=== PATIENT | female | born 1980 | race Caucasian/White ===

== ENCOUNTER 2024-09-19 12:26 | Emergency (ER) | payer SELFPAY ==
[2024-09-19 12:27] VITALS: BP 139/81; PULSE 61; RESP 16; TEMP 36.2; O2SAT 99; BMI 32.8
--- NOTE | 2024-09-19 12:49 | ED.VIS.BACK ---
HPI History of Present Illness Chief Complaint: Back Detail of Chief Complaint: Right flank pain sudden onset an hour ago. Informant: patient Onset/Context/Timing Onset: Today Context: Sudden Onset Timing: Continuous Quality: Sharp Current Severity: Moderate Maximum Severity: Moderate Worsened by: improves with Nothing Associated Symptoms Associated Symptoms: Negative for Numbness, Tingling, Radiation to Right Leg, Radiation to Left Leg, Fever, Abdominal Pain, Dysuria, Unable to Ambulate, Unable to Transfer, Urinary Retention, Urinary Incontinence, Constipation or Fecal Incontinence Narrative Narrative: 44-year-old female history of prior kidney stone prior hysterectomy. Prior cholecystectomy. States about an hour ago she developed right lower flank pain. Denies nausea, vomiting or diarrhea. No dysuria or hematuria. No pain radiating to her leg. No weakness in her lower extremities. No fall or trauma. Prior similar symptoms: Yes Recent Illness/Hospitalization: No PFSH PFSH Home Medications ?Medication ?Instructions ?Recorded ?Last Taken ?Type Control 1 tab DAILY 09/15/16 Unknown History oxycodone-acetaminophen 5 mg-325 1 - 2 tab PO Q4H PRN PRN Pain #12 09/15/16 Unknown Rx mg tablet tabs sulfamethoxazole 800 1 tab PO BID ##6 09/15/16 Unknown Rx mg-trimethoprim 160 mg tablet oxycodone-acetaminophen 5 mg-325 1 tab PO Q4H PRN pain 3 days #14 09/19/24 Unknown Rx mg tablet (Percocet) tabs Allergy/AdvReac Type Severity Reaction Status Date / Time hydromorphone (From Dilaudid) AdvReac VIOLENT Verified 09/19/24 12:29 BEHAVIOR ibuprofen AdvReac BARIATRIC Verified 09/19/24 12:29 SURGERY Social History Smoking Status: Never smoker ROS ROS ED ROS Narrative Right flank pain. No recent illness. Constitutional Constitutional ED: Denies chills or fever(s) Eyes Eyes: Denies blurry vision ENT ENT ED: Denies ear pain Cardiovascular Cardiovascular: Denies chest pain Respiratory/Chest Respiratory/Chest: Denies dyspnea Gastrointestinal Gastrointestinal: Denies abdominal pain, constipation, diarrhea, melena, nausea or vomiting Genitourinary Genitourinary ED: Denies dysuria or hematuria Musculoskeletal Musculoskeletal: Reports back pain; Denies arthralgias Integumentary Denies abscess Neurologic Neurologic: Denies headache(s) Psychiatric Psychiatric: Denies anxiety Endocrine Endocrinology: Denies cold intolerance Hematologic/Lymphatic Hematologic/Lymphatic: Denies easy bleeding Allergic/Immunologic Allergic/Immunologic ED: Denies mouth swelling EXAM Physical Exam Narrative Exam Narrative: Well-appearing middle-aged female. Vital signs stable afebrile. Does not sound toxic. Is complaining of pain. H EENT exam unremarkable. Neck nontender. Lungs clear to auscultation bilaterally. Heart regular rate and rhythm rate about 60 no murmur. Chest wall ribs nontender. Abdomen soft nontender. No peritoneal signs. No reproducible pain. No hernia or mass. No distention. Moving all 4 extremities. 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 Dorsi plantarflexion intact. No cauda equina. Negative straight leg raise. Back nontender. There is no reproducible pain on her back. Her right flank is where she complains of pain but is not reproducible. There is no signs of trauma. Skin unremarkable other multiple tattoos. She is awake and alert. No focal motor deficits. Const Vital Signs: 09/19/24 12:27 Temperature 97.2 F L Temperature Source Temporal Pulse Rate 61 Respiratory Rate 16 Blood Pressure 139/81 H Blood Pressure Mean 100 Pulse Ox 99 Oxygen Delivery Method Room Air Positive well nourished and well developed; Negative for cachectic, contractures or unkempt General Appearance ED: well developed and NAD; Negative for unkempt, cachectic, contractures or pallor Nutritional Appearance: Negative for cachectic HEENT Reports moist mucous membranes Negative for trauma or tenderness Eyes PERRL and EOMs intact bilaterally General Eye ED: Negative for pale conjunctiva or scleral icterus Neck no lymphadenopathy, supple and no JVD General: Negative for tenderness Thyroid: Negative for other Resp normal respiratory effort and clear to auscultation bilaterally Auscultation: Negative for rales, rhonchi, wheezes or diminished lung sounds Cardio regular rate, regular rhythm and S1 normal heart sound Rate: Negative for bradycardia or tachycardic Rhythm: Negative for abnormal rhythm Bruits: Negative for other GI normal to inspection, nondistended, normoactive bowel sounds, soft to palpation, non-tender, non-distended and no masses Inspection: Negative for abdominal distention Palpation: Negative for tender, guarding, pulsatile mass or rebound tenderness present Back/Spine normal to inspection and no thoracic nor lumbar tenderness General Back: Negative for CVA tenderness Cervical Spine: Negative for cervical spine tenderness and Negative for paracervical muscle tenderness Thoracic Spine / Upper Back: Negative for paraspinal muscle tenderness Lumbar Spine / Lower Back: Negative for ROM limited or straight leg raise negative bilaterally Extremity normal to inspection and no clubbing, cyanosis or edema General Extremety ED: Negative for edema or tenderness General Extremity: Negative for edema Neuro oriented x3 and no sensory deficits noted Sensorium / Orientation: alert; Negative for confused, lethargic or stuporous Motor Exam: strength 5/5 throughout Psych mental status grossly normal Appearance: Negative for unkempt Attitude: No agitated and No other Mood & Affect: Negative for depressed, sad or tearful Skin no rashes or lesions noted and no wounds General Skin Exam: Negative for jaundice or pallor Lesions: No lesion noted Rashes: No rashes noted Trauma: Negative for abrasion or puncture Wounds: Negative for wounds noted MDM MDM MDM Narrative Medical decision making narrative: 44-year-old female with right flank pain history of a kidney stone. The pain is not reproducible she has no abdominal pain. She has negative straight leg raise I do not think this is sciatica. It may or may not be a kidney stone. CAT scan labs will be obtained. She will be treated with morphine and Zofran for pain. Repeat exam patient is doing well at 2:30 PM. We discussed her test results. She will be given another dose of morphine and then discharged home. Discharged home with Percocet for pain. Zofran for nausea. She has used Percocet before in the past. She is not supposed to be on anti-inflammatories due to her prior bariatric surgery. History & Record Review Discussion w/independent historian: Patient Additional record(s) reviewed:: Prior inpatient record, Prior outpatient record, Prior ED visit and Prior labs Lab Data Attestation: I reviewed the patient's lab results. Lab results narrative: CBC shows normal white count of 7. H&H 13 and 40. Platelets 276. UA shows 150 occult blood. Negative nitrites. No white or red cells. No bacteria. Potassium 3.4. Gap 5. Normal BUN 10 creatinine 0.6. Glucose 92. Labs: Laboratory Results - last 24 hr 09/19/24 09/19/24 12:55 13:05 WBC 7.7 RBC 4.60 Hgb 13.5 Hct 40.6 MCV 88.3 MCH 29.3 MCHC 33.3 RDW Std Deviation 40.7 RDW Coeff of Sosa 12.6 Plt Count 276 MPV 9.3 Immature Gran % (Auto) 0.400 Neut % (Auto) 63.4 Lymph % (Auto) 27.6 [place]urry % (Auto) 5.7 Eos % (Auto) 2.1 Baso % (Auto) 0.8 Absolute Neuts (auto) 4.9 Absolute Lymphs (auto) 2.12 Nucleated RBC % 0 Sodium 142 Potassium 3.4 L Chloride 111 H Carbon Dioxide 26.0 Anion Gap 5 BUN 10 Creatinine 0.62 Estim Creat Clear Calc 126.54 Est GFR (MDRD) Af Amer 133 Est GFR (MDRD) Non-Af 110 BUN/Creatinine Ratio 16.1 Glucose 92 Calcium 9.0 Urine Color Yellow Urine Clarity Clear Urine pH 7.0 Ur Specific [place] 1.010 Urine Protein Negative Urine Glucose (UA) Normal Urine Ketones Negative Urine Occult Blood 150 H Urine Nitrite Negative Urine Bilirubin Negative Urine Urobilinogen Normal Ur Leukocyte Esterase 100 H Urine RBC 0-5 SEEN Urine WBC 0 SEEN Ur Squamous Epith Cells 0 SEEN Urine Bacteria 0 SEEN Urine Mucus 0 SEEN Radiography Diagnostic Testing: Clinical Impression(s) from Imaging Studies Abdomen/Pelvis CT 09/19/24 13:20 IMPRESSION: Right-sided hydroureteronephrosis secondary to a 4.3 mm calculus within the distal ureter. Colonic diverticulosis. 2.9 x 4.0 cm right ovarian cyst, consider pelvic ultrasound for further characterization. Electronically Signed: Kari Noriega MD at 14:03 EST , Discharge Plan Triage Chief Complaint: Back ED Provider: Ramesh Khan Dx/Rx/DC Orders Clinical Impression: Kidney stone on right side Instructions: ED Kidney Stone with Pain Prescriptions: New oxycodone-acetaminophen [Percocet] 5-325 mg tablet 1 tab PO Q4H PRN (Reason: pain) 3 Days Qty: 14 0RF No Action Control 1 tab DAILY sulfamethoxazole-trimethoprim 1 TABLET tablet 1 tab PO BID Qty: 6 0RF oxycodone-acetaminophen 1 TABLET tablet 1 - 2 tab PO Q4H PRN PRN (Reason: Pain) Qty: 12 0RF Primary Care Provider: Viviane Wasserman NP Referrals: Jatinder Pruitt MD [Med Staff - Active Staff] - 3-5 Days if not improving Viviane Wasserman NP, [facility] [Primary Care Provider] - Activity Restrictions/Additional Instructions: Plenty of fluids and rest. Percocet for pain. Zofran as needed for nausea. Return if intractable pain, fever or intractable vomiting. This stone should pass in the next 24 to 72 hours. If not improving you can follow-up with the urologist. Print Language: Hebrew Disposition Disposition: Home, Self Care
[2024-09-19] MEDS: morphine 8 MG/ML Syringe IV (12:58)
[2024-09-19] MEDS: Ondansetron 4 MG/2 ML Vial IV (12:58)
[2024-09-19 13:01] LABS: Absolute Lymphocyte Count 2.12 X10^3/uL (0.83-4.51); Absolute Neutrophil Count 4.9 X10^3/uL (2.0-7.7); Basophil# 0.06 X10^3/uL; Basophil% 0.8 % (0-1); Eosinophil# 0.16 X10^3/uL; Eosinophils% 2.1 % (0-5); Hematocrit 40.6 % (37-47); Hemoglobin 13.5 g/dL (12.0-15.0); Lymphocyte # 2.12 X10^3/ul (0.83-4.51); Lymphocyte % 27.6 % (19-41); Mean Corp Hgb Conc 33.3 g/dL (32-36); Mean Corpuscular Hgb 29.3 pg (27.0-32.0); Mean Corpuscular Volume 88.3 fL (81-99); Mean Platelet Vol. 9.3 fl (6.2-12.0); Monocyte# 0.44 X10^3/uL; Monocyte% 5.7 % (0-10); NRBC Flagged by Analyzer 0 % (0-5); Neutrophil # 4.87 X10^3/uL (2.7-7.7); Neutrophil % 63.4 % (47-70); Platelet Count 276 K/mm3 (150-450); RBC Distribution Width CV 12.6 % (11.6-14.6); RBC Distribution Width SD 40.7 fl (35.1-43.9); White Blood Count 7.7 K/mm3 (4.4-11.0)
[2024-09-19 13:09] LABS: Bacteria 0 SEEN /hpf (None Seen); Mucous, Urine 0 SEEN /hpf (<or=2+); Squamous Epithelial Cells - UA 0 SEEN /hpf (5-10); White Blood Cells 0 SEEN /hpf (0-5)
[2024-09-19 13:13] LABS: Color, Urine Yellow (Yellow); Glucose, Dipstick Normal (Normal); Ketone-Dipstick Negative (Negative); Leukocyte Esterase-Dipstick 100 /ul (Negative); Nitrite-Dipstick Negative (Negative); Occult Blood-Urine 150 /ul (Negative); Protein-Dipstick Negative (Negative); Urine Bilirubin Dipstick Negative (Negative); Urine Clarity Clear (Clear); Urine Urobilinogen Normal (Normal)
--- NOTE | 2024-09-19 13:20 | CT_ITS ---
INDICATION: Pain EXAMINATION: CT ABDOMEN AND PELVIS WITHOUT CONTRAST - CT Abdomen And Pelvis W/O Contrast Injection TECHNIQUE: Helically acquired images were obtained of the abdomen and pelvis without oral or IV contrast. The protocol utilizes one or more of the following dose reduction techniques: automated exposure control, adjustment of mA and/or kV according to patient size,and/or use of iterative reconstruction technique. IV Contrast dosage and agent: None. Oral contrast: None. RADIATION DOSAGE (If Supplied By Facility): CTDIvol = ( 17.28 ) mGy, DLP = ( 924.06 ) mGycm COMPARISON: No relevant prior comparison study available FINDINGS: LOWER CHEST: Lung bases are clear. No cardiomegaly or pericardial effusion. The lack of intravenous contrast limits evaluation of solid visceral organs. LIVER: Homogeneous. No focal mass. GALLBLADDER AND BILIARY TREE: There is nonvisualization of the gallbladder. . No intra- or extrahepatic biliary ductal dilation. PANCREAS: No focal cystic or solid mass. SPLEEN: Normal size without focal cystic or solid mass. ADRENAL GLANDS: No nodules. KIDNEYS AND URETERS: Normal renal size and position. There is right-sided hydroureteronephrosis secondary to a 4.3 mm calculus within the distal ureter. There is a punctate nonobstructing left renal calculus. PERITONEUM: No ascites or free air. No other fluid collection. BOWEL: There are postsurgical changes of the stomach. No evidence of acute appendicitis. No stomach or bowel distension. There are diverticula arising from the colon. No focal inflammatory change. LYMPH NODES: No enlarged mesenteric or retroperitoneal lymph nodes. VESSELS: Aorta is non-dilated. URINARY BLADDER: Unremarkable. REPRODUCTIVE ORGANS: There is a 2.9 x 4.0 cm round low-attenuation focus within the right adnexa. ABDOMINAL WALL: There are postsurgical changes along the lower anterior abdominal wall. BONES: No lytic or blastic abnormality. CT/Abdomen/Pelvis without Cont IMPRESSION: Right-sided hydroureteronephrosis secondary to a 4.3 mm calculus within the distal ureter. Colonic diverticulosis. 2.9 x 4.0 cm right ovarian cyst, consider pelvic ultrasound for further characterization. Electronically Signed: Kari Noriega MD at 14:03 EST ,
[2024-09-19 13:22] LABS: Red Blood Cells-Urine 0-5 SEEN /hpf (0-5)
[2024-09-19 13:23] LABS: Anion Gap 5 (5-15); BUN 10 mg/dL (7-18); BUN/Creat Ratio 16.1 RATIO (10-20); Chloride 111 mmol/L (98-107); Creatinine, Serum 0.62 mg/dL (0.55-1.02); EST Glomerular Filtration Rate 110 mL/min (>60); Est Glom Filt Rate - Afr Amer 133 mL/min (>60); Estimated Creatinine Clearance 126.54 ml/min; Glucose 92 mg/dL (74-106); Potassium 3.4 mmol/L (3.5-5.1); Sodium Level 142 mmol/L (136-145)
[2024-09-19] MEDS: morphine 8 MG/ML Syringe 6 MG IV (14:41)
[2024-09-19 14:47] VITALS: BP 116/71; PULSE 71; RESP 18; TEMP 36.6; O2SAT 98
== END 2024-09-19 15:02 | disposition home or self-care (01) ==
PROVIDERS: Emergency Provider Emergency Medicine; PCP Nurse Practitioner Primary Care; Visit Provider Emergency Medicine
DX: N13.2 Hydronephrosis with renal and ureteral calculous obstruction (principal)
CPT/HCPCS: 74176; 80048; 81001; 85025; 96374; 96375; 96376; 99282; A4216; J2405

== ENCOUNTER 2025-03-22 23:12 | Emergency (ER) | payer MEDICAID, SELFPAY ==
[2025-03-22 23:13] VITALS: BP 138/88; PULSE 66; RESP 18; TEMP 36.2; O2SAT 98
[2025-03-22 23:32] VITALS: BMI 35.6
--- OUTSIDE RECORDS SUMMARY | 2025-03-23 00:26 | XMS RPT_ITS | CCD ---
Author Organization [facility] Care Team Providers Care Career Development Coordinator/Teacher Name Role Phone SAMRA SINGH, KIANNA Primary Care Physician ( [phone] Unavailable Primary Care Provider Unavailabl e PROVIDER, UNKNOWN Referring Unavailable Kenny Nugent Attending Unavailable Cristina, Kianna Primary Care Unavailable Kenny Nugent Attending Unavailable PROVIDER, UNKNOWN Referring Unavailable Cristina, Kianna Primary Care Unavailable Kenny Nugent Referring Unavailable Kenny Nugent Attending Unavailable PROVIDER, UNKNOWN Referring Unavailable Lisa Villa Attending Unavailable PROVIDER, UNKNOWN Referring Unavailable Cristina, Kianna Primary Care Unavailable Allen Lisa Attending Unavailable PROVIDER, UNKNOWN Referring Unavailable Cristina, Kianna Primary Care Unavailable Allen Lisa Attending Unavailable PROVIDER, UNKNOWN Referring Unavailable Cristina, Kianna Primary Care Unavailable Allen Lisa Attending Unavailable LISA VILLA Attending Unavailable KENNY NUGENT Admitting Unavailable KENNY NUGENT Attending Unavailable BARBIE LEWIS Attending Unavailable CLARK GARVEY Attending Unavailable Unavailable Primary Care Provider Unavailabl COLEMAN Finnegan Attending Unavailable None, Pcp Primary Care Provider Unavailabl e SAMRA SINGH, KIANNA Primary Care Unavailgama SOLIS MD, DR HINDS Attending Unavailabl e None, Pcp Primary Care Provider Unavailabl e Semarjorie, Ana Rosa Primary Care Provider Elma PACHECO, Annika Malloy Unavailable Unavailab [place]al[place], [facility] Primary Care Provider Unav Kenny Brady MD Unavailable Ana Rosa Espitia Primary Care Provider Elma PACHECO, Annika Malloy Unavailable UnavailKenny Bird MD Unavailable KASEY MORALEZ Attending Unavailable KENNY NUGENT Attending Unavailable TALIB ESPITIASIE Primary Care Unavailable KENNY NUGENT Attending Unavailable INC, SUM[facility] Primary Care Unavailable CLARK GARVEY Attending Unavailable RAFFI, KENNY Attending Unavailable SEFFENS, ANA ROSA Primary Care Unavailable RAFFI, KENNY Attending Unavailable RAFFI, KENNY Admitting Unavailable SEFFENS, ANA ROSA Primary Care Unavailable BRIDLE, PARISH Referring Unavailable GELY WHEAT Attending Unavailable SEFFENS, ANA ROSA Primary Care Unavailable NYLAND, BENEDICTO Admitting Unavailable NYLAND, BENEDICTO Attending Unavailable ALLEN, LISA Attending Unavailable INC, SUMMA Primary Care Unavailable BRIDLE, PARISH Attending Unavailable INC, SUMMA Primary Care Unavailable BRIDLE, PARISH Attending Unavailable SEFFENS, ANA ROSA Primary Care Unavailable BRIDLE, PARISH Referring Unavailable BRIDLE, PARISH Attending Unavailable BRIDLE, PARISH Referring Unavailable BRIDLE, PARISH Referring Unavailable SEFFENS, ANA ROSA Primary Care Unavailable SHASHANK JANSEN Referring Unavailable SEFFENS, ANA ROSA Primary Care Unavailable BRIDLE, PARISH Attending Unavailable RAFFI, KENNY Attending Unavailable SEFFENS, ANA ROSA Primary Care Unavailable INC, [facility]MA Primary Care Unavailable RENETTA MILLAN Attending Unavailable ALLEN, LISA Attending Unavailable SEFFENS, ANA ROSA Primary Care Unavailable BRIDLE, PARISH Attending Unavailable RAFFI, KENNY Attending Unavailable RAFFI, KENNY Admitting Unavailable RAFFI, KENNY Admitting Unavailable SEFFENS, ANA ROSA Primary Care Unavailable RAFFI, KENNY Attending Unavailable BARBIE LEWIS Referring Unavailable ALLEN, LISA Attending Unavailable Unavailable Primary Care Provider Unavailabl e None, Pcp Primary Care Provider UnavailKianna Layton Primary Care Provider [phone] Kianna Cristina Unavailable None, Pcp Primary Care Provider Unavailabl e Unavailable Primary Care Provider Unavailabl e MAL JOSHUA Attending Unavailable Ramesh Khan Attending Unavailable Viviane Wasserman Primary Care Unavailable Allergies Allergy Classification Reported Allergen(s) Allergy Type Date of Onset Reaction(s) Facility (20 sources) HYDROmorphone; Translations: [hydromorphone] Drug Allergy 2 Mood Fluctuation, Other [facility] (20 sources) metFORMIN; Translations: [metformin] Drug Allergy 3 [facility] (1 source) HYDROmorphone Drug Allergy 4 [facility] (1 source) Ibuprofen Drug Allergy 4 [facility] Medications Current Medications Medication Drug Class(es) Dates Sig (Normalized) Sig (Original) Alcohol Swabs (2 sources) Start: 05-03-2020 Alcohol Swabs See Instructions, once daily R73.01, # 30 EA, 4 Refill(s), Pharmacy: [facility], Impaired fasting glucose, 169, cm, 05/03/20 7:32:00 EDT, Height, 121.9, kg, 05/03/20 7:32:00 EDT, Dosing Weight Start Date: 05/03/20 Status: Ordered Biotin (3 sources) BIOTIN 10,000 TA BLET Active BIOTIN PO Take b y mouth. 0 Active Blood Glucose Test Machine (2 sources) Start: 03-22-2021 Blood Glucose Test Machine See Instructions, once daily R73.01, # 1 EA, 0 Refill(s), Pharmacy: [facility], Impaired fasting glucose, 169, cm, 03/22/21 16:03:00 EDT, Height, 124.4, kg, 03/22/21 16:03:00 EDT, Dosing Weight Start Date: 03/22/21 Status: Ordered Calcium Carbonate (12 sources) calcium carbonat e (CALCIUM 300 ORAL) Take by mouth. Active calcium carbonat e (Tums) 500 MG chewable tablet Chew 500 mg 3 times daily. 0 Active cephalexin 500 mg oral capsule (1 source) Cephalosporin Antibacterial Start: 12-09-2022 End: 12-14-2022 cephalexin 500 mg oral capsule Dose : 500 mg = 1 cap(s), Oral, q12h, X 5 day(s), # 10 cap(s), 0 Refill(s), 12/14/22 21:32:00 EDT, 113.6 Start Date: 12/09/22 Stop Date: 12/14/22 Status: Ordered empagliflozin 25 mg oral tablet (20 sources) Sodium-Glucose Cotransporter 2 Inhibitor Start: 05-22-2021 End: 03-07-2023 empagliflozin (Jardiance) 25 MG Take 25 mg by mouth. 0 05/30/2021 Active Flonase 50 mcg/inh nasal spray (1 source) Start: 03-22-2021 End: 07-20-2021 take 1 dose nasal route once daily Flonase 50 mcg/inh nasal spray Dose = 2 spray(s), Nostril, each, qDay, # 16 gram(s), 3 Refill(s), Pharmacy: [facility] 169, cm, 03/22/21 16:03:00 EDT, Height, kg, 03/22/21 16:03:00 EDT, Dosing Weight Start Date: 03/22/21 Stop Date: 07/20/21 Status: Ordered fluticasone propionate 0.05 mg/actuat metered dose nasal spray (20 sources) Corticosteroid Start: 08-04-2022 take 2 spray(s) nasal route once daily fluticasone (Flonase) 50 MCG/ACT nasal spray place 2 sprays into each nostril once daily 08/04/2022 Active Start: 08-04-2022 End: 12-02-2022 take 1 dose nasal route once daily Flonase 50 mcg/inh nasal spray Dose = 2 spray(s), Nostril, each, qDay, # 16 gram(s), 3 Refill(s), [facility]acy: [facility] #[id number], 167.6, cm, 08/04/22 13:33:00 EST, Height, kg, 08/04/22 13:33:00 EST, Dosing Weight Start Date: 08/04/22 Stop Date: 12/02/22 Status: Ordered ibuprofen 200 mg oral tablet (2 sources) Nonsteroidal Anti-inflammatory Drug Start: 12-15-2020 ibuprofen 200 mg oral tablet Dose : 400 mg = 2 tab(s), Oral, q6hr, PRN pain or fever, 0 Refill(s) Start Date: 12/15/20 Status: Ordered iron,carb/vit C/vit B12/folic (IRON 100 PLUS ORAL) (1 source) iron,carb/vit C/vit B12/folic (IRON 100 PLUS ORAL) Take by mouth. Active Lactobac no.41/Bifidobact no.7 (PROBIOTIC-10 ORAL) (1 source) Lactobac no.41/Bifidobact no.7 (PROBIOTIC-10 ORAL) Take by mouth. Active meclizine hydrochloride 25 mg oral tablet (20 sources) Antiemetic Start: 03-25-2022 End: 08-04-2023 meclizine (Antivert) 25 MG tablet Take 25 mg by mouth if needed. 03/25/2022 Active Start: 05-21-2020 take 1 tablet by kike th three times daily for dizziness meclizine 25 mg oral tablet See Instructions, take 1 tablet by mouth three times a day if needed for dizziness, # 60 tab(s), 8 Refill(s), Pharmacy: [facility] [address] 169, cm, 05/03/20 7:32:00 EDT, Height, kg, 05/03/20 7:32:00 EDT, Dosing Weight Start Date: 05/21/20 Status: Ordered Medrol Dosepak 4 mg oral tablet (1 source) Start: 07-06-2021 End: 07-12-2021 Medrol Dosepak 4 mg oral tablet 1 packet(s), Oral, qDay, as directed on package labeling, X 6 day(s), # 21 tab(s), 0 Refill(s), 07/12/21 8:02:00 EDT, [facility] [address] 167.6, cm, 07/06/21 7:47:00 EDT, Height, kg, 07/06/21 7:47:00 EDT, Dosing Weight Start Date: 07/06/21 Stop Date: 07/12/21 Status: Ordered omeprazole 20 mg delayed release oral capsule (14 sources) Proton Pump Inhibitor Start: 02-11-2023 take 1 capsule by mouth once daily omeprazole (PriLOSEC) [address] capsule Take 1 capsule (20 mg) by mouth daily. Do not crush or chew. 90 capsule 1 02/11/2023 Active Start: 11-15-2020 omeprazole 20 mg oral delayed release capsule Dose : 20 mg = 1 cap(s), Oral, qDay, # 90 cap(s), 0 Refill(s), Pharmacy: [facility] [address] 167, cm, 11/15/20 14:18:00 EST, Height, kg, 11/15/20 14:18:00 EST, Dosing Weight Start Date: 11/15/20 Status: Ordered Pediatric Multivitamins-Iron (CHILDRENS MULTIVITAMIN/IRON PO) (11 sources) take 1 tablet by mouth at bedtime Pediatric Multivitamins-Iron (CHILDRENS MULTIVITAMIN/IRON PO) Take 1 tablet by mouth before bedtime. 0 Suspended take 1 tablet by mouth at bedtim e Pediatric Multivitamins-Iron (CHILDRENS MULTIVITAMIN/IRON PO) Take 1 tablet by mouth before bedtime. 0 Active sucralfate 100 mg/ml oral suspension (4 sources) Aluminum Complex Start: 03-11-2023 take 10 mL by mouth three times daily, then take 10 mL by mouth three times daily sucralfate (Carafate) 1 GM/10ML suspension Take 10 mL (1 g) by mouth 3 times daily. Take 10 mL by mouth three times daily. Avoid eating/drinking for 1 hour after taking. 900 mL 3 03/11/2023 Active SUMAtriptan 50 mg oral tablet (20 sources) Serotonin-1b and Serotonin-1d Receptor Agonist Start: 01-25-2022 End: 02-27-2023 SUMAtriptan (Imitrex) 50 MG tablet Take 50 mg by mouth if needed. 01/25/2022 Active Start: 04-11-2020 SUMAtriptan 50 mg oral tablet Dose : 50 mg = 1 tab(s), Oral, qDay, PRN as needed for migraine headache, 1 tab onset , may repeat in 2 hrs. MAX 4 tab(s)/24hrs, # 9 tab(s), 4 Refill(s), Pharmacy: [facility], 168.5, cm, 04/11/20 7:34:00 EDT, Height, kg, 04/11/20 7:34:00... Start Date: 04/11/20 Status: Ordered tropicamide 10 mg/ml ophthalmic solution (2 sources) Anticholinergic Start: 11-03-2024 End: 11-03-2024 tropicamide 1 % 1 Drop (MYDRIACYL) Start: 11-03-2024 End: 11-03-2024 1 Drop, BOTH EYES, DIRECT ED, Starting on Skylar 11/03/24 at 1100, Until Skylar 11/03/24 at 2259, Administer for dilation vitamin b12 0.5 mg oral tablet (11 sources) Vitamin B12 take 1 tablet by mouth once daily cyanocobalamin (Vitamin B-12) 500 MCG tablet Take 500 mcg by mouth daily. 0 Active VITAMIN D, CHOLECALCIFEROL, PO (11 sources) VITAMIN D, SELENA CALCIFEROL, PO Take 4,000 Int'l Units by mouth before bedtime. 0 Suspended VITAMIN D, SELENA CALCIFEROL, PO Take 4,000 Int'l Units by mouth before bedtime. 0 Active Completed/Discontinued Medications Medication Drug Class(es) Dates Sig (Normalized) Sig (Original) acetaminophen 500 mg oral tablet (3 sources) Start: 02-26-2023 End: 02-26-2023 acetaminophen (Tylenol) tablet 1,000 mg Start: 02-26-2023 End: 02-26-2023 acetaminophen (Tylenol) tabl et 1,000 mg Start: 08-20-2019 take 2 tablets by mo uth every six hours as needed acetaminophen (TYLENOL) 325 mg tablet Take 2 tablets by mouth every 6 hours as needed for Pain. 30 tablet 08/20/2019 Active Acetaminophen / oxyCODONE (9 sources) Opioid Agonist Start: 02-27-2023 End: 02-27-2023 take 1 tablet by mouth every four hours as needed for pain oxyCODONE-acetaminophen (Percocet) 5-325 MG per tablet 1 tablet Start: 02-26-2023 End: 03-08-2023 take 1 tablet by mouth every six hours as needed for pain oxyCODONE-acetaminophen (Percocet) 5-325 MG tablet Indications: Morbid obesity with BMI of 40.0-44.9, adult (HCC) Take 1 tablet by mouth every 6 hours as needed for severe pain (7-10) for up to 7 days. 28 tablet 0 02/26/2023 03/08/2023 Discontinued albuterol 0.83 mg/ml inhalation solution (4 sources) beta2-Adrenergic Agonist Start: 02-27-2023 End: 02-27-2023 albuterol (2.5 MG/3ML) 0.083% nebulizer solution 2.5 mg Start: 08-20-2019 take 2.5 mg by inhal ation every six hours as needed albuterol (PROVENTIL) 2.5 mg /3 mL (0.083 %) nebulizer solution Use 3 mL via nebulizer every 6 hours as needed for Wheezing/Shortness of Breath. Inhale by nebulizer over 5-15 minutes. 30 Vial 08/20/2019 Active Start: 08-20-2019 take 2 puff(s) by in halation every four hours as needed albuterol HFA (PROAIR HFA) 90 mcg/actuation inhaler Inhale 2 Puffs as instructed every 4 hours as needed. 1 Inhaler 08/20/2019 Active ALPRAZolam 0.25 mg disintegrating oral tablet (2 sources) Benzodiazepine Start: 02-26-2023 End: 02-26-2023 ALPRAZolam (Xanax) disintegrating tablet 0.25 mg azithromycin 250 mg oral tablet (7 sources) Macrolide Antimicrobial Start: 08-04-2022 End: 10-14-2022 azithromycin (Zithromax) 250 MG tablet take 2 tablets by mouth on day 1 then 1 daily until finished 0 08/04/2022 10/14/2022 Discontinued (Med list cleanup) barium sulfate (E-Z-Paque) 96 % suspension 183 mL (2 sources) Start: 10-10-2022 End: 10-10-2022 barium sulfate (E-Z-Paque) 96 % suspension 183 mL benzonatate 100 mg oral capsule (8 sources) Non-narcotic Antitussive Start: 08-06-2022 End: 10-14-2022 take 1 capsule by mouth every eight hours for cough benzonatate (Tessalon) 100 MG capsule take 1 capsule by mouth every 8 hours if needed for cough 0 08/06/2022 10/14/2022 Discontinued (Med list cleanup) Start: 12-30-2019 benzonatate (T ESSALON PERLES) 100 mg capsule Indications: Flu-like symptoms 1-2 capsules up to 3 times per day for cough. 30 capsule 12/30/2019 Active calcium chloride 0.0014 meq/ml / potassium chloride 0.004 meq/ml / sodium chloride 0.103 meq/ml / sodium lactate 0.028 meq/ml injectable solution (2 sources) Start: 02-26-2023 End: 02-26-2023 lactated Ringer's (LR) infusion cefdinir 300 mg oral capsule (8 sources) Cephalosporin Antibacterial Start: 01-25-2022 End: 01-17-2023 take 1 capsule by mouth every twelve hours cefdinir (Omnicef) 300 MG capsule take 1 capsule by mouth every 12 hours for 10 days 0 01/25/2022 10/14/2022 Discontinued (Med list cleanup) Start: 07-06-2021 End: 07-16-2021 cefdinir 300 mg oral capsule Dose : 300 mg = 1 cap(s), Oral, q12h, X 10 day(s), # 20 cap(s), 0 Refill(s), 07/16/21 8:02:00 EDT, Pharmacy: [facility], 167.6, cm, 07/06/21 7:47:00 EDT, Height, 111.4, kg, 07/06/21 7:47:00 EDT, Dosing Weight Start Date: 07/06/21 Stop Date: 07/16/21 Status: Ordered celecoxib 400 mg oral capsule (2 sources) Nonsteroidal Anti-inflammatory Drug Start: 02-26-2023 End: 02-26-2023 celecoxib (CeleBREX) capsule 400 mg Start: 02-26-2023 End: 02-26-2023 celecoxib (CeleBREX) capsule 400 mg cetirizine hydrochloride 10 mg oral tablet (20 sources) Histamine-1 Receptor Antagonist Start: 04-11-2020 End: 02-27-2023 cetirizine (ZyrTEC) tablet 10 mg diatrizoate meglumine-sodium (Gastrografin) 66-10 % solution 60 mL (2 sources) Start: 02-27-2023 End: 02-27-2023 diatrizoate meglumine-sodium (Gastrografin) 66-10 % solution 60 mL diclofenac sodium 0.01 mg/mg topical gel (7 sources) Nonsteroidal Anti-inflammatory Drug Start: 12-09-2021 End: 10-14-2022 Diclofenac Sodium (Voltaren) 1 % gel apply to affected area up to four times a day 0 12/09/2021 10/14/2022 Discontinued (Med list cleanup) 0.4 ml enoxaparin sodium 100 mg/ml prefilled syringe (2 sources) Low Molecular Weight Heparin Start: 02-26-2023 End: 02-27-2023 inject 1 dose by subcutaneous injection twice daily 40 mg, SubCUTAneous, Every 12 hours scheduled (2 times per day), First dose on Skylar 02/26/23 at 2100, Phase II/On Unit 60mg q12h, subcutaneous, if > 400lbs or BMI>50 Indication of Use: Prophylaxis-DVT/P E famotidine 20 mg oral tablet (4 sources) Histamine-2 Receptor Antagonist Start: 02-27-2023 End: 02-27-2023 famotidine (Pepcid) tablet 20 mg Start: 02-26-2023 End: 02-26-2023 famotidine (Pepcid) tablet 2 0 mg Start: 02-26-2023 End: 02-26-2023 famotidine (Pepcid) tablet 2 0 mg fluconazole 150 mg oral tablet (7 sources) Azole Antifungal Start: 01-25-2022 End: 10-14-2022 take 1 tablet by mouth once fluconazole (Diflucan) 150 MG tablet take 1 tablet by mouth A ONE TIME DOSE 0 01/25/2022 10/14/2022 Discontinued (Med list cleanup) gabapentin 100 mg oral capsule (2 sources) Anti-epileptic Agent Start: 02-26-2023 End: 02-26-2023 gabapentin (Neurontin) capsule 100 mg Start: 02-26-2023 End: 02-26-2023 gabapentin (Neurontin) capsu le 100 mg 12 hr guaiFENesin 600 mg extended release oral tablet (7 sources) Start: 08-04-2022 End: 10-14-2022 take 1 tablet by mouth in the morning, then take 1 tablet by mouth every twelve hours in the evening guaiFENesin (Mucinex) 600 MG 12 hr tablet Take 1,200 mg by mouth in the morning and 1,200 mg in the evening. 0 08/04/2022 10/14/2022 Discontinued (Med list cleanup) 0.5 ml heparin sodium, porcine 90320 unt/ml prefilled syringe (2 sources) Unfractionated Heparin, Anti-coagulant Start: 02-26-2023 End: 02-26-2023 heparin injection 5,000 Units Start: 02-26-2023 End: 02-26-2023 heparin injection 5,000 Unit s iopamidol (Isovue-370) 76 % injection 100 mL (1 source) Start: 03-07-2023 End: 03-07-2023 iopamidol (Isovue-370) 76 % injection 100 mL 1 ml ketorolac tromethamine 30 mg/ml cartridge (9 sources) Nonsteroidal Anti-inflammatory Drug, Cyclooxygenase Inhibitor Start: 02-26-2023 End: 02-27-2023 15 mg, IntraVENous, Every 6 hours scheduled (4 times per day), First dose on Skylar 02/26/23 at 1800, For 5 doses Start: 03-26-2022 End: 10-14-2022 take 1 tablet by mouth four times daily ketorolac (Toradol) 10 MG tablet take 1 tablet by mouth four times a day for 5 days if needed for ... (REFER TO PRESCRIPTION NOTES). 0 03/26/2022 10/14/2022 Discontinued (Med list cleanup) 1 ml LORazepam 2 mg/ml injection (2 sources) Benzodiazepine Start: 02-26-2023 End: 02-26-2023 LORazepam (Ativan) injection 0.5 mg methocarbamol 500 mg oral tablet (2 sources) Muscle Relaxant Start: 03-08-2023 End: 04-01-2023 take 1 tablet by mouth three times daily as needed for muscle spasms methocarbamol (Robaxin) 500 MG tablet Take 1 tablet (500 mg) by mouth 3 times daily as needed for muscle spasms (abdominal cramping) for up to 5 days. 15 tablet 0 03/08/2023 04/01/2023 Discontinued (Therapy completed) 1 ml morphine sulfate 4 mg/ml injection (2 sources) Opioid Agonist Start: 02-26-2023 End: 02-26-2023 morphine sulfate (PF) injection 2 mg morphine sulfate (PF) injection 2 mg (2 sources) Start: 02-26-2023 End: 02-27-2023 morphine sulfate (PF) injection 2 mg nabumetone 500 mg oral tablet (7 sources) Nonsteroidal Anti-inflammatory Drug Start: 09-17-2021 End: 10-14-2022 take 1 tablet by mouth at mealtime nabumetone (Relafen) 500 MG tablet Take 500 mg by mouth. Take with food. 0 09/17/2021 10/14/2022 Discontinued (Med list cleanup) ondansetron 4 mg oral tablet (20 sources) Serotonin-3 Receptor Antagonist Start: 02-26-2023 End: 03-09-2023 take 1 tablet by mouth every eight hours as needed for nausea and vomiting ondansetron (Zofran) 4 MG tablet Take 1 tablet (4 mg) by mouth every 8 hours as needed for nausea or vomiting for up to 7 days. 20 tablet 0 02/26/2023 03/09/2023 Discontinued (Stop taking at discharge) Start: 02-26-2023 End: 02-26-2023 ondansetron (Zofran) injecti on 4 mg Start: 03-24-2022 End: 03-08-2023 ondansetron ODT (Zofran-ODT) 4 MG disintegrating tablet dissolve 1 tablet ON TONGUE every 8 hours if needed for nausea and vomiting 0 03/24/2022 03/08/2023 Discontinued (Reorder) Start: 04-11-2020 ondansetron 4 mg oral tablet Dose : 4 mg = 1 tab(s), Oral, q6h, PRN Nausea/Vomiting, # 20 tab(s), 1 Refill(s), Pharmacy: [address], 168.5, cm, 04/11/20 7:34:00 EDT, Height, kg, 04/11/20 7:34:00 EDT, Dosing Weight Start Date: 04/11/20 Status: Ordered ondansetron ODT (Zofran-ODT) disintegrating tablet 4 mg (2 sources) Start: 02-26-2023 End: 02-27-2023 take 1 tablet by mouth every eight hours as needed for nausea and vomiting ondansetron ODT (Zofran-ODT) disintegrating tablet 4 mg pantoprazole 40 mg injection (2 sources) Proton Pump Inhibitor Start: 02-26-2023 End: 02-27-2023 pantoprazole (ProtoNix) injection 40 mg polymyxin b 81125 unt/ml / trimethoprim 1 mg/ml ophthalmic solution (7 sources) Dihydrofolate Reductase Inhibitor Antibacterial, Polymyxin-class Antibacterial Start: 12-07-2021 End: 10-14-2022 take 1 drop(s) into the eye(s) every three hours trimethoprim-polymy sandhya b (Polytrim) ophthalmic solution instill 1 drop into right eye every 3 hours for 7 days 0 12/07/2021 10/14/2022 Discontinued (Med list cleanup) 1000 ml potassium chloride 0.02 meq/ml / sodium chloride 4.5 mg/ml injection (2 sources) Start: 02-26-2023 End: 02-27-2023 sodium chloride 0.45 % with KCl 20 mEq/L infusion 1 ml promethazine hydrochloride 25 mg/ml injection (2 sources) Phenothiazine Start: 02-26-2023 End: 02-26-2023 promethazine (Phenergan) injection 12.5 mg 5 ml sodium chloride 9 mg/ml injection (8 sources) Start: 02-26-2023 End: 02-27-2023 10 mL, IntraVENous, Every 12 hours scheduled (2 times per day), First dose on Skylar 02/26/23 at 2100, Phase II/On Unit Start: 02-26-2023 End: 02-27-2023 5-250 mL/hr, IntraVENous, HI N, if patient receiving piggyback infusions and maintenance fluids are not ordered OR KVO fluids to protect IV site / prevent frequent line interruptions/ long duration, Starting on Skylar 02/26/23 at 1427, Phase II/On Unit For piggyback infusion, administer at same rate as piggyback for a total of 25 mL. Enter 25 mL into dose field and piggyback rate into rate field of order. If piggyback is infusing at a rate less than 100 mL/hr, enter 25 mL into dose field and 100 mL/hr into rate field of order. For KVO fluids, enter rate of 20 mL/hr or less into rate field of order. Start: 02-26-2023 End: 02-27-2023 take 10 mL intravenously once 10 mL, IntraVENous, PRN, line care, Starting on Skylar 02/26/23 at 1427, Phase II/On Unit After every IV line use Start: 02-26-2023 End: 02-26-2023 sodium chloride 0.9 % bolus 500 mL Problems Active Problems Problem Classification Problem Date Documented Date Episodic/Chronic Abdominal pain (20 sources) Epigastric pain; Translations: [Lower abdominal pain] Onset: 2 Episodic Anxiety disorders (4 sources) Anxiety; Translations: [Obsessive-compulsive disorder] 04-11-2020 Chronic Benign neoplasm of uterus (2 sources) Intramural leiomyoma of uterus 11-12-2016 Episodic Blindness and vision defects (1 source) Presbyopia; Translations: [Presbyopia] 11-03-2024 Episodic Conditions associated with dizziness or vertigo (3 sources) Benign paroxysmal positional vertigo; Translations: [Dizziness] 04-11-2020 Episodic Diabetes mellitus with complications (20 sources) Type II diabetes mellitus uncontrolled; Translations: [Type 2 diabetes mellitus] Onset: 2 07-06-2021 Chronic Diabetes mellitus without complication (17 sources) Diabetes mellitus; Translations: [Type 2 diabetes mellitus without complications] Onset: 7 04-29-2021 Chronic Diabetes mellitus without complication (2 sources) Impaired fasting glycemia 05-03-2020 Episodic Diabetes or abnormal glucose tolerance complicating ; childbirth; or the puerperium (2 sources) Gestational diabetes mellitus 11-12-2016 Episodic Esophageal disorders (10 sources) Gastroesophageal reflux disease; Translations: [Gastroesophageal reflux disease without esophagitis] Onset: 3 11-15-2020 Chronic Genitourinary symptoms and ill-defined conditions (2 sources) Dysuria 02-10-2018 Episodic Headache; including migraine (2 sources) Migraine 04-11-2020 Chronic Mood disorders (2 sources) Depressive disorder 11-12-2016 Chronic Other gastrointestinal disorders (7 sources) Intestinal malabsorption; Translations: [Intestinal malabsorption, unspecified] 03-04-2023 Chronic Other gastrointestinal disorders (2 sources) Intestinal malabsorption, unspecified; Translations: [Intestinal malabsorption, unspecified] Onset: 3 Chronic Other nervous system disorders (2 sources) Carpal tunnel syndrome 06-19-2020 Chronic Other nutritional; endocrine; and metabolic disorders (2 sources) Body mass index 30+ - obesity 07-06-2021 Chronic Other nutritional; endocrine; and metabolic disorders (20 sources) Morbid obesity; Translations: [Morbid (severe) obesity due to excess calories] Onset: 2 07-06-2021 Chronic Other nutritional; endocrine; and metabolic disorders (8 sources) Morbid (severe) obesity due to excess calories; Translations: [Morbid (severe) obesity due to excess calories] Onset: 2 Chronic Other nutritional; endocrine; and metabolic disorders (8 sources) Body mass index (BMI) 40.0-44.9, adult; Translations: [Body mass index [BMI] 40.0-44.9, adult] Onset: 2 Chronic Other nutritional; endocrine; and metabolic disorders (20 sources) Body mass index 40+ - severely obese; Translations: [Morbid (severe) obesity due to excess calories] Onset: 3 Chronic Other nutritional; endocrine; and metabolic disorders (2 sources) Obesity; Translations: [Other obesity due to excess calories] 04-01-2023 Chronic Other nutritional; endocrine; and metabolic disorders (2 sources) Other obesity due to excess calories; Translations: [Other obesity due to excess calories] Onset: 3 Chronic Other nutritional; endocrine; and metabolic disorders (2 sources) Body mass index (BMI) 37.0-37.9, adult; Translations: [Body mass index (BMI) 37.0-37.9, adult] Onset: 3 Chronic Other nutritional; endocrine; and metabolic disorders (6 sources) Severe obesity; Translations: [Morbid (severe) obesity due to excess calories] Chronic Other nutritional; endocrine; and metabolic disorders (2 sources) Weight gain 11-15-2020 Episodic Other skin disorders (2 sources) Acanthosis nigricans 04-11-2020 Episodic Other skin disorders (1 source) Folliculitis; Translations: [Other specified follicular disorders] Episodic Other skin disorders (1 source) Other specified follicular disorders; Translations: [Other specified follicular disorders] Onset: 3 Episodic Other upper respiratory disease (2 sources) Allergic rhinitis 04-11-2020 Chronic Other upper respiratory infections (5 sources) Acute sinusitis; Translations: [Upper respiratory infection] 07-06-2021 Episodic Residual codes; unclassified (4 sources) Obstructive sleep apnea (adult) (pediatric); Translations: [Obstructive sleep apnea (adult) (pediatric)] Onset: 2 Chronic Residual codes; unclassified (2 sources) Obstructive sleep apnea syndrome; Translations: [Obstructive sleep apnea (adult) (pediatric)] 10-11-2022 Chronic Residual codes; unclassified (2 sources) Insomnia 05-03-2020 Episodic Residual codes; unclassified (1 source) Influenza-like symptoms 08-04-2022 Episodic Unclassified (2 sources) Neuroma, no ICD-O subtype 02-28-2014 Unclassified (1 source) Low back pain, unspecified; Translations: [Low back pain, unspecified] Onset: 3 Unclassified (2 sources) Weight Management; Translations: [Weight Management] Onset: 2 Urinary tract infections (1 source) Tubulointerstitial nephritis; Translations: [Tubulo-interstitial nephritis, not specified as acute or chronic] Onset: 3 Episodic Viral infection (1 source) Viral disease; Translations: [Other viral agents as the cause of diseases classified elsewhere] Onset: 1 Episodic Viral infection (1 source) Disease caused by 2019-nCoV 03-25-2022 Past or Other Problems Problem Classification Problem Date Documented Da te Episodic/Chronic Abdominal hernia (4 sources) Diaphragmatic hernia; Translations: [Diaphragmatic hernia without obstruction or gangrene] Onset: 02-26-2023 Episodic Administrative/social admission (8 sources) Medicolegal procedure status; Translations: [Encounter for blood-alcohol and blood-drug test] Onset: 10-29-2022 Episodic Coma; stupor; and brain damage (20 sources) Daytime somnolence; Translations: [Somnolence] Onset: 04-16-2022 07-12-2022 Episodic Nausea and vomiting (16 sources) Postoperative nausea and vomiting; Translations: [Nausea with vomiting, unspecified] Onset: 02-19-2023 Episodic Nutritional deficiencies (9 sources) Deficiency of multiple nutrient elements; Translations: [Deficiency of multiple nutrient elements] Onset: 03-04-2023 03-04-2023 Episodic Other gastrointestinal disorders (7 sources) History of bariatric surgical procedure; Translations: [Bariatric surgery status] Onset: 03-07-2023 03-07-2023 Episodic Other gastrointestinal disorders (2 sources) Bariatric surgery status; Translations: [Bariatric surgery status] Onset: 03-07-2023 Episodic Other nutritional; endocrine; and metabolic disorders (2 sources) Weight loss; Translations: [Weight Loss] Onset: 10-10-2022 Episodic Residual codes; unclassified (17 sources) Difficult venous access; Translations: [Other specified health status] Onset: 02-19-2023 Episodic Residual codes; unclassified (16 sources) History of clinical finding in subject; Translations: [Personal history of other specified conditions] Onset: 02-19-2023 Episodic Residual codes; unclassified (2 sources) Other specified health status; Translations: [Other specified health status] Onset: 02-11-2023 Episodic Spondylosis; intervertebral disc disorders; other back problems (20 sources) Backache; Translations: [Dorsalgia, unspecified] Onset: 04-16-2022 07-12-2022 Episodic Unclassified (1 source) Low back pain, unspecified; Translations: [Low back pain, unspecified] Onset: 03-04-2023 Results Test Name Value Interpretation Reference Range Facility Abdomen/Pelvis without Conto n 09-19-2024 Abdomen/Pelvis without Cont [facility] Services [address] [place] [address] Abdomen/Pelvis without Cont MR#: [id number] Acct: [id number] Name: KAELYN MADDOX Rep #: [id number] : 1980 F 44 From: Kari Noriega MD PCP: LORENA Orta Status: [facility] ER Study: Abdomen/Pelvis without Cont Date of Exam: 08/29 12/19 Exam# [id number] Ordering Dr: Ramesh Khan MD [id number] INDICATION: Pain EXAMINATION: CT ABDOMEN AND PELVIS WITHOUT CONTRAST - CT Abdomen And Pelvis W/O Contrast Injection TECHNIQUE: Helically acquired images were obtained of the abdomen and pelvis without oral or IV contrast. The protocol utilizes one or more of the following dose reduction techniques: automated exposure control, adjustment of mA and/or kV according to patient size,and/or use of iterative reconstruction technique. IV Contrast dosage and agent: None. Oral contrast: None. RADIATION DOSAGE (If Supplied By Facility): CTDIvol = ( 17.28 ) mGy, DLP = ( 924.06 ) mGycm COMPARISON: No relevant prior comparison study available FINDINGS: LOWER CHEST: Lung bases are clear. No cardiomegaly or pericardial effusion. The lack of intravenous contrast limits evaluation of solid visceral organs. LIVER: Homogeneous. No focal mass. GALLBLADDER AND BILIARY TREE: There is nonvisualization of the gallbladder. . No intra- or extrahepatic biliary ductal dilation. PANCREAS: No focal cystic or solid mass. SPLEEN: Normal size without focal cystic or solid mass. ADRENAL GLANDS: No nodules. KIDNEYS AND URETERS: Normal renal size and position. There is right-sided hydroureteronephrosis secondary to a 4.3 mm calculus within the distal ureter. There is a punctate nonobstructing left renal calculus. PERITONEUM: No ascites or free air. No other fluid collection. BOWEL: There are postsurgical changes of the stomach. No evidence of acute appendicitis. No stomach or bowel distension. There are diverticula arising from the colon. No focal inflammatory change. LYMPH NODES: No enlarged mesenteric or retroperitoneal lymph nodes. VESSELS: Aorta is non-dilated. URINARY BLADDER: Unremarkable. REPRODUCTIVE ORGANS: There is a 2.9 x 4.0 cm round low-attenuation focus within the right adnexa. ABDOMINAL WALL: There are postsurgical changes along the lower anterior abdominal wall. BONES: No lytic or blastic abnormality. CT/Abdomen/Pelvis without Cont IMPRESSION: Right-sided hydroureteronephrosis secondary to a 4.3 mm calculus within the distal ureter. Colonic diverticulosis. 2.9 x 4.0 cm right ovarian cyst, consider pelvic ultrasound for further characterization. Electronically Signed: Kari Noriega MD at 14:03 EST , CC: LORENA Wasserman; Dr. Ramesh Khan MD Criminal Psychologist: Signed Normal [facility] Basic Metabolic Profile (BMP )on 09-19-2024 BUN/CRE 16.1 RATIO Normal -20 [facility] Comment on above: Performed By: #### L 500.2500, L100.0100 #### [facility] [address] [place], [address] CA,Total 9.0 mg/dL Normal 8.5-10.1 [facility] Comment on above: Performed By: #### L 500.2500, L100.0100 #### [facility] [address] [place], [address] Chloride [Moles/Vol] 111 mmol/L High 98-107 [facility] Comment on above: Performed By: #### L 500.2500, L100.0100 #### [facility] [address] [place], [address] CO2 [Moles/Vol] 26.0 mmol/L Normal 21.0-32.0 [facility] Comment on above: Performed By: #### L 500.2500, L100.0100 #### [facility] [address] [place], [address] Creatinine [Mass/Vol] 0.62 mg/dL Normal 0.55-1.02 [facility] Comment on above: Result Comment: The validity of the calculated GFR GFRAA in patients over 70 years has not been determined. Clinical correlation is essential. Performed By: #### L 500.2500, L100.0100 #### [facility] [address] [place], [address] ECRCL 126.54 ml/min Normal [facility] Comment on above: Performed By: #### L 500.2500, L100.0100 #### [facility] [address] [place], [address] EST GFR - AA 133 mL/min Normal >60 [facility] Comment on above: Result Comment: Afri can Guinean GFR Calc Performed By: #### L 500.2500, L100.0100 #### [facility] [address] [place], [address] GAP 5 Normal 5-15 [facility] Comment on above: Performed By: #### L 500.2500, L100.0100 #### [facility] [address] [place], [address] GFR/1.73 sq M.predicted among non-blacks MDRD (S/P/Bld) [Vol rate/Area] 110 mL/min/{1.73_m2} Normal >60 [facility] Comment on above: Result Comment: Non- GFR Calc Performed By: #### L 500.2500, L100.0100 #### [facility] [address] [place], [address] Glucose [Mass/Vol] 92 mg/dL Normal 74-106 [facility] Comment on above: Performed By: #### L 500.2500, L100.0100 #### [facility] [address] [place], [address] Potassium [Moles/Vol] 3.4 mmol/L Low 3.5-5.1 [facility] Comment on above: Performed By: #### L 500.2500, L100.0100 #### [facility] [address] [place], [address] Sodium [Moles/Vol] 142 mmol/L Normal 136-145 [facility] Comment on above: Performed By: #### L 500.2500, L100.0100 #### [facility] [address] [place], [address] Urea nitrogen [Mass/Vol] 10 mg/dL Normal 7-18 [facility] Comment on above: Performed By: #### L 500.2500, L100.0100 #### [facility] [address] [place], [address] CBC W/Diff, Automatedon 12-2 -2023 Absolute Lymph 2.12 X10 3/uL Normal 0.83-4.51 [facility] Comment on above: Performed By: #### L 500.2500, L100.0100 #### [facility] [address] [place], [address] Absolute Neut 4.9 X10 3/uL Normal 2.0-7.7 [facility] Comment on above: Performed By: #### L 500.2500, L100.0100 #### [facility] [address] [place], [address] Basophils/100 WBC (Bld) 0.8 % Normal 0-1 [facility] Comment on above: Performed By: #### L 500.2500, L100.0100 #### [facility] [address] [place], [address] Eosinophils/100 WBC (Bld) 2.1 % Normal 0-5 [facility] Comment on above: Performed By: #### L 500.2500, L100.0100 #### [facility] [address] [place], [address] Erythrocyte distribution width (RBC) [Ratio] 12.6 % Normal 11.6-14.6 [facility] Comment on above: Performed By: #### L 500.2500, L100.0100 #### [facility] [address] [place], [address] Hematocrit (Bld) [Volume fraction] 40.6 % Normal 37-47 [facility] Comment on above: Performed By: #### L 500.2500, L100.0100 #### [facility] [address] [place], [address] Hemoglobin (Bld) [Mass/Vol] 13.5 g/dL Normal 12.0-15.0 [facility] Comment on above: Performed By: #### L 500.2500, L100.0100 #### [facility] [address] [place], [address] IG% 0.400 Normal 0.0-0.9 [facility] Comment on above: Result Comment: IG% - Immature Granulocytes (promyelocytes, myelocytes and metamyelocytes) > 1% indicates that a LEFT SHIFT is Present. Performed By: #### L 500.2500, L100.0100 #### [facility] [address] [place], [address] Lymphocytes/100 WBC (Bld) 27.6 % Normal 19-41 [facility] Comment on above: Performed By: #### L 500.2500, L100.0100 #### [facility] [address] [place], [address] MCH (RBC) [Entitic mass] 29.3 pg Normal 27.0-32.0 [facility] Comment on above: Performed By: #### L 500.2500, L100.0100 #### [facility] [address] [place], [address] MCHC (RBC) [Mass/Vol] 33.3 g/dL Normal 32-36 [facility] Comment on above: Performed By: #### L 500.2500, L100.0100 #### [facility] [address] [place], [address] MCV (RBC) [Entitic vol] 88.3 fL Normal 81-99 [facility] Comment on above: Performed By: #### L 500.2500, L100.0100 #### [facility] [address] [place], [address] Monocytes/100 WBC (Bld) 5.7 % Normal 0-10 [facility] Comment on above: Performed By: #### L 500.2500, L100.0100 #### [facility] [address] [place], [address] Neutrophils/100 WBC (Bld) 63.4 % Normal 47-70 [facility] Comment on above: Performed By: #### L 500.2500, L100.0100 #### [facility] [address] [place], [address] Nucleated RBC (Bld) [#/Vol] 0 10*3/uL Normal 0-5 [facility] Comment on above: Performed By: #### L 500.2500, L100.0100 #### [facility] [address] [place], [address] Platelet mean volume (Bld) [Entitic vol] 9.3 fL Normal 6.2-12.0 [facility] Comment on above: Performed By: #### L 500.2500, L100.0100 #### [facility] [address] [place], [address] Platelets (Bld) [#/Vol] 276 10*3/uL Normal 150-450 [facility] Comment on above: Performed By: #### L 500.2500, L100.0100 #### [facility] [address] [place], [address] RBC (Bld) [#/Vol] 4.60 10*6/uL Normal 4.2-5.4 [facility] Comment on above: Performed By: #### L 500.2500, L100.0100 #### [facility] [address] [place], [address] RDW SD 40.7 fl Normal 35.1-43.9 [facility] Comment on above: Performed By: #### L 500.2500, L100.0100 #### [facility] [address] [place], [address] WBC (Bld) [#/Vol] 7.7 10*3/uL Normal 4.4-11.0 [facility] Comment on above: Performed By: #### L 500.2500, L100.0100 #### [facility] [address] [place], [address] Emergency Department Summary on 09-19-2024 Emergency Department Summary [facility] Medical Records Department [address] [place] [address] Emergency Department Summary 09/19/24 MR#: [id number] Acct: [id number] Name: KAELYN MADDOX Rep #: [id number] : 1980 44 From: Ramesh Khan MD PCP: Viviane Wasserman NP-C Status:REG ER Location: ED HPI History of Present Illness Chief Complaint: Back Detail of Chief Complaint: Right flank pain sudden onset an hour ago. Informant: patient Onset/Context/Timing Onset: Today Context: Sudden Onset Timing: Continuous Quality: Sharp Current Severity: Moderate Maximum Severity: Moderate Worsened by: improves with Nothing Associated Symptoms Associated Symptoms: Negative for Numbness, Tingling, Radiation to Right Leg, Radiation to Left Leg, Fever, Abdominal Pain, Dysuria, Unable to Ambulate, Unable to Transfer, Urinary Retention, Urinary Incontinence, Constipation or Fecal Incontinence Narrative Narrative: 44-year-old female history of prior kidney stone prior hysterectomy. Prior cholecystectomy. States about an hour ago she developed right lower flank pain. Denies nausea, vomiting or diarrhea. No dysuria or hematuria. No pain radiating to her leg. No weakness in her lower extremities. No fall or trauma. Prior similar symptoms: Yes Recent Illness/Hospitalization: No PFSH PFSH Home Medications ???Medication ???Instructions ???Recorded ???Last Taken ???Type Control 1 tab DAILY 09/15/16 Unknown History oxycodone-acetaminophen 5 mg-325 1 - 2 tab PO Q4H PRN PRN Pain #12 09/15/16 Unknown Rx mg tablet tabs sulfamethoxazole 800 1 tab PO BID ##6 09/15/16 Unknown Rx mg-trimethoprim 160 mg tablet oxycodone-acetaminophen 5 mg-325 1 tab PO Q4H PRN pain 3 days #14 09/19/24 Unknown Rx mg tablet (Percocet) tabs Allergy/AdvReac Type Severity Reaction Status Date / Time hydromorphone (From Dilaudid) AdvReac VIOLENT Verified 09/19/24 12:29 BEHAVIOR ibuprofen AdvReac BARIATRIC Verified 09/19/24 12:29 SURGERY Social History Smoking Status: Never smoker ROS ROS ED ROS Narrative Right flank pain. No recent illness. Constitutional Constitutional ED: Denies chills or fever(s) Eyes Eyes: Denies blurry vision ENT ENT ED: Denies ear pain Cardiovascular Cardiovascular: Denies chest pain Respiratory/Chest Respiratory/Chest: Denies dyspnea Gastrointestinal Gastrointestinal: Denies abdominal pain, constipation, diarrhea, melena, nausea or vomiting Genitourinary Genitourinary ED: Denies dysuria or hematuria Musculoskeletal Musculoskeletal: Reports back pain; Denies arthralgias Integumentary Denies abscess Neurologic Neurologic: Denies headache(s) Psychiatric Psychiatric: Denies anxiety Endocrine Endocrinology: Denies cold intolerance Hematologic/Lymphatic Hematologic/Lymphatic: Denies easy bleeding Allergic/Immunologic Allergic/Immunologic ED: Denies mouth swelling EXAM Physical Exam Narrative Exam Narrative: Well-appearing middle-aged female. Vital signs stable afebrile. Does not sound toxic. Is complaining of pain. H EENT exam unremarkable. Neck nontender. Lungs clear to auscultation bilaterally. Heart regular rate and rhythm rate about 60 no murmur. Chest wall ribs nontender. Abdomen soft nontender. No peritoneal signs. No reproducible pain. No hernia or mass. No distention. Moving all 4 extremities. 5 out of 5 dental amalgam processor strength. Dorsi plantarflexion intact. No cauda equina. Negative straight leg raise. Back nontender. There is no reproducible pain on her back. Her right flank is where she complains of pain but is not reproducible. There is no signs of trauma. Skin unremarkable other multiple tattoos. She is awake and alert. No focal motor deficits. Const Vital Signs: 09/19/24 12:27 Temperature 97.2 F L Temperature Source Temporal Pulse Rate 61 Respiratory Rate 16 Blood Pressure 139/81 H Blood Pressure Mean 100 Pulse Ox 99 Oxygen Delivery Method Room Air Positive well nourished and well developed; Negative for cachectic, contractures or unkempt General Appearance ED: well developed and NAD; Negative for unkempt, cachectic, contractures or pallor Nutritional Appearance: Negative for cachectic HEENT Reports moist mucous membranes Negative for trauma or tenderness Eyes PERRL and EOMs intact bilaterally General Eye ED: Negative for pale conjunctiva or scleral icterus Neck no lymphadenopathy, supple and no JVD General: Negative for tenderness Thyroid: Negative for other Resp normal respiratory effort and clear to auscultation bilaterally Auscultation: Negative for rales, rhonchi, wheezes or diminished lung sounds Cardio regular rate, regular rhythm and S1 normal heart sound Rate: Negative for bradycardia or tachycardic Rhythm (more content not included)... Normal [facility] Urinalysis, Completeon 09-19 RBC 0-5 SEEN Normal 0-5 [facility] Comment on above: Order Comment: CLEAN CATCH Performed By: #### L 400.0001 #### [facility] [address] [place], [address] BACTERIA 0 SEEN Normal None Seen [facility] Comment on above: Order Comment: CLEAN CATCH Performed By: #### L 400.0001 #### [facility] [address] [place], [address] EPI,SQUAMOUS 0 SEEN Normal 5-10 [facility] Comment on above: Order Comment: CLEAN CATCH Performed By: #### L 400.0001 #### [facility] [address] [place], [address] Mucus Ql (Urine sed) 0 SEEN Normal [facility] Comment on above: Order Comment: CLEAN CATCH Performed By: #### L 400.0001 #### [facility] [address] [place], [address] WBC 0 SEEN Normal 0-5 [facility] Comment on above: Order Comment: CLEAN CATCH Performed By: #### L 400.0001 #### [facility] [address] [place], [address] [id number] 07-13-2023 [id number] DOS 02/26/2023 robotic NENO - S, W / HH REPAIR AD. Last OV-04/01/23 with AGD, next 09/15/23 with [employer] Nystatin powder was sent on 07/06/23. Cream pended and to [employer] for review. Normal [facility] Office Visiton 04-01-2023 Follow-up visit [id number] Kaelyn Maddox 1980 F Date Provider Department Center 04/01/2023 KENNY BLOOM BCC SURG None Family History Problem Relation Age of Onset Stroke Maternal Grandfather Hypertension Maternal Grandfather Heart disease Maternal Grandfather Hypertension Mother Diabetes Father Stroke Father Stroke Paternal Grandfather Hypertension Paternal Grandfather Cancer Paternal Grandfather Diabetes Paternal Grandfather Heart disease Paternal Grandfather Hypertension Paternal Grandmother Hypertension Maternal Grandmother Family Status - Relation Status Age at Maternal Grandfather Alive Mother Alive Father Alive Paternal Grandfather Alive Paternal Grandmother Alive Maternal Grandmother Alive Level of Service:81282 HI POSTOP FOLLOW UP VISIT RELATED TO ORIGINAL PX Reason for Visit and Comments: Bariatrics Post Op Follow-up [884] - 1M Normal [facility] Progress Noteon 04-01-2023 Progress Note [facility] 1 MONTH POST-OPERATIVE DIETITIAN VISIT Date: 04/01/23 Current diet reviewed with patient. Soft and maintenance diets discussed and handouts provided. Patient's weight decreased by: 39.4 lbs Patient does not consume 5-6 small meals daily: 4-5 Patient?s portions are adequate for current diet: 1/4-1/2 cup Protein requirements discussed- currently consuming 50-65 grams of protein daily. Current protein sources: almonds, chicken, notes increased intake of fruits and vegetables, and low carb tortillas, eggs, peanut butter, chicken salad, lean ground beef Recommendations: Increase protein in diet and meal frequency Fluid requirements discussed. Current Fluid Intake: 64 fl oz + Patient does drink sugar-free, caffeine-free and carbonation-free fluids only. Patient does wait 30 minutes before and after meals to drink Exercise activities discussed. Patient does currently exercising. She was reminded that regular exercise is critical part of a successful outcome following weight loss surgery. Behavioral/Emotional changes reviewed. Patient does feel comfortable with changes in eating behaviors and associated emotional changes. She was reminded that psychological counseling is available through the [facility]ariat[facility] post-operatively. Recent Nutrient Concerns and Vitamin Supplementation Changes: No new labs to review at this time. Patient does reports compliance with V/M protocol Notes/Comments: Increase protein in diet and meal frequency. Patient to start maintenance diet. Patient instructed to call or Mychart with any questions or concerns Visit completed by: Naima Krause MS, RDN, LD [facility] Progress Note KENNY NUGENT MD , F ACS, FASMBS MINIMALLY INVASIVE & METABOLIC / BARIATRIC SURGERY [facility] MBS - 1 MONTH FOLLOW UP 04/01/2023 PATIENT: Kaelyn Maddox DATE OF : 1980 -------- HISTORY OF PRESENT ILLNESS Chief Complaint: 1 month follow-up status post robotic SINGLE ANASTOMOSIS DUODENO-ILEOSTOMY W/ SLEEVE (SINGLE STAGE) - angélica ABBOTT Kaelyn Maddox is a 42 y.o. female who presents to the bariatric care center today for their 1 month evaluation following bariatric surgery with Dr. Nugent. The total weight lost is 40 pounds for a 29 % EWL. Overall, the patient is satisfied with the weight loss and health benefits related to the bariatric intervention. Dietary compliance concerns: No Exercise and activity concerns: No Compliance and phychologic concerns: No Dysphagia and eating concerns: No Excessive skin concerns: No The patient is feeling well and denies any major complaints or GI symptoms. The dietary regimen and exercise activities are going well. The patient is compliant with protein intake and vitamin/trace element supplementation. 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 Review of Symptoms Constitutional: negative for chills, fevers, night sweats Respiratory: negative for cough, dyspnea on exertion, hemoptysis, and sputum Cardiovascular: negative for chest pain, chest pressure/discomfort, dyspnea, irregular heart beat, palpitations, and syncope Gastrointestinal: negative for abdominal pain, constipation, diarrhea, dysphagia, melena, reflux symptoms, and vomiting Neurological: negative for dizziness, paresthesia, seizures, and weakness PAST HISTORIES Past Medical History: Diagnosis Date Anemia Back pain Circulation problem COVID-19 vaccine series declined Daytime sleepiness Difficulty sleeping Dizziness Fatigue History of UTI Joint pain, hip Joint pain, knee Snoring SOBOE (shortness of breath on exertion) Type 2 diabetes mellitus with ophthalmic complication, without long-term current use of insulin (HCC) Vertigo Past Surgical History: Procedure Laterality Date CARPAL TUNNEL RELEASE Right 2020 SECTION (HISTORICAL) 2000 SECTION (HISTORICAL) 2002 SECTION (HISTORICAL) 1997 CHOLECYSTECTOMY 2004 DILATION AND CURETTAGE OF UTERUS 1997 OTHER SURGICAL HISTORY 2006 Essure control springs around fallopian tubes TONSILLECTOMY (HISTORICAL) 2004 TOTAL ABDOMINAL HYSTERECTOMY 2017 Family History Problem Relation Name Age of Onset Stroke Maternal Grandfather Miriam Hypertension Maternal Grandfather Miriam Heart disease Maternal Grandfather Miriam Hypertension Mother Mom Diabetes Father Jom Stroke Father Jom Stroke Paternal Grandfather Glen Hypertension Paternal Grandfather Glen Cancer Paternal Grandfather Glen Diabetes Paternal Grandfather Glen Heart disease Paternal Grandfather Glen Hypertension Paternal Grandmother Gma Hypertension Maternal Grandmother Gma Allergies Allergen Reactions Hydromorphone Other Mood changes very mean Metformin PHYSICAL EXAM BP 109/80 Pulse 77 Temp 36.3 ?C (97.3 ?F) Resp 16 Ht 5' 5 (1.651 m) Comment: bcc Wt 224 lb 3.2 oz (102 kg) BMI 37.31 kg/m? General: This patient is awake, alert, and oriented, with normal affect and is in no apparent distress. Cardiac: Regular rate and rhythm without evidence of murmur. Respiratory: Clear to auscultation bilaterally with normal effort. Abdomen: Obese, soft, non-tender, non-distended without masses/ No evidence of abdominal hernia / Incisions consistent with previous surgeries. Surgical sites: Clean dry and intact Head and Neck: Obese, normocephalic and atraumatic/soft and supple, no lymphadenopathy or obvious bruits. No thyroidmegaly. Extremities: No cyanosis, clubbing or edema/ No calf tenderness/No restrictions of movement, is ambulatory without assistance. Neurological: Intact x 4 extremities, normal sensation, no focal deficits notes. Skin: Skin cool, warm and dry. No rashes or lesions noted. Rectal: Deferred LABORATORY STUDIES AND IMAGING Laboratory Studies: No results for input(s): NA, K, CL, CO2, BUN, CREATININE, GLUCOSE, CALCIUM in the last 72 hours. No results for input(s): WBC, RBC, HGB, HCT, MCV, MCH, MCHC, RDW, PLT, MPV in the last 72 hours. No results for input(s): ALKPHOS, ALT, AST, PROT, BILITOT, BILIDIR, LIPASE in the last 72 hours. No lab exists for component: LABALBU ASSESSMENT 1 month status post SINGLE ANASTOMOSIS DUODENO-ILEOSTOMY W/ SLEEVE (SINGLE STAGE) - angélica ABBOTT Visit Diagnoses: 1. Intestinal malabsorption, unspecified type 2. Deficiency of multiple nutrient elements 3. Class 2 obesity due to excess calories with body mass (more content not included)... [facility] [id number] 03-12-2023 [id number] Phone call to pt aft er review of picture. While the area is red, it is not infected. The yellow drainage is skin cells desquamating. She has no fever. Was worried if the site needed a stitch. Advised, sutures not needed, and actually would cause a potential infection. Please keep the site clean and dry, avoid an occlusive dressing. Use dial or other antibacterial soap to clean the site daily. In regard to EGD, I am waiting to hear back from ALS. I may not have a date until next week, when DR Nugent returns. This will be an issue, I understand for transportation. Pt states has already told employer that there may be short notice. She has had a bottle of G 2 today. Advised to continue w clear liquids and try full liquids tomorrow. Voiced understanding. [facility] [id number] 03-11-2023 [id number] Late entry Pt noted to have called the office about 12p with concern that she was d/c'd home from [facility] on Thursday. States she was told her esophagus was swollen and it is painful. States it feels like fluids are coming back up and unable to eat pureed foods. States there is pain in her stomach and shoulder but believes it to be gas pain. States the pain when swallowing is significant. [employer] is aware of pt Dat[employer] message and will follow up with pt. Normal [facility] [id number] DOS 02/26/2023 robotic NENO - S, W / HH REPAIR AD. Last OV-03/04/23 with AGD, next 04/01/23 with AGD Pt was seen in ER on 03/07/23 with lower abd pain. UGI on 03/08/23: IMPRESSION: 1. Marked narrowing of the GE junction with delayed emptying of the distal esophagus. 2. Redirection of the Gastrografin bolus within the distal esophagus. 3. Changes consistent with sleeve gastrectomy and single anastomosis duodenal ileal bypass( NENO-S). No signs of extravasation or obstruction. CT completed on 03/07/23 as well: IMPRESSION: 1. Postsurgical change compatible status post recent sleeve gastrectomy, with residual gastric wall thickening and mesenteric fat stranding. No discrete abscess or evidence of mechanical bowel obstruction. 2. Bilateral renal hypodensities possibly representing cyst(s), but nonspecific. Correlation with renal ultrasound may be confirmatory, as clinically indicated. 3. Findings which may represent functional cystic change in the right ovary. Follow-up pelvic ultrasound in 6-10 weeks advised to document resolution. Will route to [employer] for review and direction. Normal [facility] Progress Noteon 03-11-2023 Progress Note Holding off on this EGD until further notice from [place] [facility] Progress Note ENDOSCOPY ORDERS To be scheduled with: Dr. Nugent Patient is: Post-op CPT code: EGD with dilation- CPT 57446 Diagnosis: Dysphagia- R13.1 Can we try to work in next week please- or if a cancellation occurs. I will talk to DR Nugent when he returns. If pre-op, Diet & Exercise Requirements are, and started/scheduled on : Home O2: No Known Difficult Intubation: No Normal [facility] 36on 03-09-2023 36 Thanks. Normal [facility] 36 Patient currently admitted. UGI showed narrowing at GE junction Normal [facility] Progress Noteon 03-09-2023 Progress Note [facility] Patient Name: Kaelyn Maddox Date: 03/09/2023 MIS-General Surgery/Bariatric Progress Note Subjective: Stayed ON due to mild hypotension with dizziness yesterday. Improved with fluid bolus and now denies dizziness. Reports liquids are going down okay without vomiting but does have some discomfort with swallowing of anything thicker. L abdominal pain stable. Having Bms with Miralax. Scheduled Meds:acetaminophen, 1,000 mg, IntraVENous, 4 times per day bisacodyl, 10 mg, Rectal, Daily enoxaparin, 40 mg, SubCUTAneous, BID ketorolac, 30 mg, IntraVENous, 4 times per day pantoprazole, 40 mg, IntraVENous, Daily polyethylene glycol (PEG) 3350, 17 g, Oral, Daily scopolamine, 1 patch, TransDERmal, q72h sodium chloride 0.9%, 10 mL, IntraVENous, 2 times per day Continuous Infusions:sodium chloride 0.45 % with KCl 20 mEq, 100 mL/hr, Last Rate: 100 mL/hr (03/09/23 0012) PRN Meds:PRN medications: methocarbamol, morphine sulfate OR morphine sulfate, ondansetron ODT OR ondansetron, sodium chloride, sodium chloride 0.9% Allergies Allergen Reactions Hydromorphone Other Mood changes very mean Metformin Objective: Patient Vitals for the past 24 hrs: BP Temp Temp src Pulse Resp SpO2 03/09/23 0521 97/61 36.4 ?C (97.5 ?F) Temporal 76 18 91 % 03/09/23 0119 88/54 37.1 ?C (98.7 ?F) Temporal 74 18 93 % 03/08/23 1948 95/52 37.1 ?C (98.8 ?F) Temporal 58 16 95 % 03/08/23 1818 94/57 36.6 ?C (97.8 ?F) Temporal 61 14 96 % 03/08/23 1800 97/50 36.6 ?C (97.8 ?F) Temporal 67 16 97 % 03/08/23 1700 93/52 -- -- 72 -- -- 03/08/23 1445 87/53 -- -- 59 14 -- 03/08/23 1441 (!) 92/49 36.8 ?C (98.2 ?F) Temporal 51 14 95 % 03/08/23 1211 86/51 -- -- 73 -- -- 03/08/23 1202 82/50 36.2 ?C (97.1 ?F) Temporal 63 14 96 % Average, Min, and Max for last 24 hours Vitals: TEMPERATURE: Temp Av.7 ?C (98 ?F) Min: 36.2 ?C (97.1 ?F) Max: 37.1 ?C (98.8 ?F) RESPIRATIONS RANGE: Resp Av.5 Min: 14 Max: 18 PULSE RANGE: Pulse Av.4 Min: 51 Max: 76 BLOOD PRESSURE RANGE: Systolic (24hrs), Av , Min:82 , Max:97 ; Diastolic (24hrs), Av, Min:49, Max:61 PULSE OXIMETRY RANGE: SpO2 Av.7 % Min: 91 % Max: 97 % I/O last 3 completed shifts: In: 1965 (18.4 mL/kg) [I.V.:465 (4.4 mL/kg); IV Piggyback:1500] Out: - (0 mL/kg) Weight: 106.6 kg CBC: Recent Labs 03/07/23 1831 03/08/23 0639 03/09/23 0418 WBC 16.5* 14.1* 11.6* HGB 15.2 12.4 11.2* HCT 43.5 36.9 33.3* PLT 384 312 270 BMP: Recent Labs 03/07/23 1831 03/08/23 0639 03/09/23 0418 NA 140 139 136 K 3.9 3.8 4.3 CL 107 109* 108* CO2 21* 22 26 BUN 10 6* 8 CREATININE 0.52 0.40* 0.59 GLUCOSE 132* 115* 79 Abdomen: Soft, nondistended, mildly tender to palpation in L lateral abdomen without rebound or guarding. Incisions c/d/I - healing well. Assessment/Plan: 42 y.o. female presents with N/V and abdominal pain s/p NENO-S on 02/26. Elevated WBC count - downtrending. Post-surgical changes on CT A/P. UGI 03/08 - narrowing at GEJ, similar to immediate post-op UGI. FLD as tolerated IVF PRN Pain and nausea control Miralax OOBAT Ppx: SCDs, Lovenox Discharge home with close follow-up in clinic. [facility] Progress Noteon 03-08-2023 Progress Note Paged around 12pm fo r asymptomatic hypotension with SBP in 80s. 1L LR bolus was given but BP marginally improved to low 90s. Pt was seen and examined and had no complaints besides mild abdominal pain similar to earlier in the day. 1L additional bolus was ordered and BP similar in the 90s, not tachycardic. Did endorse some dizziness and lightheadedness with ambulation at that time but resolved later in the evening. Pt endorsing anxiety about discharge today and does not want to leave tonight. BP 95/52 Pulse 58 Temp 37.1 ?C (98.8 ?F) (Temporal) Resp 16 Ht 1.651 m (5' 5) Wt 107 kg (235 lb) BMI 39.11 kg/m? -Will continue to monitor BP -Continue IVF -Plan for discharge early tomorrow morning Discussed with Dr. Ange Manning MD General Surgery, PGY-1 Pager 1982 03/08/2023 8:58 PM [facility] Progress Note BP Is now 93/52, HR is 72. Pt states she is feeling somewhat better. Full liquid diet encouraged to see how well she tolerates dinner. Normal [facility] Progress Note Pts BP low 87/53, an d now symptomatic. Dr. Manning updated. New order for another 1L bolus of LR. Will continue to monitor. Normal [facility] Progress Note Pts BP is 86/51, map of 63. Pt is asymptomatic. Dr. Manning updated, new orders received. [facility] 36on 03-07-2023 36 S: Patient called [facility] clinical access [facility] with complaint of post operative constipation B: NENO procedure 02.26.2023 A: Name of Caller: Kaelyn Gonzalez Call Back Number: [phone] What Procedure/Surgery did you have done?:NENO Who was your surgeon?:Dr. Nugent What date was your surgery?:02.26.2023 What is the reason for your call today (symptom): Constipation and upper abdominal pain . She is taking minimal narcotics. Abdomen is soft non-tender and non-distended. She denies a fever, nausea and vomiting . She states she is no longer passing gas and does not hear bowel sounds. She What provider is being paged?:Dr. Teresa Cassidy Time page was sent: 7:12 AM Page Content: Stephania PROCTOR 78 Call Back Number [phone] Reason for page (symptom) Upper abdominal pain and constipation decreased bowel sounds . Name of Surgeon Dr. Nugent Type of Surgery NENO Date of Surgery 02/26/2023 R: Dr. Cassidy educational coordinator paged and info provided. Patient instructed to call back with worsening symptoms, concerns or questions. Spoke with Dr. Cassidy who advised Miralax as directed on the bottle. She is to increase her fluids, she can drink fruit juices that are low in sugar content. Kaelyn notified of treatment plan and verbalized an understanding of plan of care . She will call back if no improvement or worsening symptoms. Reason for Disposition [1] Caller has URGENT question AND [2] triager unable to answer question Protocols used: Post-Op Symptoms and [id number] [facility] CT ABDOMEN PELVIS W CONTRAST on 03-07-2023 CT ABDOMEN PELVIS W CONTRAST Patient Name: KAELYN MADDOX : 1980 Exam Date/Time: 03/07/2023 19:25 Procedure: CT ABDOMEN PELVIS W CONTRAST Ordering Provider: JANSEN MICHAEL Reason For Exam: Bowel obstruction suspected CT ABDOMEN AND PELVIS WITH CONTRAST CLINICAL INDICATION: Bowel obstruction suspected TECHNIQUE: CT scan of the abdomen and pelvis, with IV contrast. Multiplanar reformations. Dose reduction was employed with automated exposure control. COMPARISON: None. FINDINGS: Abdomen: Visualized lung bases grossly unremarkable. Gallbladder surgically absent. Postsurgical change of recent sleeve gastrectomy. Mild gastric wall thickening and adjacent mesenteric fat stranding may represent postsurgical change/residual. Mild soft tissue density and probable edema in the overlying left upper quadrant abdominal wall subcutaneous tissues. Liver without significant abnormality. Spleen without significant abnormality. Pancreas without significant abnormality. Small and rounded hypodensities in bilateral kidneys, largest measuring 1.5 cm zone the right, suggesting cysts. Remainder of kidneys grossly unremarkable. Adrenal glands without significant abnormality. Pelvis: Bowel grossly unremarkable. Appendix within normal limits. No significant, free peritoneal fluid or discrete abscess. Abdominal aorta is nonaneurysmal. Uterus surgically absent. Cystic focus in right ovary measures approximately 3.5 cm. Axial skeleton grossly intact. IMPRESSION: 1. Postsurgical change compatible status post recent sleeve gastrectomy, with residual gastric wall thickening and mesenteric fat stranding. No discrete abscess or evidence of mechanical bowel obstruction. 2. Bilateral renal hypodensities possibly representing cyst(s), but nonspecific. Correlation with renal ultrasound may be confirmatory, as clinically indicated. 3. Findings which may represent functional cystic change in the right ovary. Follow-up pelvic ultrasound in 6-10 weeks advised to document resolution. Report Dictated on Electronically Signed By: Jefferson Hinkle Electronically Signed Date/Time: 03/07/2023 7:44 PM EDT [facility] ED Nursing Noteon 06-10-2023 ED Nursing Note [facility] here to transport patient to [facility]. Elba Chowdhury RN 03/07/232153 [facility] ED Nursing Note IV MORPHINE GIVEN IV PUSH NOT VIA IV PUMP. Elba Chowdhury RN 03/07/232149 [facility] ED Nursing Note Report given to Jesus laura at [facility] ED. [facility] is picking up patient at 9:30PM. Elba Chowdhury RN 03/07/232044 [facility] ED Nursing Note Dr Raffi angel Adriane Sandra 03/07/232023 [facility] ED Nursing Note Patient complains of left sided abdominal pain, diarrhea, nausea and vomiting. Symptoms started yesterday. She called Dr Nugent's office and they told her to take miralax for the constipation and to stop her pain meds. She had diarrhea before she came here. She states she still has 2 juan luis at her incision site. Her bariatric surgery was February [address] Nugent. [facility] ED Nursing Note Bed: 39 Expected date: Expected time: Means of arrival: Comments: catrachito Cross RN 03/07/232231 [facility] ED Provider Noteon 3 ED Provider Note Emergency Department Encounter [facility] EMERGENCY DEPT Patient was transferred from [place] emergency department, for gastric bypass surgery evaluation. On presentation patient is tender palpation in left upper quadrant, incisional sites are clean/dry/intact, no guarding or rigidity on exam. Vital signs are within normal limits, hemodynamically stable, afebrile. Patient appears uncomfortable, however is nontoxic-appearing. Work-up was reviewed, leukocytosis of 16.5, suspect component of hemoconcentration/stress demargination secondary to patient's pain. Urinalysis is demonstrating leukocyte Estrace, large amount of ketones, no bacteria. No evidence of kidney dysfunction. Lipase within normal limits. CT abdomen/pelvis with contrast is demonstrating postsurgical changes compatible with post recent sleeve gastrectomy, with residual gastric wall thickening and mesenteric fat stranding, no discrete abscess or evidence of mechanical bowel obstruction. Discussed with Dr. Alcala, who will be admitting for further management. (Comment: Please note this report has been produced using speech recognition software and may contain errors related to that system including errors in grammar, punctuation, and spelling, as well as words and phrases that may be inappropriate. If there are any questions or concerns please feel free to contact the dictating provider for clarification.) Simona Sesay DO [employer] Simona Sesay DO 03/08/23 0107 [facility] ED Provider Note EMERGENCY DEPARTMENT ENCOUNTER Pt Name: Kaelyn Maddox Birthdate 1980 Date of evaluation: 03/07/2023 ED Provider: Shashank Jansen MD CHIEF COMPLAINT Chief Complaint Patient presents with Abdominal Pain Post op bariatric surgery 02/27/23 HISTORY OF PRESENT ILLNESS (Location/Symptom, Timing/Onset, Context/Setting, Quality, Duration, Modifying Factors, Severity) Note limiting factors. I wore appropriate PPE for the entirety of this encounter. HPI Kaelyn Maddox is a 42 y.o. female who presents to the emergency department with chief complaint of abdominal pain nausea vomiting. Patient had sleeve gastrectomy with Dr. Nugent on 02/26/2023 uncomplicated and was doing well up until yesterday when she developed nausea and constipation. She did have a bowel movement this morning but it was very painful. She is having severe epigastric and periumbilical pain. Denies any chest pain shortness of breath fevers chills. She states she feels weak as she has been eating drinking well. Denies any abnormal urination or vaginal bleeding. Prior cholecystectomy and hysterectomy. Denies history of bowel obstruction. Nursing Notes were reviewed. Limitations to history: None Outside historians: None REVIEW OF SYSTEMS Review of Systems Constitutional: Positive for fatigue. Negative for chills and fever. HENT: Negative for ear pain and sore throat. Eyes: Negative for pain and visual disturbance. Respiratory: Negative for cough and shortness of breath. Cardiovascular: Negative for chest pain and palpitations. Gastrointestinal: Positive for abdominal pain, constipation and nausea. Negative for vomiting. Genitourinary: Negative for dysuria and hematuria. Musculoskeletal: Negative for arthralgias and back pain. Skin: Negative for color change and rash. Neurological: Negative for seizures and syncope. All other systems reviewed and are negative. Pertinent positives and negatives as per HPI. PAST MEDICAL HISTORY Past Medical History: Diagnosis Date Anemia Back pain Circulation problem COVID-19 vaccine series declined Daytime sleepiness Difficulty sleeping Dizziness Fatigue History of UTI Joint pain, hip Joint pain, knee Snoring SOBOE (shortness of breath on exertion) Type 2 diabetes mellitus with ophthalmic complication, without long-term current use of insulin (HCC) Vertigo SURGICAL HISTORY Past Surgical History: Procedure Laterality Date CARPAL TUNNEL RELEASE Right 2020 SECTION (HISTORICAL) 2000 SECTION (HISTORICAL) 2002 SECTION (HISTORICAL) 1997 CHOLECYSTECTOMY 2005 DILATION AND CURETTAGE OF UTERUS 1998 OTHER SURGICAL HISTORY 2006 Essure control springs around fallopian tubes TONSILLECTOMY (HISTORICAL) 2004 TOTAL ABDOMINAL HYSTERECTOMY 2017 CURRENT MEDICATIONS Current Discharge Medication List CONTINUE these medications which have NOT CHANGED Details calcium carbonate (Tums) 500 MG chewable tablet Chew 500 mg 3 times daily. cetirizine (ZyrTEC) 10 MG tablet Take 10 mg by mouth. cyanocobalamin (Vitamin B-12) 500 MCG tablet Take 500 mcg by mouth daily. fluticasone (Flonase) 50 MCG/ACT nasal spray place 2 sprays into each nostril once daily Lancets (OneTouch Delica Plus [id number]) [facility] use 1 LANCET to TEST BLOOD SUGAR once daily meclizine (Antivert) 25 MG tablet Take 25 mg by mouth if needed. omeprazole (PriLOSEC) [address] capsule Take 1 capsule (20 mg) by mouth daily. Do not crush or chew. Qty: 90 capsule, Refills: 1 ondansetron ODT (Zofran-ODT) 4 MG disintegrating tablet dissolve 1 tablet ON TONGUE every 8 hours if needed for nausea and vomiting OneTouch Verio test strip TEST BLOOD SUGAR once daily Pediatric Multivitamins-Iron (CHILDRENS MULTIVITAMIN/IRON PO) Take 1 tablet by mouth before bedtime. SUMAtriptan (Imitrex) 50 MG tablet Take 50 mg by mouth if needed. VITAMIN D, CHOLECALCIFEROL, PO Take 4,000 Int'l Units by mouth before bedtime. ALLERGIES Hydromorphone and Metformin FAMILY HISTORY Family History Problem Relation Name Age of Onset Stroke Maternal Grandfather Miriam Hypertension Maternal Grandfather Miriam Heart disease Maternal Grandfather Miriam Hypertension Mother Mom Diabetes Father Jom Stroke Father Jom Stroke Paternal Grandfather Glen Hypertension Paternal Grandfather Glen Cancer Paternal Grandfather Glen Diabetes Paternal Grandfather Glen Heart disease Paternal Grandfather Glen Hypertension Paternal Grandmother Gma Hypertension Maternal Grandmother Gma SOCIAL HISTORY Social History Socioeconomic History Marital status: Tobacco Use Smoking status: Never Smokeless tobacco: Never Vaping Use Vaping Use: Never used Substance and Sexual Activity Alcohol use: Not Currently Drug use: Never Sexual activity: Yes Partners: Male control/protection: None SCREENINGS PHYSICAL EXAM ED Triage Vitals [03/07/23 1 (more content not included)... Normal [facility] Office Visiton 03-04-2023 Follow-up visit [id number] Kaelyn Maddox 1980 F Date Provider Department Center 03/04/2023 [id number] NUGENT BCC SURG None Family History Problem Relation Age of Onset Stroke Maternal Grandfather Hypertension Maternal Grandfather Heart disease Maternal Grandfather Hypertension Mother Diabetes Father Stroke Father Stroke Paternal Grandfather Hypertension Paternal Grandfather Cancer Paternal Grandfather Diabetes Paternal Grandfather Heart disease Paternal Grandfather Hypertension Paternal Grandmother Hypertension Maternal Grandmother Family Status - Relation Status Age at Maternal Grandfather Alive Mother Alive Father Alive Paternal Grandfather Alive Paternal Grandmother Alive Maternal Grandmother Alive Level of Service:97241 HI POSTOP FOLLOW UP VISIT RELATED TO ORIGINAL PX Reason for Visit and Comments: Bariatrics Post Op Follow-up [884] - 1W [facility] Progress Noteon 03-04-2023 Progress Note KENNY NUGENT MD , F [facility], [facility] MINIMALLY INVASIVE & METABOLIC / BARIATRIC SURGERY [facility] MBS - 1 WEEK FOLLOW UP 03/04/2023 PATIENT: Kaelyn Maddox DATE OF : 1980 -------- HISTORY OF PRESENT ILLNESS Chief Complaint: 1 week follow-up status post robotic SINGLE ANASTOMOSIS DUODENO-ILEOSTOMY W/ SLEEVE (SINGLE STAGE) - angélica ABBOTT Kaelyn Maddox is a 42 y.o. female who presents to the bariatric care center today for their 1 week evaluation following bariatric surgery with Dr. Nugent. The total weight lost is 24 pounds for a 17 % EWL. Overall, the patient is experiencing a good recovery and return to normal activity. The patient is ambulating regularly and has been instructed to gradually increase physical activity. The patient is not reporting any nausea, emesis or dysphagia with diet. The patient is starting PPI therapy. The patient is feeling well and denies any other major complaints or GI symptoms. The dietary regimen and exercise activities are going well. The patient is compliant with protein intake and vitamin/trace element supplementation. Dysphagia and eating concerns: No Dietary compliance concerns: No Exercise and activity concerns: No Compliance and phychologic concerns: No Oral thrush concerns: No Incisional problems or concerns: No VTE prophylaxis compliance concerns: No Labs were ordered for 1 month visit Review of Symptoms Constitutional: negative for chills, fevers, night sweats Respiratory: negative for cough, dyspnea on exertion, hemoptysis, and sputum Cardiovascular: negative for chest pain, chest pressure/discomfort, dyspnea, irregular heart beat, palpitations, and syncope Gastrointestinal: negative for abdominal pain, constipation, diarrhea, dysphagia, melena, reflux symptoms, and vomiting Neurological: negative for dizziness, paresthesia, seizures, and weakness PAST HISTORIES Past Medical History: Diagnosis Date Anemia Back pain Circulation problem COVID-19 vaccine series declined Daytime sleepiness Difficulty sleeping Dizziness Fatigue History of UTI Joint pain, hip Joint pain, knee Snoring SOBOE (shortness of breath on exertion) Type 2 diabetes mellitus with ophthalmic complication, without long-term current use of insulin (HCC) Vertigo Past Surgical History: Procedure Laterality Date CARPAL TUNNEL RELEASE Right 2020 SECTION (HISTORICAL) 2000 SECTION (HISTORICAL) 2002 SECTION (HISTORICAL) 1997 CHOLECYSTECTOMY 2005 DILATION AND CURETTAGE OF UTERUS 1998 OTHER SURGICAL HISTORY 2006 Essure control springs around fallopian tubes TONSILLECTOMY (HISTORICAL) 2005 TOTAL ABDOMINAL HYSTERECTOMY 2017 Family History Problem Relation Name Age of Onset Stroke Maternal Grandfather Miriam Hypertension Maternal Grandfather Miriam Heart disease Maternal Grandfather Miriam Hypertension Mother Mom Diabetes Father Jom Stroke Father Jom Stroke Paternal Grandfather Glen Hypertension Paternal Grandfather Glen Cancer Paternal Grandfather Glen Diabetes Paternal Grandfather Glen Heart disease Paternal Grandfather Glen Hypertension Paternal Grandmother Gma Hypertension Maternal Grandmother Gma Allergies Allergen Reactions Hydromorphone Other Mood changes very mean Metformin PHYSICAL EXAM BP 109/72 Pulse 96 Temp 36.2 ?C (97.2 ?F) Resp 16 Ht 5' 5 (1.651 m) Comment: bcc Wt 239 lb 9.6 oz (109 kg) SpO2 97% BMI 39.87 kg/m? General: This patient is awake, alert, and oriented, with normal affect and is in no apparent distress. Cardiac: Regular rate and rhythm without evidence of murmur. Respiratory: Clear to auscultation bilaterally with normal effort. Abdomen: Obese, soft, non-tender, non-distended without masses/ No evidence of abdominal hernia / Incisions consistent with previous surgeries. Head and Neck: Obese, normocephalic and atraumatic/soft and supple, no lymphadenopathy or obvious bruits. No thyroidmegaly. Extremities: No cyanosis, clubbing or edema/ No calf tenderness/No restrictions of movement, is ambulatory without assistance. Neurological: Intact x 4 extremities, normal sensation, no focal deficits notes. Skin: Skin cool, warm and dry. No rashes or lesions noted. Rectal: Deferred Surgical sites: are:clean, dry, intact, and nontender Drainage from surgical site: none Patient does not have a superficial incisional SSI PATHOLOGY RESULTS: . STOMACH, PARTIAL GASTRECTOMY: - MINIMAL CHRONIC INACTIVE GASTRITIS Comment: There is no evidence of intestinal metaplasia, dysplasia, or malignancy. The H&E stain shows no evidence of Helicobacter pylori. A. LIVER, WEDGE BIOPSY: - MILD STEATOSIS (GRADE 1) Comment: Sections demonstrate an intact liver architecture with mild macrovesicular steatosis occupying approximately 20% (more content not included)... Normal [facility] Progress Note [facility] POST WEIGHT LOSS SURGERY FOLLOW UP - 1 WEEK Rooming Note Patient: Kaelyn Maddox Service Date: 03/04/2023 Patient is 1 week s/p LAP NENO-S Pre-Surgical Weight Loss Initial Height: 5' 5 (165.1 cm) Initial Weight: 253 lb 6.4 oz (115 kg) Initial BMI: 42.16 Golf Body Weight: 125 lb (56.7 kg) Surgery Date: 02/26/23 Pre-Surgical Height: 5' 5 (165.1 cm) Pre-Surgical Weight: 263 lb 9.6 oz (120 kg) Pre Surgery BMI: 43.86 Weight to Lose: 138 lb Post-Surgical Weight Loss Date: 03/04/23 Height: 5' 5 (165.1 cm) Weight: 239 lb 9.6 oz (109 kg) BMI: 39.87 Weight Change: -24 lbs Total Weight Change: -24 lbs % EBWL: 17% Comments: 1W Pain: Patient rates pain on scale 0-10 as: 2 Patient has the following questions: will sutures come out, vitamins to start taking, Patient is diabetic If patient IS Diabetic: Patient has spoken with the physician who prescribes their diabetic medications Patient has not resumed their diabetic medications as directed by their physician Patient advised as follows by physician prescribing diabetic medications: hold Exercise Compliance: Compliance with recommended current exercise plan of walking/frequent ambulation: yes Falls Risk Assessment Patient does not take medications which affect BP or mental status Patient does not have newly prescribed or changed dosage of medications within past 30 days which affect BP or mental status Patient has not fallen in the past 2 months Patient does not demonstrate unsteady gait Patient uses the following ambulatory assistive devices: none Patient states the presence of the following traits which increases risk of fall: none Patient is low risk for falls. If high or moderate risk, patient instructed not to ambulate independently in the Center, and cord for call light placed within reach of patient. Post-op Weight Metrics: %EBWL: % EBWL: 17% Weight Change Since Last Visit: Weight Change: -24 lbs Weight Change from Highest Pre-op Weight: Total Weight Change: -24 lbs Completed by: Annika Silva [facility] Progress Note [facility] BARIATR[facility]ANDOR 1 WEEK VISIT POST-OPERATIVE DIETITIAN Date: 03/04/23 Pt is here for 1 week office visit. Pt is currently on a full liquid diet. Pt will advance to a pureed diet today and follow the diet for 10 days. Then, the pt will advance to a soft diet for 2 weeks. Both of these diets have been reviewed with the pt today. Protein requirements discussed. Patient to consume 65-75 grams daily. Fluid requirements discussed. Patient to consume 64 oz+ daily. Patient is aware that she must consume fluids 30 mintues before and after meals. Exercise activities discussed with the patient. She doeshave a plan for exercise when cleared. Patient advised that regular exercise is vital to a successful outcome following weight loss surgery. Behavioral/Emotional changes reviewed Patient does feel comfortable with changes in eating behaviors and associated emotional changes. She was reminded that psychological counseling is available through the Bariatric Care Center post-operatively. The importance of vitamin supplementation has been discussed with patient. She will start the following vitamin supplements today: -Multivitamin with minerals and iron -Calcium -Vitamin B12 -Vitamin D3 -Other: Recent Nutrient Concerns and Vitamin Supplementation Changes: Starts today Notes/Comments: Pt is doing great overall! Pt to call as needed with any issues or concerns that arise. Visit completed by: Adriane Hearn RD [facility] 36on 03-03-2023 36 The patient is doing well postop. She is no longer needing pain medication. She is unsure of her fluid intake as she is not tracking, advised patient to ensure she is tracking and getting 64 oz daily. Patient verbalized understanding. .Tolerating full liquid meals. She is afebrile and has no concerns about incision concerns though states one under her bra is red. Advised patient to have this looked at during her follow up visit, patient verbalized understanding. The patient is walking and using her incentive spirometer. She is urinating frequently and is having loose bowel movements. Reviewed follow up appointment information and when to contact [facility] with the patient who verbalized understanding. No other questions or concerns at this time. Normal [facility] Basic metabolic 1998 panelon 02-27-2023 Anion gap [Moles/Vol] 5 mmol/L 3 - 13 mmol/L [facility] Calcium [Mass/Vol] 8.2 mg/dL Low 8.4 - 10. 4 mg/dL [facility] Chloride [Moles/Vol] 108 mmol/L High 98 - 10 7 mmol/L [facility] CO2 [Moles/Vol] 23 mmol/L 22 - 30 mmol/L [facility] Creatinine [Mass/Vol] 0.55 mg/dL 0.52 - 1.04 mg/dL [facility] GFR/1.73 sq M.predicted MDRD (S/P/Bld) [Vol rate/Area] - PINF [facility] Comment on above: Calculation based on the Chronic Kidney Disease Epidemiology Collaboration (CKD-EPI) equation refit without adjustment for race Glucose [Mass/Vol] 109 mg/dL High 70 - 100 mg/dL [facility] Interpretation and review of laboratory results Abnormal [facility] Potassium [Moles/Vol] 4.4 mmol/L 3.5 - 5.1 mmol/L [facility] Sodium [Moles/Vol] 136 mmol/L 135 - 145 mmol/L [facility] Urea nitrogen [Mass/Vol] 12 mg/dL 7 - 17 mg/dL [facility] CBC panel Auto (Bld)Ordered By: Jacque Hannah on 02-27-2023 Erythrocyte distribution width (RBC) [Ratio] 13.1 % 11.5 - 14.5 % [facility] Hematocrit (Bld) [Volume fraction] 36.1 % 35.0 - 47.0 % [facility] Hemoglobin (Bld) [Mass/Vol] 12.0 g/dL 11.7 - 16.0 g/dL [facility] Interpretation and review of laboratory results Abnormal [facility] MCH (RBC) [Entitic mass] 29.0 pg 26.0 - 34.0 pg [facility] MCHC (RBC) [Mass/Vol] 33.3 % 32.0 - 36.0 % [facility] MCV (RBC) [Entitic vol] 86.9 fL 80.0 - 98.0 fL [facility] Platelet mean volume (Bld) [Entitic vol] 7.5 fL 7.4 - 12.4 fL [facility] Platelets (Bld) [#/Vol] 281 10*3/uL 140 - 440 10*3/uL [facility] RBC (Bld) [#/Vol] 4.16 10*6/uL 3.8 - 5.20 10*6/uL [facility] WBC (Bld) [#/Vol] 15.5 10*3/uL High 3.6 - 10.7 10*3/uL [facility] No Panel InformationOrdered By: David Wang on 02-27-2023 Case Report Surgical Pathology Case: [id number] Authorizing Provider: Kenny Nugent MD Collected: 02/26/2023 0908 Ordering Location: [facility] MA[facility] OR Received: 02/26/2023 1436 Pathologist: David Wang MD Specimens: A) - Stomach, STOMACH B) - Liver, LIVER BIOSY [facility] Work Phone: Clinical Information h0nirJUzXYAylPQkIGS wNlxh xvWyHJGycKKaI2KrczsuCHcz EX8vAH7uzYxxjILfrHReOMFo MjIze8rik285vSGcm6fuSUVP NCubSPVMBHd1xGryO91te2D3 BqouO47szUShQGT2CMXgYQEu nPWwFUTuRAI7OHUqqZIoX7kq IGGjRJ1pqtckXFrbBCutFNOo dJI3QIAgnHBbY8CvEQVzFDkd AGSsdby5YzXiKt5jyPDqcTtd MFxwYXJkXHBsYWluXGZzMjAg KR6dHkziBRmnATMjnaXxHI5p YVGpoBbiYOPqAFEuBGY2X9In cyBjYWxvcmllcyAoSENDKSwg VBU5PtZbSYVtxbSYhUIajAFb Q32kiOypQBskvu8dLBY4tZSn x5J7BT3en6ZehPW8zL0eCG6h TRzenilkJA0bAGHLTWFhAASe ICAgICAgICAgICAgICAgICAg ICAgICAgICAgICAgICAgICAg ICAgICAgICAgXHBhcn0= [facility] Work Phone: Disclaimer i9gshJLbOULnzSSjVcCk MDAw JSTmb0tjHTTgxFHkEzIzOrFb LdVxKwwuiPWuVDFlImVrk9kt x571mXSrn4epNLZySaO1kLEj IYFweUphbre7oLjpVmTmGVNi v0mzyxYfMwSwDAMyDUMzIEYz lJnavju6qX28GRGgwD8phLDe NQnackFnZuI3HFfaYKZgWdN3 KFXzmXIyPPEkY9skQNIaZRXh M2UkDY9wXIPcHmb7EXVyKLL0 FEXrBUGzC9BfVG9cTXKwkIJq EOj7h9mheIwtYUZbVRK7q8sv QQexxpXbKJ3hto1noEc6d1qq gwIfLTRdOHElpQICGUWhD0Jw lLsbKw6pgJg3cFndVbkpUTA2 Khq6BW2vwa40adb5hHicBCUx srkoEqZ0QAdvYBKcmlekKAa0 JUklEZVnrUF1BMRskQCsY9Fh PUVuKV9wyjn1JFY9SMyqGDZc ChI8PNPltPJcBDGpsJcdVOgx u649JDG3RhBwDG5cI5Pvr6K6 gU4inXGzGMJzaSLvWuQwZZJo df5ziWNkSDgmz7SxPNG5caG7 nJOiwYWoUBApXQ83Wyeuo2Nw TxqmIRG0ARRnfbRbb8Bqn3gv VfGqlxCqL9laQ9MaNAKmEERw MPJeFeZgyzGkj0Orv9JrkCJw nNr1g3mcTLXoXOCqhQhrr1kj OAN0MCMxC9X2oOZbz8yoLJex DOYfoLX0syZ8TKWurHUeV0Ta vU3iMIDqZU3leij2o4nzWJP9 CRdrASKaRuF8lqB5KBJqfJTd JNCuiQztGRmqx338PUF0IbLj YYSfh3SkK7QsiDwtT75dpLpm C56fQAJcmFwqcT1gbKlxwR6m ZjBcZnMyNFxxbFxwbGFpblxm ZInkjrW8UTfuiauvAZEiOWug Z0wcHnQrHIDmoBmtFRvsd8Oa MPAuPWEfLlboqmP7HMUlKJRu bnRlcnByZXRhdGlvbiBvZiB0 oTvmWVTej2PzwZ3ymRAaARDz dNovVEUeYTFjEyXwrC59wh1k oHU0i8SwTT2sj4NhwQYkcaYq iMMxyBOgFTV2RAubts6iODur p4ItiJVdkPGfyDI9USKyl7So ByPvmxMleXFshfFtWO3bTMJz vMRflcLhASY2UABjOCTIQfVi RKNyj6AkOX3kFSKwjYbaIMGx dQ7jy3ZxTAZyq80eHYMiDZND REEgaGFzIGRldGVybWluZWQg sNohhWTyiQXkECBiNUYiKZ1s FQJpmuLpsAGxf5LmoULcmlCt r7ZpgcBeKGTlLZU3EkMEwYAl MIK3WRB4ciWhawWaqWIcFUYq u4XwM7gsbphqEJjwlCHtbZ8h YFYdBW9eCSAuc6OjCGUxe9Pc IoCtarAuBXMtOGEdMXOxvC93 HUM2nRblwKdgghKkYU9dJIMr mnIkMAKoWLMxfH8eQWburcIl BWLqosZ4e3A9WNxaAWYpkpJw NzpwDYJ6zsBwXDTza9UnPQgv J1cvM75uvKqrbVz4bXH3QQP8 cT4pZMEdZAKuYTQzZZNQiFiw iBDioIOYPMCpljR8e4S2LMfr cRFefqVoXI03FVLuZJ0mnYCx eYWsp1HaZGh1KT1xXWUbIEic XGYxXGZzMjJcbGFuZzEwMzNc aGljaFxmMVxkYmNoXGYxXGxv X9abGzMgFtEnJovrGDO2 [facility] [employer] Work Phone: Gross Description d9vpoRGnBHYfeAXkQCVw Nlxh fbFfFIBifDRnN6FeomioOUhs VH8qQF8shGqxlYEbxDVzZKOf VsXlp6jka321aPKyf9yeKCWD VPwvHOAWEOt2fPogB73mg7K1 OpxyA16hrYElFBZ0UMEvRTZz lXZrUJCuVCX0RLRsaWVlW0fa BYBxXM9zjguzQJuyGRysEDJg nHH1BUBjwOMxK9QkTKXxRTbv MCPgfju6IuNvBf1nyKBwsGqr MFxwYXJkXHBsYWluXGZzMjAg PQ7rmHHiFGFsE1TptqFaYRdk CAKhxn0vqItaXIpwLbJgZALp SsE9d69hJ5baMCnrUKQza4Pt bBBhbPPbKkCopI6yQSLeKQZi ALJnfFCwd2IgEIYbTtNjRIZ2 VEYiGcTqG49nTXQYfRQmPZXz EABza8BgBSE8bhApO6JirPYy rVvafx51LQ6wIWMEsvWfur2z m6j5VAmwGW21jKCgNAUlZZJf OUElv40dPxVZgFRdzJ1bIBDz UMRkzKEowT6xvuRhMPNjVGyk VFYxfkaioYRqWU07G19uHGG5 fFUsTA0fqd5maHXzzHedeSVn s6mulvIcwqGvse1uD7Buv7Cf eSBpZGVudGlmaWFibGUgbGVz rJ6zxeQbdzGeHTWgHJJgsNKi y1CpaX9fRTDjmXMkd3RvpJP0 zYInGRHfF6Eot71pcVQbb2Qr rPh0eATlHQokYKJnsxJuRLIu d4AyrRLtnb9ldNNvDOUuazKQ Cqm7SSHyKmBmXIo1VKPqpL1f Qp9qyTNnqL2fqMSzJFzmWCIp lAz0LBFkUsxatCE2FvKloqUe IYIeODyvHB39LM5iKOTjNE45 NV6opPfff5UvZNOrBCOppUAd t3RdARYtQN51GTufBX85IOtn YK9rCUOwWmTxGBahZMQwGRSg jZAlAJoyYCP2Tu6dnGOjQBUz cyByZWNlaXZlZCBpbiBvbmUg X4Hjy5S4tVMeVNTlxu8= [facility] [employer] Work Phone: Pathology report final diagnosis Narrative o9felUZtDAMfrQEzIFCgKmme bjIsBHMskWOnT0XgupjnJWph OU7iPB6dtGtvwEBdaECjCSZd ShPni0ccv529nJUuq9gcUUVG EAadHXLQSDu8jXsnG94yy4S5 MpjtI72exWWfISJ5MOWwEXKy hQPfLYMpIRI5HKJsiRZtC0us KQFqQW0isfvxTHjuIHtjESOo oLZ4VAUaqPArU9LsTMVsELpf JUCatay6OhWcAz6zqONwgMdt MFxwYXJkXHBsYWluXGZzMjBc uNEtZJSwQDDXPX7UEYFBGUJT IZALPLDNKVtIU3YZLDPVH54C TbdsXXZcFWUNJP7MRQFYXCIL Xb0FGQSqAM9XM9MFItZiY1HU VFJJVElTXHBhclxwYXJcdWwg S55onGLftHc7pKBbAyUwQYqh ppNdtNIbpg7yCOQmOKNnK4Ij c3InxX90YFD6yK3yrFPlCJAt lRzva2kbTOVkxUCssBNphLVi XV1lXC7bwUkkryPfN8jeFCPZ uIAwKNLPGEY0CQxuFIAtf1re CU4mEFD9sUNuwsQpTD0zGYob qHama2ZiE7UpgcFjcAvxvlfq XHBhclxwYXJkXHBhciBBLiAg OZkTGHEaGKpMCXaYEJYPA4TQ GRqhJOFmbnQuRG5GZPXzF2PL GRRLH2mFXGpAWpGYFUWzJMIi hVQwKNTsomx8uYOGl55rYA72 PDDsMGV3SPLoQ0Eeq32kXFKu oD0gc4QnYYNzGNDnIHxpxTMz aOAtsUQiglAnuwNedFYuH0Y9 tcDaj8d4tKDenRlgLY8dH2Jh jvPfvWR8zDVvFSB3VVR2f2Gi ndLjF5A7dBbafygpTZQqav38 jZ6vlNLtaKMhQTHff3ZpvGxy PRkpudHzUUZpjQMnYQ0jCKox lrNduOOqml1pQTUjFLUuX9Jn m8OoXoGhqX9ysbcfLzWwCRff uvFvJZOae72nOZetBgCbWARd WYU0nCPohBeiCD3lIH3daIjp sdokcgWphZCcwH6uOsLUeBRq hL7brCLqOMYsVSM1lzOxu318 DMcnEKJgoAKci4VjUPtwc9Mf sWT4kBEjsfQ1xNOfp8C2BBZy eLAsiCmovNEgP6AzxCBpmbJz FB1fWIXvgunjuX7umYn1xuA4 FM4zVBBhRTDjRPggz6XyoT2p YKwlax1zGYYeXEZ9losdqX4c HHhuUQLpPF4eJ9N4zWUiUQUb ciBpbmNyZWFzZWQgaXJvbiBz cS2rKJioNHOdFDAgvASjl9Rt xdhcccItxIFviSd4XBe9Erba YXJccGFyZFxwYXJ9 [facility] [employer] Work Phone: [facility] Phone: Nursing Noteon 02-27-2023 Nursing Note Went over discharge instructions, med rec, and prescriptions with pt. Pt verbalized understanding. 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 Tolerating liquids per protocol: yes Nausea/Vomiting: no If yes, actions taken: Dysphagia: no Vital signs stable. Adequate urine output: Yes Surgical incisions well approximated, dry and without redness. juan luis LLQ incision with packing in place: No If Yes: N/A Bowel movement: No If yes- description: Patient on room air: Yes Patient ambulating: yes Pain adequately controlled: Yes If no, actions taken: Current treatment: percocet Anticipate discharge: today Fatuma Delacruz RN Normal [facility] Progress Note BARIATRIC PATHOLOGY TRANSCRIPTIONIST DISCHARGE NOTE Verbal and written discharge instructions (including office/after hours contact numbers) reviewed with patient and spouse. Reviewed diet, activity, home meds, incision care and signs and symptoms of DVT/PE and leak. Patient and family taught regarding home Lovenox administration: not applicable. Patient understands verbal and written information given, all questions answered. Patient is and lives with spouse. Has supportive family who will assist with dc needs at home. Patient independent with ADL?s prior to admission. Patient verbalizes understanding of information provided. Normal [facility] Progress Note [facility] - [facility] Bariatric [facility] Patient Name: Kaelyn Maddox Date: 02/27/23 MIS-General Surgery/Bariatric Progress Note Subjective: The patient is doing well, postoperative day #1 from robotic NENO-S, and liver biopsy. NAEON. Patient endorses nausea but denies vomiting. Pain well controlled. Patient is ambulating and urinating without difficulties. Scheduled Meds:albuterol, 2.5 mg, Nebulization, TID enoxaparin, 40 mg, SubCUTAneous, 2 times per day ketorolac, 15 mg, IntraVENous, 4 times per day pantoprazole, 40 mg, IntraVENous, Nightly sodium chloride 0.9%, 10 mL, IntraVENous, 2 times per day Continuous Infusions:sodium chloride 0.45 % with KCl 20 mEq, 100 mL/hr, Last Rate: 100 mL/hr (02/27/23 0003) PRN Meds:PRN medications: morphine sulfate OR morphine sulfate, ondansetron ODT OR ondansetron, sodium chloride, sodium chloride 0.9% Allergies Allergen Reactions Hydromorphone Other Mood changes very mean Metformin Objective: Patient Vitals for the past 24 hrs: BP Temp Temp src Pulse Resp SpO2 02/27/23 0456 115/68 (!) 35.7 ?C (96.2 ?F) Temporal 79 16 95 % 02/27/23 0009 120/69 36.5 ?C (97.7 ?F) Temporal 65 16 92 % 02/26/23 1942 117/75 36.3 ?C (97.3 ?F) Temporal 96 16 92 % 02/26/23 1629 (!) 140/87 36.3 ?C (97.4 ?F) Temporal 94 16 95 % 02/26/23 1347 138/85 36.5 ?C (97.7 ?F) Temporal 89 16 94 % 02/26/23 1315 125/85 -- -- 93 25 96 % 02/26/23 1300 123/89 -- -- 94 (!) 30 94 % 02/26/23 1245 122/85 -- -- 90 (!) 27 93 % 02/26/23 1230 121/84 -- -- 91 25 93 % 02/26/23 1215 121/78 -- -- 91 (!) 31 95 % 02/26/23 1200 115/78 -- -- 92 (!) 28 98 % 02/26/23 1145 -- -- -- 93 23 97 % 02/26/23 1140 108/66 36.1 ?C (97 ?F) Temporal 92 21 97 % Average, Min, and Max for last 24 hours Vitals: TEMPERATURE: Temp Av.2 ?C (97.2 ?F) Min: 35.7 ?C (96.2 ?F) Max: 36.5 ?C (97.7 ?F) RESPIRATIONS RANGE: Resp Av.3 Min: 16 Max: 31 PULSE RANGE: Pulse Av.2 Min: 65 Max: 96 BLOOD PRESSURE RANGE: Systolic (24hrs), Av , Min:108 , Max:140 ; Diastolic (24hrs), Av, Min:66, Max:89 PULSE OXIMETRY RANGE: SpO2 Av.7 % Min: 92 % Max: 98 % I/O last 3 completed shifts: In: 2200 (18.9 mL/kg) [I.V.:2200 (18.9 mL/kg)] Out: 20 (0.2 mL/kg) [Blood:20] Weight: 116.1 kg CBC: Recent Labs 02/26/23 1142 02/27/23 0451 WBC -- 15.5* HGB 13.0 12.0 HCT 40.1 36.1 PLT -- 281 BMP: Recent Labs 02/26/23 1142 02/27/23 0451 NA 136 136 K 4.3 4.4 CL 105 108* CO2 BUN 12 12 CREATININE 0.55 0.55 GLUCOSE 200* 109* Abdomen: The abdomen was soft and appropriately tender postoperative. Nondistended. Incisions c/d/I. Assessment/Plan: Postoperative day #1,robotic NENO-S and liver biopsy GI/DVT prophylaxis, continue SQ Lovenox UGI this AM Increase activity Trial gastric bypass clear liquid diet if no signs of extravasation or leak on UGI Pulmonary toilet Initiate home medications, and oral pain control medications Will plan for discharge home this afternoon if patient is progressing well WDW Dr. Raffi Cordova MD General Surgery PGY-2 Pager # [phone] Normal [employer] [facility] Progress Note Negative [facility] Progress [facility] Bariatric Case Manag er Note POD#1- AM S/P NENO-S UGI Done Extravasation: no Delayed gastric emptying: No Begin Bariatric Clear Liquid diet: Yes Diet protocol of one ounce every 30 minutes reviewed with patient Vital signs stable. Adequate urine output: Yes Abdomen soft, non-distended Bowel sounds: hypoactive Surgical incisions well approximated. No redness or drainage juan luis LLQ incision with packing in place: No Instructed patient on ambulating in halls at least three times a day and hourly use of incentive spirometer. Patient aware to ask for assistance as needed. Call light in reach. SCDs to bilateral lower extremities while in bed. Pain control: Oral pain medication initiated: percocet Home medications reviewed. Will monitor patients tolerance to liquids and oral pain medication. Interventions: No If yes: Normal [employer] [facility] XR Abdomen and RF Gastrointe stinal tract upper W contrast Hanane 02-27-2023 Postsurgical NENO-S gastric bypass changes as described. Apparent mild narrowing of the gastric fundus. No evidence of contrast extravasation or obstruction. Report Dictated on Electronically Signed By: Andriy Carlisle Electronically Signed Date/Time: 02/27/2023 11:38 AM [facility] [employer] Patient Name: KAELYN GUEVARA : 1980 Exam Date/Time: 02/27/2023 07:41 Procedure: FL UPPER GI WITH KUB Ordering Provider: NUGENT ADRIAN Reason For Exam: s/p NENO-S GASTROGRAFIN UGI SERIES: History: Post op day one single anastomosis duodenal-ileal bypass with sleeve gastrectomy. (NENO-S), evaluate for leak. Comparison: 10/10/2022 Technique: Gastrografin was administered orally in the upright position. Fluoroscopy dose: Ka,r= 188.7 mGy FINDINGS: FINDINGS: The exam was performed using Gastrografin which was administered orally to the patient in the upright position. The esophagus shows no obstruction or contrast extravasation. The patient is reportedly status post NENO-S sleeve gastrectomy and duodeno- ileal anastomosis with longitudinal resection of the stomach leaving a tubular gastric conduit. The tubular gastric fundus appears relatively narrowed. There is contrast emptying from the gastric conduit into the small bowels/efferent limb without obstruction or extravasation. A small amount of contrast is also seen in the afferent limb. There is small amount of abdominal free air under the diaphragm presumably postsurgical. There are small linear basilar lung atelectasis. [facility] Andriy Carlisle MD - 02/27/2023 Patient Name: KAELYN MADDOX : 1980 Exam Date/Time: 02/27/2023 07:41 Procedure: FL UPPER GI WITH KUB Ordering Provider: NUGENT ADRIAN Reason For Exam: s/p NENO-S GASTROGRAFIN UGI SERIES: History: Post op day one single anastomosis duodenal-ileal bypass with sleeve gastrectomy. (NENO-S), evaluate for leak. Comparison: 10/10/2022 Technique: Gastrografin was administered orally in the upright position. Fluoroscopy dose: Ka,r= 188.7 mGy FINDINGS: FINDINGS: The exam was performed using Gastrografin which was administered orally to the patient in the upright position. The esophagus shows no obstruction or contrast extravasation. The patient is reportedly status post NENO-S sleeve gastrectomy and duodeno- ileal anastomosis with longitudinal resection of the stomach leaving a tubular gastric conduit. The tubular gastric fundus appears relatively narrowed. There is contrast emptying from the gastric conduit into the small bowels/efferent limb without obstruction or extravasation. A small amount of contrast is also seen in the afferent limb. There is small amount of abdominal free air under the diaphragm presumably postsurgical. There are small linear basilar lung atelectasis. IMPRESSION: Postsurgical NENO-S gastric bypass changes as described. Apparent mild narrowing of the gastric fundus. No evidence of contrast extravasation or obstruction. Report Dictated on Electronically Signed By: Andriy Carlisle Electronically Signed Date/Time: 02/27/2023 11:38 AM EDT [facility] Radiology Study observation (narrative) [facility] XR Abdomen and RF Gastrointe stinal tract upper W contrast POOrdered By: Andriy Carlisle on 02-27-2023 [facility] [employer] Work Phone: Basic metabolic 1998 panelon 02-26-2023 Anion gap [Moles/Vol] 8 mmol/L 3 - 13 mmol/L [facility] Calcium [Mass/Vol] 8.5 mg/dL 8.4 - 10. 4 mg/dL [facility] Chloride [Moles/Vol] 105 mmol/L 98 - 10 7 mmol/L [facility] CO2 [Moles/Vol] 23 mmol/L 22 - 30 mmol/L [facility] Creatinine [Mass/Vol] 0.55 mg/dL 0.52 - 1.04 mg/dL [facility] GFR/1.73 sq M.predicted MDRD (S/P/Bld) [Vol rate/Area] - PINF [facility] Comment on above: Calculation based on the Chronic Kidney Disease Epidemiology Collaboration (CKD-EPI) equation refit without adjustment for race Glucose [Mass/Vol] 200 mg/dL High 70 - 100 mg/dL [facility] Interpretation and review of laboratory results Abnormal [facility] Potassium [Moles/Vol] 4.3 mmol/L 3.5 - 5.1 mmol/L [facility] Sodium [Moles/Vol] 136 mmol/L 135 - 145 mmol/L [facility] Urea nitrogen [Mass/Vol] 12 mg/dL 7 - 17 mg/dL [facility] Hemoglobin (Bld) [Mass/Vol]o n 02-26-2023 Hematocrit (Bld) [Volume fraction] 40.1 % 35.0 - 47.0 % [facility] Interpretation and review of laboratory results Normal [facility] Laboratory - Chemistry and C hemistry - challengeon 02-26-2023 Glucose [Mass/Vol] 179 mg/dL High 70 - 100 mg/dL [facility] Glucose [Mass/Vol] 116 mg/dL High 70 - 100 mg/dL [facility] Laboratory - Hematology and Cell countson 02-26-2023 Hemoglobin (Bld) [Mass/Vol] 13.0 g/dL 11.7 - 16.0 g/dL [facility] No Panel Informationon 02-26 Interpretation and review of laboratory results Abnormal [facility] Performed by: [facility], [address] [place] [id number] CLIA ID: [id number] [facility] Interpretation and review of laboratory results Abnormal [facility] Performed by: [facility], [address] [place] [id number] CLIA ID: [id number] [facility] Op Noteon 02-26-2023 Op Note Date: 02/26/2023 Locat ion: [facility] OR Name: Kaelyn Maddox, : 1980, Diagnosis Pre-op Diagnosis * Morbid (severe) obesity due to excess calories (HCC) [E66.01] * Diaphragmatic hernia without obstruction or gangrene [K44.9] Post-op Diagnosis * Morbid (severe) obesity due to excess calories (HCC) [E66.01] * Diaphragmatic hernia without obstruction or gangrene [K44.9] Procedures ROBOTIC ASSISTED SINGLE ANASTOMOSIS DUODENAL ILEAL BYPASS WITH SLEEVE GASTRECTOMY WITH LIVER WEDGE BIOPSY, EGD 77168 - HI UNLISTED PROCEDURE STOMACH ROBOTIC (XI) ASSISTED GASTRIC RESTRICTIVE PROCEDURE WITH PARTIAL GASTRECTOMY PYLORUS PRESERVING DUODENOILEOSTOMY AND ILEOILEOSTOMY 53882 - HI GASTRIC RSTCV W/PRTL GASTRECTOMY 50-100 CM UNLISTED LAPAROSCOPIC PROCEDURE LIVER 20148 - HI UNLISTED LAPAROSCOPIC PROCEDURE LIVER HI LAPS RPR PARAESPHGL HRNA INCL FUNDPLSTY W/O MESH [37438] Robotic Single anastomosis duodenal ileal bypass with sleeve gastrectomy (NENO-S) Robotic liver wedge biopsy Esophagogastroduodenosco py Surgeons * Kenny Nugent - Primary Salesperson [employer]obiles: Tamika (PGY-4) Procedure Summary Anesthesia: General ASA: III Estimated Blood Loss: 20 mL Drains: * None in log * Specimens ID Source Type Tests Collected By Collected At Frozen? Priority Lab ID 1 Stomach Tissue TISSUE EXAM Kenny Nugent MD 02/26/23 09 Routine Description: STOMACH 2 Liver Tissue TISSUE EXAM Kenny Nugent MD 02/26/23 0948 Routine Description: LIVER BIOSY Staff: Sales Consultant: Lindsay Pineda, RN Scrub Person: Erick Garsia Findings: See operative report Complications: None; patient tolerated the procedure well. Specimens Collected: Order Name Source Comment Collection Info Order Time HCG QUALITATIVE URINE Urine, Clean Catch 02/26/2023 5:49 AM POTASSIUM WITH MG REFLEX For patients on dialysis to draw potassium day of surgery 02/26/2023 5:49 AM PROTHROMBIN TIME If patient on coumadin within 4 days prior. 02/26/2023 5:49 AM TISSUE EXAM Stomach Pre-op diagnosis: Morbid (severe) obesity due to excess calories (HCC) [E66.01] Collected By: Kenny Nugent MD 02/26/2023 9:08 AM Wound Class: Class II: Clean-Contaminated Blood Products: None Prophylactic Antibiotics: Procedure appropriate prophylactic antibiotic(s) given within 1 hour of surgical incision (two hours if receiving Vancomycin or flouroquinolone) Normal [facility] Op Note KENNY NUGENT MD , [facility], [facility] MINIMALLY INVASIVE & METABOLIC / BARIATRIC SURGERY [facility] OPERATIVE REPORT 02/26/2023 PATIENT: Kaelyn Maddox DATE OF : 1980 -------- PROCEDURE: 1. ROBOTIC SINGLE ANASTOMOSIS DUODENO-ILEOSTOMY ([address] [address]) (22) 2. ROBOTIC SLEEVE GASTRECTOMY (57279) (59) 3. ROBOTIC LIVER WEDGE BIOPSY (98841) (59) 4. UPPER GASTRO-INTESTINAL ENDOSCOPY (90035) SURGEON: Kenny Nugent MD TECHNICAL COORDINATOR: Deion Lundberg MD PRE-OPERATIVE DIAGNOSES: BMI 42 Kg / m2 Type 2 diabetes mellitus Hepatic steatosis. Morbid Obesity POST-OPERATIVE DIAGNOSES: Same ANESTHESIA: General endotracheal Transversus Abdominis plane block FLUIDS: Crystalloid ESTIMATED BLOOD LOSS: Minimal URINE OUTPUT: Not recorded PREOPERATIVE MEDICATIONS: Cefazolin 3 gm IV; Heparin 5000 units SQ INDICATIONS FOR PROCEDURE: The patient is a 42 y.o. female with morbid obesity and a BMI of Body mass index is 42.6 kg/m?.. She has completed medical risk stratification and is scheduled for Robotic-assisted Single-Anastomosis Duodeno-Ileostomy (NENO) during Sleeve Gastrectomy (S). CONSENT: The patient was seen and evaluated in the office setting where the details of the procedure were explained and all questions were answered to the patient's satisfaction. An informed consent discussion was held between Dr. Nugent and the patient. Viable alternatives to the proposed procedure, including but not limited to, medical observation under the care of a physician, exercise programs and other weight reductive operative procedures were discussed. Risks to the proposed procedure, including but not limited to hemorrhage requiring transfusion, infection, nerve injury, conversion to open, anastomotic disruption, anastomotic stricture, pneumonia, pulmonary embolus, airway complications, and were explained to the patient. The procedure specific termite renewal inspector potential complications including increased flatulence and bowel movements as well and nutritional deficiencies and the need to comply with dietary supplements were thoroughly discussed. The patient understands the aboverisks and alternatives and has electively chosen Robotic Single-Anastomosis Duodeno-Ileostomy during Sleeve Gastrectomy and wishes to proceed with surgical intervention. TECHNIQUE: The patient was transported to the operating room and identified by name and number. An operating room team time out was performed confirming the identity of the patient and the planned procedure. The patient was placed on the operating room table in the supine position. General endotracheal anesthesia was administered and a transverse abdominis plane block was performed by members of the anesthesia team. An arabella-gastric tube was placed to decompress the stomach. Following placement of sequential compression devices, the patient waspositioned in the modified lithotomy position and extremities were carefully padded and protected. The abdomen was prepped and draped in standard surgical fashion. The abdominal cavity was accessed in the left upper quadrant at Miller's point using a 5-mm optical trocar. Pneumoperitoneum was established and a brief exploration of the abdominal cavity was performed. Three other robotic trocars were placed under direct visualization. These were placed in a horizontal pattern near the level of the umbilicus. An car rental sales assistant port was placed in the left upper quadrand and a 5-mm trocar was placed in the right upper quadrant for a liver retractor. We proceeded with careful removal of the arabella-gastric tube after decompression of the stomach was confirmed. A small peritoneal opening was created near the angle of His using hook electrocautery.We proceeded with evaluation of the greater curvature of the stomach and the lesser sac was carefully incised by dividing the short gastric vessels using the the vessel sealer. The short gastric vessels and attachments to the greater curvature were carefully taken down in the same fashion all the way to the angle of his superior and inferiorly along the greater curvature of the stomach to approximately 3-4 cm from the pylorus. The posterior attachments the stomach were carefully divided using sharp scissors. At this time we proceeded with our first staple line, using a thick tissue load. This was carried out towards the incisura, ensuring that ample caliber of the sleeve is preserved in order to avoid a stricture. Following this a 50 Kittitian bougie was carefully advanced by the anesthesia personnel and carefully guided into the antrum. This was used to loosely calibrate the size of the residual sleeve is Endo GERARD staplers were fired towards the proximal aspect of the stomach. The last staple load was carefully flared out laterally to avoid stapling over the distal esophagus. O (more content not included)... Normal [facility] PREPROCINSon 02-19-2023 PREPROCINS Medication List Accurate as of February 19, 2023 8:48 AM. Always use your most recent med list. cetirizine 10 MG tablet Commonly known as: ZyrTEC Medication Adjustments for Surgery: Take morning of surgery empagliflozin 25 MG Commonly known as: Jardiance Medication Adjustments for Surgery: Stop 2 days before surgery fluticasone 50 MCG/ACT nasal spray Commonly known as: Flonase Medication Adjustments for Surgery: Take night before surgery meclizine 25 MG tablet Commonly known as: Antivert Medication Adjustments for Surgery: Take morning of surgery omeprazole [address] capsule Commonly known as: PriLOSEC Take 1 capsule (20 mg) by mouth daily. Do not crush or chew. Medication Adjustments for Surgery: Take morning of surgery ondansetron ODT 4 MG disintegrating tablet Commonly known as: Zofran-ODT Medication Adjustments for Surgery: Take morning of surgery OneTouch Delica Plus [id number] misc OneTouch Verio test strip Generic drug: glucose blood SUMAtriptan 50 MG tablet Commonly known as: Imitrex Medication Adjustments for Surgery: Take morning of surgery FOLLOW DR. NUGENT'S ORDERS DIET AND MEDICATION INSTRUCTIONS GIVEN TO YOU IN BARIATRIC CLASS. SHOWER USING HIBICLENS OR DIRECTED BY YOUR SURGEON THE MORNING OF SURGERY. AFTER YOUR SHOWER NO MAKEUP, DEODORANT,LOTION,POWDER, BODY SPRAY. NO HAIR PRODUCTS. IF YOU WEAR JEWELRY PLEASE REMOVE IT ALL AND LEAVE IT AT HOME. DO NOT WEAR CONTACT LENSES DAY OF SURGERY. YOU MAY BRUSH YOUR TEETH MORNING OF SURGERY. PLEASE BRING YOUR CPAP/BIPAP MACHINE. OTHER SPECIAL INSTRUCTIONS: BRING PHOTO ID AND INSURANCE INFORMATION. YOU WILL RECEIVE A CALL FROM [facility] PRIOR TO YOUR SURGERY VERIFYING YOUR ARRIVAL TIME AND THE START TIME OF YOUR SURGERY. IF YOU HAVE SPECIFIC QUESTIONS, PLEASE CALL THE BARIATRIC CENTER. You may use the [employer] parking located at the main entrance on [address] [place] [address] and take the H elevator to the first floor for same day surgery. Take a left after exiting the elevator and check in at the desk. You may use the parking in the Main deck. Take the level one bridge to the H building and follow the signs for same day surgery. Check in at the desk. [facility] 02-18-2023 36 Please review, been out sick last two days. Patient needs surgery sooner if possible. Normal [facility] [id number] 02-17-2023 [id number] Spoke tp patient Normal [facility] 02-16-2023 36 Yes He just had one for 02/19/23 [facility] 36 Duplicate message se e other encounter [facility] 36 Duplicate message, s ee other encounter [facility] 36 Routing to David Carrillo and Blaire, thanks [facility] 36on 02-13-2023 36 From financial standpoint she is already approved I would just need to update the date of service. [facility] ECG 12-LEADon 02-12-2023 ECG 12-LEAD IMPRESSION: Sinus rhythm LVH by voltage Electronically Signed On 02-12-2023 11:46:29 EDT by Jermaine Funes [facility] 36on 02-11-2023 36 Noted and agree, thanks [facility] Office Visiton 02-11-2023 Follow-up visit [id number] Kaelyn Maddox 1980 F Date Provider Department Center 02/11/2023 [id number] MONTES DE [facility] SURG None Family History Problem Relation Age of Onset Stroke Maternal Grandfather Hypertension Maternal Grandfather Heart disease Maternal Grandfather Hypertension Mother Diabetes Father Stroke Father Stroke Paternal Grandfather Hypertension Paternal Grandfather Cancer Paternal Grandfather Diabetes Paternal Grandfather Heart disease Paternal Grandfather Hypertension Paternal Grandmother Hypertension Maternal Grandmother Family Status - Relation Status Age at Maternal Grandfather Alive Mother Alive Father Alive Paternal Grandfather Alive Paternal Grandmother Alive Maternal Grandmother Alive Level of Service:31774 HI OFFICE/OUTPATIENT ESTABLISHED LOW MDM 20-29 MIN Reason for Visit and Comments: Weight Management [645] - Final pre op [facility] Progress Noteon 02-11-2023 Progress Note [facility] SURGICAL WEIGHT LOSS MANAGEMENT PROGRAM Rooming note: FINAL PRE-OP VISIT Patient: Kaelyn Maddox Date of : 1980 Service Date: 02/11/2023 This patient is accompanied by spouse for the evaluation today Patient is here today for their final pre-operative visit with surgeon prior to undergoing surgical weight loss intervention. Patient has the following question(s): none Weight Metrics: Measurements Weight: 254 lb 6.4 oz (115 kg) Height: 5' 5 (165.1 cm) BMI (Calculated): 42.4 Percent Excess Weight Loss: 0 Percent Weight Change Since Preop (kg): 115.39 kg Initial Excess Weight (kg): -56.7 kg IBW in kg (Bariatric): 56.7 kg IBW in lb (Bariatric): 125 lb Weight Change Since Last Visit: 115.39 kg Percent of IBW: 203.52 Percent EBW (kg): 58.67 kg EBW (lb): 129.4 lb Today's weight has increased from the last visit Falls Risk Assessment Patient does not take medications which affect BP or mental status Patient does not have newly prescribed or changed dosage of medications within past 30 days which affect BP or mental status Patient has not fallen in the past 2 months Patient does not demonstrate unsteady gait Patient uses the following ambulatory assistive devices: none Patient states the presence of the following traits which increases risk of fall: none Patient is low risk for falls. If high or moderate risk, patient instructed not to ambulate independently in the Center, and cord for call light placed within reach of patient. Patient has had a time when it was difficult for an IV to be placed. Patient is not on home O2 Patient has not has a time when it was difficult to intubate them Patient does not have a CPAP/BiPAP machine. If patient DOES have CPAP/BiPAP: [] CPAP [] BiPAP Settings are cm H2O PAP and settings entered into the Medication List Completed by: Radha Schaeffer LPN Normal [facility] Progress Note KENNY NUGENT MD , F [facility], [facility] MINIMALLY INVASIVE & METABOLIC / BARIATRIC SURGERY [facility] MBS - FINAL PRE-OP VISIT 02/11/2023 PATIENT: Kaelyn Maddox DATE OF : 1980 -------- HISTORY OF PRESENT ILLNESS Chief Complaint: Morbid Obesity and here for final preoperative evaluation, informed consent and discussion of work-up results. Kaelyn Maddox is a 42 y.o. female with morbid obesity and associated comorbid conditions who presents to the [facility] for final pre-operative evaluation and for discussion of the preoperative testing results. A discussion of the risks, benefits and options of the planned procedure was also held and all questions were answered to the patient's satisfaction. The patient stands Height: 5' 5 (165.1 cm) tall with a weight of Weight: 254 lb 6.4 oz (115 kg) , and has a BMI of Body mass index is 42.33 kg/m?. PATIENT SUMMARY Kaelyn Nugent 41 y.o. female with Body mass index is 41.85 kg/m?. 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 pylori [x] Negative [] Positive UGI [x] [] not ordered Prominent cricopharyngeus..Small hiatus hernia with spontaneous gastroesophageal reflux.Mucosal irregularity/tiny ulcerations of the distal esophagus- egd did not show. 10/10/22 US Abdomen [x] [] not ordered 10/10/22-s/p selena, fatty VIKTOR eval [x] [] On CPAP / Obtain settings mild viktor no tx Hematology [] [] Hypercoagulation panel Toxicology [] [] Urine drug screen [] EtOH screen 10/29/22 Addtional [x] [x] Hgb A1c 10/29/22 7.7 INITIAL CONSULTATIONS CLEARANCE / MANAGEMENT Psychology [x] Dr. Garvey Initial 08.27.2022; cleared 09.19.2022 Dietitian [x] Jacque Albarran, RD, LD Cleared 04/30/22 updated: cleared 11/05/22 Cardiology [x] [] not ordered NIEDERMAIER cleared 10/14/22 Pulmonary [x] [] not ordered MONTY CLEARED 10/29/22 Others [] []Heme/Onc []Psychiatry []Pain mgmt PSD [] Physician supervised diet: []None []3 mos [x]6 mos Preop diet [] Preop low calory diet: []None [x]1 wk []2 wks []Ext. start 02/18/23 FINAL PRE-OP TESTING RESULTS Labwork [x] [x]Pre-op CBC [x]BMP []Serum Nicotine / Cotinine EKG [x] CXR [x] POST-OP MEDICATIONS Ulcer Ppx [x] Omeprazole 20 mg PO [x]QD []BID Gallstone Ppx [] Ursodiol 300 mg []BID DVT Ppx [x] DVT prophylaxis per final preop visit estimated risk Estimated calculated risk: 0.16 % COMPLETE FILE TO FINANCIAL: 11/05/22 WLS Prior Auth Request Submitted: 11/21/2022 WLS Prior Auth Approval Received: 12/11/2022 Auth# [id number] DVT PPX Risk Factors [] Male [] Age >= 60 years [] BMI >= 50 kg/m^2 [] CHF [] Dyspnea at Rest [] Paraplegia [x] Non-Gastric Band Surgery [] Anticipate Operative Time > 3 hours [] Anticipate Length of Stay >3 days Automatic 4 Weeks of Therapy [] Congenital or Acquired Hypercoagulable Conditions (Factor V Leiden, Prothrombin) [] Past History of DVT or PE [] Significant Chronic Venous Insufficiency Calculated Risk Score:The predicted probability of thirty-day post-discharge VTE 0.16 % Risk % Weeks </> BMI 50 SQ Dose [x] Moderate <0.4% 0 None [] High Risk 0.4% - 1% 2 [] 40 mg Lovenox BID [] 60 mg Lovenox BID [] Very High Risk >1% 4 [] 40 mg Lovenox BID [] 60 mg Lovenox BID Review of Symptoms Constitutional: negative for chills, fevers, night sweats Respiratory: negative for cough, dyspnea on exertion, hemoptysis, and sputum Cardiovascular: negative for chest pain, chest pressure/discomfort, dyspnea, irregular heart beat, palpitations, and syncope Gastrointestinal: negative for abdominal pain, constipation, diarrhea, dysphagia, melena, reflux symptoms, and vomiting Neurological: negative for dizziness, paresthesia, seizures, and weakness One wound under pannus- she picks in sleep- not signs of infection. Just got over a sinus infection. PAST HISTORIES Past Medical History: Diagnosis Date Anemia Back pain Circulation problem COVID-19 vaccine series declined Daytime sleepiness Difficulty sleeping Dizziness Fatigue History of UTI Joint pain, hip Joint pain, knee Snoring SOBOE (shortness of breath on exertion) Type 2 diabetes mellitus with ophthalmic complication, without long-term current use of insulin (HCC) Past Surgical History: Procedure Laterality Date CARPAL TUNNEL RELEASE Right 2 (more content not included)... [address] 02-06-2023 36 I contacted patient at [phone], gave her the information needed to process [facility] paperwork. Patient understood everything she needed. She has my direct Number if she has any other concerns. [address] 02-05-2023 36 No lovenox DVT Ppx [x] DVT prophylaxis per final preop visit estimated risk Estimated calculated risk: 0.16 % COMPLETE FILE TO FINANCIAL: 11/05/22 WLS Prior Auth Request Submitted: 11/21/2022 WLS Prior Auth Approval Received: 12/11/2022 Auth# [id number] DVT PPX Risk Factors [] Male [] Age >= 60 years [] BMI >= 50 kg/m^2 [] CHF [] Dyspnea at Rest [] Paraplegia [x] Non-Gastric Band Surgery [] Anticipate Operative Time > 3 hours [] Anticipate Length of Stay >3 days Automatic 4 Weeks of Therapy [] Congenital or Acquired Hypercoagulable Conditions (Factor V Leiden, Prothrombin) [] Past History of DVT or PE [] Significant Chronic Venous Insufficiency Calculated Risk Score:The predicted probability of thirty-day post-discharge VTE 0.16 % Risk % Weeks </> BMI 50 SQ Dose [x] Moderate <0.4% 0 None [] High Risk 0.4% - 1% 2 [] 40 mg Lovenox BID [] 60 mg Lovenox BID [] Very High Risk >1% 4 [] 40 mg Lovenox BID [] 60 mg Lovenox BID [address] 01-08-2023 36 DOS 02/26/2023 w / Dr. Nugent I attempted to contact patient at [phone] regarding scheduling for FPOV on 02/11/2023 @ 10:15 am. She will speak with the surgeon go over everything for surgery, will sign consent forms and receive her educational binder. Patient understood everything and confirmed appointment time she will make. [facility] 36on 01-06-2023 36 Good Morning Paula, Hoping all is well with you. I sent this patient a Intradiemt message, informing her, I haven't received surgery confirmation yet. Once I do, I will schedule a FPOV. She will speak with the surgeon go over everything For surgery and sign consent forms and receive her Educational Binder. I included my direct number also. [facility] [phone] 12-16-2022 [id number] PCP updated. [facility] 36on 12-16-2022 36 Signed. [facility] 36 PRE-OP WEIGHT CHECK: [x] Pre-operative testing is compete. [] Pre-operative testing is NOT complete. Outstanding Testing Includes: [] Patient has the following scheduling restrictions: [x] Patient does NOT have scheduling restriction. Patient has: [] Gained lbs [] Lost lbs Current BMI is: Patient has the following questions: [facility] 36on 12-11-2022 36 PEER TO PEER complet ed. Reviewed weight gain, likely r/t exercise program. Did receive an approval. [facility] .GFRon 12-10-2022 GFR 217 ml/min/1.73sqm Normal [facility] ([place]) Comment on above: Result Comment: GFR Population mean for , Non- Americans Ages 20-29 = 116 mL/min/1.73 sq.m. Ages 30-39 = 107 mL/min/1.73 sq.m. Ages 40-49 = 99 mL/min/1.73 sq.m. Ages 50-59 = 93 mL/min/1.73 sq.m. Ages 60-69 = 85 mL/min/1.73 sq.m. Ages 70+ = 75 mL/min/1.73 sq.m. Chronic Kidney Disease: Less than 60 mL/min/1.73 square meters End Stage Renal Disease: Less than 15 mL/min/1.73 square meters Performed By: #### C BC, ANEU, MDW, GFR, CMP, LIP, ADIFF #### [place] [address] GFR Non- 179 ml/min/1.73sqm Normal [facility] ([place]) Comment on above: Result Comment: GFR Population mean for , Non- Americans Ages 20-29 = 116 mL/min/1.73 sq.m. Ages 30-39 = 107 mL/min/1.73 sq.m. Ages 40-49 = 99 mL/min/1.73 sq.m. Ages 50-59 = 93 mL/min/1.73 sq.m. Ages 60-69 = 85 mL/min/1.73 sq.m. Ages 70+ = 75 mL/min/1.73 sq.m. Chronic Kidney Disease: Less than 60 mL/min/1.73 square meters End Stage Renal Disease: Less than 15 mL/min/1.73 square meters Performed By: #### C ELIZABETH BECKMAN MDW, GFR, CMP, LIP, ADIFF #### [address] [address] CMPon 12-10-2022 Albumin Level 3.5 G/dL Normal 3.5-5.0 [facility] ([place]) Comment on above: Performed By: #### C ELIZABETH BECKMAN MDW, GFR, CMP, LIP, ADIFF #### [address] [address] Albumin/Globulin [Mass ratio] 0.8 {ratio} Low 1.1-2.5 [facility] ([place]) Comment on above: Performed By: #### C ELIZABETH BECKMAN MDW, GFR, CMP, LIP, ADIFF #### [address] [address] ALP [Catalytic activity/Vol] 86 U/L Normal 40-135 [facility] ([place]) Comment on above: Performed By: #### C ELIZABETH BECKMAN MDW, GFR, CMP, LIP, ADIFF #### [place] [address] [place], [place] [address] ALT [Catalytic activity/Vol] 93 U/L High 14-59 [facility] ([place] Comment on above: Performed By: #### C BC, ANEU, MDW, GFR, CMP, LIP, ADIFF #### [address] [address] AST [Catalytic activity/Vol] 167 U/L High 10-40 [facility] ([place] Comment on above: Performed By: #### C ELIZABETH BECKMAN MDW, GFR, CMP, LIP, ADIFF #### [address] [address] Bili Total 0.6 mg/dL Normal 0.2-1.0 [facility] ([place]) Comment on above: Result Comment: Use of this assay is not recommended for patients undergoing treatment with eltrombopag due to the potential for falsely elevated results. Performed By: #### C ELIZABETH BECKMAN MDW, GFR, CMP, LIP, ADIFF #### [address] [address] BUN/Creatinine Ratio 36 ratio High 7-27 [facility] ([place]) Comment on above: Performed By: #### C ELIZABETH BECKMAN MDW, GFR, CMP, LIP, ADIFF #### [address] [address] Calcium [Mass/Vol] 8.9 mg/dL Normal 8.4-10.2 [facility] ([place]) Comment on above: Performed By: #### C ELIZABETH BECKMAN MDW, GFR, CMP, LIP, ADIFF #### [address] [address] Chloride [Moles/Vol] 102 mmol/L Normal 98-107 [facility] ([place]) Comment on above: Performed By: #### C ELIZABETH BECKMAN MDW, GFR, CMP, LIP, ADIFF #### [address] [address] CO2 [Moles/Vol] 27 mmol/L Normal 22-29 [facility] ([place]) Comment on above: Performed By: #### C RK, JÚNIOR JOHNSON, GFR, CMP, LIP, ADIFF #### [address] [address] Creatinine [Mass/Vol] 0.39 mg/dL Low 0.55-1.02 [facility] ([place]) Comment on above: Performed By: #### C RK, ELIZABETH, W, GFR, CMP, LIP, ADIFF #### [address] [address] Electrolyte Balance 6.0 mEq/L Normal 4.0-15.0 [facility] ([place]) Comment on above: Performed By: #### C RK, ELIZABETH, MDW, GFR, CMP, LIP, ADIFF #### [address] [address] Globulin 4.2 G/dL Normal [facility] ([place]) Comment on above: Performed By: #### C RK, ELIZABETH, MDW, GFR, CMP, LIP, ADIFF #### [address] [address] Glucose [Mass/Vol] 226 mg/dL High 70-105 [facility] ([place]) Comment on above: Performed By: #### C RK, ELIZABETH, MDW, GFR, CMP, LIP, ADIFF #### [address] [address] Potassium [Moles/Vol] 8.1 mmol/L Critically abnormal 3.5-5.1 [facility] ([place] Comment on above: Performed By: #### C RK, ELIZABETH, MDW, GFR, CMP, LIP, ADIFF #### [address] [address] Sodium [Moles/Vol] 135 mmol/L Low 136-145 [facility] ([place]) Comment on above: Performed By: #### C RK, ELIZABETH, MDW, GFR, CMP, LIP, ADIFF #### [address] [address] Total Protein 7.7 G/dL Normal 6.4-8.2 [facility] ([place]) Comment on above: Performed By: #### C BC, ELIZABETH, MDW, GFR, CMP, LIP, ADIFF #### [address] [address] Urea nitrogen [Mass/Vol] 14 mg/dL Normal 7-18 [facility] ([place] Comment on above: Performed By: #### C RK, MD ELIZABETHW, GFR, CMP, LIP, ADIFF #### [address] [address] LIPon 12-10-2022 Lipase Level 13 U/L Low 16-77 [facility] ([place] Comment on above: Performed By: #### C RK, MD ELIZABETHW, GFR, CMP, LIP, ADIFF #### [address] [address] .Auto Diffon 12-09-2022 Basophil, Absolute 0.1 10 3/mcL Normal 0.0-0.2 [facility] ([place]) Comment on above: Performed By: #### C ELIZABETH BECKMAN MDW, GFR, CMP, LIP, ADIFF #### [address] [address] Basophils/100 WBC (Bld) 1.0 % Normal 0.0-2.5 [facility] ([place] Comment on above: Performed By: #### C ELIZABETH BECKMAN MDW, GFR, CMP, LIP, ADIFF #### [address] [address] Eosinophil, Absolute 0.3 10 3/mcL Normal 0.0-0.4 [facility] ([place]) Comment on above: Performed By: #### C ELIZABETH BECKMAN MDW, GFR, CMP, LIP, ADIFF #### [address] [address] Eosinophils/100 WBC (Bld) 2.9 % Normal 0.0-7.0 [facility] ([place] Comment on above: Performed By: #### C RK, MD ELIZABETHW, GFR, CMP, LIP, ADIFF #### [address] [address] Lymphocyte, Absolute 3.0 10 3/mcL Normal 0.8-3.9 [facility] ([place]) Comment on above: Performed By: #### C RK, MD ELIZABETHW, GFR, CMP, LIP, ADIFF #### [address] [address] Lymphocytes/100 WBC (Bld) 26.7 % Normal 10.0-50.0 [facility] ([place] Comment on above: Performed By: #### C BC, ANEU, MDW, GFR, CMP, LIP, ADIFF #### [address] [address] Monocyte, Absolute 0.7 10 3/mcL Normal 0.2-1.0 [facility] ([place]) Comment on above: Performed By: #### C BC, ANEU, MDW, GFR, CMP, LIP, ADIFF #### [address] [address] Monocytes/100 WBC (Bld) 6.0 % Normal 1.7-13.0 [facility] ([place] Comment on above: Performed By: #### C BC, ANEU, MDW, GFR, CMP, LIP, ADIFF #### [address] [address] Neutrophils/100 WBC (Bld) 63.4 % Normal 37.0-80.0 [facility] ([place] Comment on above: Performed By: #### C BC, ELIZABETH, MDW, GFR, CMP, LIP, ADIFF #### [address] [address] .MDWon 12-09-2022 Monocyte Distribution Width 20.66 High 0.00-20.00 [facility] ([place]) Comment on above: Result Comment: For adults in ED, MDW>20.0 may be associated with a higher risk of sepsis during the first 12hrs of hospital admission Performed By: #### C BC, ANEU, MDW, GFR, CMP, LIP, ADIFF #### [address] [address] .NEUABSon 12-09-2022 Neutrophil, Absolute 7.0 10 3/mcL High 2.9-6.2 [facility] ([place]) Comment on above: Performed By: #### C BC, ANEU, MDW, GFR, CMP, LIP, ADIFF #### [place] [address] .Urinalysis Microscopic (AO) on 12-09-2022 UA Bacteria 3+ /hpf Abnormal [facility] ([place] Comment on above: Performed By: #### C RK, ELIZABETH, W, GFR, CMP, LIP, ADIFF #### [place] [address] UA RBC 0-5 Abnormal None Seen [facility] ([place]) Comment on above: Performed By: #### C RK, ELIZABETH, W, GFR, CMP, LIP, ADIFF #### [place] [address] UA Squam Epithelial 0-5 Abnormal None Seen [facility] ([place]) Comment on above: Performed By: #### C RK, ELIZABETH, W, GFR, CMP, LIP, ADIFF #### [place] [address] UA WBC 10-15 Abnormal None Seen [facility] ([place]) Comment on above: Performed By: #### C RK, ELIZABETH, W, GFR, CMP, LIP, ADIFF #### [place] [address] CBCon 12-09-2022 Erythrocyte distribution width (RBC) [Ratio] 13.4 % Normal 11.5-14.5 [facility] ([place]) Comment on above: Performed By: #### C RK, MD ELIZABETHW, GFR, CMP, LIP, ADIFF #### [place] [address] Hematocrit (Bld) [Volume fraction] 39.5 % Normal 37.0-47.0 [facility] ([place] Comment on above: Performed By: #### C RK, MD ELIZABETHW, GFR, CMP, LIP, ADIFF #### [place] [address] Hgb 13.3 G/dL Normal 12.0-16.0 [facility] ([place]) Comment on above: Performed By: #### C RK, MD ELIZABETHW, GFR, CMP, LIP, ADIFF #### [address] [address] MCH (RBC) [Entitic mass] 29.2 pg Normal 27.0-31.2 [facility] ([place]) Comment on above: Performed By: #### C RK, JÚNIOR JOHNSON, GFR, CMP, LIP, ADIFF #### [address] [address] MCHC 33.7 G/dL Normal 33.0-37.0 [facility] ([place] Comment on above: Performed By: #### C RK, JÚNIOR JOHNSON, GFR, CMP, LIP, ADIFF #### [address] [address] MCV (RBC) [Entitic vol] 86.6 fL Normal 80.0-94.0 [facility] ([place] Comment on above: Performed By: #### C RK, JÚNIOR JOHNSON, GFR, CMP, LIP, ADIFF #### [address] [address] Platelet 285 10 3/mcL Normal 130-400 [facility] ([place] Comment on above: Performed By: #### C ELIZABETH BECKMAN MDW, GFR, CMP, LIP, ADIFF #### [address] [address] Platelet mean volume (Bld) [Entitic vol] 7.2 fL Low 7.4-10.4 [facility] ([place] Comment on above: Performed By: #### C ELIZABETH BECKMAN MDW, GFR, CMP, LIP, ADIFF #### [address] [address] RBC 4.56 10 6/mcL Normal 4.20-5.40 [facility] ([place] Comment on above: Performed By: #### C ELIZABETH BECKMAN MDW, GFR, CMP, LIP, ADIFF #### [address] [address] WBC 11.1 10 3/mcL High 4.6-10.8 [facility] ([place]) Comment on above: Performed By: #### C BC, ANEU, MDW, GFR, CMP, LIP, ADIFF #### [place] [address] [place], [place] [address] CT ABDOMEN/PELVIS W/O CONTRA STon 12-09-2022 CT ABDOMEN/PELVIS W/O CONTRAST ORIGINAL EXAMINATION: CT OF THE ABDOMEN AND PELVIS WITHOUT CONTRAST 12/09/2022 9:11 pm TECHNIQUE: CT of the abdomen and pelvis was performed without the administration of intravenous contrast. Multiplanar reformatted images are provided for review. Automated exposure control, iterative reconstruction, and/or weight based adjustment of the mA/kV was utilized to reduce the radiation dose to as low as reasonably achievable. COMPARISON: None. HISTORY: ORDERING SYSTEM PROVIDED HISTORY: Reason for Exam: R flank pain, concern for kidney stone FINDINGS: Lower Chest: Lung bases are clear. Organs: Hepatomegaly with the liver measuring 22.3 cm in craniocaudal dimension. Borderline splenomegaly with the spleen measuring 14.5 cm in AP dimension. Otherwise normal liver, spleen, pancreas, and adrenal glands. Status post cholecystectomy. No renal calculi or hydronephrosis. GI/Bowel: Small and large bowel are normal in caliber. Normal appendix. Pelvis: No bladder wall thickening. Status post hysterectomy. No adnexal mass. Peritoneum/Retroperitone um: No free fluid or air. Nonaneurysmal aorta. No lymphadenopathy. Bones/Soft Tissues: No aggressive osseous lesion. Mild subcutaneous infiltrative changes at the lower abdominal pannus. Lower anterior abdominal midline scarring. IMPRESSION: No renal calculi or hydronephrosis. Mild hepatosplenomegaly. Mild subcutaneous infiltrative changes at the lower abdominal pannus. Recommend correlation for signs of cellulitis. I have personally reviewed the images of this examination and agree with the resident's findings and interpretation. Interpreted by: Pedro Luis Morales MD Preliminary Report By: Chuy Weiss Electronically signed By Pedro Luis Morales MD Dictated Date: 12/09/2022 9:19:10 PM Prelim Date: 12/09/2022 9:23:50 PM Sign Date: 12/09/2022 9:57:05 PM Ordering Provider: ADELA Solitario [facility] ([place]) LABORATORYOrdered By: Absolute Antibody SYSTEM on 12-09-2022 Albumin BCP dye [Mass/Vol] 3.5 G/dL Invalid Interpretation Code 3.5 - 5.0 G/dL AO ADM SS Albumin/Globulin [Mass ratio] 0.8 {ratio} Invalid Interpretation Code 1.1 - 2.5 ratio AO ADM SS ALP [Catalytic activity/Vol] 86 U/L Invalid Interpretation Code 40 - 135 U/L AO ADM SS ALT With P-5'-P [Catalytic activity/Vol] 93 U/L Invalid Interpretation Code 14 - 59 U/L AO ADM SS AST With P-5'-P [Catalytic activity/Vol] 167 U/L Invalid Interpretation Code 10 - 40 U/L AO ADM SS Bilirubin [Mass/Vol] 0.6 mg/dL Invalid Interpretation Code 0.2 - 1.0 mg/dL AO ADM SS Calcium [Mass/Vol] 8.9 mg/dL Invalid Interpretation Code 8.4 - 10.2 mg/dL AO ADM SS Chloride [Moles/Vol] 102 mmol/L Invalid Interpretation Code 98 - 107 mmol/L AO ADM SS CO2 [Moles/Vol] 27 mmol/L Invalid Interpretation Code 22 - 29 mmol/L AO ADM SS Creatinine [Mass/Vol] 0.39 mg/dL Invalid Interpretation Code 0.55 - 1.02 mg/dL AO ADM SS Electrolyte Balance 6.0 mEq/L Invalid Interpretation Code 4.0 - 15.0 mEq/L AO ADM SS GFR 217 ml/min/1.73sqm Invalid Interpretation Code AO Chemistry S GFR Non- 179 ml/min/1.73sqm Invalid Interpretation Code AO Chemistry S Globulin 4.2 G/dL Invalid Interpretation Code AO ADM SS Glucose [Mass/Vol] 226 mg/dL Invalid Interpretation Code 70 - 105 mg/dL AO ADM SS Lipase [Catalytic activity/Vol] 13 U/L Invalid Interpretation Code 16 - 77 U/L AO ADM SS Potassium [Moles/Vol] 8.1 mmol/L Invalid Interpretation Code 3.5 - 5.1 mmol/L AO ADM SS Comment on above: Result Comment: Criteresa Mas cvrb Christi Rn - specimen was hemolyzed, Klusty DO aware and said to run. 2114 Protein [Mass/Vol] 7.7 G/dL Invalid Interpretation Code 6.4 - 8.2 G/dL AO ADM SS Sodium [Moles/Vol] 135 mmol/L Invalid Interpretation Code 136 - 145 mmol/L AO ADM SS Urea nitrogen [Mass/Vol] 14 mg/dL Invalid Interpretation Code 7 - 18 mg/dL AO ADM SS Urea nitrogen/Creatinine [Mass ratio] 36 ratio Invalid Interpretation Code 7 - 27 ratio AO ADM SS LABORATORYOrdered By: Tammi Albarran on 12-09-2022 Basophil, Absolute 0.1 103/mcL Invalid Interpretation Code 0.0 - 0.2 10^3/mcL AO Workflow SS Basophils/100 WBC (Bld) 1.0 % Invalid Interpretation Code 0.0 - 2.5 % AO Workflow SS Eosinophil, Absolute 0.3 103/mcL Invalid Interpretation Code 0.0 - 0.4 10^3/mcL AO Workflow SS Eosinophils/100 WBC (Bld) 2.9 % Invalid Interpretation Code 0.0 - 7.0 % AO Workflow SS Erythrocyte distribution width (RBC) [Ratio] 13.4 % Invalid Interpretation Code 11.5 - 14.5 % AO Workflow SS Hematocrit (Bld) [Volume fraction] 39.5 % Invalid Interpretation Code 37.0 - 47.0 % AO Workflow SS Hemoglobin (Bld) [Mass/Vol] 13.3 G/dL Invalid Interpretation Code 12.0 - 16.0 G/dL AO Workflow SS Lymphocyte, Absolute 3.0 103/mcL Invalid Interpretation Code 0.8 - 3.9 10^3/mcL AO Workflow SS Lymphocytes/100 WBC (Bld) 26.7 % Invalid Interpretation Code 10.0 - 50.0 % AO Workflow SS MCH (RBC) [Entitic mass] 29.2 pg Invalid Interpretation Code 27.0 - 31.2 pg AO Workflow SS MCHC 33.7 G/dL Invalid Interpretation Code 33.0 - 37.0 G/dL AO Workflow SS MCV (RBC) [Entitic vol] 86.6 fL Invalid Interpretation Code 80.0 - 94.0 fL AO Workflow SS Monocyte distribution width Auto (Bld) [Entitic vol] 20.66 Invalid Interpretation Code 0.00 - 20.00 AO Workflow SS Comment on above: Result Comment: For adults in ED, MDW>20.0 may be associated with a higher risk of sepsis during the first 12hrs of hospital admission Monocyte, Absolute 0.7 103/mcL Invalid Interpretation Code 0.2 - 1.0 10^3/mcL AO Workflow SS Monocytes/100 WBC (Bld) 6.0 % Invalid Interpretation Code 1.7 - 13.0 % AO Workflow SS Neutrophil, Absolute 7.0 103/mcL Invalid Interpretation Code 2.9 - 6.2 10^3/mcL AO Workflow SS Neutrophils/100 WBC (Bld) 63.4 % Invalid Interpretation Code 37.0 - 80.0 % AO Workflow SS Platelet mean volume (Bld) [Entitic vol] 7.2 fL Invalid Interpretation Code 7.4 - 10.4 fL AO Workflow SS Platelets (Bld) [#/Vol] 285 103/mcL Invalid Interpretation Code 130 - 400 10^3/mcL AO Workflow SS RBC (Bld) [#/Vol] 4.56 106/mcL Invalid Interpretation Code 4.20 - 5.40 10^6/mcL AO Workflow SS WBC (Bld) [#/Vol] 11.1 103/mcL Invalid Interpretation Code 4.6 - 10.8 10^3/mcL AO Workflow SS Appearance (U) Slightly Cloudy *ABN* (12/09/22 8:09 PM) Invalid Interpretation Code Clear AO Auto Urine SS Bacteria LM.HPF (Urine sed) [#/Area] 3 /[HPF] Invalid Interpretation Code AO Auto Urine SS Bilirubin Ql (U) Negative (12/09/22 8:09 PM) Invalid Interpretation Code Negative AO Auto Urine SS Color (U) Yellow (12/09/22 8:09 PM) Invalid Interpretation Code AO Auto Urine SS Glucose Test strip (U) [Mass/Vol] 250 mg/dL Invalid Interpretation Code Negativemg/ dL AO Auto Urine SS Hemoglobin Auto test strip (U) [Mass/Vol] Small *ABN* (12/09/22 8:09 PM) Invalid Interpretation Code Negative AO Auto Urine SS Ketones Ql (U) Negative Invalid Interpretation Code Negativemg/ dL AO Auto Urine SS UA Leuk Est Trace *ABN* (12/09/22 8:09 PM) Invalid Interpretation Code Negative AO Auto Urine SS UA Nitrite Positive *ABN* (12/09/22 8:09 PM) Invalid Interpretation Code Negative AO Auto Urine SS UA pH 6.5 (12/09/22 8:09 PM) Invalid Interpretation Code 5.0 - 8.0 AO Auto Urine SS UA Protein Negative Invalid Interpretation Code Negativemg/ dL AO Auto Urine SS UA RBC 0-5 /HPF Invalid Interpretation Code None Seen/HPF AO Auto Urine SS UA Spec Grav 1.020 (12/09/22 8:09 PM) Invalid Interpretation Code 1.015-1.025 AO Auto Urine SS UA Specimen Type Clean Catch (12/09/22 8:09 PM) Invalid Interpretation Code AO Auto Urine SS UA Squam Epithelial 0-5 /HPF Invalid Interpretation Code None Seen/HPF AO Auto Urine SS UA Urobilinogen 0.2 E.U./dL Invalid Interpretation Code 0.2-1.0E.U. /dL AO Auto Urine SS WBC LM.HPF (Urine sed) [#/Area] 10-15 /HPF Invalid Interpretation Code None Seen/HPF AO Auto Urine SS LABORATORYOrdered By: Yenifer Blas on 12-09-2022 HCG ( test) Ql Negative (12/09/22 8:09 PM) Invalid Interpretation Code AO Manual Urine SS test (u) int Not detected Invalid Interpretation Code AO Manual Urine SS PREGUon 12-09-2022 HCG ( test) Ql (U) Negative Normal [facility] ([place] Comment on above: Performed By: #### P REGU #### [address] [address] test (u) int Not detected Invalid Interpretation Code [facility] ([place] Comment on above: Performed By: #### P REGU #### [address] [address] UAon 12-09-2022 Color (U) Yellow Normal [facility] ([place] Comment on above: Performed By: #### C ELIZABETH BECKMAN MDW, GFR, CMP, LIP, ADIFF #### [address] [address] Glucose (U) [Mass/Vol] 250 mg/dL Abnormal Negative [facility] ([place] Comment on above: Performed By: #### C ELIZABETH BECKMAN MDW, GFR, CMP, LIP, ADIFF #### [address] [address] Ketones Ql (U) Negative Normal Negative [facility] ([place] Comment on above: Performed By: #### C ELIZABETH BECKMAN MDW, GFR, CMP, LIP, ADIFF #### [address] [address] UA Appear Slightly Cloudy Abnormal Clear [facility] ([place] Comment on above: Performed By: #### C ELIZABETH BECKMAN MDW, GFR, CMP, LIP, ADIFF #### [address] [address] UA Blood Small Abnormal Negative [facility] [place] Comment on above: Performed By: #### C ELIZABETH BECKMAN MDW, GFR, CMP, LIP, ADIFF #### [address] [address] UA Leuk Est Trace Abnormal Negative [facility] ([place] Comment on above: Performed By: #### C ELIZABETH BECKMAN MDW, GFR, CMP, LIP, ADIFF #### [address] [address] UA Nitrite Positive Abnormal Negative [facility] ([place] Comment on above: Performed By: #### C ELIZABETH BECKMAN MDW, GFR, CMP, LIP, ADIFF #### [address] [address] UA pH 6.5 Normal 5.0 - 8.0 [facility] ([place] Comment on above: Performed By: #### C ELIZABETH BECKMAN MDW, GFR, CMP, LIP, ADIFF #### [address] [address] UA Protein Negative Normal Negative [facility] ([place] Comment on above: Performed By: #### C ELIZABETH BECKMAN MDW, GFR, CMP, LIP, ADIFF #### [address] [address] UA Spec Grav 1.020 Normal 1.015-1.025 [facility] ([place] Comment on above: Performed By: #### C ELIZABETH BECKMAN MDW, GFR, CMP, LIP, ADIFF #### [address] [address] UA Specimen Type Clean Catch Normal [facility] ([place] Comment on above: Performed By: #### C ELIZABETH BECKMAN MDW, GFR, CMP, LIP, ADIFF #### [address] [address] UA Urobilinogen 0.2 E.U./dL Normal 0.2-1.0 [facility] ([place]) Comment on above: Performed By: #### C ELIZABETH BECKMAN MDW, GFR, CMP, LIP, ADIFF #### [address] [place], [place] [address] Urobilinogen (U) [Mass/Vol] Negative Normal Negative [facility] ([place] Comment on above: Performed By: #### C RK, JÚNIOR JOHNSON, GFR, CMP, LIP, ADIFF #### [address] [place], [place] [address] Progress Noteon 11-05-2022 Progress Note [facility] BARIAT[facility]IC NUTRITION ASSESSMENT / DIET & EXERCISE SURGICAL WEIGHT LOSS MANAGEMENT PROGRAM Telehealth Date: 11/05/22 Patient Name: Kaelyn Maddox Date of : 1980 Type of Assessment: [x] Surgical Patient - Pre-op follow up Assessment Weight Metrics: Today's Height: Today's Weight: telehealth Today's BMI: There is no height or weight on file to calculate BMI. Surgeon: Dr. Nugent Surgical Procedure: [x] NENO Preop Diet: 2 wks CURRENT EATING BEHAVIORS: Eating small/frequent meals. Can increase lean proteins/fluids CURRENT EATING HABITS/ADDITIONAL INFORMATION 24 Hour Recall completed: Yes Breakfast: apple + kiwi Snack: n/a Lunch: protein shake Snacks: grapes + wheat thins Dinner: chicken natalie w/ small amount of sauce Snack: n/a Drinks: zero sugar powerade. KNOWLEDGE AND EDUCATION ASSESSMENT AND PLAN Patient's level of knowledge regarding the changes that will have to be made in their diet following weight loss surgery is: [x] Excellent - patient is well informed. Areas of concern include: Ensure a protein at all meals. Ensure 64 oz fluid/day Current eating practices that will require change with surgery: Protein, fluids RECOMMENDATIONS AND PLAN [x] Educational Materials Provided [x]Strategies for Eating handout given to and discussed with patient [x] Patient cleared for weight loss surgery Patient able to state major diet changes that need to be made following surgery Patient states/demonstrates readiness to make necessary diet changes Diagnoses: Obesity Pt has completely cut out pop. Has cut out caffeine and sugar completely. Can increase fluids to 64oz/day consistently. Ensure a protein at all meals. Has done well with fruits/veg/whole grains and eliminating simple CHO. Pt well knowledgeable and motivated. Pt is cleared for WLS. Pt was notified of nutrition clearance at today's OV. Pt is making gradual changes as discussed. Goals 1. 64 oz sugar/caffeine/carbonati on free fluids 2. Ensure a protein at all meals Bariatric Nutrition Assessment completed by: Jacque Albarran RD Patient was seen today via Telehealth by agreement and consent in light of the current COVID-19 pandemic. I used the following Telehealth technology: Audio and video capabilities Patient location: Home. This patient encounter is appropriate and reasonable under the circumstances given the patient's particular presentation at this time. The patient has been advised of the potential risks and limitations of this mode of treatment (including but not limited to the absence of in-person examination) and has agreed to be treated in a remote fashion in spite of them. Any and all of the patient's/patient's family's questions on this issue have been answered and I have made no promises or guarantees to the patient. The patient has also been advised to contact this office for worsening conditions or problems, and seek emergency medical treatment and/or call 911 if the patient deems either necessary. The patient stated that they are currently in the [facility]. If the patient is a minor, permission has been obtained by the parent or guardian for the patient to receive medical care at this visit. Normal [facility] Laboratory - Chemistry and C hemistry - challengeon 11-04-2022 Thiamine pyrophosphate (Bld) [Moles/Vol] 112 nmol/L 70 - 180 nmol/L [facility] Comment on above: INTERPRETIVE INFORMA TION: Vitamin B1, Whole Blood This assay measures the concentration of thiamine diphosphate (TDP), the primary active form of vitamin B1. Approximately 90 percent of vitamin B1 present in whole blood is TDP. Thiamine and thiamine monophosphate, which comprise the remaining 10 percent, are not measured. This test was developed and its performance characteristics determined by [facility]. It has not been cleared or approved by the [place] Food and Drug Administration. This test was performed in a CLIA certified laboratory and is intended for clinical purposes. Performed By: [facility] [address] [place] [id number] [employer] Finishing Utility Person: Lon Corona MD, PhD Laboratory - Drug toxicology on 11-04-2022 Cotinine [Mass/Vol] <2 ng/mL [facility] Nicotine [Mass/Vol] <2 ng/mL [facility] Olhgk-0-Iuufrufdmenes ne [Mass/Vol] <2 ng/mL [facility] Comment on above: Individuals exposed to second hand or passive tobacco smoke may demonstrate concentrations of nicotine and metabolites greater than those indicated for non- smokers. Reference Ranges: Active Non-Smoker Tobacco User (ng/mL) (ng/mL) Nicotine <4 2-10 Cotinine <8 16-145 8-LF-[id number] <2 100-500 This test was developed and its analytical performance characteristics have been determined by [place] It has not been cleared or approved by the U.S. Food and Drug Administration. This assay has been validated pursuant to the CLIA regulations and is used for clinical purposes. Test Performed by [facility], [facility], [address] [place] [address] Terry Echeverria M.D., Ph.D., Director of Laboratories , CLIA [id number] No Panel Informationon 11-04 [facility] 36on 10-31-2022 36 Sent pt Garret garcia regarding low vit D and low end normal b12 and discussing lipid panel with PCP. Normal [facility] 36 ----- Message from GAB Simmons CNP sent at 10/31/2022 6:31 AM EST ----- B 12 low normal. Please advise her to reach out to pcp regarding lipids. Normal [facility] Laboratory - Drug toxicology on 10-31-2022 Zinc [Mass/Vol] 83.9 ug/dL 60.0 - 120.0 ug/dL [facility] Comment on above: INTERPRETIVE INFORMA TION: Zinc, Serum or Plasma Elevated results may be due to skin or collection-related contamination, including the use of a noncertified metal-free collection/transport tube. If contamination concerns exist due to elevated levels of serum/plasma zinc, confirmation with a second specimen collected in a certified metal-free tube is recommended. Circulating zinc concentrations are dependent on albumin status and are depressed with malnutrition. Zinc may also be lowered with infection, inflammation, stress, oral contraceptives, and . Zinc may be elevated with zinc supplementation or fasting. Elevated zinc concentrations may interfere with copper absorption. This test was developed and its performance characteristics determined by [facility]. It has not been cleared or approved by the US Food and Drug Administration. This test was performed in a CLIA certified laboratory and is intended for clinical purposes. Performed By: [facility] [address] [place] [id number] Specialty Finishing Utility Person: Lon Corona MD, PhD No Panel Informationon 10-31 [facility] 25-hydroxyvitamin D3 [Mass/V ol]on 10-29-2022 Interpretation and review of laboratory results Abnormal [facility] Therapy is based on measurement of Total 25-OHD with the following classification levels: Less than 20 ng/mL: Indicative of Vit D deficiency 20-30 ng/mL: Suggests Vit D insufficiency Optimal: Greater than or equal to 30 ng/mL Test performed by [employer] Immunoassay, measuring Total Vitamin D, not individual fractions. [facility] 36on 10-29-2022 36 Sent pt MyChart mess age regarding low vitamin D at 14. Will add 4000 I U daily. Will monitor levels postoperatively. Normal [facility] 36 ----- Message from GAB Simmons CNP sent at 10/29/2022 2:33 PM EST ----- Thx!! Normal [facility] CBC panel Auto (Bld)Ordered By: Renée Klein on 10-29-2022 Erythrocyte distribution width (RBC) [Ratio] 13.3 % 11.5 - 14.5 % [facility] Hematocrit (Bld) [Volume fraction] 40.6 % 35.0 - 47.0 % [facility] Hemoglobin (Bld) [Mass/Vol] 13.6 g/dL 11.7 - 16.0 g/dL [facility] Interpretation and review of laboratory results Abnormal [facility] MCH (RBC) [Entitic mass] 29.3 pg 26.0 - 34.0 pg [facility] MCHC (RBC) [Mass/Vol] 33.5 % 32.0 - 36.0 % [facility] MCV (RBC) [Entitic vol] 87.5 fL 80.0 - 98.0 fL [facility] Platelet mean volume (Bld) [Entitic vol] 8.7 fL 7.4 - 12.4 fL [facility] Comment on above: MPV is a calculated measurement using platelet volume ratio Platelets (Bld) [#/Vol] 337 10*3/uL 140 - 440 10*3/uL [facility] RBC (Bld) [#/Vol] 4.64 10*6/uL 3.8 - 5.20 10*6/uL [facility] WBC (Bld) [#/Vol] 10.9 10*3/uL High 3.6 - 10.7 10*3/uL [facility] Comprehensive metabolic 1998 panelon 10-29-2022 Albumin [Mass/Vol] 4.3 g/dL 3.5 - 5.0 g/dL [facility] ALP [Catalytic activity/Vol] 108 U/L 38 - 126 U/L [facility] ALT [Catalytic activity/Vol] 72 U/L High 0 - 34 U/L [facility] Anion gap [Moles/Vol] 6 mmol/L 3 - 13 mmol/L [facility] AST [Catalytic activity/Vol] 64 U/L High 15 - 46 U/L [facility] Bilirubin [Mass/Vol] 0.4 mg/dL 0.2 - 1 .3 mg/dL [facility] Calcium [Mass/Vol] 9.3 mg/dL 8.4 - 10. 4 mg/dL [facility] Chloride [Moles/Vol] 105 mmol/L 98 - 10 7 mmol/L [facility] CO2 [Moles/Vol] 29 mmol/L 22 - 30 mmol/L [facility] Creatinine [Mass/Vol] 0.51 mg/dL Low 0.52 - 1.04 mg/dL [facility] GFR/1.73 sq M.predicted MDRD (S/P/Bld) [Vol rate/Area] - PINF [facility] Comment on above: Calculation based on the Chronic Kidney Disease Epidemiology Collaboration (CKD-EPI) equation refit without adjustment for race Glucose [Mass/Vol] 171 mg/dL High 70 - 100 mg/dL [facility] Potassium [Moles/Vol] 4.5 mmol/L 3.5 - 5.1 mmol/L [facility] Protein [Mass/Vol] 7.6 g/dL 6.3 - 8.2 g/dL [facility] Sodium [Moles/Vol] 140 mmol/L 135 - 145 mmol/L [facility] Urea nitrogen [Mass/Vol] 11 mg/dL 7 - 17 mg/dL [facility] HbA1c (Bld) [Mass fraction]o n 10-29-2022 Glucose [Mass/Vol] 174 mg/dL [facility] HbA1c (Bld) [Mass/Vol] 7.7 % High NINF - 5.7 % [facility] Comment on above: Normal less than 5.7 % Prediabetes 5.7% to 6.4% Diabetes 6.5% or higher --HgbA1C levels may not be accurate in patients who have renal disease, received recent blood transfusions, are anemic, or who have dyshemoglobinemia. Interpretation and review of laboratory results Abnormal [facility] Iron and Iron binding capaci ty panelon 10-29-2022 Interpretation and review of laboratory results Normal [facility] Iron [Mass/Vol] 55 ug/dL 37 - 170 ug/dL [facility] Laboratory - Chemistry and C hemistry - challengeon 10-29-2022 Cobalamin (Vitamin B12) [Mass/Vol] 365 pg/mL 239 - 931 pg/mL [facility] Folate [Mass/Vol] 8.5 ng/mL 2.9 - PINF ng/mL [facility] Ferritin [Mass/Vol] 93 ng/mL 6 - 137 ng/mL [facility] TSH Qn 2.294 m[IU]/L [facility] h Magnesium [Mass/Vol] 1.9 mg/dL 1.6 - 2 .3 mg/dL [facility] 25-hydroxyvitamin D3 [Mass/Vol] 15 ng/mL Low 30 - 100 ng/mL [facility] Laboratory - Drug toxicology Ordered By: Lorrie Lazcano on 10-29-2022 Amphetamines Ql (U) Negative Negative [facility] Benzodiazepines Ql (U) Negative Negative [facility] Cocaine Ql (U) Negative [facility] Ethanol [Mass/Vol] Negative Negative [facility] Methadone Ql (U) Negative [facility] Opiates Ql (U) Negative Negative [facility] Lipid 1996 panelon 3 Cholesterol [Mass/Vol] 169 mg/dL NINF - 200 mg/dL [facility] Cholesterol in HDL [Mass/Vol] 31 mg/dL Low 40 - 60 mg/dL [facility] Cholesterol in LDL [Mass/Vol] 92 mg/dL 0 - <100 [facility] Cholesterol.total/Cho lesterol in HDL [Mass ratio] 5 {ratio} [facility] Comment on above: Ref Range: < 3 Low Risk for CHD 3-6 Mod Risk for CHD > 6 High Risk for CHD Triglyceride [Mass/Vol] 230 mg/dL High NINF - 150 mg/dL [facility] Magnesium [Mass/Vol]on 10-29 Interpretation and review of laboratory results Normal [facility] No Panel Informationon 10-29 Interpretation and review of laboratory results Normal [facility] Interpretation and review of laboratory results Normal [facility] Interpretation and review of laboratory results Abnormal [facility] No Panel InformationOrdered By: Lorrie Lazcano on 10-29-2022 BARBITURATES Negative Negative [facility] BUPRENORPHINE SCREEN Negative Negative [facility] FENTANYL Negative Negative [facility] OXYCODONE/OXYMORPHONE Negative Negative [facility] PCP Negative Negative [facility] THC Negative Negative [facility] The expected value f or the drugs listed above is Negative. The following drugs or drug groups have been screened for by Immunoassay at the following thresholds: Amphetamine class(1000ng/mL) Barbituates(200ng/mL) Benzodiazepines(200ng/mL ) Cocaine(300ng/mL) Ethanol (50 ng/mL) Methadone(300ng/mL) Opiates(300ng/mL) Oxycodone(100ng/mL) PCP(25ng/mL) Buprenorphine(5ng/mL) THC(50ng/mL) Fentanyl(1ng/mL) Positive results are NOT confirmed by a more specific alternative method unless requested. If confirmation is needed, request confirmation under separate order. NOTE: These results are for medical treatment only. Analysis performed using non-forensic procedures. [facility] Office Visiton 10-29-2022 Follow-up visit [id number] Kaelyn Maddox 1980 F Date Provider Department Center 10/29/2022 [id number] ARCINIEGA [facility] PUL None Family History Problem Relation Age of Onset Stroke Maternal Grandfather Hypertension Maternal Grandfather Heart disease Maternal Grandfather Hypertension Mother Diabetes Father Stroke Father Stroke Paternal Grandfather Hypertension Paternal Grandfather Cancer Paternal Grandfather Diabetes Paternal Grandfather Heart disease Paternal Grandfather Hypertension Paternal Grandmother Hypertension Maternal Grandmother Family Status - Relation Status Age at Maternal Grandfather Alive Mother Alive Father Alive Paternal Grandfather Alive Paternal Grandmother Alive Maternal Grandmother Alive Level of Service:60542 HI OFFICE/OUTPATIENT ESTABLISHED LOW MDM 20-29 MIN Reason for Visit and Comments: Follow-up [688353] [facility] Follow-up visit [id number] Kaelyn Maddox 1980 F Date Provider Department Center 10/29/2022 LISA SHIPLEY [facility] None Family History Problem Relation Age of Onset Stroke Maternal Grandfather Hypertension Maternal Grandfather Heart disease Maternal Grandfather Hypertension Mother Diabetes Father Stroke Father Stroke Paternal Grandfather Hypertension Paternal Grandfather Cancer Paternal Grandfather Diabetes Paternal Grandfather Heart disease Paternal Grandfather Hypertension Paternal Grandmother Hypertension Maternal Grandmother Family Status - Relation Status Age at Maternal Grandfather Alive Mother Alive Father Alive Paternal Grandfather Alive Paternal Grandmother Alive Maternal Grandmother Alive Level of Service:25704 HI OFFICE/OUTPATIENT ESTABLISHED LOW MDM 20-29 MIN Reason for Visit and Comments: Weight Loss [173732] - D/E #7 of 6 [facility] PATINSon 10-29-2022 ANNY YOUR APPOINTMENT TOJulia ARTEAGA WAS WITH THE [facility], COPD CLINIC, PULMONARY AND SLEEP MEDICINE OFFICE. PLEASE CALL OUR OFFICE AT [phone] IF YOU HAVE NOT RECEIVED YOUR TEST RESULTS 7 DAYS AFTER TESTING IS COMPLETED. PLEASE REMEMBER TO REQUEST REFILLS AT YOUR OFFICE VISITS. PHONE/FAX REQUESTS REQUIRE 48-72 HOURS FOR RESPONSE. A FRIENDLY REMINDER COPAYS ARE DUE AT TIME OF SERVICE. THANK YOU. Our Patients Are Important! We want to improve and you can help. After your visit we want you to feel: Listened to, Respected and have your health care explained. You may receive a survey asking you about your visit. Please complete the survey. We will use your feedback to make improvements. COVID-19 VACCINATION INFORMATION: PH. [phone] [email or web address] [email or web address] [facility] Central Scheduling [phone] [facility] Sleep Scheduling [phone] [facility] Progress Noteon 10-29-2022 Progress Note [facility] [address] [place] [address] [facility] [address] Dept: [phone] Dept Reason for Visit: Follow-up History of Present Illness: primary symptoms Pertinent negatives include no chest pain, congestion, coughing, fatigue, fever or headaches. Kaelyn Maddox is a 42 y.o. female patient with significant PMH of Obesity and DM. Patient was referred to pulmonology for bariatric surgical clearance. She was evaluated by Dr. Ramos 08/2022 and a sleep study was ordered. Denies any history of respiratory diseases or tobacco abuse. Denies coughing, wheezing, chest tightness, SOB, or chest pain. Lowell Score 9 Patient goes to bed at 10 pm and gets up at 530. Patient quickly falls asleep. Describes sleep as restful. She does wake up refreshed. Denies waking up with AM FOY. Denies daytime hypersomnolence. Denies leg movement, nocturia, and parasomnia. STOPBang Questionnaire: SNORING: Do you snore loudly (loud enough to be heard through closed doors or your bed-partner elbows you for snoring at night)? yes TIRED: Do you often feel tired, fatigued or sleepy during the daytime (such as falling asleep during driving or talking to someone)? no OBSERVED: Has anyone observed you stop breathing or choking/gasping during your sleep? no PRESSURE: Do you have or are you being treated for high blood pressure? no BODY MASS INDEX >35: Body mass index is 43.9 kg/m?. yes AGE >50: 42 y.o. no NECK SIZE LARGE: (measured around the Uziel's apple) For male, is your shirt collar 17 inches or larger? For female, is your shirt collar 16 inches or larger? no GENDER: Male SCORE: 0-2 low risk Score 1 point for each YES answer: Past Medical History: Past Medical History: Diagnosis Date Anemia Back pain Circulation problem Daytime sleepiness Difficulty sleeping Dizziness Fatigue History of UTI Joint pain, hip Joint pain, knee Snoring SOBOE (shortness of breath on exertion) Type 2 diabetes mellitus with ophthalmic complication, without long-term current use of insulin (HCC) Social History: Social History Socioeconomic History Marital status: Tobacco Use Smoking status: Never Smokeless tobacco: Never Vaping Use Vaping Use: Never used Substance and Sexual Activity Alcohol use: Not Currently Drug use: Never Sexual activity: Yes Partners: Male control/protection: None Family History: Family History Problem Relation Name Age of Onset Stroke Maternal Grandfather Miriam Hypertension Maternal Grandfather Miriam Heart disease Maternal Grandfather Miriam Hypertension Mother Mom Diabetes Father Jom Stroke Father Jom Stroke Paternal Grandfather Glen Hypertension Paternal Grandfather Glen Cancer Paternal Grandfather Glen Diabetes Paternal Grandfather Glen Heart disease Paternal Grandfather Glen Hypertension Paternal Grandmother Gma Hypertension Maternal Grandmother Gma ROS: Review of Systems Constitutional: Negative for activity change, fatigue and fever. HENT: Negative for congestion, postnasal drip and rhinorrhea. Respiratory: Negative for cough, chest tightness, shortness of breath and wheezing. Cardiovascular: Negative for chest pain, palpitations and leg swelling. Neurological: Negative for dizziness and headaches. Medications: @MEDCMED@ Allergies: Allergies Allergen Reactions Hydromorphone Other Mood changes very mean Metformin Vital Signs: BP 110/80 (BP Location: Left arm, Patient Position: Sitting, BP Cuff Size: Large adult) Pulse 90 Resp 16 Ht 5' 5 (1.651 m) Wt 263 lb 12.8 oz (120 kg) SpO2 96% Comment: ra BMI 43.90 kg/m? Physical Exam: Physical Exam Vitals reviewed. Constitutional: General: She is not in acute distress. Appearance: Normal appearance. She is normal weight. HENT: Mouth/Throat: Pharynx: No oropharyngeal exudate or posterior oropharyngeal erythema. Eyes: Extraocular Movements: Extraocular movements intact. Cardiovascular: Rate and Rhythm: Regular rhythm. Heart sounds: No murmur heard. No friction rub. No gallop. Pulmonary: Effort: Pulmonary effort is normal. No accessory muscle usage, prolonged expiration or respiratory distress. Breath sounds: No stridor, decreased air movement or transmitted upper airway sounds. No decreased breath sounds, wheezing, rhonchi or rales. Comments: Lungs are clear and moving adequate air. No respiratory distress or conversational dyspnea. Chest: Chest wall: No tenderness. Neurological: Mental Status: She is alert. Assessment and Plan: Diagnosis Plan 1. Pre-operative clearance Patient is low risk for post op pulmonary complications. 2. VIKTOR (obstructive sleep apnea) Stop Bang Score 2; Lowell Score 9. Sleep study revealed mild VIKTOR with hypoxia for 11 minutes. Mild VIKTOR will most likely resolve with bariatric surgery. Hypoxia is not significant and most likely to obesity. Fol (more content not included)... Normal [facility] Progress Note HPI, PHYSICAL EXAM, AND PLAN Patient is here today for follow up of their physician supervised diet and exercise in preparation for weight loss surgery. Weight trend since last visit: stable/unchanged This patient's excess weight is causing the following co-morbid conditions at this time DM Plan: Physical Examination: BP 125/84 Pulse 65 Ht 5' 5 (1.651 m) Wt 263 lb 9.6 oz (120 kg) BMI 43.87 kg/m? General: This patient is alert and oriented X3 General: This patient is awake, alert, and oriented, and is in no apparent distress. Extremities: No cyanosis, clubbing or edema/ No calf tenderness/No restrictions of movement, is ambulatory without assistance. Neurological: Intact x 4 extremities, no focal deficits notes. Skin: No rashes or lesions noted. Assessment of Current Diet and Exercise Current Diet This patient?s current diet is: 80% meal plan Her diet contains adequate amounts of protein, inadequate amounts of healthy fats, adequate amounts of green, leafy vegetables, and adequate amounts of fruits. Her comfort foods include: none Current Activity This patient currently does exercise for 30 Minutes per session, 4 times per week, including the following: walking. Current Eating Behaviors This patients demonstrates the following behaviors as they relate to her eating: structured She eats approximately 5-6 times per day. Her last meal/snack was at 6 am/pm. Plan: DM: continue medical management, DE and plan for metabolic weight loss surgery. stable. continue medical management, Diet & Exercise, and plan for metabolic weight loss surgery. Advised patient that She must continue to adhere to regular monthly visits to meet the requirements of her insurance company. Additionally, She is to adopt eating plan recommendations and show weight loss trend to demonstrate readiness for the changes that will be required following surgery. Patient's weight pattern does demonstrates meal plan adoption and weight loss each month Physician Diet Recommendations provided in Patient Instructions Patient: [x] To return in one month for follow up. Comorbids managing [] Has completed insurance required monthly diet and exercise series [] Needs to continue monthly visits until surgery Other: Current Meds Patient's Medications New Prescriptions No medications on file Previous Medications CETIRIZINE (ZYRTEC) 10 MG TABLET Take 10 mg by mouth. EMPAGLIFLOZIN (JARDIANCE) 25 MG Take 25 mg by mouth. FLUTICASONE (FLONASE) 50 MCG/ACT NASAL SPRAY place 2 sprays into each nostril once daily LANCETS (ONETOUCH DELICA PLUS [id number]) MISC use 1 LANCET to TEST BLOOD SUGAR once daily MECLIZINE (ANTIVERT) 25 MG TABLET Take 25 mg by mouth if needed. ONDANSETRON ODT (ZOFRAN-ODT) 4 MG DISINTEGRATING TABLET dissolve 1 tablet ON TONGUE every 8 hours if needed for nausea and vomiting ONETOUCH VERIO TEST STRIP TEST BLOOD SUGAR once daily SUMATRIPTAN (IMITREX) 50 MG TABLET Take 50 mg by mouth if needed. Modified Medications No medications on file Discontinued Medications No medications on file I spend a total of 20 minutes on the same day of the visit in discussing/counseling the patient regarding the diet and exercise in the preparation for weight loss surgery.Education on the meal plan and 7 rules of eating is provided. Meal prep is encouraged as a foundation of the meal plan. Food journal is encouraged as a feedback system before and after bariatric surgery. Counseling on no nicotine/alcohol before and after surgery. Exercise and its role in the preparation for weight loss surgery is explained. DM Is associated with obesity and weight loss is discussed as a treatment option for DM Full chart review was performed.Clinical documentation is updated and completed. Normal [facility] 36on 10-20-2022 36 Called and spoke meggan Hammonds to schedule an ov to review the SS/bariatric surgery. Normal [facility] Polysomnographyon 10-20-2022 [facility] ECG 12 lead - CLINIC PERFORM EDon 10-14-2022 Sinus Rhythm WITHIN NORMAL LIMITS [facility] Office Visiton 10-14-2022 Follow-up visit [id number] Kaelyn Maddox 1980 F Date Provider Department Center 10/14/2022 [id number] COLEMAN*[facility] JANNA SHM[facility] [address] Family History Problem Relation Age of Onset Stroke Maternal Grandfather Hypertension Maternal Grandfather Heart disease Maternal Grandfather Hypertension Mother Diabetes Father Stroke Father Stroke Paternal Grandfather Hypertension Paternal Grandfather Cancer Paternal Grandfather Diabetes Paternal Grandfather Heart disease Paternal Grandfather Hypertension Paternal Grandmother Hypertension Maternal Grandmother Family Status - Relation Status Age at Maternal Grandfather Alive Mother Alive Father Alive Paternal Grandfather Alive Paternal Grandmother Alive Maternal Grandmother Alive Level of Service:87594 HI OFFICE/OUTPATIENT NEW MODERATE MDM 45-59 MINUTES Reason for Visit and Comments: Pre-op Exam [426743] Obesity [[id number]] Normal [facility] Progress Noteon 10-14-2022 Progress Note [facility] Cardiology Note Visit type: New : 1980 Chief Complaint: Chief Complaint Patient presents with Pre-op Exam Obesity History of Present Illness: Kaelyn Maddox is a 42 y.o. female who presents today for preoperative cardiovascular valuation prior to bariatric surgery by Dr. Nugent. She has struggled with obesity most of her life and has tried multiple interventions to lose weight to no lasting success. She has been diabetic for about 2 and half years and hopes to be able to eliminate her diabetes with the surgery. 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 She denies excessive shortness of breath with activity, she easily can climb 2 flights of stairs. Family history is negative for premature heart disease in first-degree relatives. All else is negative. Past Medical History: Past Medical History: Diagnosis Date Anemia Back pain Circulation problem Daytime sleepiness Difficulty sleeping Dizziness Fatigue History of UTI Joint pain, hip Joint pain, knee Snoring SOBOE (shortness of breath on exertion) Type 2 diabetes mellitus with ophthalmic complication, without long-term current use of insulin ([facility]) Past Surgical History Past Surgical History: Procedure Laterality Date CARPAL TUNNEL RELEASE Right 2020 SECTION (HISTORICAL) 2001 SECTION (HISTORICAL) 2003 SECTION (HISTORICAL) 1998 CHOLECYSTECTOMY 2005 DILATION AND CURETTAGE OF UTERUS 1998 OTHER SURGICAL HISTORY 2006 Essure control springs around fallopian tubes TONSILLECTOMY (HISTORICAL) 2005 TOTAL ABDOMINAL HYSTERECTOMY 2017 Family History Family History Problem Relation Name Age of Onset Stroke Maternal Grandfather Miriam Hypertension Maternal Grandfather Miriam Heart disease Maternal Grandfather Miriam Hypertension Mother Mom Diabetes Father Jom Stroke Father Jom Stroke Paternal Grandfather Glen Hypertension Paternal Grandfather Glen Cancer Paternal Grandfather Glen Diabetes Paternal Grandfather Glen Heart disease Paternal Grandfather Glen Hypertension Paternal Grandmother Gma Hypertension Maternal Grandmother Gma Social History Social History Tobacco Use Smoking status: Never Smokeless tobacco: Never Vaping Use Vaping Use: Never used Substance Use Topics Alcohol use: Not Currently Drug use: Never Allergies: Allergies Allergen Reactions Hydromorphone Other Mood changes very mean Medications: Current Outpatient Medications: cetirizine (ZyrTEC) 10 MG tablet, Take 10 mg by mouth., Disp: , Rfl: empagliflozin (Jardiance) 25 MG, Take 25 mg by mouth., Disp: , Rfl: fluticasone (Flonase) 50 MCG/ACT nasal spray, place 2 sprays into each nostril once daily, Disp: , Rfl: meclizine (Antivert) 25 MG tablet, Take 25 mg by mouth if needed., Disp: , Rfl: ondansetron ODT (Zofran-ODT) 4 MG disintegrating tablet, dissolve 1 tablet ON TONGUE every 8 hours if needed for nausea and vomiting, Disp: , Rfl: SUMAtriptan (Imitrex) 50 MG tablet, Take 50 mg by mouth if needed., Disp: , Rfl: Lancets (OneTouch Delica Plus [id number]) [facility], use 1 LANCET to TEST BLOOD SUGAR once daily, Disp: , Rfl: OneTouch Verio test strip, TEST BLOOD SUGAR once daily, Disp: , Rfl: Review of Systems: Review of Systems Constitutional: Negative for activity change (walks for exercise), chills, diaphoresis, fatigue and fever. HENT: Negative for nosebleeds and trouble swallowing. Eyes: Negative for discharge and visual disturbance. Respiratory: Positive for shortness of breath. Negative for apnea, cough, chest tightness and wheezing. Cardiovascular: Negative for chest pain, palpitations and leg swelling. Gastrointestinal: Negative for abdominal distention, abdominal pain, blood in stool, diarrhea, nausea and vomiting. Endocrine: Negative for cold intolerance and heat intolerance. Genitourinary: Negative for hematuria. Musculoskeletal: Negative for gait problem and myalgias. Skin: Negative for color change and rash. Neurological: Negative for dizziness, seizures, syncope, facial asymmetry, speech difficulty, weakness, light-headedness, numbness and headaches. Hematological: Does not bruise/bleed easily. Psychiatric/Behavioral: Negative for dysphoric mood. Physical Examination: Vitals: Vitals: 01/17/23 1253 BP: 110/64 BP Location: Left arm Patient Position: Sitting BP Cuff Size: Adult Pulse: 77 SpO2: 97% Weight: 260 lb (118 kg) Height: 5' 5 (1.651 m) Body mass index is 43.27 kg/m?. Physical Exam Constitutional: Appearance: She is obese. HENT: Head: Normocephalic and atraumatic. Nose: Nose normal. Eyes: Extraocular Movements: Extraocular movements intact. Conjunctiva/sclera: Conjunctivae normal. Neck: Vascular: No carotid bruit. Cardiovascular: Rate and Rhythm: Normal rate and regular rhythm. Pulses: Normal pulses. Heart sounds: (more content not included)... Normal [facility] Office Visiton 10-10-2022 Follow-up visit [id number] Kaelyn Maddox 1980 F Date Provider Department Center 10/10/2022 LISA SHIPLEY [facility] None Family History Problem Relation Age of Onset Stroke Maternal Grandfather Hypertension Mother Diabetes Father Stroke Paternal Grandfather Hypertension Paternal Grandfather Stroke Father Cancer Paternal Grandfather Diabetes Paternal Grandfather Heart disease Paternal Grandfather Hypertension Maternal Grandfather Hypertension Paternal Grandmother Heart disease Maternal Grandfather Hypertension Maternal Grandmother Family Status - Relation Status Age at Maternal Grandfather Alive Mother Alive Father Alive Paternal Grandfather Alive Paternal Grandmother Alive Maternal Grandmother Alive Level of Service:44180 HI OFFICE/OUTPATIENT ESTABLISHED LOW MDM 20-29 MIN Reason for Visit and Comments: Weight Loss [903918] - D/E 03/03 Normal [facility] Progress Noteon 10-10-2022 Progress Note HPI, PHYSICAL EXAM, AND PLAN Patient is here today for follow up of their physician supervised diet and exercise in preparation for weight loss surgery. Weight trend since last visit: stable/unchanged This patient's excess weight is causing the following co-morbid conditions at this time DM Plan: Physical Examination: BP 117/75 Pulse 88 Resp 16 Ht 5' 5 (1.651 m) Wt 262 lb 12.8 oz (119 kg) BMI 43.73 kg/m? General: This patient is alert and oriented X3 General: This patient is awake, alert, and oriented, and is in no apparent distress. Extremities: No cyanosis, clubbing or edema/ No calf tenderness/No restrictions of movement, is ambulatory without assistance. Neurological: Intact x 4 extremities, no focal deficits notes. Skin: No rashes or lesions noted. Assessment of Current Diet and Exercise Current Diet This patient?s current diet is: 80% meal plan Her diet contains adequate amounts of protein, inadequate amounts of healthy fats, adequate amounts of green, leafy vegetables, and adequate amounts of fruits. Her comfort foods include: none Current Activity This patient currently does exercise for 30 Minutes per session, 3 times per week, including the following: walking. Current Eating Behaviors This patients demonstrates the following behaviors as they relate to her eating: structured She eats approximately 5-6 times per day. Her last meal/snack was at 6 am/pm. Plan: DM: continue medical management, DE and plan for metabolic weight loss surgery. stable. continue medical management, Diet & Exercise, and plan for metabolic weight loss surgery. Advised patient that She must continue to adhere to regular monthly visits to meet the requirements of her insurance company. Additionally, She is to adopt eating plan recommendations and show weight loss trend to demonstrate readiness for the changes that will be required following surgery. Patient's weight pattern does demonstrates meal plan adoption and weight loss each month Physician Diet Recommendations provided in Patient Instructions Patient: [] To return in one month for follow up. Comorbids managing [x] Has completed insurance required monthly diet and exercise series [] Needs to continue monthly visits until surgery Other: Current Meds Patient's Medications New Prescriptions No medications on file Previous Medications AZITHROMYCIN (ZITHROMAX) 250 MG TABLET take 2 tablets by mouth on day 1 then 1 daily until finished BENZONATATE (TESSALON) 100 MG CAPSULE take 1 capsule by mouth every 8 hours if needed for cough CEFDINIR (OMNICEF) 300 MG CAPSULE take 1 capsule by mouth every 12 hours for 10 days CETIRIZINE (ZYRTEC) 10 MG TABLET Take 10 mg by mouth. DICLOFENAC SODIUM (VOLTAREN) 1 % GEL apply to affected area up to four times a day EMPAGLIFLOZIN (JARDIANCE) 25 MG Take 25 mg by mouth. FLUCONAZOLE (DIFLUCAN) 150 MG TABLET take 1 tablet by mouth A ONE TIME DOSE FLUTICASONE (FLONASE) 50 MCG/ACT NASAL SPRAY place 2 sprays into each nostril once daily GUAIFENESIN (MUCINEX) 600 MG 12 HR TABLET Take 1,200 mg by mouth in the morning and 1,200 mg in the evening. KETOROLAC (TORADOL) 10 MG TABLET take 1 tablet by mouth four times a day for 5 days if needed for ... (REFER TO PRESCRIPTION NOTES). LANCETS (ONETOUCH DELICA PLUS [id number]) [facility] use 1 LANCET to TEST BLOOD SUGAR once daily MECLIZINE (ANTIVERT) 25 MG TABLET Take 25 mg by mouth if needed. NABUMETONE (RELAFEN) 500 MG TABLET Take 500 mg by mouth. Take with food. ONDANSETRON ODT (ZOFRAN-ODT) 4 MG DISINTEGRATING TABLET dissolve 1 tablet ON TONGUE every 8 hours if needed for nausea and vomiting ONETOUCH VERIO TEST STRIP TEST BLOOD SUGAR once daily SUMATRIPTAN (IMITREX) 50 MG TABLET Take 50 mg by mouth if needed. TRIMETHOPRIM-POLYMYXIN B (POLYTRIM) OPHTHALMIC SOLUTION instill 1 drop into right eye every 3 hours for 7 days Modified Medications No medications on file Discontinued Medications No medications on file I spend a total of 20 minutes on the same day of the visit in discussing/counseling the patient regarding the diet and exercise in the preparation for weight loss surgery.Education on the meal plan and 7 rules of eating is provided. Meal prep is encouraged as a foundation of the meal plan. Food journal is encouraged as a feedback system before and after bariatric surgery. Counseling on no nicotine/alcohol before and after surgery. Exercise and its role in the preparation for weight loss surgery is explained. DM Is associated with obesity and weight loss is discussed as a treatment option for DM Full chart review was performed.Clinical documentation is updated and completed. [facility] US ABDOMEN COMPLETEon 2022 US ABDOMEN COMPLETE Patient Name: KAELYN GUEVARA Exam Date/Time: 10/10/2022 07:41 Procedure: US ABDOMEN COMPLETE Ordering Provider: DUNNE LEISA Reason For Exam: EXAM TYPE: Ultrasound abdomen complete. CLINICAL HISTORY: ABDOMINAL PAIN COMPARISON: None. TECHNIQUE: Grayscale sonographic images were obtained of the abdomen. Color Doppler was utilized. FINDINGS: Liver: Enlarged with diffusely increased echogenicity. No focal masses seen. No intra or extrahepatic biliary ductal dilatation is identified. The common bile duct is appropriate in size for the patient's age and measures 5 mm in diameter. Gallbladder: Surgically absent Kidneys: Both kidneys are normal in contour, echogenicity, and size with no hydronephrosis or shadowing renal calculi. The right kidney measures 13.7 cm in length. The left kidney measures 12.8 cm in length. Accessory structures: The spleen is nonenlarged. The pancreas is partially obscured but visualized portions are normal in appearance. The proximal aorta and IVC are normal in caliber. IMPRESSION: 1. Hepatic steatosis. 2. Gallbladder is surgically absent. Report Dictated on Electronically Signed By: Mal lEi Electronically Signed Date/Time: 10/10/2022 8:25 AM EST [facility] US Abdomenon 10-10-2022 1. Hepatic steatosis. 2. Gallbladder is surgically absent. Report Dictated on Electronically Signed By: Mal Eli Electronically Signed Date/Time: 10/10/2022 8:[address] [facility] Patient Name: KAELYN GUEVARA Exam Date/Time: 10/10/2022 07:41 Procedure: US ABDOMEN COMPLETE Ordering Provider: DUNNE LEISA Reason For Exam: EXAM TYPE: Ultrasound abdomen complete. CLINICAL HISTORY: ABDOMINAL PAIN COMPARISON: None. TECHNIQUE: Grayscale sonographic images were obtained of the abdomen. Color Doppler was utilized. FINDINGS: Liver: Enlarged with diffusely increased echogenicity. No focal masses seen. No intra or extrahepatic biliary ductal dilatation is identified. The common bile duct is appropriate in size for the patient's age and measures 5 mm in diameter. Gallbladder: Surgically absent Kidneys: Both kidneys are normal in contour, echogenicity, and size with no hydronephrosis or shadowing renal calculi. The right kidney measures 13.7 cm in length. The left kidney measures 12.8 cm in length. Accessory structures: The spleen is nonenlarged. The pancreas is partially obscured but visualized portions are normal in appearance. The proximal aorta and IVC are normal in caliber. [facility] Mal Eli MD - 10/10/2022 Patient Name: KAELYN MADDOX Exam Date/Time: 10/10/2022 07:41 Procedure: US ABDOMEN COMPLETE Ordering Provider: DUNNE LEISA Reason For Exam: EXAM TYPE: Ultrasound abdomen complete. CLINICAL HISTORY: ABDOMINAL PAIN COMPARISON: None. TECHNIQUE: Grayscale sonographic images were obtained of the abdomen. Color Doppler was utilized. FINDINGS: Liver: Enlarged with diffusely increased echogenicity. No focal masses seen. No intra or extrahepatic biliary ductal dilatation is identified. The common bile duct is appropriate in size for the patient's age and measures 5 mm in diameter. Gallbladder: Surgically absent Kidneys: Both kidneys are normal in contour, echogenicity, and size with no hydronephrosis or shadowing renal calculi. The right kidney measures 13.7 cm in length. The left kidney measures 12.8 cm in length. Accessory structures: The spleen is nonenlarged. The pancreas is partially obscured but visualized portions are normal in appearance. The proximal aorta and IVC are normal in caliber. IMPRESSION: 1. Hepatic steatosis. 2. Gallbladder is surgically absent. Report Dictated on Electronically Signed By: Mal Eli Electronically Signed Date/Time: 10/10/2022 8:25 AM [facility] [employer] Radiology Study observation (narrative) [employer] US AbdomenOrdered By: Mal Eli on 10-10-2022 [employer] Work Phone: XR Abdomen and RF Gastrointe stinal tract upper W contrast [place] 10-10-2022 Prominent cricopharyngeus.. Small hiatus hernia with spontaneous gastroesophageal reflux. Mucosal irregularity/tiny ulcerations of the distal esophagus could reflect reflux esophagitis but requires correlation with endoscopy. Report Dictated on Electronically Signed By: Andriy Carlisle Electronically Signed Date/Time: 10/10/2022 12:00 PM [employer] Patient Name: KAELYN GEUVARA Exam Date/Time: 10/10/2022 09:00 Procedure: FL UPPER GI WITH KUB Ordering Provider: DUNNE LEISA Reason For Exam: AIR CONTRAST UPPER GI SERIES History: GERD. Pre-op for bariatric surgery. Fluoroscopy time: 0.49 minutes Fluoroscopic spot images: 6 Findings: Biphasic upper GI exam was performed with barium and air. There is hypertrophy of the cricopharyngeus. There is mild mucosal irregularity with probable tiny ulcerations of the distal esophagus. There is a small hiatus hernia with spontaneous gastroesophageal reflux. The proximal esophagus is otherwise unremarkable. The stomach shows normal mucosal pattern. It empties without delay into an intact duodenal bulb and loop. [facility] Andriy Carlisle MD - 10/10/2022 Patient Name: KAELYN MADDOX Exam Date/Time: 10/10/2022 09:00 Procedure: FL UPPER GI WITH KUB Ordering Provider: DUNNE LEISA Reason For Exam: AIR CONTRAST UPPER GI SERIES History: GERD. Pre-op for bariatric surgery. Fluoroscopy time: 0.49 minutes Fluoroscopic spot images: 6 Findings: Biphasic upper GI exam was performed with barium and air. There is hypertrophy of the cricopharyngeus. There is mild mucosal irregularity with probable tiny ulcerations of the distal esophagus. There is a small hiatus hernia with spontaneous gastroesophageal reflux. The proximal esophagus is otherwise unremarkable. The stomach shows normal mucosal pattern. It empties without delay into an intact duodenal bulb and loop. IMPRESSION: Prominent cricopharyngeus.. Small hiatus hernia with spontaneous gastroesophageal reflux. Mucosal irregularity/tiny ulcerations of the distal esophagus could reflect reflux esophagitis but requires correlation with endoscopy. Report Dictated on Electronically Signed By: Andriy Carlisle Electronically Signed Date/Time: 10/10/2022 12:00 PM EST [employer] Radiology Study observation (narrative) [employer] XR Abdomen and RF Gastrointe stinal tract upper W contrast POOrdered By: Andriy Carlisle on 10-10-2022 [employer] Work Phone: [phone] 09-29-2022 36 Name of Caller: Tiff any Contact Reason for Appointment: pt would like a appt to get cleared Office Name: [facility] Medication Refills need, if any: n/a Medication Name: n/a [facility] Office Visiton 09-19-2022 Follow-up visit [id number] Kaelyn Maddox 1980 F Date Provider Department Center 09/19/2022 [id number] VOSS [facility] None Family History Problem Relation Age of Onset Stroke Maternal Grandfather Hypertension Mother Diabetes Father Stroke Paternal Grandfather Hypertension Paternal Grandfather Stroke Father Cancer Paternal Grandfather Diabetes Paternal Grandfather Heart disease Paternal Grandfather Hypertension Maternal Grandfather Hypertension Paternal Grandmother Heart disease Maternal Grandfather Hypertension Maternal Grandmother Family Status - Relation Status Age at Maternal Grandfather Alive Mother Alive Father Alive Paternal Grandfather Alive Paternal Grandmother Alive Maternal Grandmother Alive Level of Service:01409 HI OFFICE/OUTPATIENT ESTABLISHED LOW MDM 20-29 MIN Reason for Visit and Comments: Weight Management [645] - D/E 5/6 VV [facility] Progress Noteon 09-19-2022 Progress Note HPI AND PLAN - TELEHEALTH Patient was contacted today via TeleHealth Video/Audio visit offered due to Covid-19 to follow up of their physician supervised diet and exercise in preparation for weight loss surgery. Weight trend since last visit: has decreased 2 pounds over last 1 m [x] Patient reported weight from home scale. [] Patient unable to report weight at this time. This patient's excess weight is causing the following co-morbid conditions at this time: DM Assessment of Current Diet and Exercise Current Diet This patient?s current diet is: 80% meal plan Her diet contains adequate amounts of protein, inadequate amounts of healthy fats, adequate amounts of green, leafy vegetables, and adequate amounts of fruits. Her comfort foods include: none Current Activity This patient currently does exercise for 20 per session, 4 times per week, including the following: walking. Current Eating Behaviors This patients demonstrates the following behaviors as they relate to her eating: structured She eats approximately 5-6 times per day. Her last meal/snack was at 6 am/pm. Plan: DM: continue medical management, DE and plan for metabolic weight loss surgery. stable. continue medical management, Diet & Exercise, and plan for metabolic weight loss surgery. Advised patient that She must continue to adhere to regular monthly visits to meet the requirements of her insurance company. Additionally, She must adopt meal plan recommendations and show weight loss trend to demonstrate readiness for the changes that will be required following surgery. Patient's weight pattern doesdemonstrates meal plan adoption and weight loss each month Physician Diet Recommendations provided in Patient Instructions Patient: [x] To return in one month for follow up. [] Has completed insurance required monthly diet and exercise series [] Needs to continue monthly visits until surgery (Tati) Other: Current Meds Patient's Medications New Prescriptions No medications on file Previous Medications AZITHROMYCIN (ZITHROMAX) 250 MG TABLET take 2 tablets by mouth on day 1 then 1 daily until finished BENZONATATE (TESSALON) 100 MG CAPSULE take 1 capsule by mouth every 8 hours if needed for cough CEFDINIR (OMNICEF) 300 MG CAPSULE take 1 capsule by mouth every 12 hours for 10 days CETIRIZINE (ZYRTEC) 10 MG TABLET Take 10 mg by mouth. DICLOFENAC SODIUM (VOLTAREN) 1 % GEL apply to affected area up to four times a day EMPAGLIFLOZIN (JARDIANCE) 25 MG Take 25 mg by mouth. FLUCONAZOLE (DIFLUCAN) 150 MG TABLET take 1 tablet by mouth A ONE TIME DOSE FLUTICASONE (FLONASE) 50 MCG/ACT NASAL SPRAY place 2 sprays into each nostril once daily GUAIFENESIN (MUCINEX) 600 MG 12 HR TABLET Take 1,200 mg by mouth in the morning and 1,200 mg in the evening. KETOROLAC (TORADOL) 10 MG TABLET take 1 tablet by mouth four times a day for 5 days if needed for ... (REFER TO PRESCRIPTION NOTES). LANCETS (ONETOUCH DELICA PLUS [id number]) [facility] use 1 LANCET to TEST BLOOD SUGAR once daily MECLIZINE (ANTIVERT) 25 MG TABLET Take 25 mg by mouth if needed. NABUMETONE (RELAFEN) 500 MG TABLET Take 500 mg by mouth. Take with food. ONDANSETRON ODT (ZOFRAN-ODT) 4 MG DISINTEGRATING TABLET dissolve 1 tablet ON TONGUE every 8 hours if needed for nausea and vomiting ONETOUCH VERIO TEST STRIP TEST BLOOD SUGAR once daily SUMATRIPTAN (IMITREX) 50 MG TABLET Take 50 mg by mouth if needed. TRIMETHOPRIM-POLYMYXIN B (POLYTRIM) OPHTHALMIC SOLUTION instill 1 drop into right eye every 3 hours for 7 days Modified Medications No medications on file Discontinued Medications No medications on file Patient was seen today via Telehealth by agreement and consent in light of the current COVID-19 pandemic. I used the following Telehealth technology: Audio capability only. Total length of call 20 minutes. The patient was offered and advised video for a more comprehensive evaluation, but the patient declined or was unable to use video. Patient location: Home. This patient encounter is appropriate and reasonable under the circumstances given the patient's particular presentation at this time. The patient has been advised of the potential risks and limitations of this mode of treatment (including but not limited to the absence of in-person examination) and has agreed to be treated in a remote fashion in spite of them. Any and all of the patient's/patient's family's questions on this issue have been answered and I have made no promises or guarantees to the patient. The patient has also been advised to contact this office for worsening conditions or problems, and seek emergency medical treatment and/or call 911 if the patient deems either necessary. The patient stated that they are currently in the [facility]. If the patient is a minor, permission has been obtained by the parent or guardian for the patient to receive medical care at this visit (more content not included)... Normal [facility] Progress Note You are not granted access to view this sensitive note. Normal [facility] Office Visiton 09-01-2022 Follow-up visit [id number] Kaelyn Maddox 1980 F Date Provider Department Center 09/01/2022 [id number] AMARAL [facility] None Family History Problem Relation Age of Onset Stroke Maternal Grandfather Hypertension Mother Diabetes Father Stroke Paternal Grandfather Hypertension Paternal Grandfather Stroke Father Cancer Paternal Grandfather Diabetes Paternal Grandfather Heart disease Paternal Grandfather Hypertension Maternal Grandfather Hypertension Paternal Grandmother Heart disease Maternal Grandfather Hypertension Maternal Grandmother Family Status - Relation Status Age at Maternal Grandfather Alive Mother Alive Father Alive Paternal Grandfather Alive Paternal Grandmother Alive Maternal Grandmother Alive Level of Service:52828 HI OFFICE/OUTPATIENT NEW MODERATE MDM 45-59 MINUTES Reason for Visit and Comments: New Patient [542] Pre-op Exam [[id number]] Normal [facility] PATINSon 09-01-2022 PATINS YOUR APPOINTMENT TOJulia ARTEAGA WAS WITH THE [facility], COPD CLINIC, PULMONARY AND SLEEP MEDICINE OFFICE. PLEASE CALL OUR OFFICE AT [phone] IF YOU HAVE NOT RECEIVED YOUR TEST RESULTS 7 DAYS AFTER TESTING IS COMPLETED. PLEASE REMEMBER TO REQUEST REFILLS AT YOUR OFFICE VISITS. PHONE/FAX REQUESTS REQUIRE 48-72 HOURS FOR RESPONSE. A FRIENDLY REMINDER COPAYS ARE DUE AT TIME OF SERVICE. THANK YOU. Our Patients Are Important! We want to improve and you can help. After your visit we want you to feel: Listened to, Respected and have your health care explained. You may receive a survey asking you about your visit. Please complete the survey. We will use your feedback to make improvements. COVID-19 VACCINATION INFORMATION: PH. [phone] HEALTH.ORG/CORONAVIRUS/V ACCINE [facility] Central Scheduling [phone] [facility] Sleep Scheduling [phone] Normal [facility] Progress Noteon 09-01-2022 Progress Note [facility] [place] [facility] PATIENT VISIT-PULMONARY 09/01/2022 REFERRING PHYSICIAN: Kianna Cristina REASON FOR REFERRAL: preoperative evaluation Assessment and Plan: Preoperative Evaluation for bariatric surgery - , planned intervention reported - MILENA Wheelerscat 15, Low risk, 1.6% risk of in-hospital post-op pulmonary complications. 0.2 % Risk of mechanical ventilation for >48 hrs after surgery, or unplanned intubation ?30 days of surgery. 0.2 % Risk of postoperative pneumonia. In setting of positive symptoms, preoperative testing recommended to include PSG sleep evaluation and if indicated, initiation of therapy. In setting lack of respiratory symptoms or limitations - no indication for PFTs at this time as no high risk features for pulmonary disease. Mallampati 3. Preoperative serologic tests ordered. Prior medication intolerance to dilaudid with reported behavioral disturbances. No addition adverse reactions or surgical complicationsreported. 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 PSG ordered. Follow up with sleep medicine following evaluation in 4-6 weeks. Non Insulin Dependent Diabetes Type 2 on SGLT-2 inhibitor Jardiance. Controlled . Currently FDA recommends stopping SGLT2 inhibitor usage 3 or 4 days before surgery due to the risk of eDKA Reported History of Iron Deficiency - appropriate to check cbc with possible subsequent iron studies. Appears to be ordered by surgery service - in old version of [employer]. Seasonal Allergic Rhinitis , on prn flonaze and antihistamine therapy. Controlled. No respiratory complications Reported history of vertigo in the past. Controlled at this time s/p therapy History of Present Illness Kaelyn Maddox is a very pleasant 42 y.o. female with past medical history significant for seasonal allergic rhinitis, obesity, t2dm on sglt-2 inhibitor, chronic fatigue, who presents to pulmonary clinic for evaluation of preoperative bariatric surgery for reported Single Anastomosis Duodenal-Ileal bypass with Sleeve NENO-S procedure. Recent evaluation by Dr Kenny Nugent MD. Patient has a history of seasonal allergies without respiratory symptoms or rashes. Reports seasonal rhinitis and sinus congestion with occasional sinus infections. Follows with allergy/immunology. No history of childhood asthma, no smoking or second hand exposure, no occupational related respiratory symptoms or asthma. 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 Discussed wearing protective equipment / mask/ respirator when encountered high dust exposures at work. No occupation related respiratory symptoms. Patient had multiple prior surgeries including carpal tunnel, gallbladder, tonsils, dilation and curetage, hysterectomy without reported adverse outcomes. She is a Mallampati 3. No prior reported history of difficult airway. 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 1 I get short of breath when hurrying on level ground or walking up a slight hill. 2 On level ground, I walk slower than people of the same age because of breathlessness, or have to stop for breath when walking at my own pace. 3 I stop for breath afterwalking about 100 yards or after a few minutes on level ground. 4 I am too breathless to leave the house or I am breathless when dressing. PastMedical History Past Medical History: Diagnosis Date Anemia Back pain Circulation problem Daytime sleepiness Difficulty sleeping Dizziness Fatigue History of UTI Joint pain, hip Joint pain, knee Snoring SOBOE (shortness of breath on exertion) Type 2 diabetes mellitus with ophthalmic complication, without long-term current use of insulin (HCC) Past Surgical History Past Surgical History: Procedure Laterality Date CARPAL TUNNEL RELEASE Right 2020 CHOLECYSTECTOMY 2005 DILATION AND CURETTAGE OF UTERUS 1998 OTHER SURGICAL HISTORY 2006 Essure control springs around fallopian tubes TOTAL ABDOMINAL HYSTERECTOMY 2017 Allergies Allergies Allergen Reactions Hydromorphone Other Mood changes very mean Medications reviewed at time of encounter has a current medication list which includes the following prescription(s): cefdinir, cetirizine, empagliflozin, fluticasone, onetouch delica plus [id number], meclizine, nabumetone, ondansetron odt, onetouch verio, sumatriptan, trimethoprim-polymyxin b, azithromycin, benzonatate, diclofenac sodium, fluconazole, guaifenesin, and ketorol (more content not included)... [facility] Office Visiton 08-27-2022 Follow-up visit [id number] MaddoxKaelyn 1980 Date Provider Department Center 08/27/2022 [facility] PS[facility] None Family History Problem Relation Age of Onset Stroke Maternal Grandfather Hypertension Mother Diabetes Father Stroke Paternal Grandfather Hypertension Paternal Grandfather Stroke Father Cancer Paternal Grandfather Diabetes Paternal Grandfather Heart disease Paternal Grandfather Hypertension Maternal Grandfather Hypertension Paternal Grandmother Heart disease Maternal Grandfather Hypertension Maternal Grandmother Family Status - Relation Status Age at Maternal Grandfather Alive Mother Alive Father Alive Paternal Grandfather Alive Paternal Grandmother Alive Maternal Grandmother Alive Level of Service:77326 HI PSYCL/NRPSYCL TST ELEC 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 Reason for Visit and Comments: testing [Other] [facility] Follow-up visit [id number] MaddoxKaelyn 1980 Date Provider Department Center 08/27/2022 [facility] PS[facility] None Family History Problem Relation Age of Onset Stroke Maternal Grandfather Hypertension Mother Diabetes Father Stroke Paternal Grandfather Hypertension Paternal Grandfather Stroke Father Cancer Paternal Grandfather Diabetes Paternal Grandfather Heart disease Paternal Grandfather Hypertension Maternal Grandfather Hypertension Paternal Grandmother Heart disease Maternal Grandfather Hypertension Maternal Grandmother Family Status - Relation Status Age at Maternal Grandfather Alive Mother Alive Father Alive Paternal Grandfather Alive Paternal Grandmother Alive Maternal Grandmother Alive Level of Service:53367 HI PSYCL/NRPSYCL TST 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 Reason for Visit and Comments: testing [Other] Normal [facility] LABORATORYOrdered By: Sully Maurer on 07-08-2021 ADMITTED TO INTENSIVE CARE UNIT FOR CONDITION OF INTEREST:FIND:PT:^PAT IENT:ORD: No (07/08/21 8:31 PM) Invalid Interpretation Code AO Auto Urine SS EMPLOYED IN A HEALTHCARE SETTING:FIND:PT:^ALONDRA ENT:ORD: No (07/08/21 8:31 PM) Invalid Interpretation Code AO Auto Urine SS FIRST TEST FOR CONDITION OF INTEREST:FIND:PT:^PAT IENT:ORD: Yes (07/08/21 8:31 PM) Invalid Interpretation Code AO Auto Urine SS HAS SYMPTOMS RELATED TO CONDITION OF INTEREST:FIND:PT:^PAT IENT:ORD: Yes (07/08/21 8:31 PM) Invalid Interpretation Code AO Auto Urine SS Illness or injury onset date and time [id number] Invalid Interpretation Code AO Auto Urine SS Patient was hospitalized because of this condition No (07/08/21 8:31 PM) Invalid Interpretation Code AO Auto Urine SS status Not (07/08/21 8:31 PM) Invalid Interpretation Code AO Auto Urine SS RESIDES IN A CONGREGATE CARE SETTING:FIND:PT:^ALONDRA ENT:ORD: No (07/08/21 8:31 PM) Invalid Interpretation Code AO Auto Urine SS SARS-CoV-2 (COVID-19) RNA AILEEN+probe Ql (Resp) Negative (07/08/21 8:31 PM) Invalid Interpretation Code Negative AO Auto Urine SS SARS-CoV-2 (COVID-19) RNA AILEEN+probe Ql (Unsp spec) Negative results do not preclude SARS-CoV-2 infection and should not be used as the sole basis for patient management decisions. Negative results must be combined with clinical observations, patient history, and epidemiological information.There is a risk of false negative values resulting from improperly collected, transported, or handled specimens.There is a risk of false negative values due to the presence of sequence variants in the pathogen targets of the assay, procedural errors, amplification inhibitors in specimens, or inadequate numbers of organisms for amplification.ELIO SARS-CoV-2 Assay is a Real-Time reverse-transcriptase polymerase chain reaction (RT-PCR) based qualitative in vitro diagnostic test intended for the qualitative detection of nucleic acid from the SARS-CoV-2 in nasopharyngeal swab specimens collected from individuals suspected of COVID-19 by their healthcare provider. Testing is limited to laboratories certified under the Clinical Laboratory Improvement Amendments of 1988 (CLIA), 42 U.S.C. 263a, to perform moderate and high complexity tests. Invalid Interpretation Code AO Auto Urine SS ALLIED HEALTHon 08-20-2019 ALLIED HEALTH HNO ID: [id number] Author: Kathleen (Rt) Megan Briggs Service: ? Author Type: Integration Architect Type: [facility] Filed: 08/20/2019 2:35 PM Note Text: Radiology Service Progress Note PATIENT NAME: Kaelyn Salazar DATE OF SERVICE: August 20, 2019 TIME: 2:35 PM PATIENT IDENTITY VERIFICATION COMPLETED USING TWO (2) IDENTIFIERS: Name and Date of confirmed by patient verbally. PATIENT GENDER DATA: Female. status: : No status: NO. PATIENT RELEVANT IMPLANT DATA REVIEWED: Not Applicable RADIOLOGY DEPARTMENT: General X-ray: Exam(s) Completed: Chest X-Ray PERIPHERAL IV DATA: Not applicable SIGNED BY: RT Jen August 20, 2019 2:35 PM [facility] ED NOTEon 08-20-2019 ED NOTE HNO ID: [id number] Author: Lu Malloy (Rn) Schuyler RN Service: Nursing Author Type: Registered Nurse Type: ED Notes Filed: 08/20/2019 2:12 PM Note Text: Per patient head congestion and cough for one month, productive clear/green/yellow. No relief with OTC medications. [facility] ED NOTE HNO ID: [id number] Author: Fely Ann (Rn) JUNIOR Bush Service: ? Author Type: Registered Nurse Type: ED Notes Filed: 08/20/2019 1:27 PM Note Text: Bed: 68-ED Expected date: Expected time: Means of arrival: Comments: [facility] ED PROV NOTEon 08-20-2019 ED PROV NOTE HNO ID: [id number] Author: Coleman Rivera MD Service: Emergency Medicine Author Type: Physician Type: ED Provider Notes Filed: 08/20/2019 5:39 PM Note Text: ED Provider Note Patient Name: Kaelyn Salazar SERVICE DATE: 08/20/19 History Patient presents with: Flu Like Symptoms: x 1 month HPI 39 -year-old female past medical history of previously healthy presents today with persistent cough. Patient's had flulike symptoms of infection 1 month ago and continues to have cough since then. States she cannot kick the cough. Has been using Mucinex, drinking tea to suppress the cough. No fevers or chills no chest pain. History reviewed. No pertinent past medical history. History reviewed. No pertinent surgical history. No family history on file. Social History Tobacco Use - Smoking status: Never Smoker - Smokeless tobacco: Never Used Substance and Sexual Activity - Alcohol use: Not on file - Drug use: Never - Sexual activity: Not on file ALLERGIES No Known Allergies Review of Systems Constitutional: Negative. HENT: Positive for congestion. Eyes: Negative. Respiratory: Positive for cough. Negative for shortness of breath. Cardiovascular: Negative for chest pain, palpitations and leg swelling. Gastrointestinal: Negative. Negative for abdominal pain. Endocrine: Negative. Genitourinary: Negative. Musculoskeletal: Negative. Skin: Negative. Allergic/Immunologic: Negative. Neurological: Negative. Hematological: Negative. Psychiatric/Behavioral: Negative. Negative for behavioral problems. Physical Exam BP 133/68 Pulse 84 Temp (Src) 97.7 (Oral) Resp 17 Ht 5' 5 (1.65m) Wt 248 lb (112.5kg) SpO2 97% BMI 41.27 kg/(m2). O2 Therapy: Room Air Physical Exam Vitals signs and nursing note reviewed. Constitutional: General: She is not in acute distress. Appearance: She is well-developed. She is not diaphoretic. HENT: Head: Normocephalic and atraumatic. Eyes: Pupils: Pupils are equal, round, and reactive to light. Neck: Musculoskeletal: Normal range of motion and neck supple. Cardiovascular: Rate and Rhythm: Normal rate. Pulses: Normal pulses. Pulmonary: Effort: Pulmonary effort is normal. No respiratory distress. Abdominal: General: There is no distension. Musculoskeletal: Normal range of motion. Skin: General: Skin is warm. Neurological: General: No focal deficit present. Mental Status: She is alert. Psychiatric: Behavior: Behavior normal. Thought Content: Thought content normal. Diagnostic Testing ED Labs Ordered and Reviewed - No data to display Procedures ED Course / Clinical Impression Clinical Impressions as of Aug 20 1738 Upper respiratory tract infection, unspecified type MDM / Disposition / Plan MDM Patient with persistent cough no evidence of pneumonia. We will prescribe albuterol for symptomatically relief, recommended Mucinex and [id number]. Not septic well-appearing discharged home with instructions to return if she feels any worsening of symptoms. SIGNATURE: MD Coleman LEBRON MD 08/20/191738 Normal [facility] XR CHEST 2V FRONTAL/LATon XR CHEST 2V FRONTAL/LAT * * *Final Report* * * DATE OF EXAM: Aug 20 2019 2:34PM FVX [id number] - XR CHEST 2V FRONTAL/LAT / PROCEDURE REASON: Acute respiratory illness * * * * Physician Interpretation * * * * EXAMINATION: CHEST RADIOGRAPH (2 VIEW FRONTAL and LATERAL) CLINICAL HISTORY: Acute respiratory illness MQ: XC2_5 Comparison: None RESULT: Lines, tubes, and devices: None. Lungs and pleura: No consolidation. No lung mass. No pleural effusion. Cardiomediastinal silhouette: Normal cardiomediastinal silhouette. Other: . IMPRESSION: No acute radiographic abnormality. Criminal Psychologist: PSCB Transcribe Date/Time: Aug 20 2019 2:35P Dictated by : ORVILLE SOLIS MD This examination was interpreted and the report reviewed and electronically signed by: ORVILLE SOLIS MD on Aug 20 2019 2:35PM EST [id number] Normal [facility] Vital Signs Date Time Vital Sign Value Performing Clinician Facility 04-01-2023 09:45-0400 Body height 165.1 cm Kenny Nugent MD Work Phone: [facility] Comment on above: [facility] 04-01-2023 09:45-0400 Body mass index (BMI) [Ratio] 37.31 kg/m2 Kenny [facility]ent MD [facility] 04-01-2023 09:45-0400 Body temperature 97.3 [degF] Kenny Nugent MD Work Phone: [facility] 04-01-2023 09:45-0400 Body weight 101.7 kg Kenny Nugent MD Work Phone: [facility] 04-01-2023 09:45-0400 Diastolic blood pressure 80 mm[Hg] Kenny Nugent MD Work Phone: [facility] 04-01-2023 09:45-0400 Heart rate 77 /min Kenny Nugent MD Work Phone: [facility] 04-01-2023 09:45-0400 Respiratory rate 16 /min Kenny Nugent MD Work Phone: [facility] 04-01-2023 09:45-0400 Systolic blood pressure 109 mm[Hg] Kenny Nugent MD Work Phone: [facility] 03-04-2023 07:55-0400 Body height 165.1 cm Kenny Nugent MD Work Phone: [facility] Comment on above: [facility] 03-04-2023 07:55-0400 Body mass index (BMI) [Ratio] 39.87 kg/m2 Kenny Nugent MD Work Phone: [facility] 03-04-2023 07:55-0400 Body temperature 97.2 [degF] Kenny Nugent MD Work Phone: [facility] 03-04-2023 07:55-0400 Body weight 108.68 kg Kenny Nugent MD Work Phone: [facility] 03-04-2023 07:55-0400 Diastolic blood pressure 72 mm[Hg] Kenny Nugent MD Work Phone: [facility] 03-04-2023 07:55-0400 Heart rate 96 /min Kenny Nugent MD Work Phone: [facility] 03-04-2023 07:55-0400 Respiratory rate 16 /min Kenny Nugent MD Work Phone: [facility] 03-04-2023 07:55-0400 SaO2% (BldA) [Mass fraction] 97 % Kenny Nugent MD Work Phone: [facility] 03-04-2023 07:55-0400 Systolic blood pressure 109 mm[Hg] Kenny Nugent MD Work Phone: [facility] 02-27-2023 12:20-0400 Body temperature 97.9 [degF] Kenny Nugent MD Work Phone: [facility] 02-27-2023 12:20-0400 Diastolic blood pressure 63 mm[Hg] Kenny Nugent MD Work Phone: [facility] 02-27-2023 12:20-0400 Heart rate 62 /min Kneny Nugent MD Work Phone: [facility] 02-27-2023 12:20-0400 Respiratory rate 16 /min Kenny Nugent MD Work Phone: [facility] 02-27-2023 12:20-0400 SaO2% (BldA) [Mass fraction] 95 % Kenny Nugent MD Work Phone: [facility] 02-27-2023 12:20-0400 Systolic blood pressure 99 mm[Hg] Kenny Nugent MD Work Phone: [facility] 02-26-2023 05:47-0400 Body height 165.1 cm Kenny Nugent MD Work Phone: [facility] 02-26-2023 05:47-0400 Body mass index (BMI) [Ratio] 42.6 kg/m2 Kenny Nugent MD Work Phone: [facility] 02-26-2023 05:47-0400 Body weight 116.12 kg Kenny Nugent MD Work Phone: [facility] 02-11-2023 10:12-0400 Body height 165.1 cm Kenny Nugent MD Work Phone: [facility] 02-11-2023 10:12-0400 Body mass index (BMI) [Ratio] 42.33 kg/m2 Kenny Nugent MD Work Phone: [facility] 02-11-2023 10:12-0400 Body temperature 98.01 [degF] Kenny Nugent MD Work Phone: [facility] 02-11-2023 10:12-0400 Body weight 115.39 kg Kenny Nugent MD Work Phone: [facility] 02-11-2023 10:12-0400 Diastolic blood pressure 76 mm[Hg] Kenny Nugent MD Work Phone: [facility] 02-11-2023 10:12-0400 Heart rate 74 /min Kenny Nugent MD Work Phone: [facility] 02-11-2023 10:12-0400 Respiratory rate 16 /min Kenny Nugent MD Work Phone: [facility] 02-11-2023 10:12-0400 Systolic blood pressure 110 mm[Hg] Kenny Nugent MD Work Phone: [facility] 12-09-2022 18:29-0400 Body height 165.[address] GUZMAN SOLIS MD [facility] 12-09-2022 18:29-0400 Body temperature 98.42 [degF] DR GUZMAN SOLIS MD [facility] 12-09-2022 18:29-0400 Body weight 113.[address] GUZMAN SOLIS MD [facility] 12-09-2022 18:29-0400 Diastolic Blood Pressure Non-Invasive [address] GUZMAN SOLIS MD [facility] 12-09-2022 18:29-0400 Heart rate 83 /min DR GUZMAN SOLIS MD [facility] 12-09-2022 18:29-0400 Respiratory rate 18 /min DR GUZMAN SOLIS MD [facility] 12-09-2022 18:29-0400 Systolic Blood Pressure Non-Invasive [address] GUZMAN SOLIS MD [facility] 11-21-2022 01:59-0500 Body height 165.1 cm Coleman Dawkins DO Work Phone: [facility] 11-21-2022 01:57-0500 Body temperature 98.29 [degF] Coleman Dawkins DO Work Phone: [facility] 11-21-2022 01:57-0500 Diastolic blood pressure 79 mm[Hg] Coleman Dawkins DO Work Phone: [facility] 11-21-2022 01:57-0500 Heart rate 77 /min Coleman Dawkins DO Work Phone: [facility] 11-21-2022 01:57-0500 Respiratory rate 12 /min Coleman Dawkins DO Work Phone: [facility] 11-21-2022 01:57-0500 SaO2% (BldA) [Mass fraction] 96 % Coleman Dawkins DO Work Phone: [facility] 11-21-2022 01:57-0500 Systolic blood pressure 118 mm[Hg] Coleman Dawkins DO Work Phone: [facility] 10-29-2022 09:37-0500 Body height 165.1 cm Renetta Beatty CNP Work Phone: [facility] 10-29-2022 09:37-0500 Body mass index (BMI) [Ratio] 43.9 kg/m2 Renetta Beatty CNP Work Phone: [facility] 10-29-2022 09:37-0500 Body weight 119.66 kg Renetta Beatty CNP Work Phone: [facility] 10-29-2022 09:37-0500 Diastolic blood pressure 80 mm[Hg] Renetta Beatty CNP Work Phone: [facility] 10-29-2022 09:37-0500 Heart rate 90 /min Renetta Beatty CNP Work Phone: [facility] 10-29-2022 09:37-0500 Respiratory rate 16 /min Renetta Beatty CNP Work Phone: [facility] 10-29-2022 09:37-0500 SaO2% (BldA) [Mass fraction] 96 % Renetta Millan GAB Beatty CNP Work Phone: [facility] Comment on above: ra 10-29-2022 09:37-0500 Systolic blood pressure 110 mm[Hg] Renetta Millan GAB Beatty CNP Work Phone: [facility] 10-29-2022 08:33-0500 Body height 165.1 cm Lisa Villa MD Work Phone: [facility] 10-29-2022 08:33-0500 Body mass index (BMI) [Ratio] 43.87 kg/m2 Lisa Villa MD Work Phone: [facility] 10-29-2022 08:33-0500 Body weight 119.57 kg Lisa Villa MD Work Phone: [facility] 10-29-2022 08:33-0500 Diastolic blood pressure 84 mm[Hg] Lisa Villa MD Work Phone: [facility] 10-29-2022 08:33-0500 Heart rate 65 /min Lisa Villa MD Work Phone: [facility] 10-29-2022 08:33-0500 Systolic blood pressure 125 mm[Hg] Lisa Villa MD Work Phone: [facility] 10-14-2022 12:53-0500 Body height 165.1 cm Gely Wheat MD Work Phone: [employer] [facility] 10-14-2022 12:53-0500 Body mass index (BMI) [Ratio] 43.27 kg/m2 Gely Wheat MD Work Phone: [employer] [facility] 10-14-2022 12:53-0500 Body weight 117.94 kg Gely Wheat MD Work Phone: [facility] 10-14-2022 12:53-0500 Diastolic blood pressure 64 mm[Hg] Gely Wheat MD Work Phone: [facility] 10-14-2022 12:53-0500 Heart rate 77 /min Otsilvia Wheat MD Work Phone: [facility] 10-14-2022 12:53-0500 SaO2% (BldA) [Mass fraction] 97 % Otsilvia Wheat MD Work Phone: [facility] 10-14-2022 12:53-0500 Systolic blood pressure 110 mm[Hg] Otfrshellie Wheat MD Work Phone: [facility] 10-10-2022 13:44-0500 Body height 165.1 cm Lisa Villa MD Work Phone: [facility] 10-10-2022 13:44-0500 Body mass index (BMI) [Ratio] 43.73 kg/m2 Lisa Villa MD Work Phone: [facility] 10-10-2022 13:44-0500 Body weight 119.2 kg Lisa Villa MD Work Phone: [facility] 10-10-2022 13:44-0500 Diastolic blood pressure 75 mm[Hg] Lisa Villa MD Work Phone: [facility] 10-10-2022 13:44-0500 Heart rate 88 /min Lisa Villa MD Work Phone: [facility] 10-10-2022 13:44-0500 Respiratory rate 16 /min Lisa Villa MD Work Phone: [facility] 10-10-2022 13:44-0500 Systolic blood pressure 117 mm[Hg] Lisa Villa MD Work Phone: [facility] 07-08-2021 20:00-0400 Body temperature 98.78 [degF] AR MARTINEZ MD [facility] 07-08-2021 20:00-0400 Diastolic blood pressure 85 mm[Hg] AR MARTINEZ MD [facility] 07-08-2021 20:00-0400 Heart rate 110 /min AR MARTINEZ MD [facility] 07-08-2021 20:00-0400 Respiratory rate 18 /min AR MARTINEZ MD [facility] 07-08-2021 20:00-0400 Systolic blood pressure 126 mm[Hg] AR MARTINEZ MD [facility] Encounters Encounter Date Encounter Type Care Provider Facility Start: 11-03-2024 End: 11-03-2024 ambulatory MAL JOSHUA Facility:[facility] Start: 11-03-2024 End: 11-03-2024 Patient encounter procedure Mal Joshua OD Work Phone: Optometry Comment on above: Presbyopia (Primary Dx) Start: 09-19-2024 End: 09-19-2024 Emergency department patient visit Ramesh Khan Facility:[facility] Start: 04-01-2023 End: 04-01-2023 ambulatory KENNY NUGENT [facility] Start: 04-01-2023 End: 04-01-2023 Postop follow up visit related to original px Kenny Nugent MD Work Phone: [facility] Comment on above: Intestinal malabsorp tion, unspecified type (Primary Dx); Deficiency of multiple nutrient elements; Class 2 obesity due to excess calories with body mass index (BMI) of 37.0 to 37.9 in adult, unspecified whether serious comorbidity present Start: 03-11-2023 Documentation procedure Parish Dunne EMPLOYMENT AND CLAIMS AIDE - MUSIC EDUCATOR Work Phone: [facility] Start: 03-07-2023 End: 03-08-2023 Emergency department patient visit ANA ROSA ESPITIA [facility] Start: 03-07-2023 End: 03-07-2023 Subsequent hospital visit by physician [facility] [address] Exam Room [address] [facility] [address] Comment on above: Arrived Start: 03-07-2023 End: 03-09-2023 ambulatory Nusrat Stringer RN [facility] Clinical Communication Start: 03-07-2023 Patient encounter procedure [facility] Start: 03-04-2023 End: 03-04-2023 ambulatory [facility] Start: 03-04-2023 End: 03-04-2023 Postop follow up visit related to original px Kenny Nugent MD Work Phone: [facility] [place] Comment on above: Type 2 diabetes nikko itus with other ophthalmic complication, without long-term current use of insulin (HCC) (Primary Dx); Morbid obesity with BMI of 40.0-44.9, adult (HCC); Low back pain, unspecified back pain laterality, unspecified chronicity, unspecified whether sciatica present; Intestinal malabsorption, unspecified type; Deficiency of multiple nutrient elements Start: 02-26-2023 End: 02-27-2023 Evaluation and management of inpatient [facility] Start: 02-26-2023 End: 02-27-2023 Evaluation and management of inpatient Kenny Nugent MD Work Phone: [facility] Comment on above: Morbid obesity with BMI of 40.0-44.9, adult (HCC) (Primary Dx); Morbid (severe) obesity due to excess calories (HCC); Diaphragmatic hernia without obstruction or gangrene Start: 02-19-2023 End: 02-19-2023 ambulatory [facility] Start: 02-11-2023 End: 02-12-2023 ambulatory ANA ROSA ESPITIA [facility] Start: 02-11-2023 End: 02-11-2023 ambulatory [facility] Start: 02-11-2023 End: 02-11-2023 Office outpatient visit 15 minutes Kenny Nugent MD Work Phone: [facility] [place] Comment on above: Type 2 diabetes nikko itus with other specified complication, unspecified whether nursing home insulin use (HCC); Morbid obesity with BMI of 40.0-44.9, adult (HCC); Difficult intravenous access Start: 12-09-2022 End: 12-10-2022 Emergency department patient visit KIANNA SAMRA DE GUZMAN-MUSIC EDUCATOR Facility:[facility] Start: 12-09-2022 End: 12-09-2022 Emergency department patient visit DR GUZMAN SOLIS MD [facility] Start: 11-21-2022 End: 11-21-2022 Emergency department patient visit COLEMAN DAWKINS [facility] Start: 11-21-2022 End: 11-21-2022 [facility] Start: 11-05-2022 End: 11-05-2022 ambulatory KENNY NUGENT [facility] Start: 11-05-2022 End: 11-05-2022 Telemedicine consultation with patient Kenny Nugent MD Work Phone: [facility] [place] Comment on above: Morbid obesity due t o excess calories (HCC) (Primary Dx) Start: 10-31-2022 Telephone encounter Adriane Hearn RD Work Phone: [facility] Comment on above: Abnormal Lab Start: 10-29-2022 End: 10-29-2022 ambulatory Parish Dunne EMPLOYMENT AND CLAIMS AIDE - MUSIC EDUCATOR Work Phone: [facility] Comment on above: Gastro-esophageal re flux disease without esophagitis; Morbid (severe) obesity due to excess calories (HCC); 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, resolved following treatment, unspecified eye (HCC); Encounter for other specified special examinations; Encounter for blood-alcohol and blood-drug test; Encounter for preprocedural laboratory examination Gastro-esophageal re flux disease without esophagitis (Primary Dx); Morbid (severe) obesity due to excess calories (HCC); 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 Start: 10-29-2022 End: 10-30-2022 ambulatory [facility] Start: 10-29-2022 End: 10-30-2022 Encounter for other specified special examinations [facility] Start: 10-29-2022 End: 10-30-2022 Encounter for preprocedural laboratory examination [facility] Start: 10-29-2022 End: 10-29-2022 Preoperative state Renetta Millan EMPLOYMENT AND CLAIMS AIDE - MUSIC EDUCATOR Work Phone: [facility] Start: 10-29-2022 End: 10-29-2022 Office outpatient visit 15 minutes Lisa Villa MD Work Phone: [facility] Comment on above: Type 2 diabetes nikko itus without complication, without long- term current use of insulin (CMS/HCC) (HCC) (Primary Dx); BMI 40.0-44.9, adult (HCC); Class 3 severe obesity with serious comorbidity and body mass index (BMI) of 40.0 to 44.9 in adult, unspecified obesity type (HCC) Pre-operative cleara nce (Primary Dx); VIKTOR (obstructive sleep apnea) Start: 10-14-2022 End: 10-14-2022 ambulatory [facility] Start: 10-14-2022 End: 10-14-2022 Office outpatient new 45 minutes Gely Wheat MD Work Phone: [facility] Comment on above: Pre-operative cleara nce; Morbid obesity due to excess calories (HCC) Start: 10-14-2022 End: 10-14-2022 Preoperative state Gely Wheat MD Work Phone: [facility] Start: 10-11-2022 End: 10-12-2022 ambulatory BARBIE LEWIS [facility] Start: 10-11-2022 End: 10-12-[address] [facility] Comment on above: VIKTOR (obstructive sle ep apnea); Preoperative clearance Start: 10-11-2022 End: 10-12-[address] [facility] Start: 10-10-2022 End: 10-10-2022 ambulatory LISA VILLA [facility] Start: 10-10-2022 End: 10-10-2022 Office outpatient visit 15 minutes Lisa Villa MD Work Phone: [facility] [place] Comment on above: Type 2 diabetes nikko itus without complication, without long- term current use of insulin (CMS/HCC) (HCC) (Primary Dx); BMI 40.0-44.9, adult ([facility]); Class 3 severe obesity with serious comorbidity and body mass index (BMI) of 40.0 to 44.9 in adult, unspecified obesity type ([facility]) Start: 10-10-2022 End: 10-11-2022 ambulatory PARISHGama GOODRICHCECILIA [facility] Start: 10-10-2022 End: 10-10-2022 Patient encounter status Parish Beatty CNP Work Phone: [facility] Start: 10-10-2022 End: 10-10-2022 Subsequent hospital visit by physician Parish Beatty MUSIC EDUCATOR Work Phone: [facility] Comment on above: GERD without esophag itis; Morbid obesity due to excess calories ([facility]); 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, without long-term current use of insulin, unspecified laterality ([facility]); Encounter for screening for tobacco use; Encounter for drug screening; Pre-operative laboratory examination Start: 09-29-2022 Telephone encounter Lon walden MD Work Phone: [facility] Comment on above: Appointment Request Start: 09-19-2022 End: 09-19-20[facility] Start: 09-01-2022 End: 09-01-2022 ambulatory KENNY NUGENT [facility] Start: 09-01-2022 End: 09-01-20[facility] Start: 09-01-2022 End: 09-01-2022 Encounter for other [facility]cedural [facility] Start: 08-27-2022 End: 08-27-2022 ambulatory LISA ALLEN [facility] Start: 07-25-2022 ambulatory UNKNOWN PROVIDER [facility] Start: 06-20-2022 ambulatory UNKNOWN PROVIDER [facility] Start: 06-20-2022 End: 06-20-2022 Subsequent hospital visit by physician Lisa Villa MD [facility] Phone[facility] Start: 05-23-2022 ambulatory UNKNOWN PROVIDER [facility] Start: 05-21-2022 ambulatory UNKNOWN PROVIDER [facility] Start: 04-30-2022 ambulatory Kenny Nugent [facility] Start: 04-30-2022 End: 04-30-2022 Subsequent hospital visit by physician Kenny Nugent MD Work Phone: [facility] Start: 04-16-2022 ambulatory UNKNOWN PROVIDER [facility] Start: 04-16-2022 End: 04-16-2022 Subsequent hospital visit by physician Kenny Nugent MD [facility] Phone[facility] Start: 04-14-2022 ambulatory Kenny Nugent [facility] Start: 07-08-2021 End: 07-08-2021 Emergency department patient visit AR MARTINEZ MD [facility] Procedures Date Procedure Procedure Detail Performing Clinician Start: 03-07-2023 Ct abdomen & pelvis w/contrast material Shashank Jansen MD Work Phone: Start: 02-27-2023 Radiologic exam upr gi trc single contrast study Deion Lundberg MD Work Phone: Start: 02-27-2023 Basic metabolic pane l calcium total Deion Lundberg MD Work Phone: Start: 02-26-2023 End: 02-26-2023 Basic metabolic panel calcium total Deion Lundberg MD Work Phone: Start: 02-26-2023 Level v surg patholo gy gross&microscopic exam Kenny Nugent MD Work Phone: Start: 02-26-2023 End: 02-26-2023 Gastric rstcv w/prtl gastrectomy 50-100 cm Kenny Nugent MD Work Phone: Start: 02-26-2023 End: 02-26-2023 Unlis laparoscopic procedure liver Kenny Nugent MD Work Phone: Start: 02-26-2023 End: 02-26-2023 Unlisted procedure stomach Kenny Nugent MD Work Phone: Start: 02-26-2023 Glucose quantitative blood xcpt reagent strip Kenny Nugent MD Work Phone: Start: 10-29-2022 Follow-up visit Follow-up RENETTA ANTUNEZ Start: 10-29-2022 Comprehensive metabo lic panel Parish R Bridle EMPLOYMENT AND CLAIMS AIDE - MUSIC EDUCATOR Work Phone: Start: 10-29-2022 Lipid panel Parish R Br idle EMPLOYMENT AND CLAIMS AIDE - MUSIC EDUCATOR Work Phone: Start: 10-29-2022 MEDICATION ASSISTED TREATMENT PANEL Parish R Bridle EMPLOYMENT AND CLAIMS AIDE - MUSIC EDUCATOR Work Phone: Start: 10-29-2022 Lipid 1996 panel - S armond or Plasma Lisa Villa MD Work Phone: Start: 10-29-2022 Thyrotropin [Units/v olume] in Serum or Plasma Kenny Nugent MD Work Phone: Start: 10-20-2022 POLYSOMNOGRAPHY Denita Lewis DO Work Phone: Start: 10-14-2022 Ecg routine ecg w/le ast 12 lds w/i&r Gely Wheat MD Work Phone: Start: 10-10-2022 Radiologic exam upr gi trc single contrast study Parish R Bridle EMPLOYMENT AND CLAIMS AIDE - MUSIC EDUCATOR Work Phone: Start: 10-10-2022 Us abdominal real ti me w/image documentation Parish Dunne EMPLOYMENT AND CLAIMS AIDE - MUSIC EDUCATOR Work Phone: Start: 08-27-2022 Adult depression scr eening assessment Parish Dunne EMPLOYMENT AND CLAIMS AIDE - MUSIC EDUCATOR Work Phone: Start: 10-23-2020 Decompression of med fatmata nerve AR MARTINEZ MD Comment on above: RIGHT Start: 11-18-2016 Bilateral complete salpingectomy AR MARTINEZ MD Start: 11-18-2016 Total abdominal hysterectomy AR MARTINEZ MD section AR WILKINS SA, MD Comment on above: x3 Cholecystectomy AR Malloy MD Dilation and curetta ge of uterus AR MARTINEZ MD Tonsil and adenoid structure (body structure) AR MARTINEZ MD Transcervical sterilization AR MARTINEZ MD Plan of Treatment Date Care Activity Detail Author Start: 2039 RSV Immunization age d 60 or older (1 - 1-dose 60+ series) RSV Immunization aged 60 or older (1 - 1-dose 60+ series) [facility] Start: 2029 Zoster Vaccines (1 of 2) Zoster Vacc luciano (1 of 2) [facility] Start: 10-29-2027 Cyanocobalamin vitam in b-12 Vitamin B-12 [facility] Start: 11-09-2025 End: 11-09-2025 Patient encounter procedure 11/09/2025 8:30 AM EST Office Visit [facility] [address] [place] [address] Mal Joshua, OD [address] [place] [address] eye exam/[facility] Comment on above: eye exam/[facility] Start: 11-03-2025 Glaucoma screening Dilated Retinal E xam [facility] Start: 05-29-2024 COVID-19 Vaccine ( season) COVID-19 Vaccine ( season) [facility] Start: 05-29-2024 Covid-19 Vaccine ( season) Covid-19 Vaccine () [facility] Start: 05-29-2024 Influenza vaccination Influenza Vacc ine (#1) [facility] Start: 2024 Screening for malign ant neoplasm of colon [facility] Start: 03-09-2024 Diabetes: Estimated Glomerular Filtration Rate for Kidney [facility] Diabetes: Estimated Glomerular Filtration Rate for Kidney [facility] Start: 02-12-2024 Hemoglobin A1c measurement Diabetes: Hemoglobin A1C [facility] Start: 10-29-2023 Lipid panel Lipid Panel [facility] Start: 10-29-2023 Thyroid stimulating hormone measurement TSH Level [facility] Start: 09-22-2023 End: 09-22-2023 Patient encounter procedure [facility] Start: 09-15-2023 End: 09-15-2023 Patient encounter procedure 09/15/2023 2:15 PM EST Office Visit [facility] [place] [address] [place] [id number] 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 [place] [id number] [facility] Start: 08-27-2023 Depression Screening Depression Scre ening [facility] Start: 06-02-2023 End: 04-01-2024 CBC panel - Blood by Automated count CBC Lab Routine Intestinal malabsorption, unspecified type Deficiency of multiple nutrient elements Class 2 obesity due to excess calories with body mass index (BMI) of 37.0 to 37.9 in adult, unspecified whether serious comorbidity present Expected: 06/02/2023 (Approximate), Expires: 04/01/2024 [facility] Comment on above: Expected: 06/02/2023 (Approximate), Expires: 04/01/2024 Start: 06-02-2023 End: 04-01-2024 Cobalamin (Vitamin B12) [Mass/volume] in Serum or Plasma Vitamin B12 Lab Routine Intestinal malabsorption, unspecified type Deficiency of multiple nutrient elements Class 2 obesity due to excess calories with body mass index (BMI) of 37.0 to 37.9 in adult, unspecified whether serious comorbidity present Expected: 06/02/2023 (Approximate), Expires: 04/01/2024 [employer] Comment on above: Expected: 06/02/2023 (Approximate), Expires: 04/01/2024 Start: 06-02-2023 End: 04-01-2024 Comprehensive metabolic 1998 panel - Serum or Plasma Comprehensive metabolic panel Lab Routine Intestinal malabsorption, unspecified type Deficiency of multiple nutrient elements Class 2 obesity due to excess calories with body mass index (BMI) of 37.0 to 37.9 in adult, unspecified whether serious comorbidity present Expected: 06/02/2023 (Approximate), Expires: 04/01/2024 [employer] Comment on above: Expected: 06/02/2023 (Approximate), Expires: 04/01/2024 Start: 06-02-2023 End: 04-01-2024 Ferritin [Mass/volume] in Serum or Plasma Ferritin Lab Routine Intestinal malabsorption, unspecified type Deficiency of multiple nutrient elements Class 2 obesity due to excess calories with body mass index (BMI) of 37.0 to 37.9 in adult, unspecified whether serious comorbidity present Expected: 06/02/2023 (Approximate), Expires: 04/01/2024 [employer] Comment on above: Expected: 06/02/2023 (Approximate), Expires: 04/01/2024 Start: 06-02-2023 End: 04-01-2024 Folate [Mass/volume] in Serum or Plasma Folate Lab Routine Intestinal malabsorption, unspecified type Deficiency of multiple nutrient elements Class 2 obesity due to excess calories with body mass index (BMI) of 37.0 to 37.9 in adult, unspecified whether serious comorbidity present Expected: 06/02/2023 (Approximate), Expires: 04/01/2024 [employer] [facility] Comment on above: Expected: 06/02/2023 (Approximate), Expires: 04/01/2024 Start: 06-02-2023 End: 04-01-2024 Iron and Iron binding capacity panel - Serum or Plasma Iron Lab Routine Intestinal malabsorption, unspecified type Deficiency of multiple nutrient elements Class 2 obesity due to excess calories with body mass index (BMI) of 37.0 to 37.9 in adult, unspecified whether serious comorbidity present Expected: 06/02/2023 (Approximate), Expires: 04/01/2024 [facility] Comment on above: Expected: 06/02/2023 (Approximate), Expires: 04/01/2024 Start: 06-02-2023 End: 04-01-2024 Magnesium [Mass/volume] in Serum or Plasma Magnesium Lab Routine Intestinal malabsorption, unspecified type Deficiency of multiple nutrient elements Class 2 obesity due to excess calories with body mass index (BMI) of 37.0 to 37.9 in adult, unspecified whether serious comorbidity present Expected: 06/02/2023 (Approximate), Expires: 04/01/2024 [facility] Comment on above: Expected: 06/02/2023 (Approximate), Expires: 04/01/2024 Start: 06-02-2023 End: 04-01-2024 Zinc Zinc Lab Routine Intestinal malabsorption, unspecified type Deficiency of multiple nutrient elements Class 2 obesity due to excess calories with body mass index (BMI) of 37.0 to 37.9 in adult, unspecified whether serious comorbidity present Expected: 06/02/2023 (Approximate), Expires: 04/01/2024 [facility] Work Phone: Comment on above: Expected: 06/02/2023 (Approximate), Expires: 04/01/2024 Start: 06-02-2023 End: 06-02-2023 Patient encounter procedure [facility] [place] Start: 05-29-2023 Influenza vaccination S [facility] Start: 05-14-2023 Hemoglobin A1c measurement Diabetes: Hemoglobin A1C [facility] Start: 04-01-2023 End: 04-01-2023 Patient encounter procedure LEPOW [place] Start: 03-18-2023 End: 03-04-2024 CBC panel - Blood by Automated count CBC Lab Routine Type 2 diabetes mellitus with other ophthalmic complication, without long-term current use of insulin (HCC) Morbid obesity with BMI of 40.0-44.9, adult (HCC) Low back pain, unspecified back pain laterality, unspecified chronicity, unspecified whether sciatica present Intestinal malabsorption, unspecified type Deficiency of multiple nutrient elements Expected: 03/18/2023 (Approximate), Expires: 03/04/2024 [facility] Comment on above: Expected: 03/18/2023 (Approximate), Expires: 03/04/2024 Start: 03-18-2023 End: 03-04-2024 Cobalamin (Vitamin B12) [Mass/volume] in Serum or Plasma Vitamin B12 Lab Routine Type 2 diabetes mellitus with other ophthalmic complication, without long-term current use of insulin (HCC) Morbid obesity with BMI of 40.0-44.9, adult (HCC) Low back pain, unspecified back pain laterality, unspecified chronicity, unspecified whether sciatica present Intestinal malabsorption, unspecified type Deficiency of multiple nutrient elements Expected: 03/18/2023 (Approximate), Expires: 03/04/2024 [facility] Comment on above: Expected: 03/18/2023 (Approximate), Expires: 03/04/2024 Start: 03-18-2023 End: 03-04-2024 Comprehensive metabolic 1998 panel - Serum or Plasma Comprehensive metabolic panel Lab Routine Type 2 diabetes mellitus with other ophthalmic complication, without long-term current use of insulin (HCC) Morbid obesity with BMI of 40.0-44.9, adult (HCC) Low back pain, unspecified back pain laterality, unspecified chronicity, unspecified whether sciatica present Intestinal malabsorption, unspecified type Deficiency of multiple nutrient elements Expected: 03/18/2023 (Approximate), Expires: 03/04/2024 [facility] Comment on above: Expected: 03/18/2023 (Approximate), Expires: 03/04/2024 Start: 03-18-2023 End: 03-04-2024 Ferritin [Mass/volume] in Serum or Plasma Ferritin Lab Routine Type 2 diabetes mellitus with other ophthalmic complication, without long-term current use of insulin (HCC) Morbid obesity with BMI of 40.0-44.9, adult (HCC) Low back pain, unspecified back pain laterality, unspecified chronicity, unspecified whether sciatica present Intestinal malabsorption, unspecified type Deficiency of multiple nutrient elements Expected: 03/18/2023 (Approximate), Expires: 03/04/2024 [facility] Comment on above: Expected: 03/18/2023 (Approximate), Expires: 03/04/2024 Start: 03-18-2023 End: 03-04-2024 Folate [Mass/volume] in Serum or Plasma Folate Lab Routine Type 2 diabetes mellitus with other ophthalmic complication, without long-term current use of insulin (HCC) Morbid obesity with BMI of 40.0-44.9, adult (HCC) Low back pain, unspecified back pain laterality, unspecified chronicity, unspecified whether sciatica present Intestinal malabsorption, unspecified type Deficiency of multiple nutrient elements Expected: 03/18/2023 (Approximate), Expires: 03/04/2024 [employer] [facility] Comment on above: Expected: 03/18/2023 (Approximate), Expires: 03/04/2024 Start: 03-18-2023 End: 03-04-2024 Iron and Iron binding capacity panel - Serum or Plasma Iron Lab Routine Type 2 diabetes mellitus with other ophthalmic complication, without long-term current use of insulin (HCC) Morbid obesity with BMI of 40.0-44.9, adult (HCC) Low back pain, unspecified back pain laterality, unspecified chronicity, unspecified whether sciatica present Intestinal malabsorption, unspecified type Deficiency of multiple nutrient elements Expected: 03/18/2023 (Approximate), Expires: 03/04/2024 [employer] [facility] Comment on above: Expected: 03/18/2023 (Approximate), Expires: 03/04/2024 Start: 03-18-2023 End: 03-04-2024 Magnesium [Mass/volume] in Serum or Plasma Magnesium Lab Routine Type 2 diabetes mellitus with other ophthalmic complication, without long-term current use of insulin (HCC) Morbid obesity with BMI of 40.0-44.9, adult (HCC) Low back pain, unspecified back pain laterality, unspecified chronicity, unspecified whether sciatica present Intestinal malabsorption, unspecified type Deficiency of multiple nutrient elements Expected: 03/18/2023 (Approximate), Expires: 03/04/2024 [employer] [facility] Comment on above: Expected: 03/18/2023 (Approximate), Expires: 03/04/2024 Start: 03-18-2023 End: 03-04-2024 Zinc Zinc Lab Routine Type 2 diabetes mellitus with other ophthalmic complication, without long-term current use of insulin (HCC) Morbid obesity with BMI of 40.0-44.9, adult (HCC) Low back pain, unspecified back pain laterality, unspecified chronicity, unspecified whether sciatica present Intestinal malabsorption, unspecified type Deficiency of multiple nutrient elements Expected: 03/18/2023 (Approximate), Expires: 03/04/2024 [facility] Work Phone: Comment on above: Expected: 03/18/2023 (Approximate), Expires: 03/04/2024 Start: 03-09-2023 End: 03-09-2023 Patient encounter procedure 03/09/2023 1:00 PM EDT Office Visit [facility] [place] [address] [place] [phone] 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 [place] [address] [facility] Start: 03-04-2023 End: 03-04-2023 Patient encounter procedure [facility] Start: 02-26-2023 End: 02-26-2023 Admission to same day surgery center 02/26/2023 Surgery Procedural Kenny Nugent MD [address] [place], [place] [id number] ROBOTIC ASSISTED SINGLE ANASTOMOSIS DUODENAL ILEAL BYPASS WITH SLEEVE GASTRECTOMY WITH LIVER WEDGE BIOPSY, POSSIBLE OPEN [32320 (CPT )] [facility] Comment on above: ROBOTIC ASSISTED SIN GLE ANASTOMOSIS DUODENAL ILEAL BYPASS WITH SLEEVE GASTRECTOMY WITH LIVER WEDGE BIOPSY, POSSIBLE OPEN [08646 (CPT )] Start: 02-26-2023 End: 02-26-2023 Gastric rstcv w/prtl gastrectomy 50-100 cm ROBOTIC (XI) ASSISTED GASTRIC RESTRICTIVE PROCEDURE WITH PARTIAL GASTRECTOMY PYLORUS PRESERVING DUODENOILEOSTOMY AND ILEOILEOSTOMY Morbid (severe) obesity due to excess calories (HCC) 02/26/2023 7:30 AM EDT [facility] Operating Room Start: 02-26-2023 Subsequent hospital visit by physician 02/26/2023 Hospital Encounter Procedural Kenny Nugent MD [address] [place], [place] [id number] [facility] Start: 02-26-2023 End: 02-26-2023 Unlis laparoscopic procedure liver UNLISTED LAPAROSCOPIC PROCEDURE LIVER Morbid (severe) obesity due to excess calories (HCC) 02/26/2023 7:30 AM EDT [facility] Operating Room Start: 02-26-2023 End: 02-26-2023 Unlisted procedure stomach ROBOTIC (XI) SINGLE ANASTOMOSIS DUODENAL ILEAL BYPASS Morbid (severe) obesity due to excess calories (HCC) 02/26/2023 7:30 AM EDT [facility] Operating Room Start: 02-19-2023 End: 02-19-2023 Admission to establishment 02/19/2023 Pre-Admission Testing Pre-Admission Testing [facility] Pre-Admit Testing Start: 02-11-2023 End: 02-11-2023 Patient encounter procedure 02/11/2023 Office Visit Bariatrics Kenny Nugent MD [address] [facility] [address] [place] [address] [facility] Start: 01-26-2023 Hemoglobin A1c measurement Diabetes: Hemoglobin A1C [facility] Start: 12-24-2022 End: 12-24-2022 Patient encounter procedure [facility] Start: 11-05-2022 End: 11-05-2022 Telemedicine consultation with patient [facility] Start: 10-29-2022 End: 10-29-2022 Patient encounter procedure 10/29/2022 Office Visit Weight Management Lisa Villa MD [address] [place] [address] [facility] Start: 10-14-2022 End: 10-14-2022 Patient encounter procedure 10/14/2022 Office Visit Cardiology Gely Wheat MD [address] [facility] [address] [place] [address] [facility]OC[facility] Start: 10-11-2022 End: 10-11-2022 Patient encounter procedure 10/11/2022 Office Visit Sleep [facility] Start: 05-29-2022 Influenza vaccination [facility] Start: 12-29-2020 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 Annual PCP Team Chronic Disease Visit [facility] Start: 2019 Lipid panel LIPID SCREENING [facility] Start: 2019 Screening for malign ant neoplasm of breast [facility] Start: 2000 Screening for malign ant neoplasm of cervix [facility] Start: 1998 DTaP/Tdap/Td vaccine (1 - Tdap) DTaP/Tdap/Td vaccine (1 - Tdap) [facility] Start: 1998 DTaP/Tdap/Td Vaccine s (1 - Tdap) DTaP/Tdap/Td Vaccines (1 - Tdap) [facility] Start: 1998 Hepatitis A Vaccines (1 of 2 - Risk 2-dose series) Hepatitis A Vaccines (1 of 2 - Risk 2-dose series) [facility] Start: 1998 Hepatitis B Vaccine (1 of 3 - 19+ 3-dose series) Hepatitis B Vaccine (1 of 3 - 19+ 3-dose series) [facility] Start: 1998 Hepatitis B Vaccines (1 of 3 - 19+ 3-dose series) Hepatitis B Vaccines (1 of 3 - 19+ 3-dose series) [facility] Start: 1998 Pneumococcal vaccination Pneum ococcal Vaccine (1 of 2 - PCV) [facility] Start: 1998 Third diphtheria, tetanus and acellular pertussis (DTaP) vaccination TDAP (ADULT) [facility] Start: 1998 Urine microalbumin profile DTaP,Tdap,Td Vaccine (1 - Tdap) [facility] Start: 1998 Urine screening for protein Diabetes: Urine Protein Screening [facility] Start: 1997 Anxiety Screening Anxiety Screening [facility] Start: 1997 [facility]: 1997 Diabetes: Urine Albumin-Creatinine Ratio for Kidney Health Diabetes: Urine Albumin-Creatinine Ratio for Kidney Health [facility] Start: 1997 Hepatitis B surface antibody level LDL Cholesterol [facility] Start: 1997 Hepatitis C screening Hepatitis C Sc reening [facility] Start: 1997 HIV screening HIV Screening [facility] Start: 1994 HIV screening HIV SCREENING DISCUSSI ON [facility] Start: 1989 Diabetic foot examination [facility] Start: 1989 Glaucoma screening Diabetes: R etinopathy Screening [facility] Start: 1989 Hepatitis B screening Urine Al bumin:Creatinine Ratio [facility] Start: 1989 Preventive dental service Diabetes: Dental Exam [facility] Start: 1986 DTaP/Tdap/Td Vaccine s (1 - Tdap) DTaP/Tdap/Td Vaccines (1 - Tdap) [facility] Start: 1985 Pneumococcal Vaccine : Pediatrics (0 to 5 Years) and At-Risk Patients (6 to 64 Years) (1 - PCV) Pneumococcal Vaccine: Pediatrics (0 to 5 Years) and At-Risk Patients (6 to 64 Years) (1 - PCV) [facility] Start: 1985 Pneumococcal Vaccine : Pediatrics (0 to 5 Years) and At-Risk Patients (6 to 64 Years) (1 of 2 - PCV) Pneumococcal Vaccine: Pediatrics (0 to 5 Years) and At-Risk Patients (6 to 64 Years) (1 of 2 - PCV) [facility] Start: 1984 Hemoglobin A1c measurement HbA1C [facility] Start: 1980 MMR Vaccines (1 of 1 - Standard series) MMR Vaccines (1 of 1 - Standard series) [facility] Start: 1979 COVID-19 Vaccine (#1) COVID-19 Vacci ne (#1) [facility] Start: 1979 Hemoglobin A1c measurement Diabetes: Hemoglobin A1C [facility] Start: 1979 Hepatitis B Vaccines (1 of 3 - 3-dose series) Hepatitis B Vaccines (1 of 3 - 3-dose series) [facility] Start: 1979 Hepatitis C screening HEPATITI S C VIRUS SCREENING [facility] Start: 1979 HIV screening HIV Screening [facility] Start: 1979 Lipid panel Lipid Panel [facility] Start: 1979 Screening for malign ant neoplasm of colon [facility] Start: 1979 Tetanus vaccination [facility] OUTSIDE PROCEDURE SCAN OUTSIDE P ROCEDURE SCAN Procedures Ordered: 10/29/2022 [facility] Comment on above: Ordered: 10/29/2022 Payers Date Payer Category Payer Self-pay 2023 Private Health Insurance OLAMIDE RAO PPO xxxxxxxxx [phone]-Present [address] [place] [address] Commercial [id number] 2023 Private Health Insurance [id number] 2022 Unknown 2021 Medicaid [id number] 2021 Medicaid [id number] 1979 Unknown [id number] 1979 Unknown [id number] 668 1979 Unknown [id number] 668 1979 Unknown [id number] 668 1979 Unknown [id number] 668 1979 Unknown [id number] 668 1979 Unknown [id number] 668 1979 Unknown [id number] 556 1979 Unknown [id number] Unknown [id number] 462 Social History Date Type Detail Facility Start: 08-20-2019 End: 04-11-2020 Never smoked tobacco (finding) [facility] Start: 1980 Sex Assigned At Female A [facility] Tobacco smoking stat us NHIS Tobacco smoking consumption unknown [facility] Start: 1980 Sex Assigned At Not on file [facility] [employer] Work Phone: Start: 08-20-2019 End: 11-21-2022 Tobacco use and exposure Smokeless tobacco non-user [facility] Work Phone: Start: 11-21-2022 Alcohol intake Lifetime non-d nick (finding) [facility] Work Phone: Start: 09-29-2022 End: 04-01-2023 Exposure to SARS-CoV-2 (event) Not sure [facility] Work Phone: Start: 10-29-2022 End: 11-03-2024 Alcohol intake Ex-drinker (finding) [facility] [employer] Start: 02-26-2023 End: 11-03-2024 History of Social function [facility] [employer] Work Phone: Start: 02-26-2023 End: 11-03-2024 Tobacco use panel [facility] [employer] Work Phone: Start: 09-15-2022 Gender identity Identifies as female gender (finding) [facility] How often to you hav e a drink containing alcohol? Never [facility] How many standard drinks containing alcohol do you have on a typical day? Patient does not drink [facility] Medical Equipment Procedure Code Equipment Code Equipment Origin al Text Equipment Identifier Dates Blood Glucose Te st Strips Start: 06-11-2021 Lancets Start: 03-22-2021 See Instructions , once daily R73.01, # 30 EA, 11 Refill(s), Pharmacy: [facility] Impaired fasting glucose, 168.3, cm, 05/06/21 8:15:00 EDT, Height, 122.8, kg, 05/06/21 8:15:00 EDT, Dosing Weight Start: 06-11-2021 See Instructions , once daily R73.01, # 30 EA, 4 Refill(s), Pharmacy: [facility] Impaired fasting glucose, 169, cm, 03/22/21 16:03:00 EDT, Height, 124.4, kg, 03/22/21 16:03:00 EDT, Dosing Weight Start: 03-22-2021 use 1 LANCET to TEST BLOOD SUGAR once daily [id number] Start: 11-25-2021 End: 04-01-2023 TEST BLOOD SUGAR once daily [id number] Start: 05-19-2022 End: 04-01-2023 Functional Status Date Assessment Result Facility 12-09-2022 Functional Status Ambulating in wang, Ambulating in room, Awake, Bathroom privileges [facility] Mental Status Date Assessment Result Facility 12-09-2022 Mental Status Oriented x 4 [facility] Clinical Notes 07-08-2021 to 11-03-2024 Mal Joshua, JESSICA - 11/03/2024 10:25 AM Jeffrey Silva - 04/01/2023 9:[address] - 04/01/2023 9:50 AM Catherine Nugent MD - 04/01/2023 9:50 AM EDTDischarge InstructionsLaboratory Note Date & Type Note Facility 11-03-2024 Note HNO ID: [id number] Author: MAL JOSHUA OD Service: ? Author Type: PUNCH PRESS SETTER Type: Progress Notes Filed: 11/03/2024 10:48 Note Text: ASSESSMENT/PLAN: 1. Presbyopia - ICD9: 367.4, ICD10: H52.4 Updated spectacle prescription, and educated patient to adaptation to new prescription. Return to clinic with changes to vision, otherwise follow up yearly. Mal Joshua OD November 03, 2024 10:48 AM [facility] 11-03-2024 History of Present illness Narrative ASSESSMENT/PLAN: 1. Presbyopia - ICD9: 367.4, ICD10: H52.4 Updated spectacle prescription, and educated patient to adaptation to new prescription. Return to clinic with changes to vision, otherwise follow up yearly. Mal Joshua OD November 03, 2024 10:48 AM documented in this encounter [facility] 07-05-2023 Note BARIATRIC CARE CENTE R PROGRESS NOTE POST WEIGHT LOSS SURGERY FOLLOW UP Patient: Kaelyn Maddox Service Date: 04/01/2023 Patient is 1 month(s) s/p NENO-S Today's Metrics: Post-Surgical Weight Loss Date: 04/01/23 Height: 5' 5 (165.1 cm) Weight: 224 lb 3.2 oz (102 kg) BMI: 37.30 Weight Change: -15.4 lbs Total Weight Change: -39.4 lbs % EBWL: 29% Comments: 1M Pre-op Weight Metrics: Post-op Weight Metrics: %EBWL: % EBWL: 29% Weight Change Since Last Visit: Weight Change: -15.4 lbs Weight Change from Highest Pre-op Weight: Total Weight Change: -39.4 lbs Patient has the following questions: RTW, Pain: Patient rates pain on scale 0-10 as: 0 Exercise Compliance: Exercising: yes If yes: Type: walking and swimming Times per week: 7 Min per session: 40-60 Falls Risk Assessment Patient does not take medications which affect BP or mental status Patient does not have newly prescribed or changed dosage of medications within past 30 days which affect BP or mental status Patient has not fallen in the past 2 months Patient does not demonstrate unsteady gait Patient uses the following ambulatory assistive devices: none Patient states the presence of the following traits which increases risk of fall: none Patient is not on home O2 Labs Completed: no - If NO, patient instructed to get labs drawn today or MELISAS If YES: Labs completed at [facility]? no If yes see Labs Tab [facility]? no If yes see Encounters Tab - Orders only - Historical Provider - Date: Completed by: Annika [facility] 04-01-2023 History of Present illness Narrative BARIATRIC CARE CANDOR PROGRESS NOTE POST WEIGHT LOSS SURGERY FOLLOW UP Patient: Kaelyn Maddox Service Date: 04/01/2023 Patient is 1 month(s) s/p ENNO-S Today's Metrics: Post-Surgical Weight Loss Date: 04/01/23 Height: 5' 5 (165.1 cm) Weight: 224 lb 3.2 oz (102 kg) BMI: 37.30 Weight Change: -15.4 lbs Total Weight Change: -39.4 lbs % EBWL: 29% Comments: 1M Pre-op Weight Metrics: Post-op Weight Metrics: %EBWL: % EBWL: 29% Weight Change Since Last Visit: Weight Change: -15.4 lbs Weight Change from Highest Pre-op Weight: Total Weight Change: -39.4 lbs Patient has the following questions: RTW, Pain: Patient rates pain on scale 0-10 as: 0 Exercise Compliance: Exercising: yes If yes: Type: walking and swimming Times per week: 7 Min per session: 40-60 Falls Risk Assessment Patient does not take medications which affect BP or mental status Patient does not have newly prescribed or changed dosage of medications within past 30 days which affect BP or mental status Patient has not fallen in the past 2 months Patient does not demonstrate unsteady gait Patient uses the following ambulatory assistive devices: none Patient states the presence of the following traits which increases risk of fall: none Patient is not on home O2 Labs Completed: no - If NO, patient instructed to get labs drawn today or MELISSA If YES: Labs completed at [facility]? no If yes see Labs Tab Labs completed at Non-[facility] facility? no If yes see Encounters Tab - Orders only - Historical Provider - Date: Completed by: Annika Silva [facility] CARE CENTER 1 MONTH POST-OPERATIVE DIETITIAN VISIT Date: 04/01/23 Current diet reviewed with patient. Soft and maintenance diets discussed and handouts provided. Patient's weight decreased by: 39.4 lbs Patient does not consume 5-6 small meals daily: 4-5 Patient s portions are adequate for current diet: 1/4-1/2 cup Protein requirements discussed- currently consuming 50-65 grams of protein daily. Current protein sources: almonds, chicken, notes increased intake of fruits and vegetables, and low carb tortillas, eggs, peanut butter, chicken salad, lean ground beef Recommendations: Increase protein in diet and meal frequency Fluid requirements discussed. Current Fluid Intake: 64 fl oz + Patient does drink sugar-free, caffeine-free and carbonation-free fluids only. Patient does wait 30 minutes before and after meals to drink Exercise activities discussed. Patient does currently exercising. She was reminded that regular exercise is critical part of a successful outcome following weight loss surgery. Behavioral/Emotional changes reviewed. Patient does feel comfortable with changes in eating behaviors and associated emotional changes. She was reminded that psychological counseling is available through the [facility] post-operatively. Recent Nutrient Concerns and Vitamin Supplementation Changes: No new labs to review at this time. Patient does reports compliance with V/M protocol Notes/Comments: Increase protein in diet and meal frequency. Patient to start maintenance diet. Patient instructed to call or Mychart with any questions or concerns Visit completed by: Naima Krause MS, RDN, LD Images from the original note were not included. KENNY NUGENT MD , FACS, [facility] MINIMALLY INVASIVE & METABOLIC / BARIATRIC SURGERY [facility] - 1 MONTH FOLLOW UP 04/01/2023 PATIENT: Kaelyn Maddox DATE OF : 1980 HISTORY OF PRESENT ILLNESS Chief Complaint: 1 month follow-up status post robotic SINGLE ANASTOMOSIS DUODENO-ILEOSTOMY W/ SLEEVE (SINGLE STAGE) - angélica ABBOTT Kaelyn Maddox is a 42 y.o. female who presents to the bariatric care center today for their 1 month evaluation following bariatric surgery with Dr. Nugent. The total weight lost is 40 pounds for a 29 % EWL. Overall, the patient is satisfied with the weight loss and health benefits related to the bariatric intervention. Dietary compliance concerns: No Exercise and activity concerns: No Compliance and phychologic concerns: No Dysphagia and eating concerns: No Excessive skin concerns: No The patient is feeling well and denies any major complaints or GI symptoms. The dietary regimen and exercise activities are going well. The patient is compliant with protein intake and vitamin/trace element supplementation. 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 Review of Symptoms Constitutional: negative for chills, fevers, night sweats Respiratory: negative for cough, dyspnea on exertion, hemoptysis, and sputum Cardiovascular: negative for chest pain, chest pressure/discomfort, dyspnea, irregular heart beat, palpitations, and syncope Gastrointestinal: negative for abdominal pain, constipation, diarrhea, dysphagia, melena, reflux symptoms, and vomiting Neurological: negative for dizziness, paresthesia, seizures, and weakness PAST HISTORIES Past Medical History: Diagnosis Date Anemia Back pain Circulation problem COVID-19 vaccine series declined Daytime sleepiness Difficulty sleeping Dizziness Fatigue History of UTI Joint pain, hip Joint pain, knee Snoring SOBOE (shortness of breath on exertion) Type 2 diabetes mellitus with ophthalmic complication, without long-term current use of insulin ([facility]) Vertigo Past Surgical History: Procedure Laterality Date CARPAL TUNNEL RELEASE Right 2020 SECTION (HISTORICAL) 2000 SECTION (HISTORICAL) 2002 SECTION (HISTORICAL) 1997 CHOLECYSTECTOMY 2004 DILATION AND CURETTAGE OF UTERUS 1998 OTHER SURGICAL HISTORY 2006 Essure control springs around fallopian tubes TONSILLECTOMY (HISTORICAL) 2004 TOTAL ABDOMINAL HYSTERECTOMY 2017 Family History Problem Relation Name Age of Onset Stroke Maternal Grandfather Miriam Hypertension Maternal Grandfather Miriam Heart disease Maternal Grandfather Miriam Hypertension Mother Mom Diabetes Father Jom Stroke Father Jom Stroke Paternal Grandfather Glen Hypertension Paternal Grandfather Glen Cancer Paternal Grandfather Glen Diabetes Paternal Grandfather Glen Heart disease Paternal Grandfather Glen Hypertension Paternal Grandmother Gma Hypertension Maternal Grandmother Gma Allergies Allergen Reactions Hydromorphone Other Mood changes very mean Metformin PHYSICAL EXAM BP 109/80 Pulse 77 Temp 36.3 C (97.3 F) Resp 16 Ht 5' 5 (1.651 m) Comment: bcc Wt 224 lb 3.2 oz (102 kg) BMI 37.31 kg/m General: This patient is awake, alert, and oriented, with normal affect and is in no apparent distress. Cardiac: Regular rate and rhythm without evidence of murmur. Respiratory: Clear to auscultation bilaterally with normal effort. Abdomen: Obese, soft, non-tender, non-distended without masses/ No evidence of abdominal hernia / Incisions consistent with previous surgeries. Surgical sites: Clean dry and intact Head and Neck: Obese, normocephalic and atraumatic/soft and supple, no lymphadenopathy or obvious bruits. No thyroidmegaly. Extremities: No cyanosis, clubbing or edema/ No calf tenderness/No restrictions of movement, is ambulatory without assistance. Neurological: Intact x 4 extremities, normal sensation, no focal deficits notes. Skin: Skin cool, warm and dry. No rashes or lesions noted. Rectal: Deferred LABORATORY STUDIES AND IMAGING Laboratory Studies: No results for input(s): NA, K, CL, CO2, BUN, CREATININE, GLUCOSE, CALCIUM in the last 72 hours. No results for input(s): WBC, RBC, HGB, HCT, MCV, MCH, MCHC, RDW, PLT, MPV in the last 72 hours. No results for input(s): ALKPHOS, ALT, AST, PROT, BILITOT, BILIDIR, LIPASE in the last 72 hours. No lab exists for component: LABALBU ASSESSMENT 1 month status post SINGLE ANASTOMOSIS DUODENO-ILEOSTOMY W/ SLEEVE (SINGLE STAGE) - angélica ABBOTT Visit Diagnoses: 1. Intestinal malabsorption, unspecified type 2. Deficiency of multiple nutrient elements 3. Class 2 obesity due to excess calories with body mass index (BMI) of 37.0 to 37.9 in adult, unspecified whether serious comorbidity present PLAN 1). Compliance with exercise and dietary regimen (see dietitian recommendations) 2). Patient to follow up w/ PCP for follow for management of DM and HTN medications 3). Follow up for 1 month post-operative evaluation 4). Advance diet and begin supplements per RD note Additional orders: 3 month lab-work Orders Placed This Encounter Procedures Zinc Folate Iron Ferritin Magnesium Vitamin B12 Comprehensive metabolic panel CBC ATTESTATION I personally interviewed and examined the patient. I have reviewed their past medical, surgical, medication, allergy, social and family histories. I have performed an independent physical examination and have reviewed all pertinent laboratory and imaging results. I have reviewed with the patient my assessment of their condition as well as the treatment recommendations and the associated risks, benefits and options. I have spent a total of 30 minutes for this office visit in [id number] discussion, counseling of this patient, reviewing medical records and documenting the encounter. Y NUGENT MD, FACS, [facility] Shoemaker Apprentice - [facility] [place] / [facility] [employer] Worker - Advanced GI MIS, Foregut and Bariatric Surgery Fellowship ---[facility]--- Patient Care Team: Ana Rosa Espitia as PCP - General (Nurse Practitioner) Annika Wills, RN as Registered Nurse Kenny Nugent MD as Surgeon (General Surgery) documented in this encounter [facility] 03-11-2023 History of Present illness Narrative ENDOSCOPY ORDERS To be scheduled with: Dr. Nugent Patient is: Post-op CPT code: EGD with dilation- CPT 08438 Diagnosis: Dysphagia- R13.1 Can we try to work in next week please- or if a cancellation occurs. I will talk to DR Nugent when he returns. If pre-op, Diet & Exercise Requirements are, and started/scheduled on : Home O2: No Known Difficult Intubation: No documented in this encounter [facility] 03-11-2023 History of Present illness Narrative ENDOSCOPY ORDERS To be scheduled with: Dr. Nugent Patient is: Post-op CPT code: EGD with dilation- CPT 27134 Diagnosis: Dysphagia- R13.1 Can we try to work in next week please- or if a cancellation occurs. I will talk to DR Nugent when he returns. If pre-op, Diet & Exercise Requirements are, and started/scheduled on : Home O2: No Known Difficult Intubation: No Holding off on this EGD until further notice from [place] documented in this encounter [facility] 03-09-2023 Note Discharge Summary Kaelyn Maddox : 1980 ADMIT DATE: 03/07/2023 DISCHARGE DATE: 03/09/2023 PRIMARY CARE PHYSICIAN: Ana Rosa Espitia VISIT STATUS: Observation DISCHARGE DIAGNOSES: Principal Problem: Abdominal pain Active Problems: Lower abdominal pain H/O bariatric surgery HOSPITAL COURSE: She presented on 03/07 to the [place] ED with complaints of nausea, vomiting, and abdominal pain on POD#10 s/p Robotic NENO-S. Ct scan demonstrated post-surgical changes. Laboratory workup was significant for an elevated WBC count of 16.5 She was subsequently transferred to [facility] for observation and rehydration. A bowel regimen was initiated for constipation. An UGI was performed which was negative for obstruction or leak but did demonstrate a narrowing of the GEJ. Her diet was advanced to a bariatric FLD and she was discharged home on a bowel regimen, PRN pain control, and with plans to follow-up closely in the bariatric clinic. DISCHARGE MEDICATIONS: Medication List START taking these medications methocarbamol 500 MG tablet Commonly known as: Robaxin Take 1 tablet (500 mg) by mouth 3 times daily as needed for muscle spasms (abdominal cramping) for up to 5 days[address] omepraz[address] capsule Commonly known as: PriLOSEC Take 1 capsule (20 mg) by mouth daily. Do not crush or chew. ondansetron ODT 4 MG disintegrating tablet Commonly known as: Zofran-ODT Take 1 tablet (4 mg) by mouth 3 times daily as needed for nausea or vomiting for up to 5 days. oxyCODONE-acetaminophen 5-325 MG tablet Commonly known as: Percocet Take 1 tablet by mouth every 6 hours as needed for severe pain (7-10) for up to 3 days. polyethylene glycol (PEG) 3350 powder Commonly known as: Glycolax, Miralax Take 17 g by mouth daily for 14 days. CONTINUE taking these medications calcium carbonate 500 MG chewable tablet Commonly known as: Tums cetirizine 10 MG tablet Commonly known as: ZyrTEC CHILDRENS MULTIVITAMIN/IRON PO cyanocobalamin 500 MCG tablet Commonly known as: Vitamin B-12 fluticasone 50 MCG/ACT nasal spray Commonly known as: Flonase meclizine 25 MG tablet Commonly known as: Antivert OneTouch Delica Plus [id number] misc OneTouch Verio test strip Generic drug: glucose blood SUMAtriptan 50 MG tablet Commonly known as: Imitrex VITAMIN D (CHOLECALCIFEROL) PO STOP taking these medications ondansetron 4 MG tablet Commonly known as: Zofran Where to Get Your Medications These medications were sent to [id number] - [place], [place] - [address] [facility] [address] [facility] [id number] methocarbamol 500 MG tablet ondansetron ODT 4 MG disintegrating tablet oxyCODONE-acetaminophen 5-325 MG tablet polyethylene glycol (PEG) 3350 powder ACTIVITY: No restriction. SIGNIFICANT DIAGNOSTIC STUDIES: UGI 03/08 IMPRESSION: 1. Marked narrowing of the GE junction with delayed emptying of the distal esophagus. 2. Redirection of the Gastrografin bolus within the distal esophagus. 3. Changes consistent with sleeve gastrectomy and single anastomosis duodenal ileal bypass( NENO-S). No signs of extravasation or obstruction. COMPLEXITY OF FOLLOW UP: [x] Moderate Complexity: follow up within 7-14 calendar days (49632) (already scheduled) PENDING STUDIES: n/a RECOMMENDED NEXT STEPS: Follow-up as instructed DIET: Bariatric Full Liquid Diet DISPOSITION: Home SIGNED: Benedicto Cassidy MD 03/09/2023, 5:17 PM [employer] [facility] 03-09-2023 Telephone encounter Note Thanks. [employer] [facility] Phone: 03-09-2023 Miscellaneous Notes Thanks. Patient currently admitted. UGI showed narrowing at GE junction S: Patient called the clinical access center with complaint of post operative constipation B: NENO procedure 02.26.2023 A: Name of Caller: Kaelyn Carlos Call Back Number: [phone] What Procedure/Surgery did you have done?:NENO Who was your surgeon?:Dr. Nugent What date was your surgery?:02.26.2023 What is the reason for your call today (symptom): Constipation and upper abdominal pain . She is taking minimal narcotics. Abdomen is soft non-tender and non-distended. She denies a fever, nausea and vomiting . She states she is no longer passing gas and does not hear bowel sounds. She What provider is being paged?:Dr. Teresa Cassidy Time page was sent: 7:12 AM Page Content: Name Kaelyn PROCTOR [id number] Call Back Number [phone] Reason for page (symptom) Upper abdominal pain and constipation decreased bowel sounds . Name of Surgeon Dr. Nugent Type of Surgery NENO Date of Surgery 02/26/2023 R: Dr. Cassidy educational coordinator paged and info provided. Patient instructed to call back with worsening symptoms, concerns or questions. Spoke with Dr. Cassidy who advised Miralax as directed on the bottle. She is to increase her fluids, she can drink fruit juices that are low in sugar content. Kaelyn notified of treatment plan and verbalized an understanding of plan of care . She will call back if no improvement or worsening symptoms. Reason for Disposition [1] Caller has URGENT question AND [2] triager unable to answer question Protocols used: Post-Op Symptoms and [id number] documented in this encounter [facility] [employer] 03-09-2023 Telephone encounter Note Patient currently admitted. UGI showed narrowing at GE junction [facility] 03-08-2023 Note Attestation signed by Jordan Clark MD at 03/08/2023 10:11 AM [facility] - Surgery [facility] Physicians Surgery Patient Name: Kaelyn Maddox Date: 03/08/23 Feels better this a.m., CT reviewed, no evidence of acute surgical process. BP 103/62 (BP Location: Left arm, Patient Position: Lying) Pulse 79 Temp (!) 35.9 ?C (96.7 ?F) (Temporal) Resp 16 Ht 5' 5 (1.651 m) Wt 235 lb (107 kg) SpO2 95% BMI 39.11 kg/m? She had stopped taking the Percocet for constipation concerns, did have a bowel movement yesterday though but went to the ER for pain control. CBC: Recent Labs 03/07/23183003/08/23 0639 WBC 16.5* 14.1* HGB 15.2 12.4 HCT 43.5 36.9 PLT 384 312 BMP: Recent Labs 03/07/23183003/08/23 0639 NA 140 139 K 3.9 3.8 CL 107 109* CO2 21* 22 BUN 10 6* CREATININE 0.52 0.40* GLUCOSE 132* 115* Hepatic: Recent Labs 03/07/231830 ALKPHOS 65 ALT 37* AST 37 PROT 8.6* BILITOT 1.0 BILIDIR 0.0 Abdomen: Soft, nontender, nondistended. Residual retained juan luis removed Plan: Stable, continue IV fluids Check upper GI, if stable, diet and discharge home with pain control, encouraged her to use the Percocet and take MiraLAX for bowel function I personally supervised my Resident/Surgical Fellow in the evaluation and management of Kaelyn Maddox in the development of a treatment plan for this patient. I personally interviewed the patient and performed an individual physical examination. In addition, I discussed the patient's condition and treatment options with them. I have also reviewed and agree with the past medical, family and social history and care plan unless otherwise noted. All of the patient's questions were answered. Department of Surgery H&P - Surg 4 PATIENT NAME: Kaelyn Maddox : 1980 ATTENDING PHYSICIAN: Shashank Jansen MD;Be* ADMIT DATE: 03/07/2023 TODAY'S DATE: 03/08/2023 SUBJECTIVE HPI: Kaelyn Maddox is a 42 y.o. female who is POD#10 s/p NENO-S who presents with complaints of nausea, vomiting, and severe abdominal pain. She reports that she was doing well after surgery and was seen for her 1 week follow-up on 03/11. However, she reports developing nausea, vomiting, and L sided abdominal pain on Thursday. She reports being constipated for several days but did have a bowel movement yesterday without improvement in her symptoms. She denies associated fevers, chills, blood in stool, shortness of breath, or chest pain. She was evaluated in the [place] ED where she as found to have a WBC count of 16.5. CT A/P showing post-surgical changes. Despite multiple doses of morphine, her pain was unable to be controlled. She was subsequently transferred to [facility] for evaluation by the bariatric surgery team and admission for observation. She endorses persistent L sided pain this morning. Persistent nausea and some small volume emesis ON. No Bms since presenting. PMHx: Past Medical History: Diagnosis Date Anemia Back pain Circulation problem COVID-19 vaccine series declined Daytime sleepiness Difficulty sleeping Dizziness Fatigue History of UTI Joint pain, hip Joint pain, knee Snoring SOBOE (shortness of breath on exertion) Type 2 diabetes mellitus with ophthalmic complication, without long-term current use of insulin ([facility]) Vertigo PSHx: Past Surgical History: Procedure Laterality Date CARPAL TUNNEL RELEASE Right 2020 SECTION (HISTORICAL) 2000 SECTION (HISTORICAL) 2002 SECTION (HISTORICAL) 1997 CHOLECYSTECTOMY 2004 DILATION AND CURETTAGE OF UTERUS 1998 OTHER SURGICAL HISTORY 2006 Essure control springs around fallopian tubes TONSILLECTOMY (HISTORICAL) 2004 TOTAL ABDOMINAL HYSTERECTOMY 2017 PFMHx: Family History Problem Relation Name Age of Onset Stroke Maternal Grandfather Miriam Hypertension Maternal Grandfather Miriam Heart disease Maternal Grandfather Miriam Hypertension Mother Mom Diabetes Father Jom Stroke Father Jom Stroke Paternal Grandfather Glen Hypertension Paternal Grandfather Glen Cancer Paternal Grandfather Glen Diabetes Paternal Grandfather Glen Heart disease Paternal Grandfather Glen Hypertension Paternal Grandmother Gma Hypertension Maternal Grandmother Gma ALL: Allergies Allergen Reactions Hydromorphone Other Mood changes very mean Metformin HOME MEDICATIONS: Prior to Admission medications Medication Sig Start Date End Date Taking? Authorizing Provider calcium carbonate (Tums) 500 MG chewable tablet Chew 500 mg 3 times daily. Historical Provider, cetirizine (ZyrTEC) 10 MG tablet Take 10 mg by mouth. Historical Pro (more content not included)... [facility] 03-08-2023 Note Patient transferred from [place] ED for abdominal pain. Patient had NENO procedure on February for weight loss. Has been on pain medication at home. The pain now is severe and she said she is unable to get it within a normal level. Labs and CT were obtained at other facility. Per EMS patient was given Zofran and a total of 16mg of morphine. She is still complaining of 8/10 pain. Ria Reyes RN 03/07/23 [id number] [facility] 03-07-2023 Telephone encounter Note S: Patient called the clinical access center with complaint of post operative constipation B: NENO procedure 02.26.2023 A: Name of Caller: Kaelyn Gonzalez Call Back Number: [phone] What Procedure/Surgery did you have done?:NENO Who was your surgeon?:Dr. Nugent What date was your surgery?:02.26.2023 What is the reason for your call today (symptom): Constipation and upper abdominal pain . She is taking minimal narcotics. Abdomen is soft non-tender and non-distended. She denies a fever, nausea and vomiting . She states she is no longer passing gas and does not hear bowel sounds. She What provider is being paged?:Dr. Teresa Cassidy Time page was sent: 7:12 AM Page Content: Stephania PROCTOR [id number] Call Back Number [phone] Reason for page (symptom) Upper abdominal pain and constipation decreased bowel sounds . Name of Surgeon Dr. Nugent Type of Surgery NENO Date of Surgery 02/26/2023 R: Dr. Cassidy educational coordinator paged and info provided. Patient instructed to call back with worsening symptoms, concerns or questions. Spoke with Dr. Cassidy who advised Miralax as directed on the bottle. She is to increase her fluids, she can drink fruit juices that are low in sugar content. Kaelyn notified of treatment plan and verbalized an understanding of plan of care . She will call back if no improvement or worsening symptoms. Reason for Disposition [1] Caller has URGENT question AND [2] triager unable to answer question Protocols used: Post-Op Symptoms and [id number] [facility] 03-04-2023 History of Present illness Narrative Images from the original note were not included. KENNY NUGENT MD , FACS, [facility] MINIMALLY INVASIVE & METABOLIC / BARIATRIC SURGERY [facility] - 1 WEEK FOLLOW UP 03/04/2023 PATIENT: Kaelyn Maddox DATE OF : 1980 HISTORY OF PRESENT ILLNESS Chief Complaint: 1 week follow-up status post robotic SINGLE ANASTOMOSIS DUODENO-ILEOSTOMY W/ SLEEVE (SINGLE STAGE) - angélica ABBOTT Kaelyn Maddox is a 42 y.o. female who presents to the bariatric care center today for their 1 week evaluation following bariatric surgery with Dr. Nugent. The total weight lost is 24 pounds for a 17 % EWL. Overall, the patient is experiencing a good recovery and return to normal activity. The patient is ambulating regularly and has been instructed to gradually increase physical activity. The patient is not reporting any nausea, emesis or dysphagia with diet. The patient is starting PPI therapy. The patient is feeling well and denies any other major complaints or GI symptoms. The dietary regimen and exercise activities are going well. The patient is compliant with protein intake and vitamin/trace element supplementation. Dysphagia and eating concerns: No Dietary compliance concerns: No Exercise and activity concerns: No Compliance and phychologic concerns: No Oral thrush concerns: No Incisional problems or concerns: No VTE prophylaxis compliance concerns: No Labs were ordered for 1 month visit Review of Symptoms Constitutional: negative for chills, fevers, night sweats Respiratory: negative for cough, dyspnea on exertion, hemoptysis, and sputum Cardiovascular: negative for chest pain, chest pressure/discomfort, dyspnea, irregular heart beat, palpitations, and syncope Gastrointestinal: negative for abdominal pain, constipation, diarrhea, dysphagia, melena, reflux symptoms, and vomiting Neurological: negative for dizziness, paresthesia, seizures, and weakness PAST HISTORIES Past Medical History: Diagnosis Date Anemia Back pain Circulation problem COVID-19 vaccine series declined Daytime sleepiness Difficulty sleeping Dizziness Fatigue History of UTI Joint pain, hip Joint pain, knee Snoring SOBOE (shortness of breath on exertion) Type 2 diabetes mellitus with ophthalmic complication, without long-term current use of insulin ([facility]) Vertigo Past Surgical History: Procedure Laterality Date CARPAL TUNNEL RELEASE Right 2020 SECTION (HISTORICAL) 2000 SECTION (HISTORICAL) 2002 SECTION (HISTORICAL) 1997 CHOLECYSTECTOMY 2005 DILATION AND CURETTAGE OF UTERUS 1998 OTHER SURGICAL HISTORY 2006 Essure control springs around fallopian tubes TONSILLECTOMY (HISTORICAL) 2004 TOTAL ABDOMINAL HYSTERECTOMY 2017 Family History Problem Relation Name Age of Onset Stroke Maternal Grandfather Miriam Hypertension Maternal Grandfather Miriam Heart disease Maternal Grandfather Miriam Hypertension Mother Mom Diabetes Father Jom Stroke Father Jom Stroke Paternal Grandfather Glen Hypertension Paternal Grandfather Glen Cancer Paternal Grandfather Glen Diabetes Paternal Grandfather Glen Heart disease Paternal Grandfather Glen Hypertension Paternal Grandmother Gma Hypertension Maternal Grandmother Gma Allergies Allergen Reactions Hydromorphone Other Mood changes very mean Metformin PHYSICAL EXAM BP 109/72 Pulse 96 Temp 36.2 C (97.2 F) Resp 16 Ht 5' 5 (1.651 m) Comment: bcc Wt 239 lb 9.6 oz (109 kg) SpO2 97% BMI 39.87 kg/m General: This patient is awake, alert, and oriented, with normal affect and is in no apparent distress. Cardiac: Regular rate and rhythm without evidence of murmur. Respiratory: Clear to auscultation bilaterally with normal effort. Abdomen: Obese, soft, non-tender, non-distended without masses/ No evidence of abdominal hernia / Incisions consistent with previous surgeries. Head and Neck: Obese, normocephalic and atraumatic/soft and supple, no lymphadenopathy or obvious bruits. No thyroidmegaly. Extremities: No cyanosis, clubbing or edema/ No calf tenderness/No restrictions of movement, is ambulatory without assistance. Neurological: Intact x 4 extremities, normal sensation, no focal deficits notes. Skin: Skin cool, warm and dry. No rashes or lesions noted. Rectal: Deferred Surgical sites: are:clean, dry, intact, and nontender Drainage from surgical site: none Patient does not have a superficial incisional SSI PATHOLOGY RESULTS: . STOMACH, PARTIAL GASTRECTOMY: - MINIMAL CHRONIC INACTIVE GASTRITIS Comment: There is no evidence of intestinal metaplasia, dysplasia, or malignancy. The H&E stain shows no evidence of Helicobacter pylori. A. LIVER, WEDGE BIOPSY: - MILD STEATOSIS (GRADE 1) Comment: Sections demonstrate an intact liver architecture with mild macrovesicular steatosis occupying approximately 20% of the liver volume. There is no evidence of ballooning degeneration, lobular activity, or Roselyn's hyaline. The portal tracts contain all normal structures without any significant inflammatory infiltrate. Special stains (iron and trichome) are negative for increased iron storage and fibrosis, respectively. Laboratory Studies: ASSESSMENT 1 week status post SINGLE ANASTOMOSIS DUODENO-ILEOSTOMY W/ SLEEVE (SINGLE STAGE) - angélica ABBOTT Visit Diagnoses: 1. Type 2 diabetes mellitus with other ophthalmic complication, without long-term current use of insulin (HCC) 2. Morbid obesity with BMI of 40.0-44.9, adult (HCC) 3. Low back pain, unspecified back pain laterality, unspecified chronicity, unspecified whether sciatica present 4. Intestinal malabsorption, unspecified type 5. Deficiency of multiple nutrient elements PLAN 1). Compliance with exercise and dietary regimen (see dietitian recommendations) 2). Patient to follow up w/ PCP for follow for management of DM and HTN medications 3). Follow up for 1 month post-operative evaluation 4). Advance diet and begin supplements per RD note 5).DM- glucose in general 70-80- off all agents. Discussed treatment of hypoglycemia. Additional orders: 1 month lab-work Orders Placed This Encounter Procedures Zinc Folate Iron Ferritin Magnesium Vitamin B12 Comprehensive metabolic panel CBC ATTESTATION I personally interviewed and examined the patient. I have reviewed their past medical, surgical, medication, allergy, social and family histories. I have performed an independent physical examination and have reviewed all pertinent laboratory and imaging results. I have reviewed with the patient my assessment of their condition as well as the treatment recommendations and the associated risks, benefits and options. I have spent a total of 30 minutes for this office visit in [id number] discussion, counseling of this patient, reviewing medical records and documenting the encounter. Y NUGENT MD, [facility], [facility] Shoemaker Apprentice - Weight Management [place] [facility] [place] Worker - Advanced GI MIS, Foregut and Bariatric Surgery Fellowship ---[facility]--- Patient Care Team: Ana Rosa Espitia as PCP - General (Nurse Practitioner) Annika Wills RN as Registered Nurse Kenny Nugent MD as Surgeon (General Surgery) [facility] POST WEIGHT LOSS SURGERY FOLLOW UP - 1 WEEK Rooming Note Patient: Kaelyn Maddox Service Date: 03/04/2023 Patient is 1 week s/p LAP NENO-S Pre-Surgical Weight Loss Initial Height: 5' 5 (165.1 cm) Initial Weight: 253 lb 6.4 oz (115 kg) Initial BMI: 42.16 Golf Body Weight: 125 lb (56.7 kg) Surgery Date: 02/26/23 Pre-Surgical Height: 5' 5 (165.1 cm) Pre-Surgical Weight: 263 lb 9.6 oz (120 kg) Pre Surgery BMI: 43.86 Weight to Lose: 138 lb Post-Surgical Weight Loss Date: 03/04/23 Height: 5' 5 (165.1 cm) Weight: 239 lb 9.6 oz (109 kg) BMI: 39.87 Weight Change: -24 lbs Total Weight Change: -24 lbs % EBWL: 17% Comments: 1W Pain: Patient rates pain on scale 0-10 as: 2 Patient has the following questions: will sutures come out, vitamins to start taking, Patient is diabetic If patient IS Diabetic: Patient has spoken with the physician who prescribes their diabetic medications Patient has not resumed their diabetic medications as directed by their physician Patient advised as follows by physician prescribing diabetic medications: hold Exercise Compliance: Compliance with recommended current exercise plan of walking/frequent ambulation: yes Falls Risk Assessment Patient does not take medications which affect BP or mental status Patient does not have newly prescribed or changed dosage of medications within past 30 days which affect BP or mental status Patient has not fallen in the past 2 months Patient does not demonstrate unsteady gait Patient uses the following ambulatory assistive devices: none Patient states the presence of the following traits which increases risk of fall: none Patient is low risk for falls. If high or moderate risk, patient instructed not to ambulate independently in the Center, and cord for call light placed within reach of patient. Post-op Weight Metrics: %EBWL: % EBWL: 17% Weight Change Since Last Visit: Weight Change: -24 lbs Weight Change from Highest Pre-op Weight: Total Weight Change: -24 lbs Completed by: Annika Silva [facility] 1 WEEK VISIT POST-OPERATIVE DIETITIAN Date: 03/04/23 Pt is here for 1 week office visit. Pt is currently on a full liquid diet. Pt will advance to a pureed diet today and follow the diet for 10 days. Then, the pt will advance to a soft diet for 2 weeks. Both of these diets have been reviewed with the pt today. Protein requirements discussed. Patient to consume 65-75 grams daily. Fluid requirements discussed. Patient to consume 64 oz+ daily. Patient is aware that she must consume fluids 30 mintues before and after meals. Exercise activities discussed with the patient. She doeshave a plan for exercise when cleared. Patient advised that regular exercise is vital to a successful outcome following weight loss surgery. Behavioral/Emotional changes reviewed Patient does feel comfortable with changes in eating behaviors and associated emotional changes. She was reminded that psychological counseling is available through the Bariatric Care Center post-operatively. The importance of vitamin supplementation has been discussed with patient. She will start the following vitamin supplements today: -Multivitamin with minerals and iron -Calcium -Vitamin B12 -Vitamin D3 -Other: Recent Nutrient Concerns and Vitamin Supplementation Changes: Starts today Notes/Comments: Pt is doing great overall! Pt to call as needed with any issues or concerns that arise. Visit completed by: Adriane Hearn RD documented in this encounter [facility] 02-27-2023 Note Discharge Summary Kaelyn Maddox : 1980 ADMIT DATE: 02/26/2023 DISCHARGE DATE: 02/27/23 ATTENDING PHYSICIAN: Anamaria att. providers found VISIT STATUS: Admission CODE STATUS: Prior DISCHARGE DIAGNOSES: Principal Problem: Morbid obesity with BMI of 40.0-44.9, adult ([facility]) Active Problems: Morbid obesity due to excess calories ([facility]) Type 2 diabetes mellitus with ophthalmic complication, without long-term current use of insulin ([facility]) Back pain Difficult intravenous access PONV (postoperative nausea and vomiting) History of motion sickness BMI Classification: Estimated body mass index is 42.6 kg/m? as calculated from the following: Height as of this encounter: 1.651 m (5' 5). Weight as of this encounter: 116 kg (256 lb). Morbidly Obese (>40.0) HOSPITAL COURSE: Kaelyn Maddox is a 42 y.o. female who presented to [facility] on 02/26/2023 for elective bariatric surgical procedure. This patient underwent a robotic NENO-S with HH repair on the day of admission. An UGI was obtained POD #1 and bariatric clear liquid diet was subsequently started. The patient met with bariatric nursing team and was informed thoroughly regarding goals and objectives going forward regarding bariatric protocol and expectations. They were prepared for discharge POD #1 At the time of discharge patient's vital signs were within normal limits. Patient was voiding spontaneously, tolerating a diet, ambulating independently and having bowel function. Patient's pain was controlled with PO pain meds. Pt was discharged with instructions as follows. CONSULTANTS: none SIGNIFICANT DIAGNOSTIC STUDIES: Upper GI contrast study showing no extravasation or obstruction DISCHARGE MEDICATIONS: Medication List CONTINUE taking these medications cetirizine 10 MG tablet Commonly known as: ZyrTEC fluticasone 50 MCG/ACT nasal spray Commonly known as: Flonase meclizine 25 MG tablet Commonly known as: Antivert omeprazole [address] capsule Commonly known as: PriLOSEC Take 1 capsule (20 mg) by mouth daily. Do not crush or chew. OneTouch Delica Plus Arwiho19S [facility] OneTouch Verio test strip Generic drug: glucose blood SUMAtriptan 50 MG tablet Commonly known as: Imitrex DIET: Bariatric Diet Protocol with Clears, instruction for continued diet included in discharge instructions. ACTIVITY: No driving while on narcotic pain medication. No heavy lifting. No strenuous activity. Instructions to proceed will be provided during outpatient follow up. WOUND CARE: keep wound clean and dry DISPOSITION: Home FACILITY/HOME CARE AGENCY NAME: N/A Follow up with: No att. providers found in 1-2 weeks PCP: Ana Rosa Espitia in 1-2 weeks SIGNED: Deion Lundberg MD This note may have been dictated using [employer] Edition 2.6 and/or [place]. com. cn Voice Recognition Feature. The document was proofread; however, unrecognized voice recognition sports physician errors may be present. [facility] 02-27-2023 Nurse Note Went over discharge instructions, med rec, and prescriptions with pt. Pt verbalized understanding. NA to take pt down to discharge [facility] 02-27-2023 Nurse Note Went over discharge instructions, med rec, and prescriptions with pt. Pt verbalized understanding. NA to take pt down to discharge documented in this encounter [facility] 02-27-2023 History of Present illness Narrative Preliminary negative for leak. [facility] Respiratory Care Department Progress Note As part of the Respiratory Assessment Program (RAP), the following Respiratory Therapist evaluation has been completed, including a chart review and clinical/physical assessment. Respiratory Therapist RAP Evaluation Guideline Points 0 1 2 3 4 Points Strongly Consider History Factor No Pulmonary conditions Stable Pulmonary condition(s) Surgery or Intervention that may impact Pulmonary system (at risk) Surgery or Intervention that is impacting Pulmonary system Active Exacerbation of Pulmonary Condition 1 Respiratory Pattern Regular, RR= 12-18 LAL or Increased RR= 19-24 Irregular, or RR= 25-30 SOB, talk in short sentences, or RR= 31-35 Severe SOB, accessory muscle use, one word answers, or RR>35 1 Aerosol Med(s), High Flow O2 Breath Sounds Clear Diminished in 1 lobe Diminished in ? 2 lobes Adventitious breath sounds Coarse crackles, Wheezes, or Diminished in >2 lobes 2 Aerosol Med(s), Bronchial Hygiene, Hyperinflation Cough & Sputum Strong cough, no secretion retention or production Weak cough, no secretion retention or production Weak cough, w/ production (less often than Q2hr), or secretion retention No cough, w/ secretion retention or production (less often than Q2hr) Significant secretion production (more often than Q2hr) or mucus plug 1 Aerosol Med(s), Bronchial Hygiene, Hyperinflation Level of Activity Ambulatory Ambulatory with Assist Up in chair or edge of bed (dangle) Non-ambulatory, bedridden with active ROM Completely paralyzed or without active ROM 1 Triage 5 0-2 Triage 4 3-5 Triage 3 6-10 Triage 2 11-14 Triage 1 ?15 Total 6 Triage Score = 3 TRIAGE SCORING - SUGGESTED FREQUENCIES Aerosol Therapy Bronchial Hygiene Hyperinflation Triage Score Q4h & PRN 1 Q4hWA (QID) & PRN 2 TID & PRN 3 BID & PRN 4 PRN 5 Therapy(s) Indicated Yes/No Aerosol Medication Y Hyperinflation N Bronchial Hygiene N High Flow Oxygen N RT to enter/modify frequency of treatment order in EMR/EHR to match this RAP evaluation. Based on this RAP evaluation the following therapy is being initiated: ALBUTEROL At the following frequency: TID Comments: Thank you for involving Respiratory in the care of this patient, documented in this encounter [facility] 02-26-2023 Note [facility] Respiratory Care Department Progress Note As part of the Respiratory Assessment Program (RAP), the following Respiratory Therapist evaluation has been completed, including a chart review and clinical/physical assessment. Respiratory Therapist RAP Evaluation Guideline Points 0 1 2 3 4 Points Strongly Consider History Factor No Pulmonary conditions Stable Pulmonary condition(s) Surgery or Intervention that may impact Pulmonary system (at risk) Surgery or Intervention that is impacting Pulmonary system Active Exacerbation of Pulmonary Condition 1 Respiratory Pattern Regular, RR= 12-18 LAL or Increased RR= 19-24 Irregular, or RR= 25-30 SOB, talk in short sentences, or RR= 31-35 Severe SOB, accessory muscle use, one word answers, or RR>35 1 Aerosol Med(s), High Flow O2 Breath Sounds Clear Diminished in 1 lobe Diminished in ? 2 lobes Adventitious breath sounds Coarse crackles, Wheezes, or Diminished in >2 lobes 2 Aerosol Med(s), Bronchial Hygiene, Hyperinflation Cough & Sputum Strong cough, no secretion retention or production Weak cough, no secretion retention or production Weak cough, w/ production (less often than Q2hr), or secretion retention No cough, w/ secretion retention or production (less often than Q2hr) Significant secretion production (more often than Q2hr) or mucus plug 1 Aerosol Med(s), Bronchial Hygiene, Hyperinflation Level of Activity Ambulatory Ambulatory with Assist Up in chair or edge of bed (dangle) Non-ambulatory, bedridden with active ROM Completely paralyzed or without active ROM 1 Triage 5 0-2 Triage 4 3-5 Triage 3 6-10 Triage 2 11-14 Triage 1 ?15 Total 6 Triage Score = 3 TRIAGE SCORING - SUGGESTED FREQUENCIES Aerosol Therapy Bronchial Hygiene Hyperinflation Triage Score Q4h & PRN 1 Q4hWA (QID) & PRN 2 TID & PRN 3 BID & PRN 4 PRN 5 Therapy(s) Indicated Yes/No Aerosol Medication Y Hyperinflation N Bronchial Hygiene N High Flow Oxygen N RT to enter/modify frequency of treatment order in EMR/EHR to match this RAP evaluation. Based on this RAP evaluation the following therapy is being initiated: ALBUTEROL At the following frequency: TID Comments: Thank you for involving Respiratory in the care of this patient, [facility] 02-26-2023 Hospital Discharge instructions Adriane Hearn RD - 02/26/2023 1:56 PM EDT Laparoscopic NENO-S Procedure Discharge Instructions You may shower at any point. Blot the incisions dry when you are done. Use only soap and water on the wounds, do not use ointments, lotions, powders or antibiotic ointment. Use elastic binder as you desire. [place] are intact to your surgical incisions. If you feel they are catching or rubbing on your abdominal binder or clothes, you may place a Band-Aid over them. They will be removed at your one week post operative visit. If incisions begin to look infected (swelling, redness, drainage, pain), please notify your therapeutic case manager. Take your temperature twice a day for the first postoperative week. Call if temperature is >101 F. If you are discharged home with a drain, it will be removed at your first office visit. Daily dressing changes and twice daily emptying of the grenade is required at home. Milking or stripping the tubing should be done 2-3 times daily. You will be given the supplies needed to perform these tasks. If you have a drain, it is also important to observe the color of the drainage in the grenade. The color will mover time. Normal color changes include Red - E. Lopez - Sophia/Yellow - Lee and will always be clear in appearance. Abnormal color changes include a caramel color (richard and cloudy), a brown or black appearance or a color change matching the color of what you just drank (mix up your flavors). An abnormal color change requires an immediate phone call to the [facility] Care Center. Resume your home medications as directed by your surgeon and your nurse transplant case manager. Make an appointment with your prescribing physician if you are taking medication for your blood pressure or diabetes. You will need close follow-up regarding your medical conditions, as you will soon be off many of these medications. No aspirin or aspirin containing medications should be taken at all. Do not take multiple medications at one time. Take 2-3 at a time. Wait 20-30 minutes before taking additional medications. Do not take any time release, control release, or extended release medications. This includes any enteric coated medications. Your anatomy has been altered and you no longer have the ability to absorb these medications efficiently. If you have been prescribed any of these types of medications, you should contact the prescribing physician for direction. It will not harm you to take these medications in the interim, however, absorption is questionable. Follow our food guidelines closely. Remember, clear liquids for the first two days after surgery. No sugar, caffeine or carbonation. Your fluid requirement is 64 oz. per day. You may advance to full liquids on post- op day three. This is in addition to the clear liquid diet. Do not take your calcium, vitamin B12, or multivitamin with iron until after your one week appointment. No alcoholic beverages at all during the first 18 months post-op. No lifting. Pushing or pulling over 15 lbs. for one month. You may go up and down stairs. No driving for 1 week after surgery. Do not drive if you are taking prescription pain medication. Walking as part of your daily activities is required immediately. Walking extensively for exercise is not permitted until you are cleared by your surgeon (usually 4-6 weeks after surgery). You will be able to begin exercising in 4-6 weeks, but must be cleared by your surgeon at your one month appointment. Use your incentive spirometer from the hospital for the first postoperative week as instructed, 10 times every other hour while awake. Prior to returning to work, you will be seen, evaluated and cleared by your surgeon. Remember, you will have pain! Take your pain medicine so that you are comfortable enough to cough, deep breath and walk. It is not unusual for lower left abdominal pain to return 10-14 days after surgery. Ice to the area can reduce the discomfort. Fatigue is quite common in the first postoperative week. Rest appropriately in response to this fatigue. Remember that mobility after surgery is very important. You must not remain in a sitting or recumbent position for long periods of time. If you have obstructive sleep apnea and have been prescribed a CPAP machine, you must continue to use this device after surgery. Please call the [facility] at [phone] if you have any questions or concerns during business hours: Thursday through Thursday 8 a.m. to 4:30 p.m. The answering service may be called during non- business hours at [phone]. If you have a medical emergency, call 911 or go to the closest hospital emergency room. Call your surgeon for problems, or if you have any of the following: Temperature >101 F. (Take your temperature twice a day in the morning and evening until your first office visit) Redness. pain, sweating or drainage from any of the incisions Inability to pass urine or have bowel movements ANY shortness of breath, chest pain, leg swelling or leg pain (in one or both of your legs) Rapid heart rate Nausea or vomiting with the inability to keep liquids down Bleeding from your rectum Frequently feeling dizzy or light-headed, inability to walk Abnormal drain color appearance if you have a drain 26. Your one week and one month follow-up office visits with your surgeon at the [facility] [place] are located in the discharge folder [facility] DIETITIAN DISCHARGE INSTRUCTIONS The following information was reviewed with the patient, and the patient was given a hard copy of these instructions by the Bariatric Registered Dietitian. Overview of Post-Op Diet Protocol for Patients Following Gastric Bypass or Sleeve Gastrectomy Your dietitian will meet with you in the hospital before you are discharged to review the diet in more details and to answer any questions you may have, Day of Surgery (after you wake up from surgery) Nothing to eat or drink Post-op Day 1 If you are having an UGI xray, you will begin your clear liquids after you are notified that the results are back and you are cleared to begin If you are NOT having an UGI xray, you will begin your clear liquids as soon as your nurse notifies you that it is OK to start. Post-Op Day 2 Continue your bariatric clear liquid diet Post-op Day 3 Begin full liquid diet and continue until after your 1 week post-op visit You will continue to follow the full liquid diet until after you meet with your dietitian during your 1 week post-op office visit. The next diet phases will be reviewed and discussed with your during that visit, If you have questions about your diet(s), please contact the Bariatric Dietitians at [phone]. documented in this encounter [facility] 02-26-2023 Note Patient: Kaelyn stewart Procedure Summary Date: 02/26/23 Room / Location: [address] Operating Room Anesthesia Start: 729 Anesthesia Stop: 1141 Procedures: ROBOTIC ASSISTED SINGLE ANASTOMOSIS DUODENAL ILEAL BYPASS WITH SLEEVE GASTRECTOMY WITH LIVER WEDGE BIOPSY, EGD ROBOTIC (XI) ASSISTED GASTRIC RESTRICTIVE PROCEDURE WITH PARTIAL GASTRECTOMY PYLORUS PRESERVING DUODENOILEOSTOMY AND ILEOILEOSTOMY UNLISTED LAPAROSCOPIC PROCEDURE LIVER (Abdomen) Diagnosis: Morbid (severe) obesity due to excess calories (HCC) Diaphragmatic hernia without obstruction or gangrene (Morbid (severe) obesity due to excess calories (HCC) [E66.01]) Surgeons: Kenny Nugent MD Responsible Provider: Javier Bella MD Anesthesia Type: general, regional ASA Status: 3 Anesthesia Type: general, regional Vitals Value Taken Time BP 111/78 02/26/23 1143 Temp 97 02/26/23 1143 Pulse 91 02/26/23 1142 Resp 20 02/26/23 1142 SpO2 96 % 02/26/23 1142 Vitals shown include unvalidated device data. Anesthesia Post Evaluation Patient location during evaluation: PACU Patient participation: complete - patient participated Level of consciousness: awake and alert Pain management: satisfactory to patient Airway patency: patent Dental Injury: no Cardiovascular status: acceptable, blood pressure returned to baseline and hemodynamically stable Respiratory status: acceptable and spontaneous ventilation Hydration status: euvolemic Nausea/Vomiting: controlled No notable events documented. Patient can be discharged once all PACU criteria has been met. [facility] 02-26-2023 Note Patient: Kaelyn stewart Procedure Summary Date: 02/26/23 Room / Location: [address] Operating Room Anesthesia Start: 729 Anesthesia Stop: 1141 Procedures: ROBOTIC ASSISTED SINGLE ANASTOMOSIS DUODENAL ILEAL BYPASS WITH SLEEVE GASTRECTOMY WITH LIVER WEDGE BIOPSY, EGD ROBOTIC (XI) ASSISTED GASTRIC RESTRICTIVE PROCEDURE WITH PARTIAL GASTRECTOMY PYLORUS PRESERVING DUODENOILEOSTOMY AND ILEOILEOSTOMY UNLISTED LAPAROSCOPIC PROCEDURE LIVER (Abdomen) Diagnosis: Morbid (severe) obesity due to excess calories (HCC) Diaphragmatic hernia without obstruction or gangrene (Morbid (severe) obesity due to excess calories (HCC) [E66.01]) Surgeons: Kenny Nugent MD Responsible Provider: Javier Bella MD Anesthesia Type: general, regional ASA Status: 3 Anesthesia Type: general, regional Vitals Value Taken Time BP 108/66 02/26/23 1139 Temp 97 02/26/23 1143 Pulse 91 02/26/23 1142 Resp 20 02/26/23 1142 SpO2 96 % 02/26/23 1142 Vitals shown include unvalidated device data. Anesthesia Post Evaluation Patient location during evaluation: PACU Patient participation: complete - patient participated Level of consciousness: awake and alert Pain management: satisfactory to patient Multimodal analgesia pain management approach Airway patency: patent Two or more strategies used to mitigate risk of obstructive sleep apnea Cardiovascular status: acceptable and hemodynamically stable Respiratory status: acceptable Hydration status: acceptable No notable events documented. Anesthesia Post Evaluation I completed my handoff to the receiving clinician during which we: 1. Identified the patient 2. Identified the responsible provider 3. Reviewed the pertinent medical history 4. Discussed the surgical course 5. Reviewed intra-op anesthesia management and issues during anesthesia 6. Set expectations for post-procedure period 7. Allowed opportunity for questions and acknowledgement of understanding. [facility] 02-26-2023 Note Peripheral Block Time Out: 02/26/2023 7:35 AM Patient location during procedure: Procedural Start time: 02/26/2023 7:35 AM End time: 02/26/2023 7:37 AM Reason for block: at surgeon's request and post-op pain management Staffing Performed: SURVEY ASSOCIATE Anesthesiologist: Javier Bella MD Resident/SURVEY ASSOCIATE: Coleman Sales APRN - FELICITAS Preanesthetic Checklist Completed: patient identified, IV checked, site marked, risks and benefits discussed, surgical consent, monitors and equipment checked, pre-op evaluation and timeout performed Region: [place] Primary: TAP (Bupivacaine 0.375%/ Epi 1:200,000/ Dex 0.1mg/mL 40ml divided evenly bilateral) Secondary: Upper rectus (Bupivacaine 0.375%/ Epi 1:200,000/ Dex 0.1mg/mL 20ml divided evenly bilateral) Peripheral Block Patient position: supine Prep: ChloraPrep Patient monitoring: heart rate, 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 Needle Needle: 21G X 110 mm Additional Notes 02/26/2023 7:35 AM Assessment Injection assessment: negative aspiration for heme, no paresthesia on injection and incremental injection Heart rate change: no Slow fractionated injection: yes Required Documentation: Relevant anatomy identified (Nerves, Vessels, Muscles), Negative for blood on aspiration, Local anesthetic injected incrementally with intermittent aspiration every 5 mL, Normal resistance with injection, No EKG changes noted, No symptoms of toxicity, Local anesthetic spread visualized around nerves or plane. and Local anesthetic injected without difficultyMedications [id number] rine (TAP) syringe - Injection 60 mL - 02/26/2023 7:35:00 AM [facility] 02-26-2023 Note Airway Date/Time: 02/26/2023 8:00 AM Urgency: scheduled General Information and Staff Patient location during procedure: Procedural Resident/SURVEY ASSOCIATE: Deion Huntley APRN - SURVEY ASSOCIATE Performed: SURVEY ASSOCIATE Indications and Patient Condition Indications for airway management: anesthesia Sedation level: Asleep Preoxygenated: yes Patient position: sniffing MILS maintained throughout Mask difficulty assessment: 1 - vent by mask Final Airway Details Final airway type: endotracheal airway Successful airway: ETT Cuffed: yes Successful intubation technique: direct laryngoscopy Facilitating devices/methods: intubating stylet Endotracheal tube insertion site: oral Blade: Lanza Blade size: #2 ETT size (mm): 7.0 Cormack-Lehane Classification: grade I - full view of glottis Placement verified by: chest auscultation and capnometry Measured from: lips ETT to lips (cm): 21 Number of attempts at approach: 1 Additional Comments Atraumatic placement of ETT, dentition intact [facility] 02-26-2023 Note H&P Interval Update PATIENT SUMMARY Kaelyn Maddox Dr. Nugent 41 y.o. female with Body mass index is 41.85 kg/m?. 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 The patient was seen and examined. There has been no change in the management plan. [facility] 02-26-2023 Note Formatting of this n ote might be different from the original. Images from the original note were not included. KENNY NUGENT MD , FACS, [facility] MINIMALLY INVASIVE & METABOLIC / BARIATRIC SURGERY [facility] OPERATIVE REPORT 02/26/2023 PATIENT: Kaelyn Maddox DATE OF : 1980 PROCEDURE: 1. ROBOTIC SINGLE ANASTOMOSIS DUODENO-ILEOSTOMY ([address] [address]) (22) 2. ROBOTIC SLEEVE GASTRECTOMY (95906) (59) 3. ROBOTIC LIVER WEDGE BIOPSY (06840) (59) 4. UPPER GASTRO-INTESTINAL ENDOSCOPY (85132) SURGEON: Kenny Nugent MD TECHNICAL COORDINATOR: Deion Lundberg MD PRE-OPERATIVE DIAGNOSES: BMI 42 Kg / m2 Type 2 diabetes mellitus Hepatic steatosis. Morbid Obesity POST-OPERATIVE DIAGNOSES: Same ANESTHESIA: General endotracheal Transversus Abdominis plane block FLUIDS: Crystalloid ESTIMATED BLOOD LOSS: Minimal URINE OUTPUT: Not recorded PREOPERATIVE MEDICATIONS: Cefazolin 3 gm IV; Heparin 5000 units SQ INDICATIONS FOR PROCEDURE: The patient is a 42 y.o. female with morbid obesity and a BMI of Body mass index is 42.6 kg/m .. She has completed medical risk stratification and is scheduled for Robotic-assisted Single-Anastomosis Duodeno-Ileostomy (NENO) during Sleeve Gastrectomy (S). CONSENT: The patient was seen and evaluated in the office setting where the details of the procedure were explained and all questions were answered to the patient's satisfaction. An informed consent discussion was held between Dr. Nugent and the patient. Viable alternatives to the proposed procedure, including but not limited to, medical observation under the care of a physician, exercise programs and other weight reductive operative procedures were discussed. Risks to the proposed procedure, including but not limited to hemorrhage requiring transfusion, infection, nerve injury, conversion to open, anastomotic disruption, anastomotic stricture, pneumonia, pulmonary embolus, airway complications, and were explained to the patient. The procedure specific termite renewal inspector potential complications including increased flatulence and bowel movements as well and nutritional deficiencies and the need to comply with dietary supplements were thoroughly discussed. The patient understands the above risks and alternatives and has electively chosen Robotic Single-Anastomosis Duodeno-Ileostomy during Sleeve Gastrectomy and wishes to proceed with surgical intervention. TECHNIQUE: The patient was transported to the operating room and identified by name and number. An operating room team time out was performed confirming the identity of the patient and the planned procedure. The patient was placed on the operating room table in the supine position. General endotracheal anesthesia was administered and a transverse abdominis plane block was performed by members of the anesthesia team. An arabella-gastric tube was placed to decompress the stomach. Following placement of sequential compression devices, the patient was positioned in the modified lithotomy position and extremities were carefully padded and protected. The abdomen was prepped and draped in standard surgical fashion. The abdominal cavity was accessed in the left upper quadrant at Miller's point using a 5-mm optical trocar. Pneumoperitoneum was established and a brief exploration of the abdominal cavity was performed. Three other robotic trocars were placed under direct visualization. These were placed in a horizontal pattern near the level of the umbilicus. An car rental sales assistant port was placed in the left upper quadrand and a 5-mm trocar was placed in the right upper quadrant for a liver retractor. We proceeded with careful removal of the arabella-gastric tube after decompression of the stomach was confirmed. A small peritoneal opening was created near the angle of His using hook electrocautery.We proceeded with evaluation of the greater curvature of the stomach and the lesser sac was carefully incised by dividing the short gastric vessels using the the vessel sealer. The short gastric vessels and attachments to the greater curvature were carefully taken down in the same fashion all the way to the angle of his superior and inferiorly along the greater curvature of the stomach to approximately 3-4 cm from the pylorus. The posterior attachments the stomach were carefully divided using sharp scissors. At this time we proceeded with our first staple line, using a thick tissue load. This was carried out towards the incisura, ensuring that ample caliber of the sleeve is preserved in order to avoid a stricture. Following this a 50 [place] bougie was carefully advanced by the anesthesia personnel and carefully guided into the antrum. This was used to loosely calibrate the size of the residual sleeve is Endo GERARD staplers were fired towards the proximal aspect of the stomach. The last staple load was carefully flared out laterally to avoid stapling over the distal esophagus. Once completely detached, the specimen was carefully removed through the 12-mm robotic trocar incision. An upper gastrointestinal endoscopy was performed along with an underwater leak test to ensure the patency of the residual sleeve all the way to the duodenum, and to ensure the integrity of the staple line. At this point the table was flattened and the omentum was carefully reflected cephalad to expose the small bowel. The cecum and terminal ileum were identified and the small bowel was measured from the ileo-cecal region proximally in increments of 5-cm for 300-cm. This loop reached the duodenal region and with the omentum reflected down again, we placed two 3-0 Vicryl stay sutures to the omentum to maintain its position near the duodenum. We then proceeded with further dissection of the omentum off the greater curvature of the antrum about 2-cm past the pylorus, carefully preserving the right gastro-epiploic artery. The posterior attachments of the antrum and duodenum were carefully dissected and divided using ultra-sonic patricio. The gastro-duodenal artery was identified and represented the extent of our dissection. A blunt instrument was introduced to create a window superior to the duodenum, carefully preserving the there right gastric vasculature. A luis drain was utilized to retract the duodenum and this window was enlarged to allow passage of a stapler with seam-guard reinforcement to transect the duodenum approximately 2-cm past there pylorus. Peritoneal attachments were carefully divided to allow the distal sleeve and duodenum to mobilize lower and more medially. The ileal loop was brought in the proximity of the duodenum and they were stabilized together with a 2-0 PDS barbed suture run the duodenal staple line to the mesenteric aspect of the ileum, creating the posteriour outer row of the anastomosis. Enterotomies were made in the proximal duodenum and the ileal loop measuring at least 2-cm in length. The anastomosis was completed with an anterior and posterior row of inner layer with 3-0 Vicryl in running fashion. The anterior outer layer was completed using 3-0 PDS barbed suture in running fashion. A 3-0 Vicryl hitch suture was placed to take any undue tension of the anastomosis and assist in aligning the afferent limb. The anastomosis was checked for patency and integrity using a provocative endoscopic exam with leak test. The enteroenterostomy portion of the NENO requires extensive and complex dissection in the the retro-duodenal region. This increased the degree of difficulty and the complexity of the case significantly and required and additional 1 hour more than the average enteroenterostomy to complete. For that reason we utilized a modifier 22 in the coding of this procedure. (Modifier 22) As part of the pre-operative work-up , the patient underwent abdominal ultrasound on 10/10/22 which showed increased echogenicity and was concerning for diffuse hepatocellular disease. On intra-operative evaluation, the liver appeared abnormal and enlarged. At this time, a laparoscopic liver wedge biopsy was performed in order to further evaluate the parenchyma of the liver. This was performed using a laparoscopic liver biopsy instrument. The specimen was passed off the table for pathology studies. Electrocautery was utilized to achieve hemostasis of the biopsy site. At the end of the operation the Moises liver retractor and the trocars were carefully removed under direct visualization and the pneumoperitoneum was evacuated. Fascial defect were closed using 0-Vycril suture for 10-mm or greater trocar sites and the left sub-costal specimen extraction site. The skin incisions were closed using 4-0 Vycril suture in subcuticular fashion. This was followed by steri strips and sterile dressings. The needle, sponge and instrument counts were correct. The patient tolerated the procedure and the anesthesia well without any major complications. The patients was transported to the post-anesthesia care unit in stable condition. I was present for the entire duration of the procedure. --------- [facility] - Data form Start Time: 7:58 Stop Time: 11:01 Bougie (or sizing device): 40 [place] Distance from pylorus: 4 cm Staple Line reinforcement: [] Yes [x] No Oversew: [] Yes [x] No Fine Unhairer: [x] Resident [] Fellow ASA Class: [] 1 [] 2 [x] 3 []4 [] 5 Surgical Approach: [x] THIS OPERATION WAS PERFORMED ROBOTICALLY Was the procedure converted to another approach? [] Yes [x] No Was the case aborted? [] Yes [x] No Was a drain placed at the time of the initial operation? [] Yes [x] No Was a swallow study performed the day of or the day after the procedure? [x] Yes [] No Was the anastomotic/staple line checked with a provocative test to assess for leak? [x] Yes [] No Was this a stapling procedure: [x] Yes [] No Other Procedures: [x] EGD [x] Liver Biopsy Other: None [facility] 02-26-2023 Note Formatting of this n ote might be different from the original. Images from the original note were not included. KENNY NUGENT MD , FACS, [facility] MINIMALLY INVASIVE & METABOLIC / BARIATRIC SURGERY [facility] OPERATIVE REPORT 02/26/2023 PATIENT: Kaelyn Maddox DATE OF : 1980 PROCEDURE: 1. ROBOTIC SINGLE ANASTOMOSIS DUODENO-ILEOSTOMY ([id number] [id number]) (22) 2. ROBOTIC SLEEVE GASTRECTOMY (07941) (59) 3. ROBOTIC LIVER WEDGE BIOPSY (73798) (59) 4. UPPER GASTRO-INTESTINAL ENDOSCOPY (94133) SURGEON: Kenny Nugent MD TECHNICAL COORDINATOR: Deion Lundberg MD PRE-OPERATIVE DIAGNOSES: BMI 42 Kg / m2 Type 2 diabetes mellitus Hepatic steatosis. Morbid Obesity POST-OPERATIVE DIAGNOSES: Same ANESTHESIA: General endotracheal Transversus Abdominis plane block FLUIDS: Crystalloid ESTIMATED BLOOD LOSS: Minimal URINE OUTPUT: Not recorded PREOPERATIVE MEDICATIONS: Cefazolin 3 gm IV; Heparin 5000 units SQ INDICATIONS FOR PROCEDURE: The patient is a 42 y.o. female with morbid obesity and a BMI of Body mass index is 42.6 kg/m .. She has completed medical risk stratification and is scheduled for Robotic-assisted Single-Anastomosis Duodeno-Ileostomy (NENO) during Sleeve Gastrectomy (S). CONSENT: The patient was seen and evaluated in the office setting where the details of the procedure were explained and all questions were answered to the patient's satisfaction. An informed consent discussion was held between Dr. Nugent and the patient. Viable alternatives to the proposed procedure, including but not limited to, medical observation under the care of a physician, exercise programs and other weight reductive operative procedures were discussed. Risks to the proposed procedure, including but not limited to hemorrhage requiring transfusion, infection, nerve injury, conversion to open, anastomotic disruption, anastomotic stricture, pneumonia, pulmonary embolus, airway complications, and were explained to the patient. The procedure specific termite renewal inspector potential complications including increased flatulence and bowel movements as well and nutritional deficiencies and the need to comply with dietary supplements were thoroughly discussed. The patient understands the above risks and alternatives and has electively chosen Robotic Single-Anastomosis Duodeno-Ileostomy during Sleeve Gastrectomy and wishes to proceed with surgical intervention. TECHNIQUE: The patient was transported to the operating room and identified by name and number. An operating room team time out was performed confirming the identity of the patient and the planned procedure. The patient was placed on the operating room table in the supine position. General endotracheal anesthesia was administered and a transverse abdominis plane block was performed by members of the anesthesia team. An arabella-gastric tube was placed to decompress the stomach. Following placement of sequential compression devices, the patient was positioned in the modified lithotomy position and extremities were carefully padded and protected. The abdomen was prepped and draped in standard surgical fashion. The abdominal cavity was accessed in the left upper quadrant at Miller's point using a 5-mm optical trocar. Pneumoperitoneum was established and a brief exploration of the abdominal cavity was performed. Three other robotic trocars were placed under direct visualization. These were placed in a horizontal pattern near the level of the umbilicus. An car rental sales assistant port was placed in the left upper quadrand and a 5-mm trocar was placed in the right upper quadrant for a liver retractor. We proceeded with careful removal of the arabella-gastric tube after decompression of the stomach was confirmed. A small peritoneal opening was created near the angle of His using hook electrocautery.We proceeded with evaluation of the greater curvature of the stomach and the lesser sac was carefully incised by dividing the short gastric vessels using the the vessel sealer. The short gastric vessels and attachments to the greater curvature were carefully taken down in the same fashion all the way to the angle of his superior and inferiorly along the greater curvature of the stomach to approximately 3-4 cm from the pylorus. The posterior attachments the stomach were carefully divided using sharp scissors. At this time we proceeded with our first staple line, using a thick tissue load. This was carried out towards the incisura, ensuring that ample caliber of the sleeve is preserved in order to avoid a stricture. Following this a 50 [place] bougie was carefully advanced by the anesthesia personnel and carefully guided into the antrum. This was used to loosely calibrate the size of the residual sleeve is Endo GERARD staplers were fired towards the proximal aspect of the stomach. The last staple load was carefully flared out laterally to avoid stapling over the distal esophagus. Once completely detached, the specimen was carefully removed through the 12-mm robotic trocar incision. An upper gastrointestinal endoscopy was performed along with an underwater leak test to ensure the patency of the residual sleeve all the way to the duodenum, and to ensure the integrity of the staple line. At this point the table was flattened and the omentum was carefully reflected cephalad to expose the small bowel. The cecum and terminal ileum were identified and the small bowel was measured from the ileo-cecal region proximally in increments of 5-cm for 300-cm. This loop reached the duodenal region and with the omentum reflected down again, we placed two 3-0 Vicryl stay sutures to the omentum to maintain its position near the duodenum. We then proceeded with further dissection of the omentum off the greater curvature of the antrum about 2-cm past the pylorus, carefully preserving the right gastro-epiploic artery. The posterior attachments of the antrum and duodenum were carefully dissected and divided using ultra-sonic patricio. The gastro-duodenal artery was identified and represented the extent of our dissection. A blunt instrument was introduced to create a window superior to the duodenum, carefully preserving the there right gastric vasculature. A luis drain was utilized to retract the duodenum and this window was enlarged to allow passage of a stapler with seam-guard reinforcement to transect the duodenum approximately 2-cm past there pylorus. Peritoneal attachments were carefully divided to allow the distal sleeve and duodenum to mobilize lower and more medially. The ileal loop was brought in the proximity of the duodenum and they were stabilized together with a 2-0 PDS barbed suture run the duodenal staple line to the mesenteric aspect of the ileum, creating the posteriour outer row of the anastomosis. Enterotomies were made in the proximal duodenum and the ileal loop measuring at least 2-cm in length. The anastomosis was completed with an anterior and posterior row of inner layer with 3-0 Vicryl in running fashion. The anterior outer layer was completed using 3-0 PDS barbed suture in running fashion. A 3-0 Vicryl hitch suture was placed to take any undue tension of the anastomosis and assist in aligning the afferent limb. The anastomosis was checked for patency and integrity using a provocative endoscopic exam with leak test. The enteroenterostomy portion of the NENO requires extensive and complex dissection in the the retro-duodenal region. This increased the degree of difficulty and the complexity of the case significantly and required and additional 1 hour more than the average enteroenterostomy to complete. For that reason we utilized a modifier 22 in the coding of this procedure. (Modifier 22) As part of the pre-operative work-up , the patient underwent abdominal ultrasound on 10/10/22 which showed increased echogenicity and was concerning for diffuse hepatocellular disease. On intra-operative evaluation, the liver appeared abnormal and enlarged. At this time, a laparoscopic liver wedge biopsy was performed in order to further evaluate the parenchyma of the liver. This was performed using a laparoscopic liver biopsy instrument. The specimen was passed off the table for pathology studies. Electrocautery was utilized to achieve hemostasis of the biopsy site. At the end of the operation the Moises liver retractor and the trocars were carefully removed under direct visualization and the pneumoperitoneum was evacuated. Fascial defect were closed using 0-Vycril suture for 10-mm or greater trocar sites and the left sub-costal specimen extraction site. The skin incisions were closed using 4-0 Vycril suture in subcuticular fashion. This was followed by steri strips and sterile dressings. The needle, sponge and instrument counts were correct. The patient tolerated the procedure and the anesthesia well without any major complications. The patients was transported to the post-anesthesia care unit in stable condition. I was present for the entire duration of the procedure. --------- [facility] - Data form Start Time: 7:58 Stop Time: 11:01 Bougie (or sizing device): 40 [place] Distance from pylorus: 4 cm Staple Line reinforcement: [] Yes [x] No Oversew: [] Yes [x] No Fine Unhairer: [x] Resident [] Fellow ASA Class: [] 1 [] 2 [x] 3 []4 [] 5 Surgical Approach: [x] THIS OPERATION WAS PERFORMED ROBOTICALLY Was the procedure converted to another approach? [] Yes [x] No Was the case aborted? [] Yes [x] No Was a drain placed at the time of the initial operation? [] Yes [x] No Was a swallow study performed the day of or the day after the procedure? [x] Yes [] No Was the anastomotic/staple line checked with a provocative test to assess for leak? [x] Yes [] No Was this a stapling procedure: [x] Yes [] No Other Procedures: [x] EGD [x] Liver Biopsy Other: None [facility] 02-26-2023 Miscellaneous Notes Images from the original note were not included. KENNY NUGENT MD , FACS, [facility] MINIMALLY INVASIVE & METABOLIC / BARIATRIC SURGERY [facility] OPERATIVE REPORT 02/26/2023 PATIENT: Kaelyn Maddox DATE OF : 1980 PROCEDURE: 1. ROBOTIC SINGLE ANASTOMOSIS DUODENO-ILEOSTOMY ([id number] [id number]) (22) 2. ROBOTIC SLEEVE GASTRECTOMY (68482) (59) 3. ROBOTIC LIVER WEDGE BIOPSY (22027) (59) 4. UPPER GASTRO-INTESTINAL ENDOSCOPY (75109) SURGEON: Kenny Nugent MD TECHNICAL COORDINATOR: Deion Lundberg MD PRE-OPERATIVE DIAGNOSES: BMI 42 Kg / m2 Type 2 diabetes mellitus Hepatic steatosis. Morbid Obesity POST-OPERATIVE DIAGNOSES: Same ANESTHESIA: General endotracheal Transversus Abdominis plane block FLUIDS: Crystalloid ESTIMATED BLOOD LOSS: Minimal URINE OUTPUT: Not recorded PREOPERATIVE MEDICATIONS: Cefazolin 3 gm IV; Heparin 5000 units SQ INDICATIONS FOR PROCEDURE: The patient is a 42 y.o. female with morbid obesity and a BMI of Body mass index is 42.6 kg/m .. She has completed medical risk stratification and is scheduled for Robotic-assisted Single-Anastomosis Duodeno-Ileostomy (NENO) during Sleeve Gastrectomy (S). CONSENT: The patient was seen and evaluated in the office setting where the details of the procedure were explained and all questions were answered to the patient's satisfaction. An informed consent discussion was held between Dr. Nugent and the patient. Viable alternatives to the proposed procedure, including but not limited to, medical observation under the care of a physician, exercise programs and other weight reductive operative procedures were discussed. Risks to the proposed procedure, including but not limited to hemorrhage requiring transfusion, infection, nerve injury, conversion to open, anastomotic disruption, anastomotic stricture, pneumonia, pulmonary embolus, airway complications, and were explained to the patient. The procedure specific termite renewal inspector potential complications including increased flatulence and bowel movements as well and nutritional deficiencies and the need to comply with dietary supplements were thoroughly discussed. The patient understands the above risks and alternatives and has electively chosen Robotic Single-Anastomosis Duodeno-Ileostomy during Sleeve Gastrectomy and wishes to proceed with surgical intervention. TECHNIQUE: The patient was transported to the operating room and identified by name and number. An operating room team time out was performed confirming the identity of the patient and the planned procedure. The patient was placed on the operating room table in the supine position. General endotracheal anesthesia was administered and a transverse abdominis plane block was performed by members of the anesthesia team. An arabella-gastric tube was placed to decompress the stomach. Following placement of sequential compression devices, the patient was positioned in the modified lithotomy position and extremities were carefully padded and protected. The abdomen was prepped and draped in standard surgical fashion. The abdominal cavity was accessed in the left upper quadrant at Miller's point using a 5-mm optical trocar. Pneumoperitoneum was established and a brief exploration of the abdominal cavity was performed. Three other robotic trocars were placed under direct visualization. These were placed in a horizontal pattern near the level of the umbilicus. An car rental sales assistant port was placed in the left upper quadrand and a 5-mm trocar was placed in the right upper quadrant for a liver retractor. We proceeded with careful removal of the arabella-gastric tube after decompression of the stomach was confirmed. A small peritoneal opening was created near the angle of His using hook electrocautery.We proceeded with evaluation of the greater curvature of the stomach and the lesser sac was carefully incised by dividing the short gastric vessels using the the vessel sealer. The short gastric vessels and attachments to the greater curvature were carefully taken down in the same fashion all the way to the angle of his superior and inferiorly along the greater curvature of the stomach to approximately 3-4 cm from the pylorus. The posterior attachments the stomach were carefully divided using sharp scissors. At this time we proceeded with our first staple line, using a thick tissue load. This was carried out towards the incisura, ensuring that ample caliber of the sleeve is preserved in order to avoid a stricture. Following this a 50 [place] bougie was carefully advanced by the anesthesia personnel and carefully guided into the antrum. This was used to loosely calibrate the size of the residual sleeve is Endo GERARD staplers were fired towards the proximal aspect of the stomach. The last staple load was carefully flared out laterally to avoid stapling over the distal esophagus. Once completely detached, the specimen was carefully removed through the 12-mm robotic trocar incision. An upper gastrointestinal endoscopy was performed along with an underwater leak test to ensure the patency of the residual sleeve all the way to the duodenum, and to ensure the integrity of the staple line. At this point the table was flattened and the omentum was carefully reflected cephalad to expose the small bowel. The cecum and terminal ileum were identified and the small bowel was measured from the ileo-cecal region proximally in increments of 5-cm for 300-cm. This loop reached the duodenal region and with the omentum reflected down again, we placed two 3-0 Vicryl stay sutures to the omentum to maintain its position near the duodenum. We then proceeded with further dissection of the omentum off the greater curvature of the antrum about 2-cm past the pylorus, carefully preserving the right gastro-epiploic artery. The posterior attachments of the antrum and duodenum were carefully dissected and divided using ultra-sonic patricio. The gastro-duodenal artery was identified and represented the extent of our dissection. A blunt instrument was introduced to create a window superior to the duodenum, carefully preserving the there right gastric vasculature. A luis drain was utilized to retract the duodenum and this window was enlarged to allow passage of a stapler with seam-guard reinforcement to transect the duodenum approximately 2-cm past there pylorus. Peritoneal attachments were carefully divided to allow the distal sleeve and duodenum to mobilize lower and more medially. The ileal loop was brought in the proximity of the duodenum and they were stabilized together with a 2-0 PDS barbed suture run the duodenal staple line to the mesenteric aspect of the ileum, creating the posteriour outer row of the anastomosis. Enterotomies were made in the proximal duodenum and the ileal loop measuring at least 2-cm in length. The anastomosis was completed with an anterior and posterior row of inner layer with 3-0 Vicryl in running fashion. The anterior outer layer was completed using 3-0 PDS barbed suture in running fashion. A 3-0 Vicryl hitch suture was placed to take any undue tension of the anastomosis and assist in aligning the afferent limb. The anastomosis was checked for patency and integrity using a provocative endoscopic exam with leak test. The enteroenterostomy portion of the NENO requires extensive and complex dissection in the the retro-duodenal region. This increased the degree of difficulty and the complexity of the case significantly and required and additional 1 hour more than the average enteroenterostomy to complete. For that reason we utilized a modifier 22 in the coding of this procedure. (Modifier 22) As part of the pre-operative work-up , the patient underwent abdominal ultrasound on 10/10/22 which showed increased echogenicity and was concerning for diffuse hepatocellular disease. On intra-operative evaluation, the liver appeared abnormal and enlarged. At this time, a laparoscopic liver wedge biopsy was performed in order to further evaluate the parenchyma of the liver. This was performed using a laparoscopic liver biopsy instrument. The specimen was passed off the table for pathology studies. Electrocautery was utilized to achieve hemostasis of the biopsy site. At the end of the operation the Moises liver retractor and the trocars were carefully removed under direct visualization and the pneumoperitoneum was evacuated. Fascial defect were closed using 0-Vycril suture for 10-mm or greater trocar sites and the left sub-costal specimen extraction site. The skin incisions were closed using 4-0 Vycril suture in subcuticular fashion. This was followed by steri strips and sterile dressings. The needle, sponge and instrument counts were correct. The patient tolerated the procedure and the anesthesia well without any major complications. The patients was transported to the post-anesthesia care unit in stable condition. I was present for the entire duration of the procedure. --------- MBSAQIP - Data form Start Time: 7:58 Stop Time: 11:01 Bougie (or sizing device): 40 Kitt[place] Distance from pylorus: 4 cm Staple Line reinforcement: [] Yes [x] No Oversew: [] Yes [x] No Fine Unhairer: [x] Resident [] Fellow ASA Class: [] 1 [] 2 [x] 3 []4 [] 5 Surgical Approach: [x] THIS OPERATION WAS PERFORMED ROBOTICALLY Was the procedure converted to another approach? [] Yes [x] No Was the case aborted? [] Yes [x] No Was a drain placed at the time of the initial operation? [] Yes [x] No Was a swallow study performed the day of or the day after the procedure? [x] Yes [] No Was the anastomotic/staple line checked with a provocative test to assess for leak? [x] Yes [] No Was this a stapling procedure: [x] Yes [] No Other Procedures: [x] EGD [x] Liver Biopsy Other: None documented in this encounter [facility] 02-26-2023 Attending History and physical note H&P Interval Update PATIENT SUMMARY Kaelyn Sewelladden Dr. Nugent 41 y.o. female with Body mass index is 41.85 kg/m . 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 The patient was seen and examined. There has been no change in the management plan. Source Note - GAB Zurita CNP - 02/19/2023 8:30 AM EDT Images from the original note were not included. Comprehensive PreSurgical History and Physical ? Name: Kaelyn Mdadox : 1980 (Age-42 y.o.) Date of Service: Pt seen/examined on 02/19/2023 Procedure Information Date/Time: 02/26/23 0730 Procedures: ROBOTIC ASSISTED SINGLE ANASTOMOSIS DUODENAL ILEAL BYPASS WITH SLEEVE GASTRECTOMY WITH LIVER WEDGE BIOPSY, HIATAL HERNIA REPAIR POSSIBLE OPEN ROBOTIC (XI) ASSISTED GASTRIC RESTRICTIVE PROCEDURE WITH PARTIAL GASTRECTOMY PYLORUS PRESERVING DUODENOILEOSTOMY AND ILEOILEOSTOMY UNLISTED LAPAROSCOPIC PROCEDURE LIVER (Abdomen) Location: [address] Operating Room Surgeons: Kenny Nugent MD Chief Complaint: Morbid (severe) obesity due to excess calories (HCC) [E66.01] Diaphragmatic hernia without obstruction or gangrene [K44.9] History Of Present Illness: 42 y.o. female who we are asked to see/evaluate by Dr. Nugent for pre-operative evaluation prior to . Case: [id number] Date/Time: 02/26/23729 Procedures: ROBOTIC ASSISTED SINGLE ANASTOMOSIS DUODENAL ILEAL BYPASS WITH SLEEVE GASTRECTOMY WITH LIVER WEDGE BIOPSY, HIATAL HERNIA REPAIR POSSIBLE OPEN [71540 CPT(R)] ROBOTIC (XI) ASSISTED GASTRIC RESTRICTIVE PROCEDURE WITH PARTIAL GASTRECTOMY PYLORUS PRESERVING DUODENOILEOSTOMY AND ILEOILEOSTOMY [50502 CPT(R)] UNLISTED LAPAROSCOPIC PROCEDURE LIVER (Abdomen) [38396 CPT(R)] Anesthesia type: General Diagnosis: Morbid (severe) obesity due to excess calories (HCC) [E66.01] Diaphragmatic hernia without obstruction or gangrene [K44.9] Pre-op diagnosis: Morbid (severe) obesity due to excess calories (HCC) [E66.01] Location: [address] Operating Room Surgeons: Kenny Nugent MD From last office visit with Dr. Nugent on 02/11/23: Kaelyn Maddox is a 42 y.o. female with morbid obesity and associated comorbid conditions who [facility] for final pre-operative evaluation and for discussion of the preoperative testing results. A discussion of the risks, benefits and options of the planned procedure was also held and all questions were answered to the patient's satisfaction. The patient stands Height: 5' 5 (165.1 cm) tall with a weight of Weight: 254 lb 6.4 oz (115 kg) , and has a BMI of Body mass index is 42.33 kg/m . Patient denies exertional chest pain/shortness of breath. Denies dizziness, syncope, lightheadedness. Denies fever, chills, weakness or fatigue. Patient denies any recent illness, infections, or wounds. Patient denies abdominal pain, nausea, vomiting, diarrhea, or constipation. Patient denies hx of CAD, CHF, CA, TIA/CVA, COPD, asthma, VIKTOR, DVT/PE. Past Medical History: Past Medical History: No date: Anemia No date: Back pain No date: Circulation problem No date: COVID-19 vaccine series declined No date: Daytime sleepiness No date: Difficulty sleeping No date: Dizziness No date: Fatigue No date: History of UTI No date: Joint pain, hip No date: Joint pain, knee No date: Snoring No date: SOBOE (shortness of breath on exertion) No date: Type 2 diabetes mellitus with ophthalmic complication, without long-term current use of insulin (HCC) Past Surgical History: Past Surgical History: 2020: CARPAL TUNNEL RELEASE; Right 2000: SECTION (HISTORICAL) 2003: SECTION (HISTORICAL) 1997: SECTION (HISTORICAL) 2005: CHOLECYSTECTOMY 1998: DILATION AND CURETTAGE OF UTERUS 2006: OTHER SURGICAL HISTORY Comment: Essure control springs around fallopian tubes 2005: TONSILLECTOMY (HISTORICAL) 2017: TOTAL ABDOMINAL HYSTERECTOMY Medications Prior to Admission: Current Outpatient Medications on File Prior to Visit Medication Sig Dispense Refill cetirizine (ZyrTEC) 10 MG tablet Take 10 mg by mouth. empagliflozin (Jardiance) 25 MG Take 25 mg by mouth. fluticasone (Flonase) 50 MCG/ACT nasal spray place 2 sprays into each nostril once daily Lancets (CancerGuide DiagnosticsTouch Delica Plus [id number]) [facility] use 1 LANCET to TEST BLOOD SUGAR once daily meclizine (Antivert) 25 MG tablet Take 25 mg by mouth if needed. omeprazole (PriLOSEC) [address] capsule Take 1 capsule (20 mg) by mouth daily. Do not crush or chew. 90 capsule 1 ondansetron ODT (Zofran-ODT) 4 MG disintegrating tablet dissolve 1 tablet ON TONGUE every 8 hours if needed for nausea and vomiting SUMAtriptan (Imitrex) 50 MG tablet Take 50 mg by mouth if needed. OneTouch Verio test strip TEST BLOOD SUGAR once daily No current facility-administered medications on file prior to visit. CHRONIC NARCOTIC USE: No Allergies: Hydromorphone and Metformin Can the patient take acetaminophen: Yes Social History: TOBACCO: reports that she has never smoked. She has never used smokeless tobacco. ETOH: reports that she does not currently use alcohol. Social History Substance and Sexual Activity Drug Use Never Family History: Family History Problem Relation Name Age of Onset Stroke Maternal Grandfather Miriam Hypertension Maternal Grandfather Miriam Heart disease Maternal Grandfather Miriam Hypertension Mother Mom Diabetes Father Jom Stroke Father Jom Stroke Paternal Grandfather Glen Hypertension Paternal Grandfather Glen Cancer Paternal Grandfather Glen Diabetes Paternal Grandfather Glen Heart disease Paternal Grandfather Glen Hypertension Paternal Grandmother Gma Hypertension Maternal Grandmother Gma REVIEW OF SYSTEMS: Review of Systems Constitutional: Negative. HENT: Negative. Respiratory: Negative. Cardiovascular: Negative. Endocrine: Negative. Musculoskeletal: Negative. Skin: Negative. Allergic/Immunologic: Negative. Neurological: Negative. Hematological: Negative. Psychiatric/Behavioral: Negative. Physical Exam: Physical Exam Vitals reviewed. Constitutional: Appearance: Normal appearance. She is obese. HENT: Head: Normocephalic. Mouth/Throat: Mouth: Mucous membranes are moist. Pharynx: Oropharynx is clear. Eyes: Conjunctiva/sclera: Conjunctivae normal. Pupils: Pupils are equal, round, and reactive to light. Cardiovascular: Rate and Rhythm: Normal rate and regular rhythm. Pulses: Normal pulses. Heart sounds: Normal heart sounds. Pulmonary: Effort: Pulmonary effort is normal. Abdominal: General: Abdomen is flat. Bowel sounds are normal. Palpations: Abdomen is soft. Musculoskeletal: Cervical back: Normal range of motion. Skin: General: Skin is warm and dry. Capillary Refill: Capillary refill takes less than 2 seconds. Neurological: General: No focal deficit present. Mental Status: She is alert and oriented to person, place, and time. Psychiatric: Mood and Affect: Mood normal. Behavior: Behavior normal. Vitals: Vitals Value Taken Time BP 115/73 02/19/23 0831 Temp 36.6 C (97.8 F) 02/19/23 0831 Pulse 81 02/19/23 0831 Resp 18 02/19/23 0831 SpO2 97 % 02/19/23 0831 Labs: Lab Results Component Value Date WBC 9.0 02/11/2023 HGB 14.4 02/11/2023 HCT 42.7 02/11/2023 MCV 87.8 02/11/2023 PLT 320 02/11/2023 Lab Results Component Value Date NA 141 02/11/2023 K 4.0 02/11/2023 CL 106 02/11/2023 CO2 28 02/11/2023 BUN 12 02/11/2023 CREATININE 0.55 02/11/2023 GLUCOSE 160 (H) 02/11/2023 CALCIUM 9.4 02/11/2023 PROT 7.6 10/29/2022 ALKPHOS 108 10/29/2022 AST 64 (H) 10/29/2022 ALT 72 (H) 10/29/2022 EGFR >90.0 02/11/2023 Brady's Simple Cardiac Risk Index: BRADY'S SIMPLE CARDIAC RISK SCORE: 0 Interpretation: 0 Points Class I 0.5% 1 Point Class II 1.3% 2 Points Class III 3.6% 3+ Points Class IV 9.1% METS >4 METS (Able to climb a flight of stairs with no chest pain or shortness of breath): Yes PAT Pain Score: Postop Pain Management Plan (Pain consult ordered?): Pain consult not indicated at this time ? EKG: Yes, completed 02/11/23 IMPRESSION: Sinus rhythm LVH by voltage Electronically Signed On 02-12-2023 11:46:29 EDT by Jermaine MEDEIROS and EF:None on file ASSESSMENT/PLAN: Patient is considered intermediate risk for this intermediate risk procedure/surgery () with no reducible risk factors. Based on the above evaluation, the benefits of the planned procedure likely exceed the risks. The patient is medically optimized to proceed with the planned procedure without any further cardiopulmonary testing. 1) Morbid (severe) obesity due to excess calories (HCC) [E66.01] Diaphragmatic hernia without obstruction or gangrene [K44.9] - Managed per surgery - Body mass index is 42.67 kg/m . - Labs Reviewed: CBC, BMP, A1c, Albumin completed on 02/11/23. Glucose level 160, A1c was 8.7, remaining labs WNL - EKG completed on 02/11/23 reviewed: Sinus Rhythm - Orders per PAT protocol: No additional orders are required today, completed prior to PAT - From office visit with Dr. Nugent on 02/11/23: - METS >4, no further evaluation is required today 2) Diabetes Mellitus- Type II - Last A1c 8.7, completed on 02/11/23 - Managed with Jardiance - Blood glucose goal <250 DOS 3) Anemia - Last CBC on 02/11/23 was unremarkable 4) OA - Managed with OTC pain relievers prn 5) GERD - Managed with omeprazole 6) Migraine Hx - Last FOY was several months ago, has ~1-2 FOY per year - Managed with imitrex prn 7) Vertigo - Managed with antivert and zofran prn 8) Seasonal Allergies - Managed with flonase nasal spray and zyrtec prn Visit Type: Pre-Admission Testing Visit Labs Ordered: NO - COMPLETE PRIOR TO PAT VISIT Sleep Referral Ordered: NO - NEGATIVE SCREEN PER SLEEP REFERRAL PROTOCOL Electronically signed by: GAB Zurita CNP Date: 02/19/2023 at 8:47 AM PAT Protocol referenced includes: 1. Anesthesia Lab Protocol Orders 2. Perioperative Cardiovascular Risk Assessment 3. Anesthesia Assessment 4. Pain Assessment and Acute Pain Service Consult (if appropriate) 5. Medical Clearance/Consult from Internal Medicine (IMS) 6. Shower/Wash Order (for designated surgeries) 7. VIKTOR Screen and Sleep Clinic Referral (if appropriate) [facility] 02-26-2023 History and physical note H&P Interval Update PATIENT SUMMARY Kaelyn Nugent 41 y.o. female with Body mass index is 41.85 kg/m . 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 The patient was seen and examined. There has been no change in the management plan. Source Note - GAB Zurita CNP - 02/19/2023 8:30 AM EDT Images from the original note were not included. Comprehensive PreSurgical History and Physical ? Name: Kaelyn Maddox : 1980 (Age-42 y.o.) Date of Service: Pt seen/examined on 02/19/2023 Procedure Information Date/Time: 02/26/23729 Procedures: ROBOTIC ASSISTED SINGLE ANASTOMOSIS DUODENAL ILEAL BYPASS WITH SLEEVE GASTRECTOMY WITH LIVER WEDGE BIOPSY, HIATAL HERNIA REPAIR POSSIBLE OPEN ROBOTIC (XI) ASSISTED GASTRIC RESTRICTIVE PROCEDURE WITH PARTIAL GASTRECTOMY PYLORUS PRESERVING DUODENOILEOSTOMY AND ILEOILEOSTOMY UNLISTED LAPAROSCOPIC PROCEDURE LIVER (Abdomen) Location: [address] Operating Room Surgeons: Kenny Nugent MD Chief Complaint: Morbid (severe) obesity due to excess calories (HCC) [E66.01] Diaphragmatic hernia without obstruction or gangrene [K44.9] History Of Present Illness: 42 y.o. female who we are asked to see/evaluate by Dr. Nugent for pre-operative evaluation prior to . Case: [id number] Date/Time: 02/26/23729 Procedures: ROBOTIC ASSISTED SINGLE ANASTOMOSIS DUODENAL ILEAL BYPASS WITH SLEEVE GASTRECTOMY WITH LIVER WEDGE BIOPSY, HIATAL HERNIA REPAIR POSSIBLE OPEN [67310 CPT(R)] ROBOTIC (XI) ASSISTED GASTRIC RESTRICTIVE PROCEDURE WITH PARTIAL GASTRECTOMY PYLORUS PRESERVING DUODENOILEOSTOMY AND ILEOILEOSTOMY [47071 CPT(R)] UNLISTED LAPAROSCOPIC PROCEDURE LIVER (Abdomen) [74492 CPT(R)] Anesthesia type: General Diagnosis: Morbid (severe) obesity due to excess calories (HCC) [E66.01] Diaphragmatic hernia without obstruction or gangrene [K44.9] Pre-op diagnosis: Morbid (severe) obesity due to excess calories (HCC) [E66.01] Location: [address] Operating Room Surgeons: Kenny Nugent MD From last office visit with Dr. Nugent on 02/11/23: Kaelyn Maddox is a 42 y.o. female with morbid obesity and associated comorbid conditions who [facility] for final pre-operative evaluation and for discussion of the preoperative testing results. A discussion of the risks, benefits and options of the planned procedure was also held and all questions were answered to the patient's satisfaction. The patient stands Height: 5' 5 (165.1 cm) tall with a weight of Weight: 254 lb 6.4 oz (115 kg) , and has a BMI of Body mass index is 42.33 kg/m . Patient denies exertional chest pain/shortness of breath. Denies dizziness, syncope, lightheadedness. Denies fever, chills, weakness or fatigue. Patient denies any recent illness, infections, or wounds. Patient denies abdominal pain, nausea, vomiting, diarrhea, or constipation. Patient denies hx of CAD, CHF, CA, TIA/CVA, COPD, asthma, VIKTOR, DVT/PE. Past Medical History: Past Medical History: No date: Anemia No date: Back pain No date: Circulation problem No date: COVID-19 vaccine series declined No date: Daytime sleepiness No date: Difficulty sleeping No date: Dizziness No date: Fatigue No date: History of UTI No date: Joint pain, hip No date: Joint pain, knee No date: Snoring No date: SOBOE (shortness of breath on exertion) No date: Type 2 diabetes mellitus with ophthalmic complication, without long-term current use of insulin ([facility]) Past Surgical History: Past Surgical History: 2020: CARPAL TUNNEL RELEASE; Right 2001: SECTION (HISTORICAL) 2003: SECTION (HISTORICAL) 1998: SECTION (HISTORICAL) 2005: CHOLECYSTECTOMY 1998: DILATION AND CURETTAGE OF UTERUS 2006: OTHER SURGICAL HISTORY Comment: Essure control springs around fallopian tubes 2005: TONSILLECTOMY (HISTORICAL) 2017: TOTAL ABDOMINAL HYSTERECTOMY Medications Prior to Admission: Current Outpatient Medications on File Prior to Visit Medication Sig Dispense Refill cetirizine (ZyrTEC) 10 MG tablet Take 10 mg by mouth. empagliflozin (Jardiance) 25 MG Take 25 mg by mouth. fluticasone (Flonase) 50 MCG/ACT nasal spray place 2 sprays into each nostril once daily Lancets (OneTouch Delica Plus [id number]) [facility] use 1 LANCET to TEST BLOOD SUGAR once daily meclizine (Antivert) 25 MG tablet Take 25 mg by mouth if needed. omeprazole (PriLOSEC) [address] capsule Take 1 capsule (20 mg) by mouth daily. Do not crush or chew. 90 capsule 1 ondansetron ODT (Zofran-ODT) 4 MG disintegrating tablet dissolve 1 tablet ON TONGUE every 8 hours if needed for nausea and vomiting SUMAtriptan (Imitrex) 50 MG tablet Take 50 mg by mouth if needed. OneTouch Verio test strip TEST BLOOD SUGAR once daily No current facility-administered medications on file prior to visit. CHRONIC NARCOTIC USE: No Allergies: Hydromorphone and Metformin Can the patient take acetaminophen: Yes Social History: TOBACCO: reports that she has never smoked. She has never used smokeless tobacco. ETOH: reports that she does not currently use alcohol. Social History Substance and Sexual Activity Drug Use Never Family History: Family History Problem Relation Name Age of Onset Stroke Maternal Grandfather Miriam Hypertension Maternal Grandfather Miriam Heart disease Maternal Grandfather Miriam Hypertension Mother Mom Diabetes Father Jom Stroke Father Jom Stroke Paternal Grandfather Glen Hypertension Paternal Grandfather Glen Cancer Paternal Grandfather Glen Diabetes Paternal Grandfather Glen Heart disease Paternal Grandfather Glen Hypertension Paternal Grandmother Gma Hypertension Maternal Grandmother Gma REVIEW OF SYSTEMS: Review of Systems Constitutional: Negative. HENT: Negative. Respiratory: Negative. Cardiovascular: Negative. Endocrine: Negative. Musculoskeletal: Negative. Skin: Negative. Allergic/Immunologic: Negative. Neurological: Negative. Hematological: Negative. Psychiatric/Behavioral: Negative. Physical Exam: Physical Exam Vitals reviewed. Constitutional: Appearance: Normal appearance. She is obese. HENT: Head: Normocephalic. Mouth/Throat: Mouth: Mucous membranes are moist. Pharynx: Oropharynx is clear. Eyes: Conjunctiva/sclera: Conjunctivae normal. Pupils: Pupils are equal, round, and reactive to light. Cardiovascular: Rate and Rhythm: Normal rate and regular rhythm. Pulses: Normal pulses. Heart sounds: Normal heart sounds. Pulmonary: Effort: Pulmonary effort is normal. Abdominal: General: Abdomen is flat. Bowel sounds are normal. Palpations: Abdomen is soft. Musculoskeletal: Cervical back: Normal range of motion. Skin: General: Skin is warm and dry. Capillary Refill: Capillary refill takes less than 2 seconds. Neurological: General: No focal deficit present. Mental Status: She is alert and oriented to person, place, and time. Psychiatric: Mood and Affect: Mood normal. Behavior: Behavior normal. Vitals: Vitals Value Taken Time BP 115/73 02/19/23 0831 Temp 36.6 C (97.8 F) 02/19/23 0831 Pulse 81 02/19/23 0831 Resp 18 02/19/23 0831 SpO2 97 % 02/19/23 0831 Labs: Lab Results Component Value Date WBC 9.0 02/11/2023 HGB 14.4 02/11/2023 HCT 42.7 02/11/2023 MCV 87.8 02/11/2023 PLT 320 02/11/2023 Lab Results Component Value Date NA 141 02/11/2023 K 4.0 02/11/2023 CL 106 02/11/2023 CO2 28 02/11/2023 BUN 12 02/11/2023 CREATININE 0.55 02/11/2023 GLUCOSE 160 (H) 02/11/2023 CALCIUM 9.4 02/11/2023 PROT 7.6 10/29/2022 ALKPHOS 108 10/29/2022 AST 64 (H) 10/29/2022 ALT 72 (H) 10/29/2022 EGFR >90.0 02/11/2023 Brady's Simple Cardiac Risk Index: BRADY'S SIMPLE CARDIAC RISK SCORE: 0 Interpretation: 0 Points Class I 0.5% 1 Point Class II 1.3% 2 Points Class III 3.6% 3+ Points Class IV 9.1% METS >4 METS (Able to climb a flight of stairs with no chest pain or shortness of breath): Yes PAT Pain Score: Postop Pain Management Plan (Pain consult ordered?): Pain consult not indicated at this time ? EKG: Yes, completed 02/11/23 IMPRESSION: Sinus rhythm LVH by voltage Electronically Signed On 02-12-2023 11:46:29 EDT by Jermaine MEDEIROS and EF:None on file ASSESSMENT/PLAN: Patient is considered intermediate risk for this intermediate risk procedure/surgery () with no reducible risk factors. Based on the above evaluation, the benefits of the planned procedure likely exceed the risks. The patient is medically optimized to proceed with the planned procedure without any further cardiopulmonary testing. 1) Morbid (severe) obesity due to excess calories (HCC) [E66.01] Diaphragmatic hernia without obstruction or gangrene [K44.9] - Managed per surgery - Body mass index is 42.67 kg/m . - Labs Reviewed: CBC, BMP, A1c, Albumin completed on 02/11/23. Glucose level 160, A1c was 8.7, remaining labs WNL - EKG completed on 02/11/23 reviewed: Sinus Rhythm - Orders per PAT protocol: No additional orders are required today, completed prior to PAT - From office visit with Dr. Nugent on 02/11/23: - METS >4, no further evaluation is required today 2) Diabetes Mellitus- Type II - Last A1c 8.7, completed on 02/11/23 - Managed with Jardiance - Blood glucose goal <250 DOS 3) Anemia - Last CBC on 02/11/23 was unremarkable 4) OA - Managed with OTC pain relievers prn 5) GERD - Managed with omeprazole 6) Migraine Hx - Last FOY was several months ago, has ~1-2 FOY per year - Managed with imitrex prn 7) Vertigo - Managed with antivert and zofran prn 8) Seasonal Allergies - Managed with flonase nasal spray and zyrtec prn Visit Type: Pre-Admission Testing Visit Labs Ordered: NO - COMPLETE PRIOR TO PAT VISIT Sleep Referral Ordered: NO - NEGATIVE SCREEN PER SLEEP REFERRAL PROTOCOL Electronically signed by: GAB Zurita CNP Date: 02/19/2023 at 8:47 AM PAT Protocol referenced includes: 1. Anesthesia Lab Protocol Orders 2. Perioperative Cardiovascular Risk Assessment 3. Anesthesia Assessment 4. Pain Assessment and Acute Pain Service Consult (if appropriate) 5. Medical Clearance/Consult from Internal Medicine (IMS) 6. Shower/Wash Order (for designated surgeries) 7. VIKTOR Screen and Sleep Clinic Referral (if appropriate) documented in this encounter [facility] 02-19-2023 Note Patient: Kaelyn stewart Procedure Information Date/Time: 02/26/23 0730 Procedures: ROBOTIC ASSISTED SINGLE ANASTOMOSIS DUODENAL ILEAL BYPASS WITH SLEEVE GASTRECTOMY WITH LIVER WEDGE BIOPSY, HIATAL HERNIA REPAIR POSSIBLE OPEN ROBOTIC (XI) ASSISTED GASTRIC RESTRICTIVE PROCEDURE WITH PARTIAL GASTRECTOMY PYLORUS PRESERVING DUODENOILEOSTOMY AND ILEOILEOSTOMY UNLISTED LAPAROSCOPIC PROCEDURE LIVER (Abdomen) Location: [place] [address] [facility] Operating Room Surgeons: Kenny Nugent MD Past Medical History: Past Medical History: No date: Anemia No date: Back pain No date: Circulation problem No date: COVID-19 vaccine series declined No date: Daytime sleepiness No date: Difficulty sleeping No date: Dizziness No date: Fatigue No date: History of UTI No date: Joint pain, hip No date: Joint pain, knee No date: Snoring No date: SOBOE (shortness of breath on exertion) No date: Type 2 diabetes mellitus with ophthalmic complication, without long-term current use of insulin (HCC) Past Surgical History: Past Surgical History: 2020: CARPAL TUNNEL RELEASE; Right 2001: SECTION (HISTORICAL) 2003: SECTION (HISTORICAL) 1998: SECTION (HISTORICAL) 2005: CHOLECYSTECTOMY 1998: DILATION AND CURETTAGE OF UTERUS 2006: OTHER SURGICAL HISTORY Comment: Essure control springs around fallopian tubes 2005: TONSILLECTOMY (HISTORICAL) 2017: TOTAL ABDOMINAL HYSTERECTOMY Social History: TOBACCO: reports that she has never smoked. She has never used smokeless tobacco. ETOH: reports that she does not currently use alcohol. Social History Substance and Sexual Activity Drug Use Never Family History: Family History Problem Relation Name Age of Onset ? Stroke Maternal Grandfather Miriam ? Hypertension Maternal Grandfather Miriam ? Heart disease Maternal Grandfather Miriam ? Hypertension Mother Mom ? Diabetes Father Jom ? Stroke Father Jom ? Stroke Paternal Grandfather Glen ? Hypertension Paternal Grandfather Glen ? Cancer Paternal Grandfather Glen ? Diabetes Paternal Grandfather Glen ? Heart disease Paternal Grandfather Glen ? Hypertension Paternal Grandmother Gma ? Hypertension Maternal Grandmother Gma Screening: Hysterectomy Clinical information reviewed: Tobacco Allergies Meds Med Hx Surg Hx OB Status Fam Hx Soc Hx Physical Exam Airway Mallampati: III TM distance: >3 FB Neck ROM: full Mouth Open: normalendotracheal tube not in place Cardiovascular Dental (+) Missing Comments: Missing several teeth, upper and lower molars Pulmonary Abdominal Anesthesia Plan ASA 3 general and regional (TAP) The patient is not a current smoker. Anesthetic plan and risks discussed with patient (sig other). patient is NPO General ERAS VIKTOR Screening STOP-Bang Total Score: 2 Labs: Lab Results Component Value Date WBC 9.0 02/11/2023 HGB 14.4 02/11/2023 HCT 42.7 02/11/2023 MCV 87.8 02/11/2023 PLT 320 02/11/2023 Lab Results Component Value Date NA 141 02/11/2023 K 4.0 02/11/2023 CL 106 02/11/2023 CO2 28 02/11/2023 BUN 12 02/11/2023 CREATININE 0.55 02/11/2023 GLUCOSE 160 (H) 02/11/2023 CALCIUM 9.4 02/11/2023 PROT 7.6 10/29/2022 ALKPHOS 108 10/29/2022 AST 64 (H) 10/29/2022 ALT 72 (H) 10/29/2022 EGFR >90.0 02/11/2023 No echocardiogram results found for the past 14 days 02/11/23 ECG 12-LEAD 02/12/2023 11:46 AM (Final) Impression Sinus rhythm LVH by voltage Electronically Signed On 02-12-2023 11:46:29 EDT by Jermaine Funes Signed by: Jermaine Funes MD on 02/12/2023 11:46 AM [facility] 02-19-2023 Note Comprehensive PreSur gical History and Physical ? Name: Kaelyn Maddox : 1980 (Age-42 y.o.) Date of Service: Pt seen/examined on 02/19/2023 Procedure Information Date/Time: 02/26/23729 Procedures: ROBOTIC ASSISTED SINGLE ANASTOMOSIS DUODENAL ILEAL BYPASS WITH SLEEVE GASTRECTOMY WITH LIVER WEDGE BIOPSY, HIATAL HERNIA REPAIR POSSIBLE OPEN ROBOTIC (XI) ASSISTED GASTRIC RESTRICTIVE PROCEDURE WITH PARTIAL GASTRECTOMY PYLORUS PRESERVING DUODENOILEOSTOMY AND ILEOILEOSTOMY UNLISTED LAPAROSCOPIC PROCEDURE LIVER (Abdomen) Location: [facility] OR [address] [place] [address] Operating Room Surgeons: Kenny Nugent MD Chief Complaint: Morbid (severe) obesity due to excess calories (HCC) [E66.01] Diaphragmatic hernia without obstruction or gangrene [K44.9] History Of Present Illness: 42 y.o. female who we are asked to see/evaluate by Dr. Nugent for pre-operative evaluation prior to . Case: [id number] Date/Time: 02/26/23729 Procedures: ROBOTIC ASSISTED SINGLE ANASTOMOSIS DUODENAL ILEAL BYPASS WITH SLEEVE GASTRECTOMY WITH LIVER WEDGE BIOPSY, HIATAL HERNIA REPAIR POSSIBLE OPEN [44246 CPT(R)] ROBOTIC (XI) ASSISTED GASTRIC RESTRICTIVE PROCEDURE WITH PARTIAL GASTRECTOMY PYLORUS PRESERVING DUODENOILEOSTOMY AND ILEOILEOSTOMY [77394 CPT(R)] UNLISTED LAPAROSCOPIC PROCEDURE LIVER (Abdomen) [60939 CPT(R)] Anesthesia type: General Diagnosis: Morbid (severe) obesity due to excess calories (HCC) [E66.01] Diaphragmatic hernia without obstruction or gangrene [K44.9] Pre-op diagnosis: Morbid (severe) obesity due to excess calories (HCC) [E66.01] Location: [facility] OR [address] [place] [address] Operating Room Surgeons: Kenny Nugent MD From last office visit with Dr. Nugent on 02/11/23: Kaelyn Maddox is a 42 y.o. female with morbid obesity and associated comorbid conditions who [facility] for final pre-operative evaluation and for discussion of the preoperative testing results. A discussion of the risks, benefits and options of the planned procedure was also held and all questions were answered to the patient's satisfaction. The patient stands Height: 5' 5 (165.1 cm) tall with a weight of Weight: 254 lb 6.4 oz (115 kg) , and has a BMI of Body mass index is 42.33 kg/m?. Patient denies exertional chest pain/shortness of breath. Denies dizziness, syncope, lightheadedness. Denies fever, chills, weakness or fatigue. Patient denies any recent illness, infections, or wounds. Patient denies abdominal pain, nausea, vomiting, diarrhea, or constipation. Patient denies hx of CAD, CHF, CA, TIA/CVA, COPD, asthma, VIKTOR, DVT/PE. Past Medical History: Past Medical History: No date: Anemia No date: Back pain No date: Circulation problem No date: COVID-19 vaccine series declined No date: Daytime sleepiness No date: Difficulty sleeping No date: Dizziness No date: Fatigue No date: History of UTI No date: Joint pain, hip No date: Joint pain, knee No date: Snoring No date: SOBOE (shortness of breath on exertion) No date: Type 2 diabetes mellitus with ophthalmic complication, without long-term current use of insulin ([facility]) Past Surgical History: Past Surgical History: 2020: CARPAL TUNNEL RELEASE; Right 2001: SECTION (HISTORICAL) 2003: SECTION (HISTORICAL) 1998: SECTION (HISTORICAL) 2005: CHOLECYSTECTOMY 1998: DILATION AND CURETTAGE OF UTERUS 2006: OTHER SURGICAL HISTORY Comment: Essure control springs around fallopian tubes 2005: TONSILLECTOMY (HISTORICAL) 2017: TOTAL ABDOMINAL HYSTERECTOMY Medications Prior to Admission: Current Outpatient Medications on File Prior to Visit Medication Sig Dispense Refill cetirizine (ZyrTEC) 10 MG tablet Take 10 mg by mouth. empagliflozin (Jardiance) 25 MG Take 25 mg by mouth. fluticasone (Flonase) 50 MCG/ACT nasal spray place 2 sprays into each nostril once daily Lancets (OneTouch Delica Plus [id number]) [facility] use 1 LANCET to TEST BLOOD SUGAR once daily meclizine (Antivert) 25 MG tablet Take 25 mg by mouth if needed. omeprazole (PriLOSEC) [address] capsule Take 1 capsule (20 mg) by mouth daily. Do not crush or chew. 90 capsule 1 ondansetron ODT (Zofran-ODT) 4 MG disintegrating tablet dissolve 1 tablet ON TONGUE every 8 hours if needed for nausea and vomiting SUMAtriptan (Imitrex) 50 MG tablet Take 50 mg by mouth if needed. OneTouch Verio test strip TEST BLOOD SUGAR once daily No current facility-administered medications on file prior to visit. CHRONIC NARCOTIC USE: No Allergies: Hydromorphone and Metformin Can the patient take acetaminophen: Yes Social History: TOBACCO: reports that she has never smoked. She has never used smokeless tobacco. ETOH: reports that she does not currently use alcohol. Social History Substance and Sexual Activity Drug Use Never Family History: Family History Problem Relation Name Age of Onset Stroke Maternal Grandfather Miriam Hypertension Maternal (more content not included)... [facility] 02-19-2023 Note Comprehensive PreSur gical History and Physical ? Name: Kaelyn Maddox : 1980 (Age-42 y.o.) Date of Service: Pt seen/examined on 02/19/2023 Procedure Information Date/Time: 02/26/23 5130 Procedures: ROBOTIC ASSISTED SINGLE ANASTOMOSIS DUODENAL ILEAL BYPASS WITH SLEEVE GASTRECTOMY WITH LIVER WEDGE BIOPSY, HIATAL HERNIA REPAIR POSSIBLE OPEN ROBOTIC (XI) ASSISTED GASTRIC RESTRICTIVE PROCEDURE WITH PARTIAL GASTRECTOMY PYLORUS PRESERVING DUODENOILEOSTOMY AND ILEOILEOSTOMY UNLISTED LAPAROSCOPIC PROCEDURE LIVER (Abdomen) Location: [address] Operating Room Surgeons: Kenny Nugent MD Chief Complaint: Morbid (severe) obesity due to excess calories (HCC) [E66.01] Diaphragmatic hernia without obstruction or gangrene [K44.9] History Of Present Illness: 42 y.o. female who we are asked to see/evaluate by Dr. Nugent for pre-operative evaluation prior to . Case: [id number] Date/Time: 02/26/23 0730 Procedures: ROBOTIC ASSISTED SINGLE ANASTOMOSIS DUODENAL ILEAL BYPASS WITH SLEEVE GASTRECTOMY WITH LIVER WEDGE BIOPSY, HIATAL HERNIA REPAIR POSSIBLE OPEN [71453 CPT(R)] ROBOTIC (XI) ASSISTED GASTRIC RESTRICTIVE PROCEDURE WITH PARTIAL GASTRECTOMY PYLORUS PRESERVING DUODENOILEOSTOMY AND ILEOILEOSTOMY [72710 CPT(R)] UNLISTED LAPAROSCOPIC PROCEDURE LIVER (Abdomen) [32621 CPT(R)] Anesthesia type: General Diagnosis: Morbid (severe) obesity due to excess calories (HCC) [E66.01] Diaphragmatic hernia without obstruction or gangrene [K44.9] Pre-op diagnosis: Morbid (severe) obesity due to excess calories (HCC) [E66.01] Location: [address] Operating Room Surgeons: Kenny Nugent MD From last office visit with Dr. Nugent on 02/11/23: Kaelyn Maddox is a 42 y.o. female with morbid obesity and associated comorbid conditions who presents [facility] for final pre-operative evaluation and for discussion of the preoperative testing results. A discussion of the risks, benefits and options of the planned procedure was also held and all questions were answered to the patient's satisfaction. The patient stands Height: 5' 5 (165.1 cm) tall with a weight of Weight: 254 lb 6.4 oz (115 kg) , and has a BMI of Body mass index is 42.33 kg/m?. Patient denies exertional chest pain/shortness of breath. Denies dizziness, syncope, lightheadedness. Denies fever, chills, weakness or fatigue. Patient denies any recent illness, infections, or wounds. Patient denies abdominal pain, nausea, vomiting, diarrhea, or constipation. Patient denies hx of CAD, CHF, CA, TIA/CVA, COPD, asthma, VIKTOR, DVT/PE. Past Medical History: Past Medical History: No date: Anemia No date: Back pain No date: Circulation problem No date: COVID-19 vaccine series declined No date: Daytime sleepiness No date: Difficulty sleeping No date: Dizziness No date: Fatigue No date: History of UTI No date: Joint pain, hip No date: Joint pain, knee No date: Snoring No date: SOBOE (shortness of breath on exertion) No date: Type 2 diabetes mellitus with ophthalmic complication, without long-term current use of insulin (HCC) Past Surgical History: Past Surgical History: 2020: CARPAL TUNNEL RELEASE; Right 2001: SECTION (HISTORICAL) 2003: SECTION (HISTORICAL) 1998: SECTION (HISTORICAL) 2005: CHOLECYSTECTOMY 1998: DILATION AND CURETTAGE OF UTERUS 2006: OTHER SURGICAL HISTORY Comment: Essure control springs around fallopian tubes 2005: TONSILLECTOMY (HISTORICAL) 2017: TOTAL ABDOMINAL HYSTERECTOMY Medications Prior to Admission: Current Outpatient Medications on File Prior to Visit Medication Sig Dispense Refill cetirizine (ZyrTEC) 10 MG tablet Take 10 mg by mouth. empagliflozin (Jardiance) 25 MG Take 25 mg by mouth. fluticasone (Flonase) 50 MCG/ACT nasal spray place 2 sprays into each nostril once daily Lancets (OneTouch Delica Plus [id number]) misc use 1 LANCET to TEST BLOOD SUGAR once daily meclizine (Antivert) 25 MG tablet Take 25 mg by mouth if needed. omeprazole (PriLOSEC) [address] capsule Take 1 capsule (20 mg) by mouth daily. Do not crush or chew. 90 capsule 1 ondansetron ODT (Zofran-ODT) 4 MG disintegrating tablet dissolve 1 tablet ON TONGUE every 8 hours if needed for nausea and vomiting SUMAtriptan (Imitrex) 50 MG tablet Take 50 mg by mouth if needed. OneTouch Verio test strip TEST BLOOD SUGAR once daily No current facility-administered medications on file prior to visit. CHRONIC NARCOTIC USE: No Allergies: Hydromorphone and Metformin Can the patient take acetaminophen: Yes Social History: TOBACCO: reports that she has never smoked. She has never used smokeless tobacco. ETOH: reports that she does not currently use alcohol. Social History Substance and Sexual Activity Drug Use Never Family History: Family History Problem Relation Name Age of Onset Stroke Maternal Grandfather Miriam Hypertension Maternal (more content not included)... [facility] 02-11-2023 History of Present illness Narrative Images from the original note were not included. KENNY NUGENT MD , FACS, FASMBS MINIMALLY INVASIVE & METABOLIC / BARIATRIC SURGERY [facility] - FINAL PRE-OP VISIT 02/11/2023 PATIENT: Kaelyn Maddox DATE OF : 1980 HISTORY OF PRESENT ILLNESS Chief Complaint: Morbid Obesity and here for final preoperative evaluation, informed consent and discussion of work-up results. Kaelyn Maddox is a 42 y.o. female with morbid obesity and associated comorbid conditions who [facility] for final pre-operative evaluation and for discussion of the preoperative testing results. A discussion of the risks, benefits and options of the planned procedure was also held and all questions were answered to the patient's satisfaction. The patient stands Height: 5' 5 (165.1 cm) tall with a weight of Weight: 254 lb 6.4 oz (115 kg) , and has a BMI of Body mass index is 42.33 kg/m . PATIENT SUMMARY Kaelyn Maddox Dr. Nugent 41 y.o. female with Body mass index is 41.85 kg/m . 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 pylori [x] Negative [] Positive UGI [x] [] not ordered Prominent cricopharyngeus..Small hiatus hernia with spontaneous gastroesophageal reflux.Mucosal irregularity/tiny ulcerations of the distal esophagus- egd did not show. 10/10/22 US Abdomen [x] [] not ordered 10/10/22-s/p selena, fatty VIKTOR eval [x] [] On CPAP / Obtain settings mild viktor no tx Hematology [] [] Hypercoagulation panel Toxicology [] [] Urine drug screen [] EtOH screen 10/29/22 Addtional [x] [x] Hgb A1c 10/29/22 7.7 INITIAL CONSULTATIONS CLEARANCE / MANAGEMENT Psychology [x] Dr. Garvey Initial 08.27.2022; cleared 09.19.2022 Dietitian [x] Jacque Albarran, RD, LD Cleared 04/30/22 updated: cleared 11/05/22 Cardiology [x] [] not ordered JACINTO cleared 10/14/22 Pulmonary [x] [] not ordered MONTY CLEARED 10/29/22 Others [] []Heme/Onc []Psychiatry []Pain mgmt PSD [] Physician supervised diet: []None []3 mos [x]6 mos Preop diet [] Preop low calory diet: []None [x]1 wk []2 wks []Ext. start 02/18/23 FINAL PRE-OP TESTING RESULTS Labwork [x] [x]Pre-op CBC [x]BMP []Serum Nicotine / Cotinine EKG [x] CXR [x] POST-OP MEDICATIONS Ulcer Ppx [x] Omeprazole 20 mg PO [x]QD []BID Gallstone Ppx [] Ursodiol 300 mg []BID DVT Ppx [x] DVT prophylaxis per final preop visit estimated risk Estimated calculated risk: 0.16 % COMPLETE FILE TO FINANCIAL: 11/05/22 WLS Prior Auth Request Submitted: 11/21/2022 WLS Prior Auth Approval Received: 12/11/2022 Auth# [id number] DVT PPX Risk Factors [] Male [] Age >= 60 years [] BMI >= 50 kg/m^2 [] CHF [] Dyspnea at Rest [] Paraplegia [x] Non-Gastric Band Surgery [] Anticipate Operative Time > 3 hours [] Anticipate Length of Stay >3 days Automatic 4 Weeks of Therapy [] Congenital or Acquired Hypercoagulable Conditions (Factor V Leiden, Prothrombin) [] Past History of DVT or PE [] Significant Chronic Venous Insufficiency Calculated Risk Score:The predicted probability of thirty-day post-discharge VTE 0.16 % Risk % Weeks </> BMI 50 SQ Dose [x] Moderate <0.4% 0 None [] High Risk 0.4% - 1% 2 [] 40 mg Lovenox BID [] 60 mg Lovenox BID [] Very High Risk >1% 4 [] 40 mg Lovenox BID [] 60 mg Lovenox BID Review of Symptoms Constitutional: negative for chills, fevers, night sweats Respiratory: negative for cough, dyspnea on exertion, hemoptysis, and sputum Cardiovascular: negative for chest pain, chest pressure/discomfort, dyspnea, irregular heart beat, palpitations, and syncope Gastrointestinal: negative for abdominal pain, constipation, diarrhea, dysphagia, melena, reflux symptoms, and vomiting Neurological: negative for dizziness, paresthesia, seizures, and weakness One wound under pannus- she picks in sleep- not signs of infection. Just got over a sinus infection. PAST HISTORIES Past Medical History: Diagnosis Date Anemia Back pain Circulation problem COVID-19 vaccine series declined Daytime sleepiness Difficulty sleeping Dizziness Fatigue History of UTI Joint pain, hip Joint pain, knee Snoring SOBOE (shortness of breath on exertion) Type 2 diabetes mellitus with ophthalmic complication, without long-term current use of insulin ([facility]) Past Surgical History: Procedure Laterality Date CARPAL TUNNEL RELEASE Right 2020 SECTION (HISTORICAL) 2000 SECTION (HISTORICAL) 2002 SECTION (HISTORICAL) 1997 CHOLECYSTECTOMY 2004 DILATION AND CURETTAGE OF UTERUS 1998 OTHER SURGICAL HISTORY 2006 Essure control springs around fallopian tubes TONSILLECTOMY (HISTORICAL) 2004 TOTAL ABDOMINAL HYSTERECTOMY 2017 Family History Problem Relation Name Age of Onset Stroke Maternal Grandfather Miriam Hypertension Maternal Grandfather Miriam Heart disease Maternal Grandfather Miriam Hypertension Mother Mom Diabetes Father Jom Stroke Father Jom Stroke Paternal Grandfather Glen Hypertension Paternal Grandfather Glen Cancer Paternal Grandfather Glen Diabetes Paternal Grandfather Glen Heart disease Paternal Grandfather Glen Hypertension Paternal Grandmother Gma Hypertension Maternal Grandmother Gma Allergies Allergen Reactions Hydromorphone Other Mood changes very mean Metformin PHYSICAL EXAM BP 110/76 Pulse 74 Temp 36.7 C (98 F) Resp 16 Ht 5' 5 (1.651 m) Wt 254 lb 6.4 oz (115 kg) BMI 42.33 kg/m General: This patient is awake, alert, and oriented, with normal affect and is in no apparent distress. Cardiac: Regular rate and rhythm without evidence of murmur. Respiratory: Clear to auscultation bilaterally with normal effort. Abdomen: Obese, soft, non-tender, non-distended without masses/ No evidence of abdominal hernia / Incisions consistent with previous surgeries. Surgical sites: Clean dry and intact Head and Neck: Obese, normocephalic and atraumatic/soft and supple, no lymphadenopathy or obvious bruits. No thyroidmegaly. Extremities: No cyanosis, clubbing or edema/ No calf tenderness/No restrictions of movement, is ambulatory without assistance. Neurological: Intact x 4 extremities, normal sensation, no focal deficits notes. Skin: Skin cool, warm and dry. No rashes or lesions noted. Rectal: Deferred LABORATORY STUDIES AND IMAGING Laboratory Studies: No results for input(s): NA, K, CL, CO2, BUN, CREATININE, GLUCOSE, CALCIUM in the last 72 hours. No results for input(s): WBC, RBC, HGB, HCT, MCV, MCH, MCHC, RDW, PLT, MPV in the last 72 hours. No results for input(s): ALKPHOS, ALT, AST, PROT, BILITOT, BILIDIR, LIPASE in the last 72 hours. No lab exists for component: LABALBU ASSESSMENT Encounter Diagnoses Name Primary? 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 We discussed the possibility of bleeding, the need for blood transfusions, blood clots, hospital-acquired and intra-abdominal infection, anastomotic stricture, and worsening GERD. And we discussed the need for post-operative visit compliance, behavior modifications and diet changes, protein and vitamin supplementation, as well as routine scheduled and dedicated exercise. We discussed the potential weight loss benefit of approximately 60-70% of the excess body weight at 12-18 months post-op, as well as the possibility of insufficient weight loss or weight gain. PLAN Based on today's evaluation, the patient is ready to proceed NENO-S with HH Repair as detailed above. No orders of the defined types were placed in this encounter. ATTESTATION I personally interviewed and examined the patient. I have reviewed their past medical, surgical, medication, allergy, social and family histories. I have performed an independent physical examination and have reviewed all pertinent laboratory and imaging results. I have reviewed with the patient my assessment of their condition as well as the treatment recommendations and the associated risks, benefits and options. I have spent a total of 30 minutes for this office visit in [id number] discussion, counseling of this patient, reviewing medical records and documenting the encounter. Y NUGENT MD, [facility], [facility] Shoemaker Apprentice - Weight Management [place] [facility] Rollway Worker - Advanced GI MIS, Foregut and Bariatric Surgery Fellowship ---[facility]--- Patient Care Team: Ana Rosa Espitia as PCP - General (Nurse Practitioner) Annika Wills RN as Registered Nurse Kenny Nugent MD as Surgeon (General Surgery) [facility] SURGICAL WEIGHT LOSS MANAGEMENT PROGRAM Rooming note: FINAL PRE-OP VISIT Patient: Kaelyn Maddox Date of : 1980 Service Date: 02/11/2023 This patient is accompanied by spouse for the evaluation today Patient is here today for their final pre-operative visit with surgeon prior to undergoing surgical weight loss intervention. Patient has the following question(s): none Weight Metrics: Measurements Weight: 254 lb 6.4 oz (115 kg) Height: 5' 5 (165.1 cm) BMI (Calculated): 42.4 Percent Excess Weight Loss: 0 Percent Weight Change Since Preop (kg): 115.39 kg Initial Excess Weight (kg): -56.7 kg IBW in kg (Bariatric): 56.7 kg IBW in lb (Bariatric): 125 lb Weight Change Since Last Visit: 115.39 kg Percent of IBW: 203.52 Percent EBW (kg): 58.67 kg EBW (lb): 129.4 lb Today's weight has increased from the last visit Falls Risk Assessment Patient does not take medications which affect BP or mental status Patient does not have newly prescribed or changed dosage of medications within past 30 days which affect BP or mental status Patient has not fallen in the past 2 months Patient does not demonstrate unsteady gait Patient uses the following ambulatory assistive devices: none Patient states the presence of the following traits which increases risk of fall: none Patient is low risk for falls. If high or moderate risk, patient instructed not to ambulate independently in the Center, and cord for call light placed within reach of patient. Patient has had a time when it was difficult for an IV to be placed. Patient is not on home O2 Patient has not has a time when it was difficult to intubate them Patient does not have a CPAP/BiPAP machine. If patient DOES have CPAP/BiPAP: [] CPAP [] BiPAP Settings are cm H2O PAP and settings entered into the Medication List Completed by: Radha Schaeffer LPN documented in this encounter [facility] 12-12-2022 Note . MICRO - Microbiology PROCEDURE: Urine Culture [*1] SOURCE: Urine, Clean Catch BODY SITE: COLLECTED DATE/TIME: 12/09/2022 20:09 EDT RECEIVED DATE/TIME: 12/10/2022 15:24 EDT START DATE/TIME: 12/10/2022 15:24 EDT FREE TEXT SOURCE: FINAL REPORTS Final Report [] Verified Date/Time/Personnel: 12/12/2022 07:45 EDT >100,000 cfu/ml Klebsiella pneumoniae subsp pneumoniae PRELIMINARY REPORTS Preliminary Report [] Verified Date/Time/Personnel: 12/11/2022 12:16 EDT >100,000 cfu/ml Klebsiella pneumoniae subsp pneumoniae LORENZO to follow SUSCEPTIBILITY RESULTS Klebsiella pneumoniae subsp pneumoniae Antibiotic LORENZO Dilut LORENZO Inter Ampicillin <=8 Susceptible Ampicillin/ <=4/2 Susceptible Sulbactam Aztreonam <=4 Susceptible Cefazolin <=2 Susceptible Ciprofloxacin <=0.25 Susceptible Ertapenem <=0.5 Susceptible Gentamicin <=2 Susceptible Imipenem <=1 Susceptible Levofloxacin <=0.5 Susceptible Meropenem <=1 Susceptible Minocycline <=4 Susceptible Nitrofurantoin 64 Intermediate Trimethoprim/ <=0.5/9.5 Susceptible Sulfa Performing Locations *1: This test was performed at: [facility], [address] [place] [address], [phone] , [facility] ([place]) 12-09-2022 Hospital Discharge instructions Patient Education 12/09/2022 21:32:25 Bladder Infection, Female (Adult) Bladder Infection, Female (Adult) Urine is normally doesn't have any bacteria in it. But bacteria can get into the urinary tract from the skin around the rectum. Or they can travel in the blood from elsewhere in the body. Once they are in your urinary tract, they can cause infection in the urethra (urethritis), the bladder (cystitis), or the kidneys (pyelonephritis). The most common place for an infection is in the bladder. This is called a bladder infection. This is one of the most common infections in women. Most bladder infections are easily treated. They are not serious unless the infection spreads to the kidney. The phrases bladder infection, UTI, and cystitis are often used to describe the same thing. But they are not always the same. Cystitis is an inflammation of the bladder. The most common cause of cystitis is an infection. Symptoms The infection causes inflammation in the urethra and bladder. This causes many of the symptoms. The most common symptoms of a bladder infection are: Pain or burning when urinating Having to urinate more often than usual Urgent need to urinate Only a small amount of urine comes out Blood in urine Abdominal discomfort. This is usually in the lower abdomen above the pubic bone. Cloudy urine Strong- or bad-smelling urine Unable to urinate (urinary retention) Unable to hold urine in (urinary incontinence) Fever Loss of appetite Confusion (in older adults) Causes Bladder infections are not contagious. You can't get one from someone else, from a toilet seat, or from sharing a bath. The most common cause of bladder infections is bacteria from the bowels. The bacteria get onto the skin around the opening of the urethra. From there, they can get into the urine and travel up to the bladder, causing inflammation and infection. This usually happens because of: Wiping improperly after urinating. Always wipe from front to back. Bowel incontinence Procedures such as having a catheter inserted Older age Not emptying your bladder. This can allow bacteria a chance to grow in your urine. Dehydration Constipation Sex Use of a diaphragm for control Treatment Bladder infections are diagnosed by a urine test. They are treated with antibiotics and usually clear up quickly without complications. Treatment helps prevent a more serious kidney infection. Medicines Medicines can help in the treatment of a bladder infection: Take antibiotics until they are used up, even if you feel better. It is important to finish them to make sure the infection has cleared. You can use acetaminophen or ibuprofen for pain, fever, or discomfort, unless another medicine was prescribed. If you have chronic liver or kidney disease, talk with your healthcare provider before using these medicines. Also talk with your provider if you've ever had a stomach ulcer or gastrointestinal bleeding, or are taking blood-thinner medicines. If you are given phenazopydridine to reduce burning with urination, it will cause your urine to become a bright orange color. This can stain clothing. Care and prevention These self-care steps can help prevent future infections: Drink plenty of fluids to prevent dehydration and flush out your bladder. Do this unless you must restrict fluids for other health reasons, or your doctor told you not to. Proper cleaning after going to the bathroom is important. Wipe from front to back after using the toilet to prevent the spread of bacteria. Urinate more often. Don't try to hold urine in for a long time. Wear loose-fitting clothes and cotton underwear. Avoid tight-fitting pants. Improve your diet and prevent constipation. Eat more fresh fruit and vegetables, and fiber, and less junk and fatty foods. Avoid sex until your symptoms are gone. Avoid caffeine, alcohol, and spicy foods. These can irritate your bladder. Urinate right after intercourse to flush out your bladder. If you use control pills and have frequent bladder infections, discuss it with your doctor. Follow-up care Call your healthcare provider if all symptoms are not gone after 3 days of treatment. This is especially important if you have repeat infections. If a culture was done, you will be told if your treatment needs to be changed. If directed, you can call to find out the results. If X-rays were done, you will be told if the results will affect your treatment. Call 911 Call 911 if any of the following occur: Trouble breathing Hard to wake up or confusion Fainting or loss of consciousness Rapid heart rate When to seek medical advice Call your healthcare provider right away if any of these occur: Fever of 100.4 F (38.0 C) or higher, or as directed by your healthcare provider Symptoms are not better by the third day of treatment Back or belly (abdominal) pain that gets worse Repeated vomiting, or unable to keep medicine down Weakness or dizziness Vaginal discharge Pain, redness, or swelling in the outer vaginal area (labia) 9864-5165 [employer]. [address] [place] [address]. All rights reserved. This information is not intended as a substitute for professional medical care. Always follow your healthcare professional's instructions. 12/09/2022 21:32:25 Bladder Infection, Female (Adult) Bladder Infection, Female (Adult) Urine is normally doesn't have any bacteria in it. But bacteria can get into the urinary tract from the skin around the rectum. Or they can travel in the blood from elsewhere in the body. Once they are in your urinary tract, they can cause infection in the urethra (urethritis), the bladder (cystitis), or the kidneys (pyelonephritis). The most common place for an infection is in the bladder. This is called a bladder infection. This is one of the most common infections in women. Most bladder infections are easily treated. They are not serious unless the infection spreads to the kidney. The phrases bladder infection, UTI, and cystitis are often used to describe the same thing. But they are not always the same. Cystitis is an inflammation of the bladder. The most common cause of cystitis is an infection. Symptoms The infection causes inflammation in the urethra and bladder. This causes many of the symptoms. The most common symptoms of a bladder infection are: Pain or burning when urinating Having to urinate more often than usual Urgent need to urinate Only a small amount of urine comes out Blood in urine Abdominal discomfort. This is usually in the lower abdomen above the pubic bone. Cloudy urine Strong- or bad-smelling urine Unable to urinate (urinary retention) Unable to hold urine in (urinary incontinence) Fever Loss of appetite Confusion (in older adults) Causes Bladder infections are not contagious. You can't get one from someone else, from a toilet seat, or from sharing a bath. The most common cause of bladder infections is bacteria from the bowels. The bacteria get onto the skin around the opening of the urethra. From there, they can get into the urine and travel up to the bladder, causing inflammation and infection. This usually happens because of: Wiping improperly after urinating. Always wipe from front to back. Bowel incontinence Procedures such as having a catheter inserted Older age Not emptying your bladder. This can allow bacteria a chance to grow in your urine. Dehydration Constipation Sex Use of a diaphragm for control Treatment Bladder infections are diagnosed by a urine test. They are treated with antibiotics and usually clear up quickly without complications. Treatment helps prevent a more serious kidney infection. Medicines Medicines can help in the treatment of a bladder infection: Take antibiotics until they are used up, even if you feel better. It is important to finish them to make sure the infection has cleared. You can use acetaminophen or ibuprofen for pain, fever, or discomfort, unless another medicine was prescribed. If you have chronic liver or kidney disease, talk with your healthcare provider before using these medicines. Also talk with your provider if you've ever had a stomach ulcer or gastrointestinal bleeding, or are taking blood-thinner medicines. If you are given phenazopydridine to reduce burning with urination, it will cause your urine to become a bright orange color. This can stain clothing. Care and prevention These self-care steps can help prevent future infections: Drink plenty of fluids to prevent dehydration and flush out your bladder. Do this unless you must restrict fluids for other health reasons, or your doctor told you not to. Proper cleaning after going to the bathroom is important. Wipe from front to back after using the toilet to prevent the spread of bacteria. Urinate more often. Don't try to hold urine in for a long time. Wear loose-fitting clothes and cotton underwear. Avoid tight-fitting pants. Improve your diet and prevent constipation. Eat more fresh fruit and vegetables, and fiber, and less junk and fatty foods. Avoid sex until your symptoms are gone. Avoid caffeine, alcohol, and spicy foods. These can irritate your bladder. Urinate right after intercourse to flush out your bladder. If you use control pills and have frequent bladder infections, discuss it with your doctor. Follow-up care Call your healthcare provider if all symptoms are not gone after 3 days of treatment. This is especially important if you have repeat infections. If a culture was done, you will be told if your treatment needs to be changed. If directed, you can call to find out the results. If X-rays were done, you will be told if the results will affect your treatment. Call 911 Call 911 if any of the following occur: Trouble breathing Hard to wake up or confusion Fainting or loss of consciousness Rapid heart rate When to seek medical advice Call your healthcare provider right away if any of these occur: Fever of 100.4 F (38.0 C) or higher, or as directed by your healthcare provider Symptoms are not better by the third day of treatment Back or belly (abdominal) pain that gets worse Repeated vomiting, or unable to keep medicine down Weakness or dizziness Vaginal discharge Pain, redness, or swelling in the outer vaginal area (labia) [id number] [employer] [address] [place] [address]. All rights reserved. This information is not intended as a substitute for professional medical care. Always follow your healthcare professional's instructions. Follow Up Care 12/09/2022 18:26:08 With:KIANNA CRISTINA Address: [address] [place] [address] [phone] When:2-4 days [facility] 12-09-2022 Note Discharge Instructions Thank you for allowing [facility] to assist you with your healthcare needs. The following is important discharge information regarding your hospital visit. Diagnosis from Today's Visit Pyelonephritis Flank pain What to Do Next Instructions from Your Care Team Follow-up with your doctor, return if any worsening or concerning symptoms. Have your liver enzymes rechecked by your doctor as they were mildly elevated today. No qualifying data available. Post Acute Orders No qualifying data available. You Need to Schedule the Following Appointments Follow Up with KIANNA CRISTINA When Within 2-4 days Where: [address] [place] [phone] Allergies metFORMIN Dilaudid (Agitation) Medications Please ask your primary doctor or pharmacist before taking any other medication not listed, including over the counter drugs, herbal medications, vitamins and or supplements as they may interact with your home medications. What How Much When Why Instructions Last Dose New cephalexin (cephalexin 500 mg oral capsule) 1 cap by mouth Every 12 hours Duration: 5 Days Printed Prescription Unchanged cetirizine (Zyrtec 10 mg oral tablet) 1 tab(s) by mouth Once a day Unchanged DME (Alcohol Swabs) See instructions Impaired fasting glucose once daily R73.01 Unchanged DME (Blood Glucose Test Machine) See instructions Impaired fasting glucose once daily R73.01 Unchanged DME (Blood Glucose Test Strips) See instructions Impaired fasting glucose once daily R73.01 Unchanged DME (Lancets) See instructions Impaired fasting glucose once daily R73.01 Unchanged empagliflozin (Jardiance 25 mg oral tablet) 1 tab(s) by mouth Once a day (in the morning) Duration: 30 Days Unchanged fluticasone nasal (Flonase 50 mcg/ inh nasal spray) 2 spray(s) each nostril Once a day Duration: 30 Days Unchanged ibuprofen (ibuprofen 200 mg oral tablet) 2 tab(s) by mouth Every 6 hours as needed for pain or fever Unchanged meclizine (meclizine 25 mg oral tablet) 1 tab(s) by mouth Every day Unchanged omeprazole (omeprazole 20 mg oral delayed release capsule) 1 cap by mouth Once a day Unchanged ondansetron (ondansetron 4 mg oral tablet) 1 tab(s) by mouth Every 6 hours as needed for Nausea/Vomiting Unchanged SUMAtriptan (SUMAtriptan 50 mg oral tablet) 1 tab(s) by mouth Once a day as needed for as needed for migraine headache 1 tab onset , may repeat in 2 hrs. MAX 4 tab(s)/ 24hrs Please take this list to your next doctor s visit. Bring all medications you take, including over the counter medications, herbals and other supplements with you to your doctor s visit. Patients and families are reminded to discard old lists and to update any records with all medication providers or retail pharmacies. [employer] Bladder Infection, Female (Adult) Urine is normally doesn't have any bacteria in it. But bacteria can get into the urinary tract from the skin around the rectum. Or they can travel in the blood from elsewhere in the body. Once they are in your urinary tract, they can cause infection in the urethra (urethritis), the bladder (cystitis), or the kidneys (pyelonephritis). The most common place for an infection is in the bladder. This is called a bladder infection. This is one of the most common infections in women. Most bladder infections are easily treated. They are not serious unless the infection spreads to the kidney. The phrases bladder infection, UTI, and cystitis are often used to describe the same thing. But they are not always the same. Cystitis is an inflammation of the bladder. The most common cause of cystitis is an infection. Symptoms The infection causes inflammation in the urethra and bladder. This causes many of the symptoms. The most common symptoms of a bladder infection are: Pain or burning when urinating Having to urinate more often than usual Urgent need to urinate Only a small amount of urine comes out Blood in urine Abdominal discomfort. This is usually in the lower abdomen above the pubic bone. Cloudy urine Strong- or bad-smelling urine Unable to urinate (urinary retention) Unable to hold urine in (urinary incontinence) Fever Loss of appetite Confusion (in older adults) Causes Bladder infections are not contagious. You can't get one from someone else, from a toilet seat, or from sharing a bath. The most common cause of bladder infections is bacteria from the bowels. The bacteria get onto the skin around the opening of the urethra. From there, they can get into the urine and travel up to the bladder, causing inflammation and infection. This usually happens because of: Wiping improperly after urinating. Always wipe from front to back. Bowel incontinence Procedures such as having a catheter inserted Older age Not emptying your bladder. This can allow bacteria a chance to grow in your urine. Dehydration Constipation Sex Use of a diaphragm for control Treatment Bladder infections are diagnosed by a urine test. They are treated with antibiotics and usually clear up quickly without complications. Treatment helps prevent a more serious kidney infection. Medicines Medicines can help in the treatment of a bladder infection: Take antibiotics until they are used up, even if you feel better. It is important to finish them to make sure the infection has cleared. You can use acetaminophen or ibuprofen for pain, fever, or discomfort, unless another medicine was prescribed. If you have chronic liver or kidney disease, talk with your healthcare provider before using these medicines. Also talk with your provider if you've ever had a stomach ulcer or gastrointestinal bleeding, or are taking blood-thinner medicines. If you are given phenazopydridine to reduce burning with urination, it will cause your urine to become a bright orange color. This can stain clothing. Care and prevention These self-care steps can help prevent future infections: Drink plenty of fluids to prevent dehydration and flush out your bladder. Do this unless you must restrict fluids for other health reasons, or your doctor told you not to. Proper cleaning after going to the bathroom is important. Wipe from front to back after using the toilet to prevent the spread of bacteria. Urinate more often. Don't try to hold urine in for a long time. Wear loose-fitting clothes and cotton underwear. Avoid tight-fitting pants. Improve your diet and prevent constipation. Eat more fresh fruit and vegetables, and fiber, and less junk and fatty foods. Avoid sex until your symptoms are gone. Avoid caffeine, alcohol, and spicy foods. These can irritate your bladder. Urinate right after intercourse to flush out your bladder. If you use control pills and have frequent bladder infections, discuss it with your doctor. Follow-up care Call your healthcare provider if all symptoms are not gone after 3 days of treatment. This is especially important if you have repeat infections. If a culture was done, you will be told if your treatment needs to be changed. If directed, you can call to find out the results. If X-rays were done, you will be told if the results will affect your treatment. Call 911 Call 911 if any of the following occur: Trouble breathing Hard to wake up or confusion Fainting or loss of consciousness Rapid heart rate When to seek medical advice Call your healthcare provider right away if any of these occur: Fever of 100.4 F (38.0 C) or higher, or as directed by your healthcare provider Symptoms are not better by the third day of treatment Back or belly (abdominal) pain that gets worse Repeated vomiting, or unable to keep medicine down Weakness or dizziness Vaginal discharge Pain, redness, or swelling in the outer vaginal area (labia) [id number] [employer] [address] [place] [address]. All rights reserved. This information is not intended as a substitute for professional medical care. Always follow your healthcare professional's instructions. Bladder Infection, Female (Adult) Urine is normally doesn't have any bacteria in it. But bacteria can get into the urinary tract from the skin around the rectum. Or they can travel in the blood from elsewhere in the body. Once they are in your urinary tract, they can cause infection in the urethra (urethritis), the bladder (cystitis), or the kidneys (pyelonephritis). The most common place for an infection is in the bladder. This is called a bladder infection. This is one of the most common infections in women. Most bladder infections are easily treated. They are not serious unless the infection spreads to the kidney. The phrases bladder infection, UTI, and cystitis are often used to describe the same thing. But they are not always the same. Cystitis is an inflammation of the bladder. The most common cause of cystitis is an infection. Symptoms The infection causes inflammation in the urethra and bladder. This causes many of the symptoms. The most common symptoms of a bladder infection are: Pain or burning when urinating Having to urinate more often than usual Urgent need to urinate Only a small amount of urine comes out Blood in urine Abdominal discomfort. This is usually in the lower abdomen above the pubic bone. Cloudy urine Strong- or bad-smelling urine Unable to urinate (urinary retention) Unable to hold urine in (urinary incontinence) Fever Loss of appetite Confusion (in older adults) Causes Bladder infections are not contagious. You can't get one from someone else, from a toilet seat, or from sharing a bath. The most common cause of bladder infections is bacteria from the bowels. The bacteria get onto the skin around the opening of the urethra. From there, they can get into the urine and travel up to the bladder, causing inflammation and infection. This usually happens because of: Wiping improperly after urinating. Always wipe from front to back. Bowel incontinence Procedures such as having a catheter inserted Older age Not emptying your bladder. This can allow bacteria a chance to grow in your urine. Dehydration Constipation Sex Use of a diaphragm for control Treatment Bladder infections are diagnosed by a urine test. They are treated with antibiotics and usually clear up quickly without complications. Treatment helps prevent a more serious kidney infection. Medicines Medicines can help in the treatment of a bladder infection: Take antibiotics until they are used up, even if you feel better. It is important to finish them to make sure the infection has cleared. You can use acetaminophen or ibuprofen for pain, fever, or discomfort, unless another medicine was prescribed. If you have chronic liver or kidney disease, talk with your healthcare provider before using these medicines. Also talk with your provider if you've ever had a stomach ulcer or gastrointestinal bleeding, or are taking blood-thinner medicines. If you are given phenazopydridine to reduce burning with urination, it will cause your urine to become a bright orange color. This can stain clothing. Care and prevention These self-care steps can help prevent future infections: Drink plenty of fluids to prevent dehydration and flush out your bladder. Do this unless you must restrict fluids for other health reasons, or your doctor told you not to. Proper cleaning after going to the bathroom is important. Wipe from front to back after using the toilet to prevent the spread of bacteria. Urinate more often. Don't try to hold urine in for a long time. Wear loose-fitting clothes and cotton underwear. Avoid tight-fitting pants. Improve your diet and prevent constipation. Eat more fresh fruit and vegetables, and fiber, and less junk and fatty foods. Avoid sex until your symptoms are gone. Avoid caffeine, alcohol, and spicy foods. These can irritate your bladder. Urinate right after intercourse to flush out your bladder. If you use control pills and have frequent bladder infections, discuss it with your doctor. Follow-up care Call your healthcare provider if all symptoms are not gone after 3 days of treatment. This is especially important if you have repeat infections. If a culture was done, you will be told if your treatment needs to be changed. If directed, you can call to find out the results. If X-rays were done, you will be told if the results will affect your treatment. Call 911 Call 911 if any of the following occur: Trouble breathing Hard to wake up or confusion Fainting or loss of consciousness Rapid heart rate When to seek medical advice Call your healthcare provider right away if any of these occur: Fever of 100.4 F (38.0 C) or higher, or as directed by your healthcare provider Symptoms are not better by the third day of treatment Back or belly (abdominal) pain that gets worse Repeated vomiting, or unable to keep medicine down Weakness or dizziness Vaginal discharge Pain, redness, or swelling in the outer vaginal area (labia) [id number] [employer] [address] [place] [address], [place] [address]. All rights reserved. This information is not intended as a substitute for professional medical care. Always follow your healthcare professional's instructions. Additional Information VACCINATE! IT SAVES LIVES! Members of the community who have not yet received the COVID-19 vaccine and would like to receive it can visit one of [facility] vaccine clinics. There are many vaccine clinic locations within the [facility]. For locations and available times, please visit [email or web address] It is important to note that some COVID mobile vaccine clinics are held outdoors and may be canceled in rainy or stormy conditions. To learn more about pediatric vaccinations (ages 5-11), we invite you to visit the [employer] webpage. [email or web address] To learn more about the COVID-19 vaccine, we invite you to visit the CDC website for a list of frequently asked questions. https://www.cdc.gov/coronavirus/2 019-ncov/vaccines/faq.html [facility] [employer] Patient Portal Access Instructions: Stay connected with your healthcare team and access your personal medical information anytime with the [facility] Patient Portal. If you would like a full copy of your medical records please contact the [facility] Medical Records Department Thursday through Thursday between 8a.m. and 4:30p.m. Please follow the directions below to access the portal: 1.Access the email account you provided upon registration to the hospital.2.Look for an invitation email from [facility].3.Open the email and access the invitation link: Accept Invitation to [facility].Fill in the required hamilton to create your account. Sign into [email or web address] with your username and password that you created in the above steps to stay up to date. You can then view a summary of results, a summary of your visits, and the ability to download your summaries to your computer or send the information securely to a physician. Remember that your healthcare information is confidential, so carefully consider who you will allow to register on the [facility] Patient Portal for access to your information. You can also access the [facility] Patient Portal on the [employer] korey. Simply click on Health Records under Health Data and then click on the [employer] logo. HOW TO SAFELY DISPOSE OF PRESCRIPTION MEDICATIONS Please use one of the following methods to safely dispose of your unused medications. 1.Use a drug disposal kit: the drug disposal pouch allows you to safely discard your old and unused drugs. Ask your nurse to give you one when you are discharged.2.Visit a local take-back location: Many local pharmacies and police departments have programs that collect old and unwanted prescription drugs. Call your local pharmacy or go to http://[email or web address]/8R4Ds7b to find one close to you.3.Make use of household items: Use cat litter or old coffee grounds to dispose medications if other options are not available. Mix your drugs with these household products, seal them in an airtight container and throw it into the garbage. Call [facility]: [phone] to be sure your drugs can be disposed of in this way. Some medicines may require a different approach.4.Never flush your medications down the toilet. IF YOU HAVE BEEN PRESCRIBED AN OPIOIDS FOR PAIN If you have been prescribed an opioid (such as hydrocodone, oxycodone or morphine), it is critical to understand the possible side effects and risks of opioid pain medications. Even when taken as directed, opioids can have several side effects including: Tolerance, meaning you might need to take more of a medication for the same pain relief. Nausea, vomiting and/or constipation. Sleepiness, dizziness, dry mouth, confusion, depression or itching. Physical dependence, meaning you have withdrawal symptoms when a medication is stopped ? this can develop within a few days. KNOW YOUR RESPONSIBILITIES It is important to know exactly how much and how often to take the opioid pain medications you are prescribed. Never take opioids in higher amounts or more often than prescribed. Do not combine opioids with alcohol or other drugs that cause drowsiness, such as benzodiazepines, also known as benzos, including diazepam and alprazolam, muscle relaxants or sleep aids. Never sell or share prescription opioids. This is illegal. Store opioids in a secure place and out of reach of others (including children, family, friends and visitors). The last page(s) of this document has been signed and retained as a CHART COPY Signatures Patient Education Materials Bladder Infection, Female (Adult) Bladder Infection, Female (Adult) Medication Leaflets My discharge plan and instructions have been reviewed and explained to me and I,KAELYN MADDOX understand my current condition and have read and understand these discharge instructions. I have received a written copy of the plan/instructions. If I have questions, I am aware that I should contact my doctor. Patient/Referral Specialist Signature: Date/Time: Relationship to Patient: ____ Witness Name/Signature: Date/Time: [facility] 12-09-2022 Note ORIGINAL EXAMINATION: CT OF THE ABDOMEN AND PELVIS WITHOUT CONTRAST 12/09/2022 9:11 pm TECHNIQUE: CT of the abdomen and pelvis was performed without the administration of intravenous contrast. Multiplanar reformatted images are provided for review. Automated exposure control, iterative reconstruction, and/or weight based adjustment of the mA/kV was utilized to reduce the radiation dose to as low as reasonably achievable. COMPARISON: None. HISTORY: ORDERING SYSTEM PROVIDED HISTORY: Reason for Exam: R flank pain, concern for kidney stone FINDINGS: Lower Chest: Lung bases are clear. Organs: Hepatomegaly with the liver measuring 22.3 cm in craniocaudal dimension. Borderline splenomegaly with the spleen measuring 14.5 cm in AP dimension. Otherwise normal liver, spleen, pancreas, and adrenal glands. Status post cholecystectomy. No renal calculi or hydronephrosis. GI/Bowel: Small and large bowel are normal in caliber. Normal appendix. Pelvis: No bladder wall thickening. Status post hysterectomy. No adnexal mass. Peritoneum/Retroperitoneum: No free fluid or air. Nonaneurysmal aorta. No lymphadenopathy. Bones/Soft Tissues: No aggressive osseous lesion. Mild subcutaneous infiltrative changes at the lower abdominal pannus. Lower anterior abdominal midline scarring. IMPRESSION: No renal calculi or hydronephrosis. Mild hepatosplenomegaly. Mild subcutaneous infiltrative changes at the lower abdominal pannus. Recommend correlation for signs of cellulitis. I have personally reviewed the images of this examination and agree with the resident's findings and interpretation. Interpreted by: Pedro Luis Morales MD Preliminary Report By: Chuy Weiss Electronically signed By Pedro Luis Morales MD Dictated Date: 12/09/2022 9:19:10 PM Prelim Date: 12/09/2022 9:23:50 PM Sign Date: 12/09/2022 9:57:05 PM Ordering Provider: ADELA [facility] 12-09-2022 Note ORIGINAL EXAMINATION: CT OF THE ABDOMEN AND PELVIS WITHOUT CONTRAST 12/09/2022 9:11 pm TECHNIQUE: CT of the abdomen and pelvis was performed without the administration of intravenous contrast. Multiplanar reformatted images are provided for review. Automated exposure control, iterative reconstruction, and/or weight based adjustment of the mA/kV was utilized to reduce the radiation dose to as low as reasonably achievable. COMPARISON: None. HISTORY: ORDERING SYSTEM PROVIDED HISTORY: Reason for Exam: R flank pain, concern for kidney stone FINDINGS: Lower Chest: Lung bases are clear. Organs: Hepatomegaly with the liver measuring 22.3 cm in craniocaudal dimension. Borderline splenomegaly with the spleen measuring 14.5 cm in AP dimension. Otherwise normal liver, spleen, pancreas, and adrenal glands. Status post cholecystectomy. No renal calculi or hydronephrosis. GI/Bowel: Small and large bowel are normal in caliber. Normal appendix. Pelvis: No bladder wall thickening. Status post hysterectomy. No adnexal mass. Peritoneum/Retroperitoneum: No free fluid or air. Nonaneurysmal aorta. No lymphadenopathy. Bones/Soft Tissues: No aggressive osseous lesion. Mild subcutaneous infiltrative changes at the lower abdominal pannus. Lower anterior abdominal midline scarring. IMPRESSION: No renal calculi or hydronephrosis. Mild hepatosplenomegaly. Mild subcutaneous infiltrative changes at the lower abdominal pannus. Recommend correlation for signs of cellulitis. I have personally reviewed the images of this examination and agree with the resident's findings and interpretation. Interpreted by: Pedro Luis Morales MD Preliminary Report By: Chuy Weiss Electronically signed By Pedro Luis Morales MD Dictated Date: 12/09/2022 9:19:10 PM Prelim Date: 12/09/2022 9:23:50 PM Sign Date: 12/09/2022 9:57:05 PM Ordering Provider: ADELA MEDRANO [facility] 12-09-2022 Evaluation + Plan note Diagnostic Tests PendingUrine Culture 12/09/22 [facility] 11-21-2022 Emergency department Note Assisted Dr. Dawkins in a visual exam of the vaginal area. Patient provided with an ice pack [facility] 11-21-2022 Emergency department Note Assisted Dr. Dawkins in a visual exam of the vaginal area. Patient provided with an ice pack History Chief Complaint Patient presents with Other Burning and itching in vagina and groin area after getting in hot tube approximately 5 to 6 hours ago. 42-year-old female presents with red irritated skin after being in a hot tub earlier today. Patient reports area in question is in her groin and pubic area, denies fevers or chills, denies nausea vomiting, denies chest pain shortness of breath, denies dysuria, hematuria or frequency, denies vaginal bleeding or discharge. Past Medical History: Diagnosis Date Diabetes mellitus No past surgical history on file. History reviewed. No pertinent family history. Social History Tobacco Use Smoking status: Never Smokeless tobacco: Never Vaping Use Vaping Use: Never used Substance Use Topics Alcohol use: Never Drug use: Never Review of Systems Constitutional: Negative for chills and fever. Respiratory: Negative for shortness of breath. Cardiovascular: Negative for chest pain. Gastrointestinal: Negative for nausea and vomiting. Genitourinary: Negative for dysuria, frequency, hematuria, vaginal bleeding and vaginal discharge. Skin: Positive for rash. All other systems reviewed and are negative. Physical Exam BP 118/79 Pulse 77 Temp 98.3 F (36.8 C) (Oral) Resp 12 Ht 1.651 m (5' 5) SpO2 96% Smoking Status Never Physical Exam Nursing note reviewed. Constitutional: Appearance: She is not toxic-appearing. HENT: Head: Normocephalic and atraumatic. Eyes: Extraocular Movements: Extraocular movements intact. Pupils: Pupils are equal, round, and reactive to light. Cardiovascular: Rate and Rhythm: Normal rate and regular rhythm. Pulmonary: Effort: Pulmonary effort is normal. Breath sounds: Normal breath sounds. Abdominal: General: There is no distension. Palpations: Abdomen is soft. Musculoskeletal: General: No deformity. Normal range of motion. Skin: General: Skin is warm and dry. Comments: Hair follicles in the pubic and inguinal regions with inflamed bases without evidence purulence or fluctuance Neurological: General: No focal deficit present. Mental Status: She is alert. Motor: No weakness. ED Course Procedures Medical Decision Making 42-year-old female presents with hot tub folliculitis. Physical examination as above. Vital signs within normal limits. Patient given discharge instructions for folliculitis, instructed follow-up with PCP, instructed to use OTC medications for symptomatic treatment. Coleman Dawkins DO 11/21/22 0219 documented in this encounter [facility] Work Phone: 11-21-2022 Physician Emergency department Note History Chief Complaint Patient presents with Other Burning and itching in vagina and groin area after getting in hot tube approximately 5 to 6 hours ago. 42-year-old female presents with red irritated skin after being in a hot tub earlier today. Patient reports area in question is in her groin and pubic area, denies fevers or chills, denies nausea vomiting, denies chest pain shortness of breath, denies dysuria, hematuria or frequency, denies vaginal bleeding or discharge. Past Medical History: Diagnosis Date Diabetes mellitus No past surgical history on file. History reviewed. No pertinent family history. Social History Tobacco Use Smoking status: Never Smokeless tobacco: Never Vaping Use Vaping Use: Never used Substance Use Topics Alcohol use: Never Drug use: Never Review of Systems Constitutional: Negative for chills and fever. Respiratory: Negative for shortness of breath. Cardiovascular: Negative for chest pain. Gastrointestinal: Negative for nausea and vomiting. Genitourinary: Negative for dysuria, frequency, hematuria, vaginal bleeding and vaginal discharge. Skin: Positive for rash. All other systems reviewed and are negative. Physical Exam BP 118/79 Pulse 77 Temp 98.3 F (36.8 C) (Oral) Resp 12 Ht 1.651 m (5' 5) SpO2 96% Smoking Status Never Physical Exam Nursing note reviewed. Constitutional: Appearance: She is not toxic-appearing. HENT: Head: Normocephalic and atraumatic. Eyes: Extraocular Movements: Extraocular movements intact. Pupils: Pupils are equal, round, and reactive to light. Cardiovascular: Rate and Rhythm: Normal rate and regular rhythm. Pulmonary: Effort: Pulmonary effort is normal. Breath sounds: Normal breath sounds. Abdominal: General: There is no distension. Palpations: Abdomen is soft. Musculoskeletal: General: No deformity. Normal range of motion. Skin: General: Skin is warm and dry. Comments: Hair follicles in the pubic and inguinal regions with inflamed bases without evidence purulence or fluctuance Neurological: General: No focal deficit present. Mental Status: She is alert. Motor: No weakness. ED Course Procedures Medical Decision Making 42-year-old female presents with hot tub folliculitis. Physical examination as above. Vital signs within normal limits. Patient given discharge instructions for folliculitis, instructed follow-up with PCP, instructed to use OTC medications for symptomatic treatment. Coleman Dawkins DO 11/21/22 0219 [facility] Work Phone: 11-05-2022 History of Present illness Narrative [facility] C[facility] BARIATRIC NUTRITION ASSESSMENT / DIET & EXERCISE SURGICAL WEIGHT LOSS MANAGEMENT PROGRAM Telehealth Date: 11/05/22 Patient Name: Kaelyn Maddox Date of : 1980 Type of Assessment: [x] Surgical Patient - Pre-op follow up Assessment Weight Metrics: Today's Height: Today's Weight: telehealth Today's BMI: There is no height or weight on file to calculate BMI. Surgeon: Dr. Nugent Surgical Procedure: [x] NENO Preop Diet: 2 wks CURRENT EATING BEHAVIORS: Eating small/frequent meals. Can increase lean proteins/fluids CURRENT EATING HABITS/ADDITIONAL INFORMATION 24 Hour Recall completed: Yes Breakfast: apple + kiwi Snack: n/a Lunch: protein shake Snacks: grapes + wheat thins Dinner: chicken natalie w/ small amount of sauce Snack: n/a Drinks: zero sugar powerade. KNOWLEDGE AND EDUCATION ASSESSMENT AND PLAN Patient's level of knowledge regarding the changes that will have to be made in their diet following weight loss surgery is: [x] Excellent - patient is well informed. Areas of concern include: Ensure a protein at all meals. Ensure 64 oz fluid/day Current eating practices that will require change with surgery: Protein, fluids RECOMMENDATIONS AND PLAN [x] Educational Materials Provided [x]Strategies for Eating handout given to and discussed with patient [x] Patient cleared for weight loss surgery Patient able to state major diet changes that need to be made following surgery Patient states/demonstrates readiness to make necessary diet changes Diagnoses: Obesity Pt has completely cut out pop. Has cut out caffeine and sugar completely. Can increase fluids to 64oz/day consistently. Ensure a protein at all meals. Has done well with fruits/veg/whole grains and eliminating simple CHO. Pt well knowledgeable and motivated. Pt is cleared for WLS. Pt was notified of nutrition clearance at today's OV. Pt is making gradual changes as discussed. Goals 1. 64 oz sugar/caffeine/carbonation free fluids 2. Ensure a protein at all meals Bariatric Nutrition Assessment completed by: Jacque Albarran RD Patient was seen today via Telehealth by agreement and consent in light of the current COVID-19 pandemic. I used the following Telehealth technology: Audio and video capabilities Patient location: Home. This patient encounter is appropriate and reasonable under the circumstances given the patient's particular presentation at this time. The patient has been advised of the potential risks and limitations of this mode of treatment (including but not limited to the absence of in-person examination) and has agreed to be treated in a remote fashion in spite of them. Any and all of the patient's/patient's family's questions on this issue have been answered and I have made no promises or guarantees to the patient. The patient has also been advised to contact this office for worsening conditions or problems, and seek emergency medical treatment and/or call 911 if the patient deems either necessary. The patient stated that they are currently in the state [facility]. If the patient is a minor, permission has been obtained by the parent or guardian for the patient to receive medical care at this visit. documented in this encounter [facility] 11-05-2022 History of Present illness Narrative [facility] BARIATRIC CARE CENTER BARIATRIC NUTRITION ASSESSMENT / DIET & EXERCISE SURGICAL WEIGHT LOSS MANAGEMENT PROGRAM Telehealth Date: 11/05/22 Patient Name: Kaelyn Maddox Date of : 1980 Type of Assessment: [x] Surgical Patient - Pre-op follow up Assessment Weight Metrics: Today's Height: Today's Weight: telehealth Today's BMI: There is no height or weight on file to calculate BMI. Surgeon: Dr. Nugent Surgical Procedure: [x] NENO Preop Diet: 2 wks CURRENT EATING BEHAVIORS: Eating small/frequent meals. Can increase lean proteins/fluids CURRENT EATING HABITS/ADDITIONAL INFORMATION 24 Hour Recall completed: Yes Breakfast: apple + kiwi Snack: n/a Lunch: protein shake Snacks: grapes + wheat thins Dinner: chicken natalie w/ small amount of sauce Snack: n/a Drinks: zero sugar powerade. KNOWLEDGE AND EDUCATION ASSESSMENT AND PLAN Patient's level of knowledge regarding the changes that will have to be made in their diet following weight loss surgery is: [x] Excellent - patient is well informed. Areas of concern include: Ensure a protein at all meals. Ensure 64 oz fluid/day Current eating practices that will require change with surgery: Protein, fluids RECOMMENDATIONS AND PLAN [x] Educational Materials Provided [x]Strategies for Eating handout given to and discussed with patient [x] Patient cleared for weight loss surgery Patient able to state major diet changes that need to be made following surgery Patient states/demonstrates readiness to make necessary diet changes Diagnoses: Obesity Pt has completely cut out pop. Has cut out caffeine and sugar completely. Can increase fluids to 64oz/day consistently. Ensure a protein at all meals. Has done well with fruits/veg/whole grains and eliminating simple CHO. Pt well knowledgeable and motivated. Pt is cleared for WLS. Pt was notified of nutrition clearance at todays . Pt is making gradual changes as discussed. Goals 1. 64 oz sugar/caffeine/carbonation free fluids 2. Ensure a protein at all meals Bariatric Nutrition Assessment completed by: Jacque Albarran RD Patient was seen today via Telehealth by agreement and consent in light of the current COVID-19 pandemic. I used the following Telehealth technology: Audio and video capabilities Patient location: Home. This patient encounter is appropriate and reasonable under the circumstances given the patient's particular presentation at this time. The patient has been advised of the potential risks and limitations of this mode of treatment (including but not limited to the absence of in-person examination) and has agreed to be treated in a remote fashion in spite of them. Any and all of the patient's/patient's family's questions on this issue have been answered and I have made no promises or guarantees to the patient. The patient has also been advised to contact this office for worsening conditions or problems, and seek emergency medical treatment and/or call 911 if the patient deems either necessary. The patient stated that they are currently in the [facility]. If the patient is a minor, permission has been obtained by the parent or guardian for the patient to receive medical care at this visit. documented in this encounter [facility] 10-31-2022 Telephone encounter Note Sent pt Garret calixto regarding low vit D and low end normal b12 and discussing lipid panel with PCP. [facility] 10-31-2022 Telephone encounter Note ----- Message from GAB Frausto CNP sent at 10/31/2022 6:31 AM EST ----- B 12 low normal. Please advise her to reach out to pcp regarding lipids. [facility] 10-31-2022 Miscellaneous Notes Sent pt Mychart msg regarding low vit D and low end normal b12 and discussing lipid panel with PCP. ----- Message from GAB Frausto CNP sent at 10/31/2022 6:31 AM EST ----- B 12 low normal. Please advise her to reach out to pcp regarding lipids. documented in this encounter [facility] 10-29-2022 Telephone encounter Note Sent pt MyChart message regarding low vitamin D at 15. Will add 4000 I U daily. Will monitor levels postoperatively. [facility] 10-29-2022 Miscellaneous Notes Sent pt MyChart message regarding low vitamin D at 15. Will add 4000 I U daily. Will monitor levels postoperatively. ----- Message from GAB Frausto CNP sent at 10/29/2022 2:33 PM EST ----- Thx!! documented in this encounter [facility] 10-29-2022 Telephone encounter Note ----- Message from GAB Frausto CNP sent at 10/29/2022 2:33 PM EST ----- Thx!! [facility] 10-29-2022 Note BARIATRIC CARE CENTE R SURGICAL WEIGHT LOSS MANAGEMENT PROGRAM PROGRESS NOTE FOLLOW UP Patient: Kaelyn Maddox Date of : 1980 Service Date: 10/29/2022 DE Visit number: 7 of 6 Pre Program Weight Metrics Date of Initial Consultation: 05/23/22 Initial Weight: 252 lbs Initial BMI: 42.03 Golf Body Weight: 134 lb Excess Body Weight: 118 lbs Follow Up Weight Metrics Last Three Weights Including Today's Weight: Wt Readings from Last 3 Encounters: 10/14/22 260 lb (118 kg) 10/10/22 262 lb 12.8 oz (119 kg) 09/01/22 260 lb (118 kg) Today's BMI: BMI: 43.84 %EBWL: % EBWL: % Weight Chance Since Last Visit: Weight Change: .7 lbs Weight Change from Initial DE/SPR Weight: Total Weight Change: Non-Surg Weight on File> lbs Patient has the following question(s): none Falls Risk Assessment Patient does nottake medications which affect BP or mental status Patient does not have newly prescribed or changed dosage of medications within past 30 days which affect BP or mental status Patient has not fallen in the past 2 months Patient does notdemonstrate unsteady gait Patient uses the following ambulatory assistive devices: nONE Patient states the presence of the following traits which increases risk of fall: nONE Patient is not on home O2 Completed by: [facility] 10-29-2022 History of Present illness Narrative [facility] [address] [address] Dept: [phone] Dept Reason for Visit: Follow-up History of Present Illness: primary symptoms Pertinent negatives include no chest pain, congestion, coughing, fatigue, fever or headaches. Kaelyn Maddox is a 42 y.o. female patient with significant PMH of Obesity and DM. Patient was referred to pulmonology for bariatric surgical clearance. She was evaluated by Dr. Ramos 08/2022 and a sleep study was ordered. Denies any history of respiratory diseases or tobacco abuse. Denies coughing, wheezing, chest tightness, SOB, or chest pain. Lowell Score 9 Patient goes to bed at 10 pm and gets up at 530. Patient quickly falls asleep. Describes sleep as restful. She does wake up refreshed. Denies waking up with AM FOY. Denies daytime hypersomnolence. Denies leg movement, nocturia, and parasomnia. [employer] Questionnaire: SNORING: Do you snore loudly (loud enough to be heard through closed doors or your bed-partner elbows you for snoring at night)? yes TIRED: Do you often feel tired, fatigued or sleepy during the daytime (such as falling asleep during driving or talking to someone)? no OBSERVED: Has anyone observed you stop breathing or choking/gasping during your sleep? no PRESSURE: Do you have or are you being treated for high blood pressure? no BODY MASS INDEX >35: Body mass index is 43.9 kg/m . yes AGE >50: 42 y.o. no NECK SIZE LARGE: (measured around the Uziel's apple) For male, is your shirt collar 17 inches or larger? For female, is your shirt collar 16 inches or larger? no GENDER: Male SCORE: 0-2 low risk Score 1 point for each YES answer: Past Medical History: Past Medical History: Diagnosis Date Anemia Back pain Circulation problem Daytime sleepiness Difficulty sleeping Dizziness Fatigue History of UTI Joint pain, hip Joint pain, knee Snoring SOBOE (shortness of breath on exertion) Type 2 diabetes mellitus with ophthalmic complication, without long-term current use of insulin (HCC) Social History: Social History Socioeconomic History Marital status: Tobacco Use Smoking status: Never Smokeless tobacco: Never Vaping Use Vaping Use: Never used Substance and Sexual Activity Alcohol use: Not Currently Drug use: Never Sexual activity: Yes Partners: Male control/protection: None Family History: Family History Problem Relation Name Age of Onset Stroke Maternal Grandfather Miriam Hypertension Maternal Grandfather Miriam Heart disease Maternal Grandfather Miriam Hypertension Mother Mom Diabetes Father Jom Stroke Father Jom Stroke Paternal Grandfather Glen Hypertension Paternal Grandfather Glen Cancer Paternal Grandfather Glen Diabetes Paternal Grandfather Glen Heart disease Paternal Grandfather Glen Hypertension Paternal Grandmother Gma Hypertension Maternal Grandmother Gma ROS: Review of Systems Constitutional: Negative for activity change, fatigue and fever. HENT: Negative for congestion, postnasal drip and rhinorrhea. Respiratory: Negative for cough, chest tightness, shortness of breath and wheezing. Cardiovascular: Negative for chest pain, palpitations and leg swelling. Neurological: Negative for dizziness and headaches. Medications: @MEDCMED@ Allergies: Allergies Allergen Reactions Hydromorphone Other Mood changes very mean Metformin Vital Signs: BP 110/80 (BP Location: Left arm, Patient Position: Sitting, BP Cuff Size: Large adult) Pulse 90 Resp 16 Ht 5' 5 (1.651 m) Wt 263 lb 12.8 oz (120 kg) SpO2 96% Comment: ra BMI 43.90 kg/m Physical Exam: Physical Exam Vitals reviewed. Constitutional: General: She is not in acute distress. Appearance: Normal appearance. She is normal weight. HENT: Mouth/Throat: Pharynx: No oropharyngeal exudate or posterior oropharyngeal erythema. Eyes: Extraocular Movements: Extraocular movements intact. Cardiovascular: Rate and Rhythm: Regular rhythm. Heart sounds: No murmur heard. No friction rub. No gallop. Pulmonary: Effort: Pulmonary effort is normal. No accessory muscle usage, prolonged expiration or respiratory distress. Breath sounds: No stridor, decreased air movement or transmitted upper airway sounds. No decreased breath sounds, wheezing, rhonchi or rales. Comments: Lungs are clear and moving adequate air. No respiratory distress or conversational dyspnea. Chest: Chest wall: No tenderness. Neurological: Mental Status: She is alert. Assessment and Plan: Diagnosis Plan 1. Pre-operative clearance Patient is low risk for post op pulmonary complications. 2. VIKTOR (obstructive sleep apnea) Stop Bang Score 2; Lowell Score 9. Sleep study revealed mild VIKTOR with hypoxia for 11 minutes. Mild VIKTOR will most likely resolve with bariatric surgery. Hypoxia is not significant and most likely to obesity. Follow-up: Follow up if symptoms worsen or fail to improve. On this date, 10/29/2022 I have spent 15 minutes reviewing previous notes, test results and face to face with the patient discussing the diagnosis and importance of compliance with the treatment plan as well as documenting on the day of the visit. documented in this encounter [facility] 10-29-2022 Instructions Harika Flores MA - 10/29/2022 9:40 AM EST YOUR APPOINTMENT TODAY WAS WITH THE [facility], COPD CLINIC, PULMONARY AND SLEEP MEDICINE OFFICE. PLEASE CALL OUR OFFICE AT [phone] IF YOU HAVE NOT RECEIVED YOUR TEST RESULTS 7 DAYS AFTER TESTING IS COMPLETED. PLEASE REMEMBER TO REQUEST REFILLS AT YOUR OFFICE VISITS. PHONE/FAX REQUESTS REQUIRE 48-72 HOURS FOR RESPONSE. A FRIENDLY REMINDER COPAYS ARE DUE AT TIME OF SERVICE. THANK YOU. Our Patients Are Important! We want to improve and you can help. After your visit we want you to feel: Listened to, Respected and have your health care explained. You may receive a survey asking you about your visit. Please complete the survey. We will use your feedback to make improvements. COVID-19 VACCINATION INFORMATION: PH. [phone] [email or web address] [facility] Central Scheduling [phone] [facility] Sleep Scheduling [phone] documented in this encounter [facility] 10-29-2022 History of Present illness Narrative [facility] SURGICAL WEIGHT LOSS MANAGEMENT PROGRAM PROGRESS NOTE FOLLOW UP Patient: aKelyn Maddox Date of : 1980 Service Date: 10/29/2022 DE Visit number: 7 of 6 Pre Program Weight Metrics Date of Initial Consultation: 05/23/22 Initial Weight: 252 lbs Initial BMI: 42.03 Golf Body Weight: 134 lb Excess Body Weight: 118 lbs Follow Up Weight Metrics Last Three Weights Including Today's Weight: Wt Readings from Last 3 Encounters: 10/14/22 260 lb (118 kg) 10/10/22 262 lb 12.8 oz (119 kg) 09/01/22 260 lb (118 kg) Today's BMI: BMI: 43.84 %EBWL: % EBWL: <UNK>% Weight Chance Since Last Visit: Weight Change: .7 lbs Weight Change from Initial DE/SPR Weight: Total Weight Change: <No Previous Non-Surg Weight on File> lbs Patient has the following question(s): none Falls Risk Assessment Patient does nottake medications which affect BP or mental status Patient does not have newly prescribed or changed dosage of medications within past 30 days which affect BP or mental status Patient has not fallen in the past 2 months Patient does notdemonstrate unsteady gait Patient uses the following ambulatory assistive devices: nONE Patient states the presence of the following traits which increases risk of fall: nONE Patient is not on home O2 Completed by: Paula Adan HPI, PHYSICAL EXAM, AND PLAN Patient is here today for follow up of their physician supervised diet and exercise in preparation for weight loss surgery. Weight trend since last visit: stable/unchanged This patient's excess weight is causing the following co-morbid conditions at this time DM Plan: Physical Examination: BP 125/84 Pulse 65 Ht 5' 5 (1.651 m) Wt 263 lb 9.6 oz (120 kg) BMI 43.87 kg/m General: This patient is alert and oriented X3 General: This patient is awake, alert, and oriented, and is in no apparent distress. Extremities: No cyanosis, clubbing or edema/ No calf tenderness/No restrictions of movement, is ambulatory without assistance. Neurological: Intact x 4 extremities, no focal deficits notes. Skin: No rashes or lesions noted. Assessment of Current Diet and Exercise Current Diet This patient s current diet is: 80% meal plan Her diet contains adequate amounts of protein, inadequate amounts of healthy fats, adequate amounts of green, leafy vegetables, and adequate amounts of fruits. Her comfort foods include: none Current Activity This patient currently does exercise for 30 Minutes per session, 4 times per week, including the following: walking. Current Eating Behaviors This patients demonstrates the following behaviors as they relate to her eating: structured She eats approximately 5-6 times per day. Her last meal/snack was at 6 am/pm. Plan: DM: continue medical management, DE and plan for metabolic weight loss surgery. stable. continue medical management, Diet & Exercise, and plan for metabolic weight loss surgery. Advised patient that She must continue to adhere to regular monthly visits to meet the requirements of her insurance company. Additionally, She is to adopt eating plan recommendations and show weight loss trend to demonstrate readiness for the changes that will be required following surgery. Patient's weight pattern does demonstrates meal plan adoption and weight loss each month Physician Diet Recommendations provided in Patient Instructions Patient: [x] To return in one month for follow up. Comorbids managing [] Has completed insurance required monthly diet and exercise series [] Needs to continue monthly visits until surgery Other: Current Meds Patient's Medications New Prescriptions No medications on file Previous Medications CETIRIZINE (ZYRTEC) 10 MG TABLET Take 10 mg by mouth. EMPAGLIFLOZIN (JARDIANCE) 25 MG Take 25 mg by mouth. FLUTICASONE (FLONASE) 50 MCG/ACT NASAL SPRAY place 2 sprays into each nostril once daily LANCETS (ONETOUCH DELICA PLUS [id number]) [facility] [place] 1 LANCET to TEST BLOOD SUGAR once daily MECLIZINE (ANTIVERT) 25 MG TABLET Take 25 mg by mouth if needed. ONDANSETRON ODT (ZOFRAN-ODT) 4 MG DISINTEGRATING TABLET dissolve 1 tablet ON TONGUE every 8 hours if needed for nausea and vomiting ONETOUCH VERIO TEST STRIP TEST BLOOD SUGAR once daily SUMATRIPTAN (IMITREX) 50 MG TABLET Take 50 mg by mouth if needed. Modified Medications No medications on file Discontinued Medications No medications on file I spend a total of 20 minutes on the same day of the visit in discussing/counseling the patient regarding the diet and exercise in the preparation for weight loss surgery.Education on the meal plan and 7 rules of eating is provided. Meal prep is encouraged as a foundation of the meal plan. Food journal is encouraged as a feedback system before and after bariatric surgery. Counseling on no nicotine/alcohol before and after surgery. Exercise and its role in the preparation for weight loss surgery is explained. DM Is associated with obesity and weight loss is discussed as a treatment option for DM Full chart review was performed.Clinical documentation is updated and completed. documented in this encounter [facility] 10-14-2022 History of Present illness Narrative [facility] Cardiology Note Visit type: New : 1980 Chief Complaint: Chief Complaint Patient presents with Pre-op Exam Obesity History of Present Illness: Kaelyn Maddox is a 42 y.o. female who presents today for preoperative cardiovascular valuation prior to bariatric surgery by Dr. Nugent. She has struggled with obesity most of her life and has tried multiple interventions to lose weight to no lasting success. She has been diabetic for about 2 and half years and hopes to be able to eliminate her diabetes with the surgery. 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 She denies excessive shortness of breath with activity, she easily can climb 2 flights of stairs. Family history is negative for premature heart disease in first-degree relatives. All else is negative. Past Medical History: Past Medical History: Diagnosis Date Anemia Back pain Circulation problem Daytime sleepiness Difficulty sleeping Dizziness Fatigue History of UTI Joint pain, hip Joint pain, knee Snoring SOBOE (shortness of breath on exertion) Type 2 diabetes mellitus with ophthalmic complication, without long-term current use of insulin (HCC) Past Surgical History Past Surgical History: Procedure Laterality Date CARPAL TUNNEL RELEASE Right 2020 SECTION (HISTORICAL) 2000 SECTION (HISTORICAL) 2002 SECTION (HISTORICAL) 1997 CHOLECYSTECTOMY 2004 DILATION AND CURETTAGE OF UTERUS 1998 OTHER SURGICAL HISTORY 2006 Essure control springs around fallopian tubes TONSILLECTOMY (HISTORICAL) 2004 TOTAL ABDOMINAL HYSTERECTOMY 2017 Family History Family History Problem Relation Name Age of Onset Stroke Maternal Grandfather Miriam Hypertension Maternal Grandfather Miriam Heart disease Maternal Grandfather Miriam Hypertension Mother Mom Diabetes Father Jom Stroke Father Jom Stroke Paternal Grandfather Glen Hypertension Paternal Grandfather Glen Cancer Paternal Grandfather Glen Diabetes Paternal Grandfather Glen Heart disease Paternal Grandfather Glen Hypertension Paternal Grandmother Gma Hypertension Maternal Grandmother Gma Social History Social History Tobacco Use Smoking status: Never Smokeless tobacco: Never Vaping Use Vaping Use: Never used Substance Use Topics Alcohol use: Not Currently Drug use: Never Allergies: Allergies Allergen Reactions Hydromorphone Other Mood changes very mean Medications: Current Outpatient Medications: cetirizine (ZyrTEC) 10 MG tablet, Take 10 mg by mouth., Disp: , Rfl: empagliflozin (Jardiance) 25 MG, Take 25 mg by mouth., Disp: , Rfl: fluticasone (Flonase) 50 MCG/ACT nasal spray, place 2 sprays into each nostril once daily, Disp: , Rfl: meclizine (Antivert) 25 MG tablet, Take 25 mg by mouth if needed., Disp: , Rfl: ondansetron ODT (Zofran-ODT) 4 MG disintegrating tablet, dissolve 1 tablet ON TONGUE every 8 hours if needed for nausea and vomiting, Disp: , Rfl: SUMAtriptan (Imitrex) 50 MG tablet, Take 50 mg by mouth if needed., Disp: , Rfl: Lancets (OneTouch Delica Plus [id number]) [facility], use 1 LANCET to TEST BLOOD SUGAR once daily, Disp: , Rfl: OneTouch Verio test strip, TEST BLOOD SUGAR once daily, Disp: , Rfl: Review of Systems: Review of Systems Constitutional: Negative for activity change (walks for exercise), chills, diaphoresis, fatigue and fever. HENT: Negative for nosebleeds and trouble swallowing. Eyes: Negative for discharge and visual disturbance. Respiratory: Positive for shortness of breath. Negative for apnea, cough, chest tightness and wheezing. Cardiovascular: Negative for chest pain, palpitations and leg swelling. Gastrointestinal: Negative for abdominal distention, abdominal pain, blood in stool, diarrhea, nausea and vomiting. Endocrine: Negative for cold intolerance and heat intolerance. Genitourinary: Negative for hematuria. Musculoskeletal: Negative for gait problem and myalgias. Skin: Negative for color change and rash. Neurological: Negative for dizziness, seizures, syncope, facial asymmetry, speech difficulty, weakness, light-headedness, numbness and headaches. Hematological: Does not bruise/bleed easily. Psychiatric/Behavioral: Negative for dysphoric mood. Physical Examination: Vitals: Vitals: 10/14/22 1253 BP: 110/64 BP Location: Left arm Patient Position: Sitting BP Cuff Size: Adult Pulse: 77 SpO2: 97% Weight: 260 lb (118 kg) Height: 5' 5 (1.651 m) Body mass index is 43.27 kg/m . Physical Exam Constitutional: Appearance: She is obese. HENT: Head: Normocephalic and atraumatic. Nose: Nose normal. Eyes: Extraocular Movements: Extraocular movements intact. Conjunctiva/sclera: Conjunctivae normal. Neck: Vascular: No carotid bruit. Cardiovascular: Rate and Rhythm: Normal rate and regular rhythm. Pulses: Normal pulses. Heart sounds: Normal heart sounds. No murmur heard. No gallop. Pulmonary: Effort: Pulmonary effort is normal. Breath sounds: Normal breath sounds. No wheezing. Abdominal: General: Bowel sounds are normal. Palpations: Abdomen is soft. Musculoskeletal: Right lower leg: No edema. Left lower leg: No edema. Skin: General: Skin is warm and dry. Neurological: General: No focal deficit present. Mental Status: She is alert and oriented to person, place, and time. Psychiatric: Mood and Affect: Mood normal. Behavior: Behavior normal. Laboratory Tests: No results found for: WBC, HGB, HCT, MCV, PLT No results found for: GLUCOSE, CALCIUM, NA, K, CO2, CL, BUN, CREATININE @LASTCMP@ No results found for: CHLPL, CHOL No results found for: TRIG No results found for: HDL No results found for: LDLCALC No results found for: BNP Cardiac Tests: EC10/14/22 Last Echo: Last stress test: Last cardiac catheterization: Assessment and Plan: 1. Pre-operative clearance 2. Morbid obesity due to excess calories (HCC) Kaelyn Maddox is a pleasant 42-year-old woman physically sufficiently active to easily exceed 4 METS of exercise, in part by virtue of her job. She is asymptomatic, has a normal cardiovascular exam and a normal EKG. Therefore she may proceed with bariatric surgery as planned and scheduled at the low cardiac risk. No testing is recommended. Thank you for allow me to participate in the care of this pleasant lady. I reviewed my assessment and plan with Kaelyn Maddox . All questions were answered. NOTE: This report was transcribed using voice recognition software. Every effort was made to ensure accuracy; however, inadvertent computerized sports physician errors may be present. documented in this encounter [facility] 10-10-2022 Note [facility]GICAL WEIGHT LOSS MANAGEMENT PROGRAM PROGRESS NOTE FOLLOW UP Patient: Kaelyn Maddox Date of : 1980 Service Date: 10/10/2022 DE Visit number: 6 of 6 Pre Program Weight Metrics Date of Initial Consultation:@FLOWLAST([id number])@ Initial Weight: @FLOWLAST([id number])@ Initial BMI: @FLOWLAST([id number])@ Golf Body Weight: @FLOWLAST([id number])@ Excess Body Weight: @FLOWLAST([id number])@ Follow Up Weight Metrics Last Three Weights Including Today's Weight: Wt Readings from Last 3 Encounters: 10/10/22 262 lb 12.8 oz (119 kg) 09/01/22 260 lb (118 kg) 09/01/22 263 lb (119 kg) Today's BMI: BMI: 43.73 %EBWL: % EBWL: % Weight Chance Since Last Visit: Weight Change: -1.4 lbs Weight Change from Initial DE/SPR Weight: Total Weight Change: Non-Surg Weight on File> lbs Patient has the following question(s): none Falls Risk Assessment Patient doestake medications which affect BP or mental status Patient does not have newly prescribed or changed dosage of medications within past 30 days which affect BP or mental status Patient has not fallen in the past 2 months Patient does notdemonstrate unsteady gait Patient uses the following ambulatory assistive devices: none Patient states the presence of the following traits which increases risk of fall: none Patient is not on home O2 Completed by: Shakila Holguin MA [facility] 10-10-2022 History of Present illness Narrative [facility] SURGICAL WEIGHT LOSS MANAGEMENT PROGRAM PROGRESS NOTE FOLLOW UP Patient: Kaelyn Maddox Date of : 1980 Service Date: 10/10/2022 DE Visit number: 6 of 6 Pre Program Weight Metrics Date of Initial Consultation:@FLOWLAST([id number])@ Initial Weight: @FLOWLAST([id number])@ Initial BMI: @FLOWLAST([id number])@ Golf Body Weight: @FLOWLAST([id number])@ Excess Body Weight: @FLOWLAST([id number])@ Follow Up Weight Metrics Last Three Weights Including Today's Weight: Wt Readings from Last 3 Encounters: 10/10/22 262 lb 12.8 oz (119 kg) 09/01/22 260 lb (118 kg) 09/01/22 263 lb (119 kg) Today's BMI: BMI: 43.73 %EBWL: % EBWL: <UNK>% Weight Chance Since Last Visit: Weight Change: -1.4 lbs Weight Change from Initial DE/SPR Weight: Total Weight Change: <No Previous Non-Surg Weight on File> lbs Patient has the following question(s): none Falls Risk Assessment Patient doestake medications which affect BP or mental status Patient does not have newly prescribed or changed dosage of medications within past 30 days which affect BP or mental status Patient has not fallen in the past 2 months Patient does notdemonstrate unsteady gait Patient uses the following ambulatory assistive devices: none Patient states the presence of the following traits which increases risk of fall: none Patient is not on home O2 Completed by: Shakila Holguin MA HPI, PHYSICAL EXAM, AND PLAN Patient is here today for follow up of their physician supervised diet and exercise in preparation for weight loss surgery. Weight trend since last visit: stable/unchanged This patient's excess weight is causing the following co-morbid conditions at this time DM Plan: Physical Examination: BP 117/75 Pulse 88 Resp 16 Ht 5' 5 (1.651 m) Wt 262 lb 12.8 oz (119 kg) BMI 43.73 kg/m General: This patient is alert and oriented X3 General: This patient is awake, alert, and oriented, and is in no apparent distress. Extremities: No cyanosis, clubbing or edema/ No calf tenderness/No restrictions of movement, is ambulatory without assistance. Neurological: Intact x 4 extremities, no focal deficits notes. Skin: No rashes or lesions noted. Assessment of Current Diet and Exercise Current Diet This patient s current diet is: 80% meal plan Her diet contains adequate amounts of protein, inadequate amounts of healthy fats, adequate amounts of green, leafy vegetables, and adequate amounts of fruits. Her comfort foods include: none Current Activity This patient currently does exercise for 30 Minutes per session, 3 times per week, including the following: walking. Current Eating Behaviors This patients demonstrates the following behaviors as they relate to her eating: structured She eats approximately 5-6 times per day. Her last meal/snack was at 6 am/pm. Plan: DM: continue medical management, DE and plan for metabolic weight loss surgery. stable. continue medical management, Diet & Exercise, and plan for metabolic weight loss surgery. Advised patient that She must continue to adhere to regular monthly visits to meet the requirements of her insurance company. Additionally, She is to adopt eating plan recommendations and show weight loss trend to demonstrate readiness for the changes that will be required following surgery. Patient's weight pattern does demonstrates meal plan adoption and weight loss each month Physician Diet Recommendations provided in Patient Instructions Patient: [] To return in one month for follow up. Comorbids managing [x] Has completed insurance required monthly diet and exercise series [] Needs to continue monthly visits until surgery Other: Current Meds Patient's Medications New Prescriptions No medications on file Previous Medications AZITHROMYCIN (ZITHROMAX) 250 MG TABLET take 2 tablets by mouth on day 1 then 1 daily until finished BENZONATATE (TESSALON) 100 MG CAPSULE take 1 capsule by mouth every 8 hours if needed for cough CEFDINIR (OMNICEF) 300 MG CAPSULE take 1 capsule by mouth every 12 hours for 10 days CETIRIZINE (ZYRTEC) 10 MG TABLET Take 10 mg by mouth. DICLOFENAC SODIUM (VOLTAREN) 1 % GEL apply to affected area up to four times a day EMPAGLIFLOZIN (JARDIANCE) 25 MG Take 25 mg by mouth. FLUCONAZOLE (DIFLUCAN) 150 MG TABLET take 1 tablet by mouth A ONE TIME DOSE FLUTICASONE (FLONASE) 50 MCG/ACT NASAL SPRAY place 2 sprays into each nostril once daily GUAIFENESIN (MUCINEX) 600 MG 12 HR TABLET Take 1,200 mg by mouth in the morning and 1,200 mg in the evening. KETOROLAC (TORADOL) 10 MG TABLET take 1 tablet by mouth four times a day for 5 days if needed for ... (REFER TO PRESCRIPTION NOTES). LANCETS (ONETOUCH DELICA PLUS [id number]) [facility] [place] 1 LANCET to TEST BLOOD SUGAR once daily MECLIZINE (ANTIVERT) 25 MG TABLET Take 25 mg by mouth if needed. NABUMETONE (RELAFEN) 500 MG TABLET Take 500 mg by mouth. Take with food. ONDANSETRON ODT (ZOFRAN-ODT) 4 MG DISINTEGRATING TABLET dissolve 1 tablet ON TONGUE every 8 hours if needed for nausea and vomiting ONETOUCH VERIO TEST STRIP TEST BLOOD SUGAR once daily SUMATRIPTAN (IMITREX) 50 MG TABLET Take 50 mg by mouth if needed. TRIMETHOPRIM-POLYMYXIN B (POLYTRIM) OPHTHALMIC SOLUTION instill 1 drop into right eye every 3 hours for 7 days Modified Medications No medications on file Discontinued Medications No medications on file I spend a total of 20 minutes on the same day of the visit in discussing/counseling the patient regarding the diet and exercise in the preparation for weight loss surgery.Education on the meal plan and 7 rules of eating is provided. Meal prep is encouraged as a foundation of the meal plan. Food journal is encouraged as a feedback system before and after bariatric surgery. Counseling on no nicotine/alcohol before and after surgery. Exercise and its role in the preparation for weight loss surgery is explained. DM Is associated with obesity and weight loss is discussed as a treatment option for DM Full chart review was performed.Clinical documentation is updated and completed. documented in this encounter [facility] 09-29-2022 Telephone encounter Note Name of Caller: Kaelyn Contact Reason for Appointment: pt would like a appt to get cleared Office Name: [facility] Medication Refills need, if any: n/a Medication Name: n/a [facility] 09-29-2022 Miscellaneous Notes Name of Caller: Kaelyn Contact Reason for Appointment: pt would like a appt to get cleared Office Name: [facility] Medication Refills need, if any: n/a Medication Name: n/a documented in this encounter [facility] 09-19-2022 Note [facility] WEIGHT LOSS MANAGEMENT PROGRAM PROGRESS NOTE FOLLOW UP Patient: Kaelyn Maddox Date of : 1980 Service Date: 09/19/2022 DE Visit number: 5 of 6 Pre Program Weight Metrics Date of Initial Consultation:@FLOWLAST([id number])@ Initial Weight: @FLOWLAST([id number])@ Initial BMI: @FLOWLAST([id number])@ Golf Body Weight: @FLOWLAST([id number])@ Excess Body Weight: @FLOWLAST([id number])@ Follow Up Weight Metrics Last Three Weights Including Today's Weight: Wt Readings from Last 3 Encounters: 09/01/22 260 lb (118 kg) 09/01/22 263 lb (119 kg) 08/27/22 262 lb 6.4 oz (119 kg) Today's BMI: BMI: 43.96 %EBWL: % EBWL: % Weight Chance Since Last Visit: Weight Change: 1.8 lbs Weight Change from Initial DE/SPR Weight: Total Weight Change: Non-Surg Weight on File> lbs Patient has the following question(s): none Falls Risk Assessment Patient does nottake medications which affect BP or mental status Patient does not have newly prescribed or changed dosage of medications within past 30 days which affect BP or mental status Patient has not fallen in the past 2 months Patient does notdemonstrate unsteady gait Patient uses the following ambulatory assistive devices: NO Patient states the presence of the following traits which increases risk of fall: NO Patient is not on home O2 Patient was seen today via Telehealth by agreement and consent in light of the current COVID-19 pandemic. I used the following Telehealth technology: Telephone VV Patient Location: Home. This patient encounter is appropriate and reasonable under the circumstances given the patient's particular presentation at this time. The patient has been advised of the potential risks and limitations of this mode of treatment (including but not limited to the absence of in-person examination) and has agreed to be treated in a remote fashion in spite of them. Any and all of the patient's/patient's family's questions on this issue have been answered and I have made no promises or guarantees to the patient. The patient has also been advised to contact this office for worsening conditions orproblems, and seek emergency medical treatment and/or call 911 if the patient deems either necessary. The patient stated that they are currently in the [facility]. If the patient is a minor, permission has been obtained by the parent or guardian for the patient to receive medical care at this visit. Completed by: Lizeth Harry MA [facility] 09-01-2022 Note Patient: Kaelyn stewart Procedure Summary Date: 09/01/22 Room / Location: [facility] ENDO SEC 2 / ARCH Gastroenterology Anesthesia Start: 1058 Anesthesia Stop: 1110 Procedure: EGD WITH BIOPSY Diagnosis: Dyspepsia (DYSPEPSIA) Providers: Kenny Nugent MD Responsible Provider: Mal Santos MD Anesthesia Type: TIVA ASA Status: 2 Anesthesia Type: TIVA Vitals Value Taken Time BP 109/88 09/01/22 1134 Temp 98.0 09/01/22 1207 Pulse 71 09/01/22 1134 Resp 18 09/01/22 1134 SpO2 98 % 09/01/22 1134 Anesthesia Post Evaluation Patient location during evaluation: PACU Patient participation: complete - patient participated Level of consciousness: awake and alert Pain management: satisfactory to patient Airway patency: patent Dental Injury: no Cardiovascular status: acceptable, blood pressure returned to baseline and hemodynamically stable Respiratory status: acceptable and spontaneous ventilation Hydration status: euvolemic Nausea/Vomiting: controlled No notable events documented. Patient can be discharged once all PACU criteria has been met. [facility] 09-01-2022 Note Patient: Kaelyn stewart Procedure Summary Date: 09/01/22 Room / Location: [facility] ARCH ENDO SEC 2 / ARCH Gastroenterology Anesthesia Start: 1058 Anesthesia Stop: 1110 Procedure: EGD WITH BIOPSY Diagnosis: Dyspepsia (DYSPEPSIA) Providers: Kenny Nugent MD Responsible Provider: Mal Santos MD Anesthesia Type: TIVA ASA Status: 2 Anesthesia Type: TIVA Vitals Value Taken Time BP 109/88 09/01/22 1134 Temp 98.0 09/01/22 1207 Pulse 71 09/01/22 1134 Resp 18 09/01/22 1134 SpO2 98 % 09/01/22 1134 Anesthesia Post Evaluation Patient location during evaluation: PACU Patient participation: complete - patient participated Level of consciousness: awake and alert Pain management: satisfactory to patient Airway patency: patent Dental Injury: no Cardiovascular status: acceptable, blood pressure returned to baseline and hemodynamically stable Respiratory status: acceptable and spontaneous ventilation Hydration status: euvolemic Nausea/Vomiting: controlled No notable events documented. Patient can be discharged once all PACU criteria has been met. [facility] 09-01-2022 Note Patient: Kaelyn stewart Procedure Summary Date: 09/01/22 Room / Location: [facility] ARCH ENDO SEC 2 / ARCH Gastroenterology Anesthesia Start: 1058 Anesthesia Stop: 111 Procedure: EGD WITH BIOPSY Diagnosis: Dyspepsia (DYSPEPSIA) Providers: Kenny Nugent MD Responsible Provider: Mal Santos MD Anesthesia Type: TIVA ASA Status: 2 Anesthesia Type: TIVA Vitals Value Taken Time BP 109/88 09/01/22 1134 Temp 98.0 09/01/22 1206 Pulse 71 09/01/22 1134 Resp 18 09/01/22 1134 SpO2 98 % 09/01/22 1134 Anesthesia Post Evaluation Patient location during evaluation: PACU Patient participation: complete - patient participated Level of consciousness: awake and alert Pain management: satisfactory to patient Multimodal analgesia pain management approach Airway patency: patent Two or more strategies used to mitigate risk of obstructive sleep apnea Cardiovascular status: acceptable and hemodynamically stable Respiratory status: acceptable Hydration status: acceptable No notable events documented. MIPS #430 PONV Patient did not receive an inhalational anesthetic ([id number] MIPS # [id number] Perioperative Temperature Management Anesthesia time was less than 60 minutes (4256F) MIPS #477 Multimodal Pain Management Not emergent case Patient was not administered multimodal pain management Patient reports no pain in PACU I completed my handoff to the receiving clinician during which we: 1. Identified the patient 2. Identified the responsible provider 3. Reviewed the pertinent medical history 4. Discussed the surgical course 5. Reviewed intra-op anesthesia management and issues during anesthesia 6. Set expectations for post-procedure period 7. Allowed opportunity for questions and acknowledgement of understanding. [facility] 09-01-2022 Note Patient: Kaelyn stewart Procedure Summary Date: 09/01/22 Room / Location: [facility] ARCH ENDO SEC 2 / ARCH Gastroenterology Anesthesia Start: 1058 Anesthesia Stop: 1110 Procedure: EGD WITH BIOPSY Diagnosis: Dyspepsia (DYSPEPSIA) Providers: Kenny Nugent MD Responsible Provider: Mal Santos MD Anesthesia Type: TIVA ASA Status: 2 Anesthesia Type: TIVA Vitals Value Taken Time BP 109/88 09/01/22 1134 Temp 98.0 09/01/22 1206 Pulse 71 09/01/22 1134 Resp 18 09/01/22 1134 SpO2 98 % 09/01/22 1134 Anesthesia Post Evaluation Patient location during evaluation: PACU Patient participation: complete - patient participated Level of consciousness: awake and alert Pain management: satisfactory to patient Multimodal analgesia pain management approach Airway patency: patent Two or more strategies used to mitigate risk of obstructive sleep apnea Cardiovascular status: acceptable and hemodynamically stable Respiratory status: acceptable Hydration status: acceptable No notable events documented. MIPS #430 PONV Patient did not receive an inhalational anesthetic ([id number] MIPS # 424 Perioperative Temperature Management Anesthesia time was less than 60 minutes (4256F) MIPS #477 Multimodal Pain Management Not emergent case Patient was not administered multimodal pain management Patient reports no pain in PACU I completed my handoff to the receiving clinician during which we: 1. Identified the patient 2. Identified the responsible provider 3. Reviewed the pertinent medical history 4. Discussed the surgical course 5. Reviewed intra-op anesthesia management and issues during anesthesia 6. Set expectations for post-procedure period 7. Allowed opportunity for questions and acknowledgement of understanding. [facility] 09-01-2022 Note Endoscopy Center- [facility] Patient Name: Kaelyn Maddox Procedure Date: 09/01/2022 10:58 AM Gender: Female Date of : 1980 Age: 42 Admit Type: Outpatient Note Status: Finalized Endoscopist: Kenny Nugent MD Procedure: Upper GI endoscopy Indications: Functional Dyspepsia, Preoperative assessment for bariatric surgery to treat morbid obesity Findings: The esophagus was normal. The stomach was normal. The examined duodenum was normal. Biopsy with a cold forceps in the gastric antrum was performed for Helicobacter pylori testing. Impression: - Normal esophagus. - Normal stomach. - Normal examined duodenum. - Biopsy was performed in the gastric antrum. Recommendation: - Patient has a contact number available for emergencies. The signs and symptoms of potential delayed complications were discussed with the patient. Return to normal activities tomorrow. Written discharge instructions were provided to the patient. - Return to Bariatric clinic (date not yet determined). Medicines: Monitored Anesthesia Care Procedure: Pre-Anesthesia Assessment: - Prior to the procedure, a History and Physical was performed, and patient medications and allergies were reviewed. The patient's tolerance of previous anesthesia was also reviewed. The risks and benefits of the procedure and the sedation options and risks were discussed with the patient. All questions were answered, and informed consent was obtained. Prior Anticoagulants: The patient has taken no anticoagulant or antiplatelet agents. ASA Grade Assessment: III - A patient with severe systemic disease. After reviewing the risks and benefits, the patient was deemed in satisfactory condition to undergo the procedure. After obtaining informed consent, the endoscope was passed under direct vision. Throughout the procedure, the patient's blood pressure, pulse, and oxygen saturations were monitored continuously. The Endoscope was introduced through the mouth, and advanced to the second part of duodenum. The upper GI endoscopy was accomplished with ease. The patient tolerated the procedure well. Complications: No immediate complications. Procedure Code(s): --- Professional --- 79119, Esophagogastroduodenoscopy, flexible, transoral; with biopsy, single or multiple --- Technical --- 20477, Esophagogastroduodenoscopy, flexible, transoral; with biopsy, single or multiple Diagnosis Code(s): --- Professional --- K30, Functional dyspepsia Z01.818, Encounter for other preprocedural examination E66.01, Morbid (severe) obesity due to excess calories --- Technical --- K30, Functional dyspepsia Z01.818, Encounter for other preprocedural examination E66.01, Morbid (severe) obesity due to excess calories CPT copyright 2020 [employer]. All rights reserved. The codes documented in this report are preliminary and upon data coder operator review may be revised to meet current compliance requirements. Attending Participation: I was present and participated during the entire procedure from insertion to removal of the endoscope. Kenny Nugent MD 09/01/2022 11:13:33 AM This report has been signed electronically. Number of Addenda: 0 Note Initiated On: 09/01/2022 10:58 AM [facility] 09-01-2022 Note Endoscopy Center- [facility] ([facility] Patient Name: Kaelyn Maddox Procedure Date: 09/01/2022 10:58 AM Gender: Female Date of : 1980 Age: 42 Admit Type: Outpatient Note Status: Finalized Endoscopist: Kenny Nugent MD Procedure: Upper GI endoscopy Indications: Functional Dyspepsia, Preoperative assessment for bariatric surgery to treat morbid obesity Findings: The esophagus was normal. The stomach was normal. The examined duodenum was normal. Biopsy with a cold forceps in the gastric antrum was performed for Helicobacter pylori testing. Impression: - Normal esophagus. - Normal stomach. - Normal examined duodenum. - Biopsy was performed in the gastric antrum. Recommendation: - Patient has a contact number available for emergencies. The signs and symptoms of potential delayed complications were discussed with the patient. Return to normal activities tomorrow. Written discharge instructions were provided to the patient. - Return to Bariatric clinic (date not yet determined). Medicines: Monitored Anesthesia Care Procedure: Pre-Anesthesia Assessment: - Prior to the procedure, a History and Physical was performed, and patient medications and allergies were reviewed. The patient's tolerance of previous anesthesia was also reviewed. The risks and benefits of the procedure and the sedation options and risks were discussed with the patient. All questions were answered, and informed consent was obtained. Prior Anticoagulants: The patient has taken no anticoagulant or antiplatelet agents. ASA Grade Assessment: III - A patient with severe systemic disease. After reviewing the risks and benefits, the patient was deemed in satisfactory condition to undergo the procedure. After obtaining informed consent, the endoscope was passed under direct vision. Throughout the procedure, the patient's blood pressure, pulse, and oxygen saturations were monitored continuously. The Endoscope was introduced through the mouth, and advanced to the second part of duodenum. The upper GI endoscopy was accomplished with ease. The patient tolerated the procedure well. Complications: No immediate complications. Procedure Code(s): --- Professional --- 21772, Esophagogastroduodenoscopy, flexible, transoral; with biopsy, single or multiple --- Technical --- 66146, Esophagogastroduodenoscopy, flexible, transoral; with biopsy, single or multiple Diagnosis Code(s): --- Professional --- K30, Functional dyspepsia Z01.818, Encounter for other preprocedural examination E66.01, Morbid (severe) obesity due to excess calories --- Technical --- K30, Functional dyspepsia Z01.818, Encounter for other preprocedural examination E66.01, Morbid (severe) obesity due to excess calories CPT copyright 2020 [employer]. All rights reserved. The codes documented in this report are preliminary and upon data coder operator review may be revised to meet current compliance requirements. Attending Participation: I was present and participated during the entire procedure from insertion to removal of the endoscope. Kenny Nugent MD 09/01/2022 11:13:33 AM This report has been signed electronically. Number of Addenda: 0 Note Initiated On: 09/01/2022 10:58 AM [facility] 09-01-2022 Note Patient: Kaelyn stewart Procedure Information Date/Time: 09/01/22 1100 Procedure: EGD WITH BIOPSY Location: [facility] 95 ARCH ENDO SEC 2 / ARCH Gastroenterology Providers: Kenny Nugent MD Relevant Problems Endo (+) Type 2 diabetes mellitus with ophthalmic complication, without long-term current use of insulin (HCC) Past Medical History: Past Medical History: No date: Anemia No date: Back pain No date: Circulation problem No date: Daytime sleepiness No date: Difficulty sleeping No date: Dizziness No date: Fatigue No date: History of UTI No date: Joint pain, hip No date: Joint pain, knee No date: Snoring No date: SOBOE (shortness of breath on exertion) No date: Type 2 diabetes mellitus with ophthalmic complication, without long-term current use of insulin (HCC) Past Surgical History: Past Surgical History: 2020: CARPAL TUNNEL RELEASE; Right 2005: CHOLECYSTECTOMY 1998: DILATION AND CURETTAGE OF UTERUS 2006: OTHER SURGICAL HISTORY Comment: Essure control springs around fallopian tubes 2017: TOTAL ABDOMINAL HYSTERECTOMY Social History: TOBACCO: reports that she has never smoked. She has never used smokeless tobacco. ETOH: reports that she does not currently use alcohol. Social History Substance and Sexual Activity Drug Use Not Currently Family History: Family History Problem Relation Name Age of Onset ? Stroke Maternal Grandfather ? Hypertension Mother ? Diabetes Father ? Stroke Paternal Grandfather ? Hypertension Paternal Grandfather ? Stroke Father ? Cancer Paternal Grandfather ? Diabetes Paternal Grandfather ? Heart disease Paternal Grandfather ? Hypertension Maternal Grandfather ? Hypertension Paternal Grandmother ? Heart disease Maternal Grandfather ? Hypertension Maternal Grandmother Screening: Hysterectomy Clinical information reviewed: Tobacco Allergies Meds Med Hx Surg Hx OB Status Fam Hx Soc Hx Physical Exam Airway Mallampati: II TM distance: >3 FB Neck ROM: full Mouth Open: normal Cardiovascular Dental Pulmonary Abdominal Anesthesia Plan ASA 2 TIVA The patient is not a current smoker. Anesthetic plan and risks discussed with patient and spouse. VIKTOR Screening Labs: No results found for: WBC, HGB, HCT, MCV, PLT No results found for: NA, K, CL, CO2, BUN, CREATININE, GLUCOSE, CALCIUM, PROT, BILIRUBINFL, ALKPHOS, AST, ALT, EGFR, GLOB No components found for: LVEF, LVEFMODE No echocardiogram results found for the past 14 days No results found for this or any previous visit. [facility] 09-01-2022 Note Patient: Kaelyn stewart Procedure Information Date/Time: 09/01/22 1100 Procedure: EGD WITH BIOPSY Location: [facility] ARCH ENDO SEC 2 / ARCH Gastroenterology Providers: Kenny Nugent MD Relevant Problems Endo (+) Type 2 diabetes mellitus with ophthalmic complication, without long-term current use of insulin (HCC) Past Medical History: Past Medical History: No date: Anemia No date: Back pain No date: Circulation problem No date: Daytime sleepiness No date: Difficulty sleeping No date: Dizziness No date: Fatigue No date: History of UTI No date: Joint pain, hip No date: Joint pain, knee No date: Snoring No date: SOBOE (shortness of breath on exertion) No date: Type 2 diabetes mellitus with ophthalmic complication, without long-term current use of insulin (HCC) Past Surgical History: Past Surgical History: 2020: CARPAL TUNNEL RELEASE; Right 2005: CHOLECYSTECTOMY 1998: DILATION AND CURETTAGE OF UTERUS 2006: OTHER SURGICAL HISTORY Comment: Essure control springs around fallopian tubes 2017: TOTAL ABDOMINAL HYSTERECTOMY Social History: TOBACCO: reports that she has never smoked. She has never used smokeless tobacco. ETOH: reports that she does not currently use alcohol. Social History Substance and Sexual Activity Drug Use Not Currently Family History: Family History Problem Relation Name Age of Onset ? Stroke Maternal Grandfather ? Hypertension Mother ? Diabetes Father ? Stroke Paternal Grandfather ? Hypertension Paternal Grandfather ? Stroke Father ? Cancer Paternal Grandfather ? Diabetes Paternal Grandfather ? Heart disease Paternal Grandfather ? Hypertension Maternal Grandfather ? Hypertension Paternal Grandmother ? Heart disease Maternal Grandfather ? Hypertension Maternal Grandmother Screening: Hysterectomy Clinical information reviewed: Tobacco Allergies Meds Med Hx Surg Hx OB Status Fam Hx Soc Hx Physical Exam Airway Mallampati: II TM distance: >3 FB Neck ROM: full Mouth Open: normal Cardiovascular Dental Pulmonary Abdominal Anesthesia Plan ASA 2 TIVA The patient is not a current smoker. Anesthetic plan and risks discussed with patient and spouse. VIKTOR Screening Labs: No results found for: WBC, HGB, HCT, MCV, PLT No results found for: NA, K, CL, CO2, BUN, CREATININE, GLUCOSE, CALCIUM, PROT, BILIRUBINFL, ALKPHOS, AST, ALT, EGFR, GLOB No components found for: LVEF, LVEFMODE No echocardiogram results found for the past 14 days No results found for this or any previous visit. [facility] 09-01-2022 Note Department of [facility] Surgery History and Physical PATIENT NAME: Kaelyn Maddox DATE OF : 1980 ADMISSION DATE: No admission date for patient encounter. TODAY'S DATE: 09/01/2022 HISTORY OF PRESENT ILLNESS: The patient is a 42 y.o. female who presents for endoscopic evaluation of dyspepsia in preparation for NENO-S. Thoroughly reviewed the patient's medical history, family history, social history and review of systems with the patient today in the office. Please see medical record for pertinent positives. Past Medical History: Past Medical History: Diagnosis Date Anemia Back pain Circulation problem Daytime sleepiness Difficulty sleeping Dizziness Fatigue History of UTI Joint pain, hip Joint pain, knee Snoring SOBOE (shortness of breath on exertion) Type 2 diabetes mellitus with ophthalmic complication, without long-term current use of insulin (HCC) Past Surgical History: Past Surgical History: Procedure Laterality Date CARPAL TUNNEL RELEASE Right 2020 CHOLECYSTECTOMY 2005 DILATION AND CURETTAGE OF UTERUS 1998 OTHER SURGICAL HISTORY 2006 Essure control springs around fallopian tubes TOTAL ABDOMINAL HYSTERECTOMY 2017 Current Medications: No current facility-administered medications on file prior to encounter. No current outpatient medications on file prior to encounter. Allergies: Hydromorphone Social History: Social History Socioeconomic History Marital status: Life Partner Spouse name: Not on file Number of children: Not on file Years of education: Not on file Highest education level: Not on file Occupational History Not on file Tobacco Use Smoking status: Never Smokeless tobacco: Never Substance and Sexual Activity Alcohol use: Not Currently Drug use: Not Currently Sexual activity: Not on file Other Topics Concern Not on file Social History Narrative Not on file Social Determinants of Health Financial Resource Strain: Not on file Food Insecurity: Not on file Transportation Needs: Not on file Physical Activity: Not on file Stress: Not on file Social Connections: Not on file Intimate Partner Violence: Not on file Housing Stability: Not on file Family History: Family History Problem Relation Name Age of Onset Stroke Maternal Grandfather Hypertension Mother Diabetes Father Stroke Paternal Grandfather Hypertension Paternal Grandfather Stroke Father Cancer Paternal Grandfather Diabetes Paternal Grandfather Heart disease Paternal Grandfather Hypertension Maternal Grandfather Hypertension Paternal Grandmother Heart disease Maternal Grandfather Hypertension Maternal Grandmother REVIEW OF SYSTEMS: CONSTITUTIONAL: Negative for fatigue, and unexpected weight change RESPIRATORY: Negative for cough, SOB, and wheezing CARDIOVASCULAR: Negative for chest pains and palpatations GASTROINTESTINAL: dyspepsia HEMATOLOGIC/LYMPHATIC: Negative for adenopathy. Does not bruise/bleed easily. NEUROLOGICAL: Negative for seizures and syncope * All other ROS reviewed see HPI for pertinent positives and negatives. PHYSICAL EXAM: VITALS: There were no vitals taken for this visit. GENERAL: Oriented to person, place, and time. Appears well nourished. No distress ENT: Normocepalic,atraumatic, without obvious abnormality NECK: supple, symmetrical, trachea midline LUNGS: Resp effort easy and unlabored, breath sounds normal CARDIOVASCULAR: RRR, No murmur ABDOMEN: Soft, non-tender, no open wounds. MUSCULOSKELETAL: Normal range of motion, ambulatory without assistance NEUROLOGIC: No focal neurologic deficits IMPRESSION/RECOMMENDATIONS: EGD with Biopsy Patient counseled on risks, benefits, and alternatives of treatment plan at length. Patient states an understanding and willingness to proceed with plan. [facility] 09-01-2022 Note Department of [facility] Surgery History and Physical PATIENT NAME: Kaelyn Maddox DATE OF : 1980 ADMISSION DATE: No admission date for patient encounter. TODAY'S DATE: 09/01/2022 HISTORY OF PRESENT ILLNESS: The patient is a 42 y.o. female who presents for endoscopic evaluation of dyspepsia in preparation for NENO-S. Thoroughly reviewed the patient's medical history, family history, social history and review of systems with the patient today in the office. Please see medical record for pertinent positives. Past Medical History: Past Medical History: Diagnosis Date Anemia Back pain Circulation problem Daytime sleepiness Difficulty sleeping Dizziness Fatigue History of UTI Joint pain, hip Joint pain, knee Snoring SOBOE (shortness of breath on exertion) Type 2 diabetes mellitus with ophthalmic complication, without long-term current use of insulin (HCC) Past Surgical History: Past Surgical History: Procedure Laterality Date CARPAL TUNNEL RELEASE Right 2020 CHOLECYSTECTOMY 2005 DILATION AND CURETTAGE OF UTERUS 1998 OTHER SURGICAL HISTORY 2006 Essure control springs around fallopian tubes TOTAL ABDOMINAL HYSTERECTOMY 2017 Current Medications: No current facility-administered medications on file prior to encounter. No current outpatient medications on file prior to encounter. Allergies: Hydromorphone Social History: Social History Socioeconomic History Marital status: Life Partner Spouse name: Not on file Number of children: Not on file Years of education: Not on file Highest education level: Not on file Occupational History Not on file Tobacco Use Smoking status: Never Smokeless tobacco: Never Substance and Sexual Activity Alcohol use: Not Currently Drug use: Not Currently Sexual activity: Not on file Other Topics Concern Not on file Social History Narrative Not on file Social Determinants of Health Financial Resource Strain: Not on file Food Insecurity: Not on file Transportation Needs: Not on file Physical Activity: Not on file Stress: Not on file Social Connections: Not on file Intimate Partner Violence: Not on file Housing Stability: Not on file Family History: Family History Problem Relation Name Age of Onset Stroke Maternal Grandfather Hypertension Mother Diabetes Father Stroke Paternal Grandfather Hypertension Paternal Grandfather Stroke Father Cancer Paternal Grandfather Diabetes Paternal Grandfather Heart disease Paternal Grandfather Hypertension Maternal Grandfather Hypertension Paternal Grandmother Heart disease Maternal Grandfather Hypertension Maternal Grandmother REVIEW OF SYSTEMS: CONSTITUTIONAL: Negative for fatigue, and unexpected weight change RESPIRATORY: Negative for cough, SOB, and wheezing CARDIOVASCULAR: Negative for chest pains and palpatations GASTROINTESTINAL: dyspepsia HEMATOLOGIC/LYMPHATIC: Negative for adenopathy. Does not bruise/bleed easily. NEUROLOGICAL: Negative for seizures and syncope * All other ROS reviewed see HPI for pertinent positives and negatives. PHYSICAL EXAM: VITALS: There were no vitals taken for this visit. GENERAL: Oriented to person, place, and time. Appears well nourished. No distress ENT: Normocepalic,atraumatic, without obvious abnormality NECK: supple, symmetrical, trachea midline LUNGS: Resp effort easy and unlabored, breath sounds normal CARDIOVASCULAR: RRR, No murmur ABDOMEN: Soft, non-tender, no open wounds. MUSCULOSKELETAL: Normal range of motion, ambulatory without assistance NEUROLOGIC: No focal neurologic deficits IMPRESSION/RECOMMENDATIONS: EGD with Biopsy Patient counseled on risks, benefits, and alternatives of treatment plan at length. Patient states an understanding and willingness to proceed with plan. [facility] 08-27-2022 Note [facility] SURGICAL WEIGHT LOSS MANAGEMENT PROGRAM PROGRESS NOTE FOLLOW UP Patient: Kaelyn Maddox Date of : 1980 Service Date: 08/27/2022 DE Visit number: 4 of 6 Pre Program Weight Metrics Date of Initial Consultation:@FLOWLAST([id number])@ Initial Weight: @FLOWLAST([id number])@ Initial BMI: @FLOWLAST([id number])@ Golf Body Weight: @FLOWLAST([id number])@ Excess Body Weight: @FLOWLAST([id number])@ Follow Up Weight Metrics Last Three Weights Including Today's Weight: Wt Readings from Last 3 Encounters: 06/20/22 256 lb 3.2 oz (116 kg) 05/23/22 252 lb 9.6 oz (115 kg) 04/16/22 253 lb 6.4 oz (115 kg) Today's BMI: BMI: 43.66 %EBWL: % EBWL: % Weight Chance Since Last Visit: Weight Change: 262.4 lbs Weight Change from Initial DE/SPR Weight: Total Weight Change: Non-Surg Weight on File> lbs Patient has the following question(s): none Falls Risk Assessment Patient does nottake medications which affect BP or mental status Patient does not have newly prescribed or changed dosage of medications within past 30 days which affect BP or mental status Patient has not fallen in the past 2 months Patient does notdemonstrate unsteady gait Patient uses the following ambulatory assistive devices: NO Patient states the presence of the following traits which increases risk of fall: NO Patient is not on home O2 Completed by: Lizeth Harry MA [facility] 08-27-2022 Note [facility] WE[facility] LOSS MANAGEMENT PROGRAM PROGRESS NOTE FOLLOW UP Patient: Kaelyn Maddox Date of : 1980 Service Date: 08/27/2022 DE Visit number: 4 of 6 Pre Program Weight Metrics Date of Initial Consultation:@FLOWLAST(8961)@ Initial Weight: @FLOWLAST([id number])@ Initial BMI: @FLOWLAST([id number])@ Golf Body Weight: @FLOWLAST([id number])@ Excess Body Weight: @FLOWLAST([id number])@ Follow Up Weight Metrics Last Three Weights Including Today's Weight: Wt Readings from Last 3 Encounters: 06/20/22 256 lb 3.2 oz (116 kg) 05/23/22 252 lb 9.6 oz (115 kg) 04/16/22 253 lb 6.4 oz (115 kg) Today's BMI: BMI: 43.66 %EBWL: % EBWL: % Weight Chance Since Last Visit: Weight Change: 262.4 lbs Weight Change from Initial DE/SPR Weight: Total Weight Change: Non-Surg Weight on File> lbs Patient has the following question(s): none Falls Risk Assessment Patient does nottake medications which affect BP or mental status Patient does not have newly prescribed or changed dosage of medications within past 30 days which affect BP or mental status Patient has not fallen in the past 2 months Patient does notdemonstrate unsteady gait Patient uses the following ambulatory assistive devices: NO Patient states the presence of the following traits which increases risk of fall: NO Patient is not on home O2 Completed by: Lizeth Harry MA [facility] 07-08-2021 Hospital Discharge instructions Patient Education 07/08/2021 21:22:18 Viral Syndrome (Adult) Viral Syndrome (Adult) A viral illness may cause a number of symptoms such as fever. Other symptoms depend on the part of the body that the virus affects. If it settles in your nose, throat, and lungs, it may cause cough, sore throat, congestion, runny nose, headache, earache and other ear symptoms, or shortness of breath. If it settles in your stomach and intestinal tract, it may cause nausea, vomiting, cramping, and diarrhea. Sometimes it causes generalized symptoms like aching all over, feeling tired, loss of energy, or loss of appetite. A viral illness usually lasts anywhere from several days to several weeks, but sometimes it lasts longer. In some cases, a more serious infection can look like a viral syndrome in the first few days of the illness. You may need another exam and additional tests to know the difference. Watch for the warning signs listed below for when to seek medical advice. Home care Follow these guidelines for taking care of yourself at home: If symptoms are severe, rest at home for the first 2 to 3 days. Stay away from cigarette smoke - both your smoke and the smoke from others. You may use xudf-gtu-gyhgzyz acetaminophen or ibuprofen for fever, muscle aching, and headache, unless another medicine was prescribed for this. If you have chronic liver or kidney disease or ever had a stomach ulcer or gastrointestinal bleeding, talk with your healthcare provider before using these medicines. No one who is younger than 18 and ill with a fever should take aspirin. It may cause severe disease or . Your appetite may be poor, so a light diet is fine. Avoid dehydration by drinking 8 to 12, 8-ounce glasses of fluids each day. This may include water; orange juice; lemonade; apple, grape, and cranberry juice; clear fruit drinks; electrolyte replacement and sports drinks; and decaffeinated teas and coffee. If you have been diagnosed with a kidney disease, ask your healthcare provider how much and what types of fluids you should drink to prevent dehydration. If you have kidney disease, drinking too much fluid can cause it build up in the your body and be dangerous to your health. Wczw-cix-bniwcuw remedies won't shorten the length of the illness but may be helpful for symptoms such as cough, sore throat, nasal and sinus congestion, or diarrhea. Don't use decongestants if you have high blood pressure. Follow-up care Follow up with your healthcare provider if you do not improve over the next week. Call 911 Call 911 if any of the following occur: Convulsion Feeling weak, dizzy, or like you are going to faint Chest pain, or more than mild shortness of breath When to seek medical advice Call your healthcare provider right away if any of these occur: Cough with lots of colored sputum (mucus) or blood in your sputum Chest pain, shortness of breath, wheezing, or trouble breathing Severe headache; face, neck, or ear pain Severe, constant pain in the lower right side of your belly (abdominal) Continued vomiting (can t keep liquids down) Frequent diarrhea (more than 5 times a day); blood (red or black color) or mucus in diarrhea Feeling weak, dizzy, or like you are going to faint Extreme thirst Fever of 100.4 F (38 C) or higher, or as directed by your healthcare provider [id number] [employer] [address] [place] [address]. All rights reserved. This information is not intended as a substitute for professional medical care. Always follow your healthcare professional's instructions. Follow Up Care 07/08/2021 19:05:34 With:KIANNA CRISTINA Address: [address] [place] [address] [place] [address]- [phone] When:2-4 days [facility] Evaluation + Plan note Future Appointments Appointment Date:07/11/2021 08:50:00 AM Scheduled Provider:KIANNA CRISTINA Location:[facility] Appointment Type:PC Wellness Annual Future Scheduled TestsThyroid Stimulating Hormone 11/15/20Thyroid Stimulating Hormone 04/29/21Lipid Profile 11/15/20Lipid Profile 04/29/21Hepatitis C Antibody IgG 05/22/21Complete Metabolic Panel 11/15/20Complete Metabolic Panel 04/29/21 [facility] Evaluation note Diagnosis Hot tub folliculitis- Primary Other specified disease of hair and hair follicles documented in this encounter [facility] Work Phone: Evaluation note* Diagnosis Gastro-esophageal reflux disease without esophagitis Morbid (severe) obesity due to excess calories (HCC) 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, resolved following treatment, unspecified eye (HCC) Encounter for other specified special examinations Encounter for blood-alcohol and blood-drug test Encounter for preprocedural laboratory examination [facility] Diagnosis Morbid obesity due to excess calories (HCC)- Primary Morbid (severe) obesity due to excess calories (HCC) [facility]* Diagnosis Gastro-esophageal reflux disease without esophagitis- Primary Morbid (severe) obesity due to excess calories (HCC) 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, resolved following treatment, unspecified eye (HCC) Encounter for other specified special examinations Encounter for blood-alcohol and blood-drug test Encounter for preprocedural laboratory examination Morbid (severe) obesity due to excess calories (HCC) [facility] Diagnosis Morbid obesity with BMI of 40.0-44.9, adult (HCC)- Primary Morbid obesity with BMI of 40.0-44.9, adult (HCC) Morbid (severe) obesity due to excess calories (HCC) Diaphragmatic hernia without obstruction or gangrene Diaphragmatic hernia without mention of obstruction or gangrene Morbid obesity due to excess calories (HCC) Type 2 diabetes mellitus with ophthalmic complication, without long-term current use of insulin (HCC) Back pain Unspecified backache Difficult intravenous access PONV (postoperative nausea and vomiting) Nausea with vomiting History of motion sickness [facility]* Diagnosis Type 2 diabetes mellitus with other specified complication, unspecified whether nursing home insulin use (HCC) Morbid obesity with BMI of 40.0-44.9, adult (HCC) Difficult intravenous access Type 2 diabetes mellitus with other ophthalmic complication, without long-term current use of insulin (HCC)- Primary Morbid obesity with BMI of 40.0-44.9, adult (HCC) Low back pain, unspecified back pain laterality, unspecified chronicity, unspecified whether sciatica present [facility]* Diagnosis Type 2 diabetes mellitus with other ophthalmic complication, without long-term current use of insulin ([facility])- Primary Morbid obesity with BMI of 40.0-44.9, adult ([facility]) Low back pain, unspecified back pain laterality, unspecified chronicity, unspecified whether sciatica present Intestinal malabsorption, unspecified type Deficiency of multiple nutrient elements Other nutritional deficiency [facility]* Diagnosis Type 2 diabetes mellitus with other ophthalmic complication, without long-term current use of insulin ([facility])- Primary Morbid obesity with BMI of 40.0-44.9, adult ([facility]) Low back pain, unspecified back pain laterality, unspecified chronicity, unspecified whether sciatica present Intestinal malabsorption, unspecified type Deficiency of multiple nutrient elements Other nutritional deficiency [facility]* Diagnosis Type 2 diabetes mellitus with other ophthalmic complication, without long-term current use of insulin ([facility])- Primary Morbid obesity with BMI of 40.0-44.9, adult ([facility]) Low back pain, unspecified back pain laterality, unspecified chronicity, unspecified whether sciatica present Intestinal malabsorption, unspecified type Deficiency of multiple nutrient elements Other nutritional deficiency documented in this [facility]* Diagnosis Intestinal malabsorption, unspecified type- Primary Deficiency of multiple nutrient elements Other nutritional deficiency Class 2 obesity due to excess calories with body mass index (BMI) of 37.0 to 37.9 in adult, unspecified whether serious comorbidity present [facility] Diagnosis Morbid obesity due to excess calories ([facility])- Primary [facility]* Diagnosis VIKTOR (obstructive sleep apnea) Obstructive sleep apnea (adult) (pediatric) Preoperative clearance Unspecified pre-operative examination [facility] Diagnosis Type 2 diabetes mellitus without complication, without long-term current use of insulin ([facility]) ([facility])- Primary BMI 40.0-44.9, adult ([facility]) Class 3 severe obesity with serious comorbidity and body mass index (BMI) of 40.0 to 44.9 in adult, unspecified obesity type ([facility]) documented in [facility]* Diagnosis GERD without esophagitis Esophageal reflux Morbid obesity due to excess calories ([facility]) 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, without long-term current use of insulin, unspecified laterality (HCC) Encounter for screening for tobacco use Encounter for drug screening Pre-operative laboratory examination Pre-procedural laboratory examination documented in [facility]* Diagnosis Pre-operative clearance Unspecified pre-operative examination Morbid obesity due to excess calories (HCC) [facility]* Diagnosis Type 2 diabetes mellitus without complication, without long-term current use of insulin (CMS/HCC) (HCC)- Primary BMI 40.0-44.9, adult (HCC) Class 3 severe obesity with serious comorbidity and body mass index (BMI) of 40.0 to 44.9 in adult, unspecified obesity type (HCC) [facility]* Diagnosis Pre-operative clearance- Primary Unspecified pre-operative examination VIKTOR (obstructive sleep apnea) Obstructive sleep apnea (adult) (pediatric) [facility]* Diagnosis Type 2 diabetes mellitus without complication, without long-term current use of insulin (CMS/HCC) (HCC)- Primary BMI 40.0-44.9, adult (HCC) Class 3 severe obesity with serious comorbidity and body mass index (BMI) of 40.0 to 44.9 in adult, unspecified obesity type (HCC) documented in [facility] encounter [facility]* Diagnosis Morbid obesity due to excess calories (HCC)- Primary documented in [facility] encounter [facility]* Diagnosis Presbyopia- Primary documented in this encounter [facility] course Narrative No data available for this section [facility] Hospital Discharge instructions* Attachments The following attachments cannot be sent through Care Everywhere. * Follicul[facility] ([place]) [facility] Work Phone: Summary Purpose Family History No Family History Records FoundNo Family History Records FoundNo Family History Records FoundNo Family History Records FoundNo Family History Records FoundNo Family History Records FoundNo Family History Records FoundNo Family History Records FoundNo Family History Records Found Advance Directives No Advanced Directives Records FoundLatest Code Status on File Code Status Date Activated Date Inactivated Comments Full Code 09/01/2022 10:33 AM 09/01/2022 1:54 PM Latest Code Status on File Code Status Date Activated Date Inactivated Comments Full Code 02/26/2023 2:27 PM 02/27/2023 5:12 PM Code Status History Code Status Date Activated Date Inactivated Comments Full Code 02/26/2023 5:49 AM 02/26/2023 2:27 PM Full Code 09/01/2022 10:33 AM 09/01/2022 1:54 PM Latest Code Status on File Code Status Date Activated Date Inactivated Comments Full Code 02/26/2023 2:27 PM 02/27/2023 5:12 PM Code Status History Code Status Date Activated Date Inactivated Comments Full Code 02/26/2023 5:49 AM 02/26/2023 2:27 PM Full Code 09/01/2022 10:33 AM 09/01/2022 1:54 PM Latest Code Status on File Code Status Date Activated Date Inactivated Comments Full Code 03/08/2023 3:03 AM Code Status History Code Status Date Activated Date Inactivated Comments Full Code 02/26/2023 2:27 PM 02/27/2023 5:12 PM Full Code 02/26/2023 5:49 AM 02/26/2023 2:27 PM Full Code 09/01/2022 10:33 AM 09/01/2022 1:54 PM Latest Code Status on File Code Status Date Activated Date Inactivated Comments Full Code 03/08/2023 3:03 AM 03/09/2023 10:58 AM Date Activated Date Inactivated Comments 03/08/2023 3:03 AM 03/09/2023 10:58 AM Date Activated Date Inactivated Comments 02/26/2023 2:27 PM 02/27/2023 5:12 PM Date Activated Date Inactivated Comments 02/26/2023 5:49 AM 02/26/2023 2:27 PM Date Activated Date Inactivated Comments 09/01/2022 10:33 AM 09/01/2022 1:54 PM Additional Source Comments INFORMATION SOURCE (unrecogn ized section and content) DATE CREATED AUTHOR 08/20/2019 [facility] DATE CREATED AUTHOR AUTHOR'S ORGANIZ ATION 07/23/2022 [facility] DATE CREATED AUTHOR AUTHOR'S ORGANIZ ATION 07/26/2022 [facility] DATE CREATED AUTHOR AUTHOR'S ORGANIZ ATION 09/01/2022 [facility] DATE CREATED AUTHOR AUTHOR'S ORGANIZ ATION 12/04/2022 [facility] DATE CREATED AUTHOR AUTHOR'S ORGANIZ ATION 12/30/2022 [facility] DATE CREATED AUTHOR AUTHOR'S ORGANIZ ATION 07/14/2023 [facility] DATE CREATED AUTHOR AUTHOR'S ORGANIZ ATION 11/05/2024 [facility] DATE CREATED AUTHOR AUTHOR'S ORGANIZ ATION 11/13/2024 [facility] Reason for Visit (unrecogniz ed section and content) Reason Comments Other Burning and itching in vagina and groin area after getting in hot tube approximately 5 to 6 hours ago. Reason Comments Nutrition Counseling BNA other Specialty Diagnoses / Procedures Referred By Olya moore Referred To Contact Diagnoses Morbid (severe) obesity due to excess calories (HCC) Diaphragmatic hernia without obstruction or gangrene Morbid (severe) obesity due to excess calories (HCC) [E66.01] Procedures HI UNLISTED PROCEDURE STOMACH HI GASTRIC RSTCV W/PRTL GASTRECTOMY 50-100 CM HI UNLISTED LAPAROSCOPIC PROCEDURE LIVER HI LAPS RPR PARAESPHGL HRNA INCL FUNDPLSTY W/O MESH ROBOTIC ASSISTED SINGLE ANASTOMOSIS DUODENAL ILEAL BYPASS WITH SLEEVE GASTRECTOMY WITH LIVER WEDGE BIOPSY, HIATAL HERNIA REPAIR POSSIBLE OPEN ROBOTIC (XI) ASSISTED GASTRIC RESTRICTIVE PROCEDURE WITH PARTIAL GASTRECTOMY PYLORUS PRESERVING DUODENOILEOSTOMY AND ILEOILEOSTOMY UNLISTED LAPAROSCOPIC PROCEDURE LIVER Kenny Nugent MD [address] [facility] [address] [place] [address] [facility] [address] [facility] [place] [address] Referral ID Status Reason Start Date Expiration Date Visits Re quested Visits Authorized [id number] 1 1 Reason Comments Weight Management Final pre op Reason Comments Bariatrics Post Op Follow-up 1W Reason Onset Date Comments Post-op Problem 03/07/2023 Constipation 03/07/2023 Reason Comments Bariatrics Post Op Follow-up 1M Specialty Diagnoses / Procedures Referred By Olya moore Referred To Contact Sleep Medicine Diagnoses VIKTOR (obstructive sleep apnea) Preoperative clearance Procedures Polysomnography Barbie Lewis DO [address] [facility] [address] [place] [address] 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) Morbid (severe) obesity due to excess calories (HCC) Procedures HI UNLISTED CARDIOVASCULAR SERVICE/PROCEDURE Parish Dunne, EMPLOYMENT AND CLAIMS AIDE - MUSIC EDUCATOR [address] [address] [address] Non-Invasive Cardiology [address] [place] [address] Referral ID Status Reason Start Date Expiration Date V isits Requested Visits Authorized [id number] Closed Specialty Services Required 07/12/2022 01/08/2023 1 1 Reason Comments Weight Loss D/E 03/03 Reason Comments Follow-up Reason Comments Yearly Exam Patient Care team informatio n (unrecognized section and content) Career Development Coordinator/Teacher Relationship Specialty Start Date End Date None, Pcp [address] [place] [address] PCP - General 10/29/22 Career Development Coordinator/Teacher Relationship Specialty Start Date End Date None, Pcp [address] [place] [address] PCP - General 10/29/22 12/15/22 Ana Rosa Espitia [address] [place] [address] PCP - General Nurse Practitioner 12/16/22 Annika Wills, RN Registered Nurse 12/16/22 Career Development Coordinator/Teacher Relationship Specialty Start Date End Date [facility] [address] [place] [address] PCP - General 10/29/22 12/15/22 Ana Rosa Espitia [address] [place] [address] PCP - General Nurse Practitioner 12/16/22 Annika Wills, RN Registered Nurse 12/16/22 Career Development Coordinator/Teacher Relationship Specialty Start Date End Date Ana Rosa Espitia [address] [place] [phone] (Fax) PCP - General Nurse Practitioner 12/16/22 Annika Wills, RN Registered Nurse 12/16/22 Kenny Nugent MD [address] [place], [place] [phone] Surgeon General Surgery 02/06/23 Career Development Coordinator/Teacher Relationship Specialty Start Date End Date Ana Rosa Espitia [address] [place] [id number] PCP - General Nurse Practitioner 12/16/22 Annika Wills, RN Registered Nurse 12/16/22 Kenny Nugent MD [address] [place] [address] Street [address] [place] [phone] Surgeon General Surgery 02/06/23 Career Development Coordinator/Teacher Relationship Specialty Start Date End Date Ana Rosa Espitia [address] [place] [id number] PCP - General Nurse Practitioner 12/16/22 Annika Wills, RN Registered Nurse 12/16/22 Kenny Nugent MD [address] [place] [address] [address] [place], [place] [phone] Surgeon General Surgery 02/06/23 Career Development Coordinator/Teacher Relationship Specialty Start Date End Date Ana Rosa Espitia [address] [place] [id number] PCP - General Nurse Practitioner 12/16/22 Annika Wills, RN Registered Nurse 12/16/22 Kenny Nugent MD [address] [place] [address] Surgeon General Surgery 02/06/23 Career Development Coordinator/Teacher Relationship Specialty Start Date End Date Ana Rosa Espitia [address] [place] [phone] (Fax) PCP - General Nurse Practitioner 12/16/22 Annika Wills, RN Registered Nurse 12/16/22 Kenny Nugent MD [address] [facility] [address] [place], [place] [phone] Surgeon General Surgery 02/06/23 Career Development Coordinator/Teacher Relationship Specialty Start Date End Date Ana Rosa Espitia [address] [place] [phone] (Fax) PCP - General Nurse Practitioner 12/16/22 Annika Wills, RN Registered Nurse 12/16/22 Kenny Nugent MD [address] [facility] [address] [place] [phone] Surgeon General Surgery 02/06/23 Career Development Coordinator/Teacher Relationship Specialty Start Date End Date Ana Rosa Espitia [address] [place] [phone] (Fax) PCP - General Nurse Practitioner 12/16/22 Annika Wills, RN Registered Nurse 12/16/22 Kenny Nugent MD [address] [facility] [address] [place], [place] [phone] Surgeon General Surgery 02/06/23 Career Development Coordinator/Teacher Relationship Specialty Start Date End Date Ana Rosa Espitia [facility] [place] [phone] (Fax) PCP - General Nurse Practitioner 12/16/22 Annika Wills, RN Registered Nurse 12/16/22 Kenny Nugent MD [address] [facility] [address] [place] [address] Surgeon General Surgery 02/06/23 Career Development Coordinator/Teacher Relationship Specialty Start Date End Date Ana Rosa Espitia [address] [place] [address] [phone] PCP - General Nurse Practitioner 12/16/22 Annika Wills, RN Registered Nurse 12/16/22 Kenny Nugent MD [address] [place] [phone] Surgeon General Surgery 02/06/23 Career Development Coordinator/Teacher Relationship Specialty Start Date End Date [facility] [address] [place] [address] PCP - General 10/29/22 12/15/22 Ana Rosa Espitia [address] [place] [phone] PCP - General Nurse Practitioner 12/16/22 Annika Wills, RN Registered Nurse 12/16/22 Career Development Coordinator/Teacher Relationship Specialty Start Date End Date None, Pcp [address] [place] [address] PCP - General 10/29/22 Career Development Coordinator/Teacher Relationship Specialty Start Date End Date None, Pcp PCP - General 10/09/22 Career Development Coordinator/Teacher Relationship Specialty Start Date End Date Kianna Cristina [address] PCP - General 03/21/22 10/08/22 None, Pcp [address] [place] [address] PCP - General 10/29/22 Kianna Cristina [address] 03/21/22 10/08/22 Career Development Coordinator/Teacher Relationship Specialty Start Date End Date None, Pcp [address] [place] [address] PCP - General 10/29/22 Career Development Coordinator/Teacher Relationship Specialty Start Date End Date None, Pcp [address] [place] [address] PCP - General 10/29/22 Career Development Coordinator/Teacher Relationship Specialty Start Date End Date None, Pcp [address] [place] [address] PCP - General 10/09/22 Career Development Coordinator/Teacher Relationship Specialty Start Date End Date None, Pcp PCP - General 10/09/22 Career Development Coordinator/Teacher Relationship Specialty Start Date End Date None, Pcp PCP - General 10/09/22 Scheduled Active and Recently Administ ered Medications (unrecognized section and content) Medication Order 02/25/2023 02/26/2023 02/27/2023 acetaminophen (Tylenol) tablet 1,000 mg (COMPLETED) 1,000 mg, Oral, Once, On Skylar 02/26/23 at 0600, For 1 dose, Preprocedure, Maximum dose of acetaminophen is 4000 mg from all sources in 24 hours. Do not administer if patient has taken tylenol <4 hours earlier. Do not give if contraindicated ie. patient has active liver disease or cirrhosis. 0556 (Given - Provider: Qian Tadeo RN) albuterol (2.5 MG/3ML) 0.083% nebulizer solution 2.5 mg 2.5 mg, Nebulization, 3 times daily, First dose (after last modification) on Thu02/27/23 at 0800, Phase II/On Unit 0918 (Given - Provid er: Cheryl Martinez RCP)1400 (Canceled Entry - Provider: Automatic Discharge Provider - Comment: Automatically canceled at discontinue of medication order) ceFAZolin in dextrose 4% (Ancef) IVPB 2,000 mg (COMPLETED) 2,000 mg, IntraVENous, Administer over 30 Minutes, Nitrocellulose Operator to O.R., On Skylar 02/26/23 at 0600, For 1 dose, Preprocedure, Administer within 1 hour prior to incision. Repeat in 3-4 hours after initial dose if still intra-op. Default Settings:Auto-dosed by Weight Nitrocellulose Operator to O.R x 1 dose Auto-dosed: Pt Wt<119.9kg-2gm, >120kg-3gm premix bag, Suspected Indication (Select all that apply): Surgical Prophylaxis 0739 (Given - Provider: Deion Huntley APRN - SURVEY ASSOCIATE) celecoxib (CeleBREX) capsule 400 mg (COMPLETED) 400 mg, Oral, Once, On Thu02/26/23 at 0600, For 1 dose, Preprocedure, Avoid with sulfa allergy or creatinine greater than 1.5. Avoid severe hepatic impairment or renal transplant. Avoid if Age > 69. 0556 (Given - Provider: Qian Tadeo RN) cetirizine (ZyrTEC) tablet 10 mg 10 mg, Oral, Daily, First dose on Thu02/27/23 at 0900 0923 (Given - Provid er: Lori Banuelos RN) diatrizoate meglumine-sodium (Gastrografin) 66-10 % solution 60 mL (COMPLETED) 60 mL, Oral, Once, On Thu02/27/23 at 0745, For 1 dose 0745 (Given - Provid er: Adriane Fraser) enoxaparin (Lovenox) syringe 40 mg 40 mg, SubCUTAneous, Every 12 hours scheduled (2 times per day), First dose on Thu02/26/23 at 2100, Phase II/On Unit, 60mg q12h, subcutaneous, if > 400lbs or BMI>50, Indication of Use: Prophylaxis-DVT/PE 2054 (Given - Provider: Regina Garcia RN) 09 (Given - Provider: Lori Banuelos RN) famotidine (Pepcid) tablet 20 mg (COMPLETED) 20 mg, Oral, Once, On Thu02/26/23 at 0600, For 1 dose, Preprocedure 0556 (Given - Provider: Qian Tadeo RN) famotidine (Pepcid) tablet 20 mg 20 mg, Oral, 2 times daily, First dose on Thu02/27/23 at 0900 0923 (Given - Provid er: Lori Banuelos RN) gabapentin (Neurontin) capsule 100 mg (COMPLETED) 100 mg, Oral, Once, On Thu02/26/23 at 0600, For 1 dose, Preprocedure, For Age >69 or Low GFR. 0556 (Given - Provider: Qian Tadeo RN) heparin injection 5,000 Units (COMPLETED) 5,000 Units, SubCUTAneous, Once, On Thu02/26/23 at 0600, For 1 dose, Preprocedure 0556 (Given - Provider: Qian Tadeo RN) ketorolac (Toradol) injection 15 mg 15 mg, IntraVENous, Every 6 hours scheduled (4 times per day), First dose on Skylar 02/26/23 at 1800, For 5 doses 1730 (Given - Provider: Jim Young RN) 0001 (Given - Provider: Regina Garcia RN)0553 (Given - Provider: Regina Garcia, RN)1200 (Given - Provider: Lori Banuelos, JUNIOR) pantoprazole (ProtoNix) injection 40 mg (CANCELED) 40 mg, IntraVENous, Administer over 2 Minutes, Nightly, First dose on Skylar 02/26/23 at 2100, Give only if unable to tolerate po. 2054 (Given - Provider: Regina Garcia, JUNIOR) promethazine (Phenergan) injection 12.5 mg (COMPLETED) 12.5 mg, IntraMUSCular, Once, On Skylar 02/26/23 at 1515, For 1 dose, Only to be given as IM injection. 1521 (Given - Provider: Jim Young RN) sodium chloride 0.9% (NS) flush 10 mL 10 mL, IntraVENous, Every 12 hours scheduled (2 times per day), First dose on Skylar 02/26/23 at 2100, Phase II/On Unit 2054 (Given - Provider: Regina Garcia RN) 0900 (Not Given - Provider: Lori Banuelos, JUNIOR - Reason: IV Fluids Infusing) Continuous Medication Order 02/25/2023 02/26/2023 02/27/2023 lactated Ringer's (LR) infusion (CANCELED) 50 mL/hr, IntraVENous, Continuous, Starting on Skylar 02/26/23 at 0600, Preprocedure, Upon admission to sameday - please start iv if patient does not have iv access. Use 500ml NS for patients on dialysis. 0556 (New Bag - Provider: Qian Tadeo RN)0729 (Paused - Provider: GAB Ayala CRNA - Comment: Switch to gravity)0730 (Restarted - Provider: GAB Ayala CRNA)0831 (New Bag - Provider: GAB Ayala CRNA)1104 (Anesthesia Volume Adjustment - Provider: GAB Ayala CRNA)1118 (Anesthesia Volume Adjustment - Provider: Deion Huntley APRN - SURVEY ASSOCIATE)1548 (Stopped - Provider: Jim Young, JUNIOR) sodium chloride 0.45 % with KCl 20 mEq/L infusion 75 mL/hr, IntraVENous, Continuous, Starting on Skylar 02/26/23 at 1445 1521 (New Bag - Provider: Jim Young RN) 0003 (New Bag - Provider: Regina Garcia, JUNIOR)0742 (Rate/Dose Change - Provider: Lori Banuelos, RN)0923 (New Bag - Provider: Lori Banuelos, JUNIOR) PRN Medication Order 02/25/2023 02/26/2023 02/27/2023 ALPRAZolam (Xanax) disintegrating tablet 0.25 mg (COMPLETED) 0.25 mg, Oral, PRN, anxiety, Starting on Skylar 02/26/23 at 0549, For 1 dose, Preprocedure, Using dry hands, place tablet on top of tongue and allow to disintegrate. Administration with water is not necessary. 0556 (Given - Provider: Qian Tadeo RN) glucagon (human recombinant) injection 1 mg (CANCELED) 1 mg, IntraMUSCular, PRN, low blood sugar, Blood glucose less than 70 mg/dL and patient NOT ALERT or NPO and does not have IV access., Starting on Skylar 02/26/23 at 0549, Preprocedure, After administration, attempt intravenous access and start D5W at 100 mL/hr. Repeat blood glucose in 15 minutes x2 and notify provider. 0855 (Given - Provider: GAB Ayala CRNA - Comment: psr) LORazepam (Ativan) injection 0.5 mg (COMPLETED) 0.5 mg, IntraVENous, Once PRN, for anxiety or muscle spasm., Starting on Skylar 02/26/23 at 1141, For 1 dose, Recovery (only), For IV doses dilute dose with 1ml NS. 1243 (Given - Provider: Samara Manning RN) morphine sulfate (PF) injection 2 mg (CANCELED) 2 mg, IntraVENous, Every 5 min PRN, severe pain (7-10), Starting on Skylar 02/26/23 at 1141, For 4 doses, Recovery (only), Phase I and Phase II- Initial therapy for severe pain (7-10). Restricted to a 90 minute time frame starting when the patient can verbally state their pain score. If after 2 doses the pain score does not decrease by more than one point, then call the provider. If oral meds are utilized, do not return to initial therapy medications. 1257 (Given - Provider: Samara Manning RN) morphine sulfate (PF) injection 2 mg(Linked Group 1) 2 mg, IntraVENous, Every 2 hour PRN, moderate pain (4-6), Starting on Skylar 02/26/23 at 1427, Phase II/On Unit, If oral and IV narcotics ordered, use oral first and only use IV if oral is ineffective or cannot take oral. Do Not give oral and IV within 1 hour of each other unless specifically ordered. 1520 (See Alternative - Provider: Jim Young RN)1729 (See Alternative - Provider: Jim Young RN) morphine sulfate (PF) injection 4 mg(Linked Group 1) 4 mg, IntraVENous, Every 2 hour PRN, severe pain (7-10), Starting on Skylar 02/26/23 at 1427, Phase II/On Unit, If oral and IV narcotics ordered, use oral first and only use IV if oral is ineffective or cannot take oral. Do Not give oral and IV within 1 hour of each other unless specifically ordered. 1520 (Given - Provider: Jim Young RN)1729 (Given - Provider: Jim Yougn RN) ondansetron (Zofran) injection 4 mg (COMPLETED) 4 mg, IntraVENous, Once PRN, nausea, Starting on Skylar 02/26/23 at 1141, For 1 dose, Recovery (only), Initial antiemetic therapy. 1242 (Given - Provider: Samara Manning RN) ondansetron (Zofran) injection 4 mg(Linked Group 2) 4 mg, IntraVENous, Every 6 hours PRN, nausea, vomiting, Starting on Skylar 02/26/23 at 1427, Phase II/On Unit, 1st Line. Give IV if patient is unable to take orally. If inadequate response within 60 minutes, proceed to next-line agent or contact provider if no further options ordered. ondansetron ODT (Zofran-ODT) disintegrating tablet 4 mg(Linked Group 2) 4 mg, Oral, Every 8 hours PRN, nausea, vomiting, Starting on Skylar 02/26/23 at 1427, Phase II/On Unit, 1st Line. If inadequate response within 60 minutes, proceed to next-line agent or contact provider if no further options ordered. Patient should allow tablet to dissolve on tongue. Do not remove from blister pack until just before administering. oxyCODONE-acetaminophen (Percocet) 5-325 MG per tablet 1 tablet(Linked Group 3) 1 tablet, Oral, Every 4 hours PRN, moderate pain (4-6), Starting on Thu02/27/23 at 0851, Maximum dose of acetaminophen is 4000 mg from all sources in 24 hours. 09 (Given - Provid er: Lori Banuelos RN) oxyCODONE-acetaminophen (Percocet) 5-325 MG per tablet 2 tablet(Linked Group 3) 2 tablet, Oral, Every 4 hours PRN, severe pain (7-10), Starting on Thu02/27/23 at 0851, Maximum dose of acetaminophen is 4000 mg from all sources in 24 hours. 922 (See Alternativ e - Provider: Lori Banuelos RN) sodium chloride 0.9 % bolus 500 mL (CANCELED) 500 mL, IntraVENous, at 1,000 mL/hr, Administer over 0.5 Hours, PRN, Anti-nausea, Starting on Skylar 02/26/23 at 1141, Recovery (only), Indications: Anti-nausea 1245 (New Bag - Provider: Samara Manning RN)1600 (Stopped - Provider: Jim Young RN - Comment: was not running on arrival.) sodium chloride 0.9 % infusion 5-250 mL/hr, IntraVENous, PRN, if patient receiving piggyback infusions and maintenance fluids are not ordered OR KVO fluids to protect IV site / prevent frequent line interruptions/ long duration, Starting on Skylar 02/26/23 at 1427, Phase II/On Unit, For piggyback infusion, administer at same rate as piggyback for a total of 25 mL. Enter 25 mL into dose field and piggyback rate into rate field of order. If piggyback is infusing at a rate less than 100 mL/hr, enter 25 mL into dose field and 100 mL/hr into rate field of order. For KVO fluids, enter rate of 20 mL/hr or less into rate field of order. sodium chloride 0.9 % irrigation solution (CANCELED) As needed, Starting on Skylar 02/26/23 at 0723, Intraprocedure 0723 (Given - Provider: Kenny Nugent MD)1119 (Given - Provider: Kenny Nugent MD) sodium chloride 0.9% (NS) flush 10 mL 10 mL, IntraVENous, PRN, line care, Starting on Skylar 02/26/23 at 1427, Phase II/On Unit, After every IV line use sterile water irrigation solution (CANCELED) As needed, Starting on Skylar 02/26/23 at 0724, Intraprocedure 0724 (Given - Provider: Kenny Nugent MD - Comment: BACK TABLE) SUMAtriptan (Imitrex) tablet 50 mg 50 mg, Oral, Once PRN, migraine, Starting on Thu02/27/23 at 0854, For 1 dose, May repeat dose once in 2 hours if no relief. Do not exceed 2 doses in 24 hours. Linked Groups Order Group 1: morphine sulfate (PF) injection 2 mgJump to med 2 mg, IntraVENous, Every 2 hour PRN, moderate pain (4-6), Starting on Skylar 02/26/23 at 1427, Phase II/On Unit
If oral and IV narcotics ordered, use oral first and only use IV if oral is ineffective or cannot take oral. Do Not give oral and IV within 1 hour of each other unless specifically ordered.
Or morphine sulfate (PF) injection 4 mgJump to med 4 mg, IntraVENous, Every 2 hour PRN, severe pain (7-10), Starting on Skylar 02/26/23 at 1427, Phase II/On Unit
If oral and IV narcotics ordered, use oral first and only use IV if oral is ineffective or cannot take oral. Do Not give oral and IV within 1 hour of each other unless specifically ordered.
Group 2: ondansetron ODT (Zofran-ODT) disintegrating tablet 4 mgJump to med 4 mg, Oral, Every 8 hours PRN, nausea, vomiting, Starting on Skylar 02/26/23 at 1427, Phase II/On Unit
1st Line. If inadequate response within 60 minutes, proceed to next-line agent or contact provider if no further options ordered. Patient should allow tablet to dissolve on tongue. Do not remove from blister pack until just before administering.
Or ondansetron (Zofran) injection 4 mgJump to med 4 mg, IntraVENous, Every 6 hours PRN, nausea, vomiting, Starting on Skylar 02/26/23 at 1427, Phase II/On Unit
1st Line. Give IV if patient is unable to take orally. If inadequate response within 60 minutes, proceed to next-line agent or contact provider if no further options ordered.
Group 3: oxyCODONE-acetaminophen (Percocet) 5-325 MG per tablet 1 tabletJump to med 1 tablet, Oral, Every 4 hours PRN, moderate pain (4-6), Starting on Thu02/27/23 at 0851
Maximum dose of acetaminophen is 4000 mg from all sources in 24 hours.
Or oxyCODONE-acetaminophen (Percocet) 5-325 MG per tablet 2 tabletJump to med 2 tablet, Oral, Every 4 hours PRN, severe pain (7-10), Starting on Thu02/27/23 at 0851
Maximum dose of acetaminophen is 4000 mg from all sources in 24 hours.
Source Comments (unrecognize d section and content) In the event this informatio n is protected by the Federal Confidentiality of Alcohol and Drug Abuse Patient Records regulations: The Federal rules restrict any use of the information to criminally investigate or prosecute any alcohol or drug abuse patient.[facility] FOR RECORDS PERTAINING TO PATIENTS WHO ARE OR HAVE BEEN ENROLLED IN A CHEMICAL DEPENDENCY/SUBSTANCEABUSE PROGRAM, SOME INFORMATION MAY BE OMITTED. This clinical summary was aggregated from multiple sources. Caution should be exercised in using it in the provision of clinical care. This summary normalizes information from multiple sources, and as a consequence, information in this document may materially change the coding, format and clinical context of patient data. In addition, data may be omitted in some cases. CLINICAL DECISIONS SHOULD BE BASED ON THE PRIMARY CLINICAL RECORDS. [employer] [facility]. provides no warranty or guarantee of the accuracy or completeness of information in this document.
[2025-03-23] MEDS: cycloBENZAPRine HCl 10 MG Tablet PO (00:35)
[2025-03-23] MEDS: morphine 10 MG/ML Syringe 8 MG IM (00:35)
--- NOTE | 2025-03-23 00:42 | ED.VIS.BACK ---
HPI History of Present Illness Chief Complaint: Back Informant: patient Narrative Narrative: Patient is a 44-year-old female with no significant PMHx presenting from home for worsening back pain. Patient states he had mechanical fall about 2 weeks ago where she was standing on a pallet to try to refill repeat her when the pallet broke. She landed on her left side. She had mechanical fall 2 days ago where she tripped and fell. She has been having ongoing pain however when she got out of bed tonight suddenly her back spasmed up and she had severe left-sided back pain and spasms. Denies any radiation of the pain. She has tried Tylenol and ibuprofen with last dose at 8:30 PM. Denies any bowel or bladder symptoms. Denies any numbness or tingling of her legs. Came in for further evaluation due to the severity of her pain. No other complaints or concerns reported at this time. [facility] Home Medications ?Medication ?Instructions ?Recorded ?Last Taken ?Type Control 1 tab DAILY 09/15/16 Unknown History oxycodone-acetaminophen 5 mg-325 1 - 2 tab PO Q4H PRN PRN Pain #12 09/15/16 Unknown Rx mg tablet tabs sulfamethoxazole 800 1 tab PO BID ##6 09/15/16 Unknown Rx mg-trimethoprim 160 mg tablet ondansetron 4 mg disintegrating 4 mg PO Q6H PRN nausea and 09/19/24 Unknown Rx tablet vomiting #10 tabs oxycodone-acetaminophen 5 mg-325 1 tab PO Q4H PRN pain 3 days #14 09/19/24 Unknown Rx mg tablet (Percocet) tabs cyclobenzaprine 10 mg tablet 10 mg PO TID PRN Muscle Spasm #20 03/23/25 Unknown Rx TABLETS Allergy/AdvReac Type Severity Reaction Status Date / Time hydromorphone (From Dilaudid) AdvReac VIOLENT Verified 03/22/25 23:13 BEHAVIOR ibuprofen AdvReac BARIATRIC Verified 03/22/25 23:13 SURGERY Surgical History Gastric bypass status for obesity Social History Smoking Status: Never smoker ROS ROS ED Constitutional Constitutional ED: Denies chills or fever(s) Gastrointestinal Gastrointestinal: Denies abdominal pain, nausea or vomiting Genitourinary Genitourinary ED: Denies dysuria or urinary frequency Musculoskeletal Musculoskeletal: Reports back pain Integumentary Denies rash Neurologic Neurologic: Denies paresthesias or weakness Hematologic/Lymphatic Hematologic/Lymphatic: Denies easy bleeding or easy bruising EXAM Physical Exam Const Vital Signs: 03/22/25 23:13 Temperature 97.1 F L Temperature Source Temporal Pulse Rate 66 Respiratory Rate 18 Blood Pressure 138/88 H Blood Pressure Mean 104 Pulse Ox 98 Oxygen Delivery Method Room Air Positive well nourished and well developed Constitutional Narrative: Uncomfortable appearing secondary to back pain General Appearance ED: well developed HEENT Reports moist mucous membranes Resp normal respiratory effort and clear to auscultation bilaterally Cardio regular rate and regular rhythm GI normal to inspection, nondistended, normoactive bowel sounds, soft to palpation and non-tender Back/Spine Back/Spine Narrative: No midline spinal tenderness present. Decreased range of motion with reproduction of pain with movement of the back. Pain and spasm in the lumbar left paraspinal region. No overlying rash or injury appreciated. Lumbar Spine / Lower Back: straight leg raise negative bilaterally Extremity normal to inspection Neuro oriented x3 and no sensory deficits noted Sensorium / Orientation: alert Motor Exam: strength 5/5 throughout Psych mental status grossly normal Skin no rashes or lesions noted and no wounds MDM MDM MDM Narrative Medical decision making narrative: Patient evaluated for worsening back pain over the past 2 weeks which has significantly worsened tonight. She has been having back spasms. Vital signs normal in emergency room. She has good distal pulses. She does not have any cauda equina syndrome symptoms. She does not have any midline tenderness. I think she requires any imaging. Given IM morphine and Flexeril orally in the emergency room. Lidoderm patch applied. She is improvement of pain with this but after receiving the morphine is nauseous. Is given ODT Zofran. I will be discharged home with prescription for Flexeril. Given return precautions. Low suspicion for this being renal pain given how highly reproducible it is and she denies any urinary symptoms at this time. Discharge Plan Triage Chief Complaint: Back ED Provider: Winnie Gar Dx/Rx/DC Orders Clinical Impression: Acute lumbar back pain, Back muscle spasm Instructions: ED Back Spasm, No Trauma Prescriptions: New cyclobenzaprine 10 mg tablet 10 mg PO TID PRN (Reason: Muscle Spasm) Qty: 20 0RF No Action Control 1 tab DAILY sulfamethoxazole-trimethoprim 1 TABLET tablet 1 tab PO BID Qty: 6 0RF oxycodone-acetaminophen 1 TABLET tablet 1 - 2 tab PO Q4H PRN PRN (Reason: Pain) Qty: 12 0RF oxycodone-acetaminophen [Percocet] 5-325 mg tablet 1 tab PO Q4H PRN (Reason: pain) 3 Days Qty: 14 0RF ondansetron 4 mg tablet,disintegrating 4 mg PO Q6H PRN (Reason: nausea and vomiting) Qty: 10 0RF Primary Care Provider: MICHELLE BALBUENA Referrals: MICHELLE BALBUENA CRNP [Primary Care Provider] - Activity Restrictions/Additional Instructions: I also recommend using [id number] 4% exercise Lidoderm patches for pain. Continue to alternate [id number] pain medication in addition to the muscle relaxer. Continue to apply heat. Perform gentle stretching. Follow-up with your family doctor. Print Language: Romanian Disposition Disposition: Home, Self Care
[2025-03-23] MEDS: Ondansetron ODT 4 MG Tablet PO (00:44)
[2025-03-23] MEDS: Lidocaine 5% Patch 1 PATCH TOPICAL (00:56)
[2025-03-23 00:57] VITALS: BP 122/85; PULSE 60; RESP 15; TEMP 36.6; O2SAT 100
== END 2025-03-23 01:03 | disposition home or self-care (01) ==
PROVIDERS: Emergency Provider Emergency Medicine; PCP Nurse Practitioner Adult Health; Visit Provider Emergency Medicine
DX: M54.50 Low back pain, unspecified (principal); M62.830 Muscle spasm of back
CPT/HCPCS: 96372; 99282

== ENCOUNTER 2025-03-23 01:20 | Emergency (ER) | payer MEDICAID, SELFPAY ==
--- NOTE | 2025-03-23 01:28 | EKG12_ITS ---
Test Reason : BACK PAIN Blood Pressure : */* mmHG Vent. Rate : 68 BPM Atrial Rate : 68 BPM P-R Int : 158 ms QRS Dur : 70 ms QT Int : 408 ms P-R-T Axes : 64 11 -9 degrees QTcB Int : 433 ms Sinus rhythm with Premature supraventricular complexes Nonspecific ST abnormality Abnormal ECG Confirmed by STACIE GALE, ORSIE ([id number]), communications editor YAJAIRA MENDIOLA ([id number]) on 03/28/2025 11:05:14 AM Referred By: XI Confirmed By: ROSIE QUINONES MD
--- OUTSIDE RECORDS SUMMARY | 2025-03-23 05:16 | XMS RPT_ITS | CCD ---
Author Organization [facility] CliniSyky Care Team Providers Care Shiftman Name Role Phone SAMRA SINGH, KIANNA Primary Care Physician ( [phone] Unavailable Primary Care Provider Unavailabl e PROVIDER, UNKNOWN Referring Unavailable Kenny Nugent Attending Unavailable Cristina, Kianna Primary Care Unavailable Kenny Nugent Attending Unavailable PROVIDER, UNKNOWN Referring Unavailable Cristina, Kianna Primary Care Unavailable Kenny Nugent Referring Unavailable Kenny Nugent Attending Unavailable PROVIDER, UNKNOWN Referring Unavailable Lisa Villa Attending Unavailable PROVIDER, UNKNOWN Referring Unavailable Cristina, Kianna Primary Care Unavailable Lisa Villa Attending Unavailable PROVIDER, UNKNOWN Referring Unavailable Cristina, Kianna Primary Care Unavailable Allen Lisa Attending Unavailable PROVIDER, UNKNOWN Referring Unavailable Cristina, Kianna Primary Care Unavailable Allen Lisa Attending Unavailable LISA VILLA Attending Unavailable KENNY NUGENT Admitting Unavailable KENNY NUGENT Attending Unavailable BARBIE LEWIS Attending Unavailable CLARK GARVEY Attending Unavailable Unavailable Primary Care Provider UnavailCOLEMAN Ramirez Attending Unavailable None, Pcp Primary Care Provider Unavailabl e SAMRA SINGH, KIANNA Primary Care Unavailgama SOLIS MD, DR HINDS Attending Unavailabl e None, Pcp Primary Care Provider Unavailabl e Ana Rosa Espitia Primary Care Provider Annika Wills RN Unavailable [employer] Primary Care Provider Unav Kenny Brady MD Unavailable Ana Rosa Espitia Primary Care Provider Annika Wills RN Unavailable UnavailKenny Bird MD Unavailable KASEY MORALEZ Attending Unavailable KENNY NUGENT Attending Unavailable ANA ROSA ESPITIA Primary Care Unavailable KENNY NUGENT Attending Unavailable [...] None, Pcp Primary Care Provider Unavailabl e Kianna Cristina Primary Care Provider Kianna Cristina Unavailable None, Pcp Primary Care Provider Unavailabl e Unavailable Primary Care Provider Unavailabl e MAL JOSHUA Attending Unavailable Ramesh Khan Attending Unavailable Viviane Wasserman Primary Care Unavailable Dr. Winnie Gar DO Emergency Provider [phone] MAST MICHELLE STANTON Primary Care Provider [phone] Dr. Maverick Bonner DO Emergency Provider Allergies Allergy Classification Reported Allergen(s) Allergy Type Date of Onset Reaction(s) Facility (20 sources) HYDROmorphone; Translations: [hydromorphone] Drug Allergy 2 Mood Fluctuation, Other [facility] (20 sources) metFORMIN; Translations: [metformin] Drug Allergy 3 [facility] (1 source) HYDROmorphone Drug Allergy 4 [facility] (1 source) Ibuprofen Drug Allergy 4 [facility] (2 sources) Ibuprofen Drug Allergy 5 BARIATRIC SURGERY [facility] Medications Current Medications Medication Drug Class(es) Dates Sig (Normalized) Sig (Original) acetaminophen 325 mg / oxyCODONE hydrochloride 5 mg oral tablet (13 sources) Opioid Agonist Start: 02-27-2023 End: 02-27-2023 take 1 tablet by mouth every four hours as needed for pain oxyCODONE-acetami nophen (Percocet) 5-325 MG per tablet 1 tablet Start: 02-26-2023 End: 03-08-2023 take 1 tablet by mouth every six hours as needed for pain oxyCODONE-acetaminophen (Percocet) 5-325 MG tablet Indications: Morbid obesity with BMI of 40.0-44.9, adult (HCC) Take 1 tablet by mouth every 6 hours as needed for severe pain (7-10) for up to 7 days. 28 tablet 0 02/26/2023 03/08/2023 Discontinued Start: 09-15-2016 take 1 tablet by kike th every four hours as needed for pain Oxycodone-Acetaminophen (Percocet) 5-325 mg tablet Active 1 {tbl} PO Q4H as needed for pain 14 3 September 19, 2024 Alcohol Swabs (2 sources) Start: 05-03-2020 Alcohol Swabs See Instructions, once daily R73.01, # 30 EA, 4 Refill(s), Pharmacy: [address], [facility] fasting glucose, 169, cm, 05/03/20 7:32:00 EDT, Height, 121.9, kg, 05/03/20 7:32:00 EDT, Dosing Weight Start Date: 05/03/20 Status: Ordered Biotin (3 sources) BIOTIN 10,000 TA BLET Active BIOTIN PO Take b y mouth. 0 Active Control (2 sources) Start: 09-15-2016 Control Active 1 {tbl} DAILY September 15, 2016 1:00am Blood Glucose Test Machine (2 sources) Start: 03-22-2021 Blood Glucose Test Machine See Instructions, once daily R73.01, # 1 EA, 0 Refill(s), [facility] [address] Impaired fasting glucose, 169, cm, [...] Date: 12/09/22 Stop Date: 12/14/22 Status: Ordered cyclobenzaprine hydrochloride 10 mg oral tablet (2 sources) Muscle Relaxant Start: 03-23-2025 take 1 tablet by mouth three times daily as needed for muscle spasms Cyclobenzaprine 10 mg tablet Active 10 mg PO THREE TIMES A DAY as needed for Muscle Spasm March 23, 2025 12:00am empagliflozin 25 mg oral tablet (20 sources) [...] # 16 gram(s), 3 Refill(s), [facility] [address] 169, cm, 03/22/21 16:03:00 EDT, [...] qDay, # 16 gram(s), 3 Refill(s), Pharmacy: [id number], 167.6, cm, 08/04/22 13:33:00 EST, Height, kg, [...] Start: 05-21-2020 take 1 tablet by kike three times daily for dizziness meclizine 25 mg oral tablet See Instructions, take 1 tablet by mouth three times a day if needed for dizziness, # 60 tab(s), 8 Refill(s), [facility] [address] 169, cm, 05/03/20 7:32:00 EDT, Height, kg, 05/03/20 7:32:00 EDT, Dosing Weight Start Date: 05/21/20 Status: Ordered Medrol Dosepak 4 mg oral tablet (1 source) Start: 07-06-2021 End: 07-12-2021 Medrol Dosepak 4 mg oral tablet 1 packet(s), Oral, qDay, as directed on package labeling, X 6 day(s), # 21 tab(s), 0 Refill(s), 07/12/21 8:02:00 EDT, [facility] [address] 167.6, cm, 07/06/21 7:47:00 [...] qDay, # 90 cap(s), 0 Refill(s), [facility] [address] 167, cm, 11/15/20 14:18:00 EST, Height, kg, 11/15/20 14:18:00 EST, Dosing Weight Start Date: 11/15/20 Status: Ordered ondansetron 4 mg disintegrating oral tablet (20 sources) Serotonin-3 Receptor Antagonist Start: 09-19-2024 take 1 tablet by mouth every six hours as needed for nausea and vomiting Ondansetron 4 mg tablet,disintegrating Active 4 mg PO EVERY 6 HOURS as needed for nausea and vomiting September 19, 2024 1:00am Start: 02-26-2023 End: 03-09-2023 take 1 tablet [...] Nausea/Vomiting, # 20 tab(s), 1 Refill(s), Pharmacy: [facility] [address], 168.5, cm, 04/11/20 7:34:00 EDT, Height, kg, 04/11/20 7:34:00 EDT, Dosing Weight Start Date: 04/11/20 Status: Ordered Pediatric Multivitamins-Iron (CHILDRENS MULTIVITAMIN/IRON PO) [...] after taking. 900 mL 3 03/11/2023 Active sulfamethoxazole 800 mg / trimethoprim 160 mg oral tablet (2 sources) Dihydrofolate Reductase Inhibitor Antibacterial, Sulfonamide Antimicrobial Start: 09-15-2016 Sulfamethoxazole-Tri methoprim 1 TABLET tablet Active 1 {tbl} PO TWICE A DAY September 15, 2016 1:00am SUMAtriptan 50 mg oral tablet (20 sources) [...] tab(s)/24hrs, # 9 tab(s), 4 Refill(s), Pharmacy: [facility] [address], 168.5, cm, 04/11/20 7:34:00 EDT, Height, [...] needed for Pain. 30 tablet 08/20/2019 Active albuterol 0.83 mg/ml inhalation solution (4 sources) [...] (8 sources) Cephalosporin Antibacterial Start: 01-25-2022 End: 10-14-2022 take 1 capsule by mouth every twelve hours cefdinir (Omnicef) 300 MG capsule take 1 capsule by mouth every 12 hours for 10 days 0 01/25/2022 10/14/2022 Discontinued (Med list cleanup) Start: 07-06-2021 End: 07-16-2021 cefdinir 300 mg oral capsule Dose : 300 mg = 1 cap(s), Oral, q12h, X 10 day(s), # 20 cap(s), 0 Refill(s), 07/16/21 8:02:00 EDT, Pharmacy: [facility] [address], 167.6, cm, 07/06/21 7:47:00 EDT, Height, [...] dose on Thu02/26/23 at 2100, Phase II/On Unit 60mg q12h, [...] list cleanup) 0.5 ml heparin sodium, porcine 47097 unt/ml prefilled syringe (2 sources) Unfractionated Heparin, [...] (4 times per day), First dose on [facility] 02/26/23 at 1800, For 5 doses Start: [...] 09/17/2021 10/14/2022 Discontinued (Med list cleanup) ondansetron ODT (Zofran-ODT) disintegrating tablet 4 mg (2 sources) Start: 02-26-2023 End: 02-27-2023 take 1 tablet by mouth every eight hours as needed for nausea and vomiting ondansetron ODT (Zofran-ODT) disintegrating tablet 4 mg pantoprazole 40 mg injection (2 sources) Proton Pump Inhibitor Start: 02-26-2023 End: 02-27-2023 pantoprazole (ProtoNix) injection 40 mg polymyxin b 84021 unt/ml / trimethoprim 1 mg/ml ophthalmic solution [...] Start: 02-26-2023 End: 02-27-2023 5-250 mL/hr, IntraVENous, MT N, if patient receiving piggyback infusions and [...] (1 source) Presbyopia; Translations: [Presbyopia] 11-03-2024 Episodic Calculus of urinary tract (2 sources) Kidney stone; Translations: [Calculus of kidney] 09-27-2024 Episodic Conditions associated with dizziness or vertigo [...] unclassified (1 source) Influenza-like symptoms 08-04-2022 Episodic Spondylosis; intervertebral disc disorders; other back problems (20 sources) Backache; Translations: [Dorsalgia, unspecified] Onset: 2 07-12-2022 Episodic Unclassified (2 sources) Neuroma, no ICD-O [...] [Other specified health status] Onset: 02-11-2023 Episodic Unclassified (1 source) Low back pain, unspecified; Translations: [Low back pain, unspecified] Onset: 03-04-2023 Results Test Name Value Interpretation Reference Range Facility Abdomen/Pelvis without Conto n 09-19-2024 Abdomen/Pelvis without Cont [facility] Services [address] [place] [address] Abdomen/Pelvis without Cont MR#: [id number] Acct: [id number] Name: KAELYN MADDOX Rep #: [id number] : 1980 F 44 From: Kari Noriega MD PCP: Viviane Wasserman, CONFIGURATION RELEASE MANAGER-C Status: REG ER Study: Abdomen/Pelvis without Cont Date of Exam: 08/29 12/19 Exam# [id number] Ordering Dr: Ramesh Khan MD [id number] INDICATION: Pain EXAMINATION: CT ABDOMEN AND PELVIS [...] CC: LORENA Wasserman; Dr. Ramesh Khan MD Sheet Rocker: Signed Normal [facility] Basic Metabolic Profile (BMP )on 09-19-2024 BUN/CRE 16.1 RATIO Normal 10-20 [facility] Comment on above: Performed By: #### L 500.2500, L100.0100 #### [facility] [address] [facility] [place], [address] CA,Total 9.0 mg/dL Normal 8.5-10.1 [facility] Comment on above: Performed By: #### L 500.2500, L100.0100 #### [facility] [address] [place], [address] Chloride [Moles/Vol] 111 mmol/L High 98-107 [facility] Comment on above: Performed By: #### L 500.2500, L100.0100 #### [facility] [address] [place], [address] CO2 [Moles/Vol] 26.0 mmol/L Normal 21.0-32.0 [facility] Comment on above: Performed By: #### L 500.2500, L100.0100 #### [facility] [address] [place], [address] Creatinine [Mass/Vol] 0.62 mg/dL Normal 0.55-1.02 [facility] Comment on above: Result Comment: The validity of the calculated GFR GFRAA in patients over 70 years has not been determined. Clinical correlation is essential. Performed By: #### L 500.2500, L100.0100 #### [facility] [address] [place], [address] ECRCL 126.54 ml/min Normal [facility] Comment on above: Performed By: #### L 500.2500, L100.0100 #### [facility] [address] [place], [address] EST GFR - AA 133 mL/min Normal >60 [facility] Comment on above: Result Comment: Afri can Mozambican GFR Calc Performed By: #### L 500.2500, L100.0100 #### [facility] [address] [place], [address] GAP 5 Normal 5-15 [facility] Comment on above: Performed By: #### L 500.2500, L100.0100 #### [facility] [address] [place], [address] GFR/1.73 sq M.predicted among non-blacks MDRD (S/P/Bld) [Vol rate/Area] 110 mL/min/{1.73_m2} Normal >60 [facility] Comment on above: Result Comment: Non- GFR Calc Performed By: #### L 500.2500, L100.0100 #### [facility] [address] [place], [address] Glucose [Mass/Vol] 92 mg/dL Normal 74-106 [facility] Comment on above: Performed By: #### L 500.2500, L100.0100 #### [facility] [address] [place], [address] Potassium [Moles/Vol] 3.4 mmol/L Low 3.5-5.1 [facility] Comment on above: Performed By: #### L 500.2500, L100.0100 #### [facility] [address] [place], [address] Sodium [Moles/Vol] 142 mmol/L Normal 136-145 [facility] Comment on above: Performed By: #### L 500.2500, L100.0100 #### [facility] [address] [place], [address] Urea nitrogen [Mass/Vol] 10 mg/dL Normal 7-18 [facility] Comment on above: Performed By: #### L 500.2500, L100.0100 #### [facility] [address] [place], [address] CBC W/Diff, Automatedon 12-2 3-2023 Absolute Lymph 2.12 X10 3/uL Normal 0.83-4.51 [facility] Comment on above: Performed By: #### L 500.2500, L100.0100 #### [facility] [address] [place], [address] Absolute Neut 4.9 X10 3/uL Normal 2.0-7.7 [facility] Comment on above: Performed By: #### L 500.2500, L100.0100 #### [facility] [address] [place], [address] Basophils/100 WBC (Bld) 0.8 % Normal 0-1 [facility] Comment on above: Performed By: #### L 500.2500, L100.0100 #### [facility] [address] [place], [address] Eosinophils/100 WBC (Bld) 2.1 % Normal 0-5 [facility] Comment on above: Performed By: #### L 500.2500, L100.0100 #### [facility] [address] [place], [address] Erythrocyte distribution width (RBC) [Ratio] 12.6 % Normal 11.6-14.6 [facility] Comment on above: Performed By: #### L 500.2500, L100.0100 #### [facility] [address] [place], [address] Hematocrit (Bld) [Volume fraction] 40.6 % Normal 37-47 [facility] Comment on above: Performed By: #### L 500.2500, L100.0100 #### [facility] [address] [place], [address] Hemoglobin (Bld) [Mass/Vol] 13.5 g/dL Normal 12.0-15.0 [facility] Comment on above: Performed By: #### L 500.2500, L100.0100 #### [facility] [address] [place], [address] IG% 0.400 Normal 0.0-0.9 [facility] Comment on above: Result Comment: IG% - Immature Granulocytes (promyelocytes, myelocytes and metamyelocytes) > 1% indicates that a LEFT SHIFT is Present. Performed By: #### L 500.2500, L100.0100 #### [facility] [address] [place], [address] Lymphocytes/100 WBC (Bld) 27.6 % Normal 19-41 [facility] Comment on above: Performed By: #### L 500.2500, L100.0100 #### [facility] [address] [place], [address] MCH (RBC) [Entitic mass] 29.3 pg Normal 27.0-32.0 [facility] Comment on above: Performed By: #### L 500.2500, L100.0100 #### [facility] [address] [place], [address] MCHC (RBC) [Mass/Vol] 33.3 g/dL Normal 32-36 [facility] Comment on above: Performed By: #### L 500.2500, L100.0100 #### [facility] [address] [place], [address] MCV (RBC) [Entitic vol] 88.3 fL Normal 81-99 [facility] Comment on above: Performed By: #### L 500.2500, L100.0100 #### [facility] [address] [place], [address] Monocytes/100 WBC (Bld) 5.7 % Normal 0-10 [facility] Comment on above: Performed By: #### L 500.2500, L100.0100 #### [facility] [address] [place], [address] Neutrophils/100 WBC (Bld) 63.4 % Normal 47-70 [facility] Comment on above: Performed By: #### L 500.2500, L100.0100 #### [facility] [address] [place], [address] Nucleated RBC (Bld) [#/Vol] 0 10*3/uL Normal 0-5 [facility] Comment on above: Performed By: #### L 500.2500, L100.0100 #### [facility] [address] [place], [address] Platelet mean volume (Bld) [Entitic vol] 9.3 fL Normal 6.2-12.0 [facility] Comment on above: Performed By: #### L 500.2500, L100.0100 #### [facility] [address] [place], [address] Platelets (Bld) [#/Vol] 276 10*3/uL Normal 150-450 [facility] Comment on above: Performed By: #### L 500.2500, L100.0100 #### [facility] [address] [place], [address] RBC (Bld) [#/Vol] 4.60 10*6/uL Normal 4.2-5.4 [facility] Comment on above: Performed By: #### L 500.2500, L100.0100 #### [facility] [address] [place], [address] RDW SD 40.7 fl Normal 35.1-43.9 [facility] Comment on above: Performed By: #### L 500.2500, L100.0100 #### [facility] [address] [place], [address] WBC (Bld) [#/Vol] 7.7 10*3/uL Normal 4.4-11.0 [facility] Comment on above: Performed By: #### L 500.2500, L100.0100 #### [facility] [address] [place], [address] Emergency Department Summary on 09-19-2024 Emergency Department Summary [facility] Medical Records Department [address] [place] [address] Emergency Department Summary 09/19/24 MR#: [id number] Acct: [id number] Name: KAELYN MADDOX Rep #: [id number] : 1980 44 From: Ramesh Khan MD PCP: Viviane Wasserman NP-Carissa Status:REG ER Location: ED HPI History of [...] all 4 extremities. 5 out of 5 vba programmer strength. Dorsi plantarflexion intact. No cauda equina. [...] tachycardic Rhythm (more content not included)... Normal [facility] Urinalysis, Completeon 09-19 RBC 0-5 SEEN Normal 0-5 [facility] Comment on above: Order Comment: CLEAN CATCH Performed By: #### L 400.0001 #### [facility] [address] [place], [place], [id number] BACTERIA 0 SEEN Normal None Seen [facility] Comment on above: Order Comment: CLEAN CATCH Performed By: #### L 400.0001 #### [facility] [address] [place], [place], [id number] EPI,SQUAMOUS 0 SEEN Normal 5-10 [facility] Comment on above: Order Comment: CLEAN CATCH Performed By: #### L 400.0001 #### [facility] [address] [place], [place], [address] Mucus Ql (Urine sed) 0 SEEN Normal [facility] Comment on above: Order Comment: CLEAN CATCH Performed By: #### L 400.0001 #### [facility] [address] [place], [address] WBC 0 SEEN Normal 0-5 [facility] Comment on above: Order Comment: CLEAN CATCH Performed By: #### L 400.0001 #### [facility] [address] [place], [place], [address] [id number] 07-13-2023 [id number] DOS 02/26/2023 robotic NENO - S, W / HH REPAIR AD. Last OV-04/01/23 with AGD, next 09/15/23 with CONFIGURATION RELEASE MANAGER Nystatin powder was sent on 07/06/23. Cream pended and to CONFIGURATION RELEASE MANAGER for review. Normal [facility] Office Visiton 04-01-2023 Follow-up visit [id number] Kaelyn Maddox 1980 F Date Provider Department Center 04/01/2023 [id number] NUGENT [facility] BCC SURG None Family History Problem [...] Grandmother Alive Maternal Grandmother Alive Level of Service:97408 MT POSTOP FOLLOW UP VISIT RELATED TO ORIGINAL PX Reason for Visit and Comments: Bariatrics Post Op Follow-up [884] - 1M Normal [facility] Progress Noteon 04-01-2023 Progress Note [facility] 1 MONTH POST-OPERATIVE DIETITIAN [...] completed by: Naima Krause MS, RDN, LD Normal [facility] Progress Note KENNY NUGENT MD , F [facility], [facility] MINIMALLY INVASIVE & METABOLIC / BARIATRIC SURGERY [facility] MBS - 1 MONTH FOLLOW [...] completed Laboratory results were pending Glucose in [facility] in the 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 Normal [facility] [id number] 03-12-2023 [id number] Phone call to pt aft er review [...] and try full liquids tomorrow. Voiced understanding. [facility] [id number] 03-11-2023 [id number] Late entry Pt noted to have called the office about 12p with concern that she was d/c'd home from [facility] on Thursday. States she was told her esophagus was swollen and it is painful. States it feels like fluids are coming back up and unable to eat pureed foods. States there is pain in her stomach and shoulder but believes it to be gas pain. States the pain when swallowing is significant. CONFIGURATION RELEASE MANAGER is aware of pt mychart message and will follow up with pt. [facility] [id number] DOS 02/26/2023 robotic NENO - S, W [...] advised to document resolution. Will route to CONFIGURATION RELEASE MANAGER for review and direction. [facility] Progress Noteon 03-11-2023 Progress Note Holding off on this EGD until further notice from [facility] Normal [facility] Progress Note ENDOSCOPY ORDERS To be scheduled with: Dr. Nugent Patient is: Post-op CPT code: EGD with dilation- CPT 63670 Diagnosis: Dysphagia- R13.1 Can we try to work in next week please- or if a cancellation occurs. I will talk to DR Nugent when he returns. If pre-op, Diet & Exercise Requirements are, and started/scheduled on : Home O2: No Known Difficult Intubation: No Normal [facility] 36on 03-09-2023 36 Thanks. Normal [facility] 36 Patient currently admitted. UGI showed narrowing at GE junction Normal [facility] Progress Noteon 03-09-2023 Progress Note [facility] Patient Name: [...] mL/kg) Weight: 106.6 kg CBC: Recent Labs 03/07/23183003/08/2339 03/09/23 0418 WBC 16.5* 14.1* 11.6* HGB 15.2 12.4 11.2* HCT 43.5 36.9 33.3* PLT 384 312 270 BMP: Recent Labs 03/07/23183003/08/2339 03/09/23 0418 NA 140 139 136 K [...] Discharge home with close follow-up in clinic. [facility] Progress Noteon 03-08-2023 Progress Note Paged around [...] Ange Manning MD General Surgery, PGY-1 Pager [phone] 03/08/2023 8:58 PM [facility] Progress Note BP Is now 93/52, HR is 72. Pt states she is feeling somewhat better. Full liquid diet encouraged to see how well she tolerates dinner. Normal [facility] Progress Note Pts BP low 87/53, an d now symptomatic. Dr. Manning updated. New order for another 1L bolus of LR. Will continue to monitor. [facility] Progress Note Pts BP is 86/51, map of 63. Pt is asymptomatic. Dr. Manning updated, new orders received. [facility] 36on 03-07-2023 36 S: Patient called e clinical access center with complaint of post operative constipation B: NENO procedure 02.26.2023 A: Name of Caller: Kaelyn Gonzalez Call Back Number: [phone] What Procedure/Surgery did you have done?:NENO Who [...] sounds. She What provider is being paged?:Dr. Lee Cassidy Time page was sent: 7:12 AM Page Content: Stephania PROCTOR [id number] Call Back Number [phone] Reason for page (symptom) Upper abdominal pain and constipation decreased bowel sounds . Name of Surgeon Dr. Nugent Type of Surgery NENO Date of Surgery 02/26/2023 R: Dr. Cassidy toy trains and accessories salesperson paged and info provided. Patient instructed to [...] answer question Protocols used: Post-Op Symptoms [facility] ABDOMEN PELVIS W CONTRAST on 03-07-2023 [...] Electronically Signed Date/Time: 03/07/2023 7:44 PM EDT Normal [facility] ED Nursing Noteon 03-07-2023 ED Nursing Note [facility] Care here to transport patient to [facility]. Elba Chowdhury RN 03/07/232153 Normal [facility] ED Nursing Note IV MORPHINE GIVEN IV PUSH NOT VIA IV PUMP. Elba Chowdhury RN 03/07/232149 Normal [facility] ED Nursing Note Report given to Jesus laura at [facility] ED. [facility] Care is picking up patient at 9:30PM. Elba Chowdhury RN 03/07/232044 [facility] ED Nursing Note Dr Raffi Flores 03/07/232023 [facility] ED Nursing Note Patient complains of left [...] surgery was February [address] Nugent. [facility] ED Nursing Note Bed: 39 Expected date: Expected time: Means of arrival: Comments: catrachito Cross, JUNIOR 03/07/23 538 [facility] ED Provider Noteon 3 ED Provider Note Emergency Department Encounter [facility] EMERGENCY DEPT Patient was transferred from [place] emergency department, for gastric bypass surgery evaluation. [...] [employer] Simona Sesay DO 03/08/23 0107 [facility] ED Provider Note EMERGENCY DEPARTMENT ENCOUNTER Pt [...] TONSILLECTOMY (HISTORICAL) 2005 TOTAL ABDOMINAL HYSTERECTOMY 2017 CURRENT MEDICATIONS Current [...] nostril once daily Lancets (OneTouch Delica Plus [id number]) mis use 1 LANCET to TEST BLOOD SUGAR [...] [03/07/23 1 (more content not included)... [facility] Office Visiton 03-04-2023 Follow-up visit [id number] Kaelyn Maddox 1980 F Date Provider Department Center 03/04/2023 [id number]-PSMKENNY NUGENT BCC SURG None Family History Problem [...] Grandmother Alive Maternal Grandmother Alive Level of Service:17000 MT POSTOP FOLLOW UP VISIT RELATED TO ORIGINAL PX Reason for Visit and Comments: Bariatrics Post Op Follow-up [884] - 1W [facility] Progress Noteon 03-04-2023 Progress Note KENNY NUGENT MD , F [facility], [facility] MINIMALLY INVASIVE & METABOLIC / BARIATRIC SURGERY [facility] MBS - 1 WEEK FOLLOW [...] complication, without long-term current use of insulin ([facility]) Vertigo Past Surgical History: Procedure [...] approximately 20% (more content not included)... [facility] Progress Note [facility] BARIATRIC CARE CENTER POST WEIGHT LOSS SURGERY FOLLOW UP - 1 WEEK Rooming Note Patient: Kaelyn Maddox Service Date: 03/04/2023 Patient is 1 week s/p SAMSON ABBOTT Pre-Surgical Weight Loss Initial Height: 5' 5 (165.1 cm) Initial Weight: 253 lb 6.4 oz (115 kg) Initial BMI: 42.16 [place] Body Weight: 125 lb (56.7 kg) Surgery [...] Change: -24 lbs Completed by: Annika Silva [facility] Progress Note [facility] 1 WEEK VISIT POST-OPERATIVE DIETITIAN Date: [...] arise. Visit completed by: Adriane Hearn RD [facility] 36on 03-03-2023 36 The patient is doing [...] up appointment information and when to contact [facility] with the patient who verbalized understanding. No other questions or concerns at this time. [facility] Basic metabolic 1998 panelon 02-27-2023 Anion gap [Moles/Vol] 5 mmol/L 3 - 13 mmol/L [facility] Calcium [Mass/Vol] 8.2 mg/dL Low 8.4 - 10. 4 mg/dL [facility] Chloride [Moles/Vol] 108 mmol/L High 98 - 10 7 mmol/L [facility] CO2 [Moles/Vol] 23 mmol/L 22 - 30 mmol/L [facility] Creatinine [Mass/Vol] 0.55 mg/dL 0.52 - 1.04 mg/dL [facility] GFR/1.73 sq M.predicted MDRD (S/P/Bld) [Vol rate/Area] - PINF [facility] Comment on above: Calculation based on the Chronic Kidney Disease Epidemiology Collaboration (CKD-EPI) equation refit without adjustment for race Glucose [Mass/Vol] 109 mg/dL High 70 - 100 mg/dL [facility] Interpretation and review of laboratory results Abnormal [facility] Potassium [Moles/Vol] 4.4 mmol/L 3.5 - 5.1 mmol/L [facility] Sodium [Moles/Vol] 136 mmol/L 135 - 145 mmol/L [facility] Urea nitrogen [Mass/Vol] 12 mg/dL 7 - 17 mg/dL [facility] CBC panel Auto (Bld)Ordered By: Jacque Hannah on 02-27-2023 Erythrocyte distribution width (RBC) [Ratio] 13.1 % 11.5 - 14.5 % [facility] Hematocrit (Bld) [Volume fraction] 36.1 % 35.0 - 47.0 % [facility] Hemoglobin (Bld) [Mass/Vol] 12.0 g/dL 11.7 - 16.0 g/dL [facility] Interpretation and review of laboratory results Abnormal [facility] MCH (RBC) [Entitic mass] 29.0 pg 26.0 - 34.0 pg [facility] MCHC (RBC) [Mass/Vol] 33.3 % 32.0 - 36.0 % [facility] MCV (RBC) [Entitic vol] 86.9 fL 80.0 - 98.0 fL [facility] Platelet mean volume (Bld) [Entitic vol] 7.5 fL 7.4 - 12.4 fL [facility] Platelets (Bld) [#/Vol] 281 10*3/uL 140 - 440 10*3/uL [facility] RBC (Bld) [#/Vol] 4.16 10*6/uL 3.8 - 5.20 10*6/uL [facility] WBC (Bld) [#/Vol] 15.5 10*3/uL High 3.6 - 10.7 10*3/uL [facility] No Panel InformationOrdered By: David Wang on 02-27-2023 Case Report Surgical Pathology C ase: [id number] Authorizing Provider: Kenny Nugent MD Collected: 02/26/2023 0908 Ordering Location: [facility] MAIN OR Received: 02/26/2023 1436 Pathologist: David Wang MD Specimens: A) - Stomach, STOMACH B) - Liver, LIVER BIOSY [facility] Work Phone: Clinical Information f3txhEKnOHHjtBYdDGD wNlxh lrUmFWFubTLhV9SzeovjBTli XG0yLE7mjJtcfFQonKRsESOr TrWnd4smx820iSZdf4ibHRQB DXtqFJTOHPd7aPskH50ct9H4 NdytW44akOQjJSV9FUJaIGMq uMQcQMEuSJY4ZSVjrGYcO8ju XXXcBW9imosmHIsjXOzqKTHp lRA0KXWpzLOaL5QnVAFkFEty GDLlcgx7NzZuSn1vbVSkzVpd MFxwYXJkXHBsYWluXGZzMjAg DQ4vZacoLCdqCJHmiqHjEY9r LITxoUsuDYRyJZZsLGX8C2Ox cyBjYWxvcmllcyAoSENDKSwg UUE9IuNiDGVgpxROsIYsdWLa E67cfPzzJFklrz9yBQE8nGTh i9M0WX4ha1DycEG2lL7sFI4x RFxjjkqhPC8pQIBXWVXzGOHe ICAgICAgICAgICAgICAgICAg ICAgICAgICAgICAgICAgICAg ICAgICAgICAgXHBhcn0= [facility] Work Phone: Disclaimer d7ynzEBeTZJmcARxQgHt MDAw SUVbd0azRTEajAIwGmGpUoAv FkEnDzpciSPmHBQaPvLiq1cb g262jCHxn0fbDYKjKpT0lAIm HQJfiTmnjjp5gDcpGrUtTTVk b6nyzbGdPrCaRFRnVUMpMCEa hPtnlbe3tX73RCOtuQ1pjZYq TLztvyHrClK1EXprWVWvTzJ6 RCFofLFrIHFuH6pySDJlVVDi E1BtXX4xBMJzMdu5TWTbBCH9 PFOzSJBkO6VsZV0rNLJbcTSk BXd3x2djwElaLCVfETB6l9fl KQfnlbJhHM4vyg2jcPp3z7ft sjAjJQBxYZWbgUQAKCXxV4Rb lDclGq8lpZt6fFhvRhnsXXP0 Fyk0WW8ktm62ngd2gKhjEOHm qrdvKuR2KPksCFChrzafHAy4 DAuyPVAjiZN4OLQeeIDcC0Tp WKMpFC3xqon6WVR6IRalPDEj YnX2TJNejFVaRCQcjLgsCDao j289ZKF4EyHqFP4aX8Eap7O9 cN7wtKGzBHMuhPExLsZeNUZv wi7hfKWxWOayx5PdLGJ8fyN5 jELimDKfQQQwUD44Ohvcl1Ps QxdzYCL5RRJxyiRtk1Joy2dw LfCzixImL0boK0AtWGCjBJGh RATuOeQmmgSkg5Iof2PzlXHr qXw2n1baGMOkSCOxqHdpm3ar NXL8QMIoY8K3qEGqc0zfLGwg SEXmgZR8bxL1DYYprYBkB2Tm cG8mDMBtRH3iqmu5k7mkTZJ8 VAleQQFpWmL1clL5KQArlSIr XPAejPamZDlqg025FAC2RzGo XYSus9DoZ7MxbIeoA86yrLsu J63gOYWmyIpqoP4buZpgkI4r ZjBcZnMyNFxxbFxwbGFpblxm TFmwedW1MFtlojfrHAVcTIqb W3rnEaCzVFBioOzxNSzqw1Bg QNDwXKZkQnbjffE3MDAlHWFi bnRlcnByZXRhdGlvbiBvZiB0 kAsjJDOmi0IkeP0jxBWbYYYu uKbwAFNbOHGuDpTfvY93ed3u dIQ9v3CsDX5zj8CkhASjsqTn lTOmvJRcSRP0HOnnuq5dOBdr f6JxtZLcyWXmuPY8NXJvk7Vc KmDimeMuyLYgjmLvHA0dHKMx yPXorhTaMKP3GNAxRZSCBrGo MKUkr8VePJ7oELEbsSguLVDx rF9uc8PxQRLbb42fDXUcXOQU REEgaGFzIGRldGVybWluZWQg xVfrtMQauLEvYNYvDXSyLP8c YAVgnqYwrVDzh4CmiBDigkZx k7JtfzUhNQWmIGU3BkLTeRJj DXJ5KBB7vgWbgfRswAAxHEUe e4KiJ9cgcdsaHHdzgCIpyL9c AYQlUR0aCGGhu0SsTPAjx7Ap OoUzjiMaBWEvRYKcZUCeuJ44 ANT1xMqodYkvwtGgPG1rHBEw vkTlVXWkNJJsgU1kQYimrzJd JJQuvgG1f2K2MCdwWXVbafHk NuzoKJY7dsVxHBChl6NmIKvc M0vfA19nqNvnyVp0qYT4VZI3 sW4qEQQnEQGnKGPjKJNGpEwl xNQeaXGJFYUeugM4s7B3LNzb qHIuspVoYN83SKNpNT9dcIVe uOXxn0UyWWp3VS8cOQEnEZgo XGYxXGZzMjJcbGFuZzEwMzNc aGljaFxmMVxkYmNoXGYxXGxv Q2ckXdOlTdXoVeagLPN9 [facility] [employer] Work Phone: Gross Description g7pkfEUiTPXpkSXiZQCu Nlxh dmIiOCBjeTKuQ0MwpvjeBSvb AL4fYK0axOldyNVegEDaKQGe EkGwp1rcp866gNKsg8zoJWGX YZyhLHJYCFl3iZqnX75vw5P3 WhxeP23gtUClOOD3TYLdQOUu yYDeEQAiVKE8BHZfsOGhE2nf SUXvZP7rleigSKiyCAgjPCMq nEY6PCOsjXSiG9ZsPETiYYli PDJejqk6GbAnPq9jnQFgbJyp MFxwYXJkXHBsYWluXGZzMjAg FZ4xnRYpLNRpQ9PbasFqSZsa JHOsrp5niJpwHCspUcSwRLVq LrT5o38qW2ufKMjbQTZxs5Ch uJArjHImDmHqmM2jCTExYFTi YGVwtYIkf2IpDVNfUyLlXQE3 JRQwVnWbR55uFJWPeOHfELCs EIHbw9UdVAB0uxPmS0ExxCYn vAsziw83JO2mSRMCrmFhdp9i u9q4IDudGF77dXOyDBXeQWIu ISEom23hCwERdUAvzR6rJPRz BBFkqDHnwI9qzrDaLAMkZDar SYMuachxlBJuNO73M57eHUO3 wAIwAF6ulm0itMNiaRmbhFCh v6vscoXroyCtrr2qW4Mgu0Ar eSBpZGVudGlmaWFibGUgbGVz pB1xmcPosoYoGYBvKWGmkBRp l7GjkY1wGHRruOAyf1FcpRV8 kIRbSEYqO1Uba67qfXQds4Dw nXw3zSDlMYtzJHBedcBvGJNz h7WbiDDton1blSZhCEMpywZQ Pxp2TYWrWqWyHTj6PNZgnR1d Db3grNPjlR9byFWxESfmWEQr mXz1PGBlAjufiEY8DmPqfpZy BJKmJEszZH55VR2pSRCjNT41 CF2pcDohx9GiZOSuBVKrpDPo n4QoJGOiTK24WTlcNU55IEew QG0lCPTgOjMtNNplIKGmIBSg aJCqPSkaSVA3Uf7kwOLjINRr cyByZWNlaXZlZCBpbiBvbmUg J5Qmu9G0lIGyYAKdof4= [employer] Work Phone: Pathology report final diagnosis Narrative i6ovjJXpIYJrfLNxZKRjEeks nxYxHFUesELjA4MnodacELld AG7tEF1zgBbroNYhyOYaZPVx HoQux5wps620kYGvz0sbWUVJ YZdgCBBBVHp3hAwxH07bi5J3 EnkyF91arARkZAG2IGDaTUVg sTLkRYTbPVT9MZDszRWdF2xl ZKFuBY2tuiicOHezSIyvJNIg bTB4EMLhvNZuA0IoQIYpQRbb HZFvfki6LdEmVf3jkDAjoIky MFxwYXJkXHBsYWluXGZzMjBc mQGfZPApKIJHGT3PQTCGMOKN ORFTXONXTNvVV8GVHEEUT11H PpveCXMaABRIQD3AYGVQATZY Ck7NQVHmUK7SY6XXVgPgL4EN VFJJVElTXHBhclxwYXJcdWwg A41btEEryUp2oGTrUzIzKRyn miBvzBIllg5cNXUuXULbG3Xn t2NkfX63PXC1zF7dxWFeCNBi uSlnf2jpVBLyzJKplZEvwQYd QN3kKB2jmQokwvTwA2ckRDGG xEHzNHECYPX4KJzsDADsp6hb ZW3bEAB5hJNpdfHgUV1sQMlj gIzjl7PcU9LivgBsaLtvmwlw XHBhclxwYXJkXHBhciBBLiAg NLjBKPPqTAhCMTcQVNDRK2NQ CYroZIRoqnDyAJ7IZHCjY5BZ FROFT5eLJFbHTjJPHHQaJSUd lDBlIGChiqs0qRDHi55yWX80 CAOqDFZ9EKJuZ7Sid19eXZEg uP9mx2QiQWUuMOZgILujhOSl zPWxeMPyzgDlkbDzxSRrC6M6 hfMja7q3pSGqsFflQK7xX0Ia tpAmwZV8vZJqBNV2PWD2g2Xw goYpE3L6mGswvoniYJWcba66 iH0elWYphWBxFOFdi6SntLgr HUaeeyYbNSMaqDQsEN6rUOmg hiCioQNegj2jMFLiREMmR9Cb e4NoTjWcwK9jakhbWpAfOGjj dgEzZXSle67uKKsvDcDgGNNy DKG5kUZvxJgkJV3iVE2ahRce rbdiyfVgyXVqcI6mQvYUpCDq oF5qeQSgOVRrSBV0euIph146 AAonGTErnLJxr5DlJDqsx3Cb hDW5tPGkyjX8vVUdu2U0TLZf gAAisXxzfQRaA0GnhUUptrQh GK8kGUOqqflzyY4tkWq4tlD8 PO5aFEVxPBEvFIpvb5VlcW1w UYvziu3rBJMqMJC8hjfhlL5m SBgxUYRnMF7rP1T0tOJgGVLh ciBpbmNyZWFzZWQgaXJvbiBz yJ6uSEdwGDDpMNHeiUEiq1Gi ckbvpsQpcTUkuEe3YIs6Ujzx YXJccGFyZFxwYXJ9 [facility] [employer] Work Phone: [facility] [employer] Phone: Nursing Noteon 02-27-2023 Nursing Note Went over discharge instructions, med rec, and prescriptions with pt. Pt verbalized understanding. NA to take pt down to discharge [facility] Progress Noteon 02-27-2023 Progress Note Bariatric residential director Note POD #1-PM S/P NENO-S Patient doing [...] percocet Anticipate discharge: today Fatuma Delacruz RN [facility] Progress Note BARIATRIC DIMENSIONAL INSPECTOR DISCHARGE NOTE Verbal and written discharge instructions [...] Patient verbalizes understanding of information provided. [facility] Progress Note [facility] Patient Name: [...] Cordova MD General Surgery PGY-2 Pager # [phone] [facility] Progress Note Negative Normal [facility] Progress Note Bariatric Case Manag er Note [...] pain medication. Interventions: No If yes: [facility] XR Abdomen and RF Gastrointe stinal tract upper W contrast Hanane 02-27-2023 Postsurgical NENO-S gastric bypass changes as described. Apparent mild narrowing of the gastric fundus. No evidence of contrast extravasation or obstruction. Report Dictated on Electronically Signed By: Andriy Carlisle Electronically Signed Date/Time: 02/27/2023 11:38 AM [facility] Patient Name: KAELYN GUEVARA : 1980 [...] There are small linear basilar lung atelectasis. [facility] Andriy Carlisle MD - 02/27/2023 [...] Electronically Signed Date/Time: 02/27/2023 11:38 AM EDT [facility] Radiology Study observation (narrative) [facility] XR Abdomen and RF Gastrointe stinal tract upper W contrast POOrdered By: Andriy Carlisle on 02-27-2023 [facility] Work Phone: Basic metabolic 1998 panelon 02-26-2023 Anion gap [Moles/Vol] 8 mmol/L 3 - 13 mmol/L [facility] Calcium [Mass/Vol] 8.5 mg/dL 8.4 - 10. 4 mg/dL [facility] Chloride [Moles/Vol] 105 mmol/L 98 - 10 7 mmol/L [facility] CO2 [Moles/Vol] 23 mmol/L 22 - 30 mmol/L [facility] Creatinine [Mass/Vol] 0.55 mg/dL 0.52 - 1.04 mg/dL [facility] GFR/1.73 sq M.predicted MDRD (S/P/Bld) [Vol rate/Area] - PINF [facility] Comment on above: Calculation based on the Chronic Kidney Disease Epidemiology Collaboration (CKD-EPI) equation refit without adjustment for race Glucose [Mass/Vol] 200 mg/dL High 70 - 100 mg/dL [facility] Interpretation and review of laboratory results Abnormal [facility] Potassium [Moles/Vol] 4.3 mmol/L 3.5 - 5.1 mmol/L [facility] Sodium [Moles/Vol] 136 mmol/L 135 - 145 mmol/L [facility] Urea nitrogen [Mass/Vol] 12 mg/dL 7 - 17 mg/dL [facility] Hemoglobin (Bld) [Mass/Vol]o n 02-26-2023 Hematocrit (Bld) [Volume fraction] 40.1 % 35.0 - 47.0 % [facility] Interpretation and review of laboratory results Normal [facility] Laboratory - Chemistry and C hemistry - challengeon 02-26-2023 Glucose [Mass/Vol] 179 mg/dL High 70 - 100 mg/dL [facility] Glucose [Mass/Vol] 116 mg/dL High 70 - 100 mg/dL [facility] Laboratory - Hematology and Cell countson 02-26-2023 Hemoglobin (Bld) [Mass/Vol] 13.0 g/dL 11.7 - 16.0 g/dL [facility] [employer] No Panel Informationon 02-26 Interpretation and review of laboratory results Abnormal [facility] [employer] Performed by: [facility], [address] [place] [address] CLIA ID: [id number] [facility] Interpretation and review of laboratory results Abnormal [facility] Performed by: [facility], [address] [place] [address] CLIA ID: [id number] [facility] Op Noteon 02-26-2023 Op Note Date: 02/26/2023 [...] SLEEVE GASTRECTOMY WITH LIVER WEDGE BIOPSY, EGD 64903 - MT UNLISTED PROCEDURE STOMACH ROBOTIC (XI) ASSISTED GASTRIC RESTRICTIVE PROCEDURE WITH PARTIAL GASTRECTOMY PYLORUS PRESERVING DUODENOILEOSTOMY AND ILEOILEOSTOMY 37019 - MT GASTRIC RSTCV W/PRTL GASTRECTOMY 50-100 CM UNLISTED LAPAROSCOPIC PROCEDURE LIVER 99894 - MT UNLISTED LAPAROSCOPIC PROCEDURE LIVER MT LAPS RPR PARAESPHGL HRNA INCL FUNDPLSTY W/O MESH [10752] Robotic Single anastomosis duodenal ileal bypass with sleeve gastrectomy (NENO-S) Robotic liver wedge biopsy Esophagogastroduodenosco py Surgeons * Kenny Nugent - Primary Card Cutter Helper: Tamika (PGY-4) Procedure Summary Anesthesia: General ASA: III Estimated Blood Loss: 20 mL Drains: * None in log * Specimens ID Source Type Tests Collected By Collected At Frozen? Priority Lab ID 1 Stomach Tissue TISSUE EXAM Kenny Nugent MD 02/26/23 0914 Routine Description: STOMACH 2 Liver Tissue TISSUE EXAM Kenny Nugent MD 02/26/23 0959 Routine Description: LIVER BIOSY Staff: Steel Rule Die Maker Apprentice: Lindsay Pineda RN Scrub Person: Erick Garsia Findings: See [...] hours if receiving Vancomycin or flouroquinolone) [facility] Op Note KENNY NUGENT MD , [facility], [facility] MINIMALLY INVASIVE & METABOLIC / BARIATRIC SURGERY [facility] OPERATIVE REPORT 02/26/2023 PATIENT: Kaelyn Maddox DATE OF : 1980 -------- PROCEDURE: 1. ROBOTIC SINGLE ANASTOMOSIS DUODENO-ILEOSTOMY ([address] [place] [address]) (22) 2. ROBOTIC SLEEVE GASTRECTOMY (09360) (59) 3. ROBOTIC LIVER WEDGE BIOPSY (94007) (59) 4. UPPER GASTRO-INTESTINAL ENDOSCOPY (67008) SURGEON: Kenny Nugent MD TRASH HAULER: Deion Lundberg MD PRE-OPERATIVE DIAGNOSES: BMI 42 [...] explained to the patient. The procedure specific fci potential complications including increased flatulence and bowel [...] near the level of the umbilicus. An customer assistant port was placed in the left [...] avoid a stricture. Following this a 50 Indonesian bougie was carefully advanced by the anesthesia personnel and carefully guided into the antrum. This was used to loosely calibrate the size of the residual sleeve is Endo GERARD staplers were fired towards the proximal aspect of the stomach. The last staple load was carefully flared out laterally to avoid stapling over the distal esophagus. O (more content not included)... [facility] PREPROCINSon 02-19-2023 PREPROCINS Medication List Accurate as [...] Take morning of surgery OneTouch Delica Plus [id number] mis OneTouch Verio test strip Generic drug: glucose [...] INFORMATION. YOU WILL RECEIVE A CALL FROM [facility] PRIOR TO YOUR SURGERY VERIFYING YOUR ARRIVAL TIME AND THE START TIME OF YOUR SURGERY. IF YOU HAVE SPECIFIC QUESTIONS, PLEASE CALL THE BARIATRIC CENTER. You may use the camp guard parking located at the main entrance on [address] [place] [address] and take the H elevator to the first floor for same day surgery. Take a left after exiting the elevator and check in at the desk. You may use the parking in the Main deck. Take the level one bridge to the H building and follow the signs for same day surgery. Check in at the desk. [facility] 36on 02-18-2023 36 Please review, been out sick last two days. Patient needs surgery sooner if possible. [facility] [id number] 02-17-2023 [id number] Spoke tp patient Normal [facility] 36on 02-16-2023 36 Yes He just had one for 02/19/23 [facility] 36 Duplicate message se e other encounter [facility] 36 Duplicate message, s ee other encounter [facility] 36 Routing to David Carrillo rb and Blaire, thanks [facility] 36on 02-13-2023 36 From financial standpoint she is already approved I would just need to update the date of service. [facility] ECG 12-LEADon 02-12-2023 ECG 12-LEAD IMPRESSION: Sinus rhythm LVH by voltage Electronically Signed On 02-12-2023 11:46:29 EDT by Jermaine Funes [facility] 36on 02-11-2023 36 Noted and agree, thanks [facility] Office Visiton 02-11-2023 Follow-up visit [id number] Kaelyn Maddox 1980 F Date Provider Department Center 02/11/2023 05952-NTSKENNY NUGENT [facility] BCC SURG None Family History Problem [...] Grandmother Alive Maternal Grandmother Alive Level of Service:95472 MT OFFICE/OUTPATIENT ESTABLISHED LOW MDM 20-29 MIN Reason for Visit and Comments: Weight Management [645] - Final pre op [facility] Progress Noteon 02-11-2023 Progress Note BARIATRIC CARE [...] List Completed by: Radha Schaeffer LPN [facility] Progress Note KENNY NUGENT MD , F [facility], [facility] MINIMALLY INVASIVE & METABOLIC / BARIATRIC SURGERY [facility] MBS - FINAL PRE-OP VISIT 02/11/2023 PATIENT: [...] index is 42.33 kg/m?. PATIENT SUMMARY Kaelyn Sewellterry Nugent 41 y.o. female with Body mass index is 41.85 kg/m?. 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 [facility] 36on 02-06-2023 36 I contacted patient at [phone], gave her the information needed to process [facility] paperwork. Patient understood everything she needed. She has my direct Number if she has any other concerns. [facility] 3602-05-2023 36 No lovenox DVT Ppx [x] DVT prophylaxis per final preop visit estimated risk Estimated calculated risk: 0.16 % COMPLETE FILE TO FINANCIAL: 11/05/22 WLS Prior Auth Request Submitted: 11/21/2022 WLS Prior Auth Approval Received: 12/11/2022 Auth# [id number] DVT PPX Risk Factors [] Male [] [...] Lovenox BID [] 60 mg Lovenox BID [facility] 3601-08-2023 36 DOS 02/26/2023 w / Dr. Nugent I attempted to contact patient at [phone] regarding scheduling for FPOV on 02/11/2023 @ 10:15 am. She will speak with the surgeon go over everything for surgery, will sign consent forms and receive her educational binder. Patient understood everything and confirmed appointment time she will make. [facility] 3601-06-2023 36 Good Morning Paula, Hoping all is well with you. I sent this patient a [employer] message, informing her, I haven't received surgery confirmation yet. Once I do, I will schedule a FPOV. She will speak with the surgeon go over everything For surgery and sign consent forms and receive her Educational Binder. I included my direct number also. [facility] [id number] 12-16-2022 [id number] PCP updated. [facility] 36on 12-16-2022 36 Signed. [facility] 36 PRE-OP WEIGHT CHECK: [x] Pre-operative testing is compete. [] Pre-operative testing is NOT complete. Outstanding Testing Includes: [] Patient has the following scheduling restrictions: [x] Patient does NOT have scheduling restriction. Patient has: [] Gained lbs [] Lost lbs Current BMI is: Patient has the following questions: Normal [facility] 36on 12-11-2022 36 PEER TO PEER complet ed. Reviewed weight gain, likely r/t exercise program. Did receive an approval. [facility] .GFRon 12-10-2022 GFR 217 ml/min/1.73sqm [facility] Comment on above: Result Comment: GFR Population [...] square meters Performed By: #### C BC, ELIZABETH, MDW, GFR, CMP, LIP, ADIFF #### [id number] [place], [place] [address] GFR Non- 179 ml/min/1.73sqm [facility] Comment on above: Result Comment: GFR Population [...] mL/min/1.73 square meters Performed By: #### C RK, ELIZABETH, W, GFR, CMP, LIP, ADIFF #### [address] [address] CMPon 12-10-2022 Albumin Level 3.5 G/dL Normal 3[facility]5-5.0 [facility] Comment on above: Performed By: #### C RK, JÚNIOR JOHNSON, GFR, CMP, LIP, ADIFF #### [address] [address] Albumin/Globulin [Mass ratio] 0.8 {ratio} Low 1.1-2.5 [facility] Comment on above: Performed By: #### C RK, MD ELIZABETHW, GFR, CMP, LIP, ADIFF #### [address] [address] ALP [Catalytic activity/Vol] 86 U/L Normal 40-135 [facility] Comment on above: Performed By: #### C RK, JÚNIOR JOHNSON, GFR, CMP, LIP, ADIFF #### [address] [address] ALT [Catalytic activity/Vol] 93 U/L High 14-59 [facility] Comment on above: Performed By: #### C RK, MD ELIZABETHW, GFR, CMP, LIP, ADIFF #### [address] [address] AST [Catalytic activity/Vol] 167 U/L High 10-40 [facility] ([place] Comment on above: Performed By: #### C RK, ELIZABETH, W, GFR, CMP, LIP, ADIFF #### [address] [address] Bili Total 0.6 mg/dL Normal 0.2-1.0 [facility] ([place]) Comment on above: Result Comment: Use of this assay is not recommended for patients undergoing treatment with eltrombopag due to the potential for falsely elevated results. Performed By: #### C RK, MD ELIZABETHW, GFR, CMP, LIP, ADIFF #### [address] [address] BUN/Creatinine Ratio 36 ratio High 7-27 [facility] ([place]) Comment on above: Performed By: #### C RK, MD ELIZABETHW, GFR, CMP, LIP, ADIFF #### [address] [address] Calcium [Mass/Vol] 8.9 mg/dL Normal 8.4-10.2 [facility] ([place]) Comment on above: Performed By: #### C RK, MD ELIZABETHW, GFR, CMP, LIP, ADIFF #### [address] [address] Chloride [Moles/Vol] 102 mmol/L Normal 98-107 [facility] ([place] Comment on above: Performed By: #### C RK, MD ELIZABETHW, GFR, CMP, LIP, ADIFF #### [address] [address] CO2 [Moles/Vol] 27 mmol/L Normal 22-29 [facility] ([place] Comment on above: Performed By: #### C RK, MD ELIZABETHW, GFR, CMP, LIP, ADIFF #### [address] [address] Creatinine [Mass/Vol] 0.39 mg/dL Low 0.55-1.02 [facility] ([place]) Comment on above: Performed By: #### C RK, MD ELIZABETHW, GFR, CMP, LIP, ADIFF #### [address] [address] Electrolyte Balance 6.0 mEq/L Normal 4.0-15.0 [facility] ([place]) Comment on above: Performed By: #### C RK, MD ELIZABETHW, GFR, CMP, LIP, ADIFF #### [address] [address] Globulin 4.2 G/dL Normal [facility] ([place] Comment on above: Performed By: #### C RK, JNÚIOR JOHNSON, GFR, CMP, LIP, ADIFF #### [address] [place], [place] [address] Glucose [Mass/Vol] 226 mg/dL High 70-105 [facility] ([place] Comment on above: Performed By: #### C RK, JÚNIOR JOHNSON, GFR, CMP, LIP, ADIFF #### [address] [address] Potassium [Moles/Vol] 8.1 mmol/L Critically abnormal 3.5-5.1 [facility] [place] Comment [place] above: Performed By: #### C RK, JÚNIOR JOHNSON, GFR, CMP, LIP, ADIFF #### [address] [address] Sodium [Moles/Vol] 135 mmol/L Low 136-145 [facility] ([place] Comment on above: Performed By: #### C ELIZABETH BECKMAN MDW, GFR, CMP, LIP, ADIFF #### [address] [address] Total Protein 7.7 G/dL Normal 6.4-8.2 [facility] [place] Comment on above: Performed By: #### C RK, JÚNIOR JOHNSON, GFR, CMP, LIP, ADIFF #### [address] [address] Urea nitrogen [Mass/Vol] 14 mg/dL Normal 7-18 [facility] [place] Comment on above: Performed By: #### C ELIZABETH BECKMAN MDW, GFR, CMP, LIP, ADIFF #### [address] [address] LIPon 12-10-2022 Lipase Level 13 U/L Low 16-77 [facility] ([place] Comment on above: Performed By: #### C RK, MD ELIZABETHW, GFR, CMP, LIP, ADIFF #### [address] [address] .Auto Diffon 12-09-2022 Basophil, Absolute 0.1 10 3/mcL Normal 0.0-0.2 [facility] ([place] Comment on above: Performed By: #### C BC, ANEU, MDW, GFR, CMP, LIP, ADIFF #### [address] [address] Basophils/100 WBC (Bld) 1.0 % Normal 0.0-2.5 [facility] ([place] Comment on above: Performed By: #### C BC, ANEU, MDW, GFR, CMP, LIP, ADIFF #### [address] [address] Eosinophil, Absolute 0.3 10 3/mcL Normal 0.0-0.4 [facility] ([place]) Comment on above: Performed By: #### C BC, ANEU, MDW, GFR, CMP, LIP, ADIFF #### [address] [address] Eosinophils/100 WBC (Bld) 2.9 % Normal 0.0-7.0 [facility] [place] Comment on above: Performed By: #### C BC, ELIZABETH, MDW, GFR, CMP, LIP, ADIFF #### [address] [address] Lymphocyte, Absolute 3.0 10 3/mcL Normal 0.8-3.9 [facility] ([place] Comment on above: Performed By: #### C BC, ELIZABETH, MDW, GFR, CMP, LIP, ADIFF #### [address] [address] Lymphocytes/100 WBC (Bld) 26.7 % Normal 10.0-50.0 [facility] [place] Comment on above: Performed By: #### C BC, ANEU, MDW, GFR, CMP, LIP, ADIFF #### [address] [address] Monocyte, Absolute 0.7 10 3/mcL Normal 0.2-1.0 [facility] ([place] Comment on above: Performed By: #### C RK, ELIZABETH, W, GFR, CMP, LIP, ADIFF #### [address] [address] Monocytes/100 WBC (Bld) 6.0 % Normal 1.7-13.0 [facility] [place] Comment [place] above: Performed By: #### C RK, ELIZABETH, W, GFR, CMP, LIP, ADIFF #### [address] [address] Neutrophils/100 WBC (Bld) 63.4 % Normal 37.0-80.0 [facility] [place] Comment on above: Performed By: #### C RK, ELIZABETH, W, GFR, CMP, LIP, ADIFF #### [address] [address] .MDWon 12-09-2022 Monocyte Distribution Width 20.66 High 0.00-20.00 [facility] [place] Comment on above: Result Comment: For adults in ED, MDW>20.0 may be associated with a higher risk of sepsis during the first 12hrs of hospital admission Performed By: #### C RK, JÚNIOR JOHNSON, GFR, CMP, LIP, ADIFF #### [address] [address] .NEUABSon 12-09-2022 Neutrophil, Absolute 7.0 10 3/mcL High 2.9-6.2 [facility] ([place] Comment on above: Performed By: #### C RK, MD ELIZABETHW, GFR, CMP, LIP, ADIFF #### [address] [address] .Urinalysis Microscopic (AO) on 12-09-2022 UA Bacteria 3+ /hpf Abnormal [facility] [place] Comment [place] above: Performed By: #### C RK, ELIZABETH, MDW, GFR, CMP, LIP, ADIFF #### [place] [id number] UA RBC 0-5 Abnormal None Seen [facility] [place] Comment [place] above: Performed By: #### C RK, ELIZABETH, MDW, GFR, CMP, LIP, ADIFF #### [address] [address] UA Squam Epithelial 0-5 Abnormal None Seen [facility] ([place] Comment on above: Performed By: #### C BC, ANEU, MDW, GFR, CMP, LIP, ADIFF #### [address] [address] UA WBC 10-15 Abnormal None Seen [facility] [place] Comment on above: Performed By: #### C RK, ELIZABETH, MDW, GFR, CMP, LIP, ADIFF #### [place] [address] CBCon 12-09-2022 Erythrocyte distribution width (RBC) [Ratio] 13.4 % Normal 11.5-14.5 [facility] [place] Comment on above: Performed By: #### C RK, ELIZABETH, MDW, GFR, CMP, LIP, ADIFF #### [place] [address] Hematocrit (Bld) [Volume fraction] 39.5 % Normal 37.0-47.0 [facility] [place] Comment on above: Performed By: #### C RK, ELIZABETH, MDW, GFR, CMP, LIP, ADIFF #### [address] [address] Hgb 13.3 G/dL Normal 12.0-16.0 [facility] ([place] Comment on above: Performed By: #### C RK, ELIZABETH, MDW, GFR, CMP, LIP, ADIFF #### [address] [address] MCH (RBC) [Entitic mass] 29.2 pg Normal 27.0-31.2 [facility] [place] Comment on above: Performed By: #### C RK, ELIZABETH, MDW, GFR, CMP, LIP, ADIFF #### [place] [address] MCHC 33.7 G/dL Normal 33.0-37.0 [facility] ([place] Comment on above: Performed By: #### C BC, ANEU, MDW, GFR, CMP, LIP, ADIFF #### [address] [address] MCV (RBC) [Entitic vol] 86.6 fL Normal 80.0-94.0 [facility] ([place] Comment [place] above: Performed By: #### C BC, ANEU, MDW, GFR, CMP, LIP, ADIFF #### [address] [address] Platelet 285 10 3/mcL Normal 130-400 [facility] ([place] Comment on above: Performed By: #### C BC, ANEU, MDW, GFR, CMP, LIP, ADIFF #### [place] [id number] Platelet mean volume (Bld) [Entitic vol] 7.2 fL Low 7.4-10.4 [facility] [place] Comment on above: Performed By: #### C BC, ANEU, MDW, GFR, CMP, LIP, ADIFF #### [address] [address] RBC 4.56 10 6/mcL Normal 4.20-5.40 [facility] ([place] Comment on above: Performed By: #### C BC, ANEU, MDW, GFR, CMP, LIP, ADIFF #### [address] [address] WBC 11.1 10 3/mcL High 4.6-10.8 [facility] [place] Comment [place] above: Performed By: #### C BC, ANEU, MDW, GFR, CMP, LIP, ADIFF #### [address] [address] [address] ABDOMEN/PELVIS W/O CONTRA STon 12-09-2022 CT [...] Chuy Weiss Electronically signed By Pedro Luis oMrales MD Dictated Date: 12/09/2022 9:19:10 PM Prelim Date: 12/09/2022 9:23:50 PM Sign Date: 12/09/2022 9:57:05 PM Ordering Provider: ADELA Solit[facility] ([place]) LABORATORYOrdered By: SYSTEM SYSTEM on 12-09-2022 Albumin BCP dye [Mass/Vol] [...] ADM SS Comment on above: Result Comment: Crit ical K cvrb Christi Rn - specimen was hemolyzed, [...] HCG ( test) Ql (U) Negative Normal [facility] ([place] Comment on above: Performed By: #### P REGU #### [address] [address] test (u) int Not detected Invalid Interpretation Code [facility] [place] Comment [place] above: Performed By: #### P REGU #### [address] [address] UAon 12-09-2022 Color (U) Yellow Normal [facility] ([place] Comment on above: Performed By: #### C ELIZABETH BECKMAN MDW, GFR, CMP, LIP, ADIFF #### [address] [address] Glucose (U) [Mass/Vol] 250 mg/dL Abnormal Negative [facility] ([place] Comment on above: Performed By: #### C ELIZABETH BECKMAN MDW, GFR, CMP, LIP, ADIFF #### [address] [address] Ketones Ql (U) Negative Normal Negative [facility] ([place] Comment on above: Performed By: #### C ELIZABETH BECKMAN MDW, GFR, CMP, LIP, ADIFF #### [address] [address] UA Appear Slightly Cloudy Abnormal Clear [facility] ([place] Comment on above: Performed By: #### C ELIZABETH BECKMAN MDW, GFR, CMP, LIP, ADIFF #### [address] [address] UA Blood Small Abnormal Negative [facility] ([place] Comment on above: Performed By: #### C ELIZABETH BECKMAN MDW, GFR, CMP, LIP, ADIFF #### [address] [address] UA Leuk Est Trace Abnormal Negative [facility] ([place] Comment on above: Performed By: #### C ELIZABETH BECKMAN MDW, GFR, CMP, LIP, ADIFF #### [address] [address] UA Nitrite Positive Abnormal Negative [facility] ([place] Comment on above: Performed By: #### C ELIZABETH BECKMAN MDW, GFR, CMP, LIP, ADIFF #### [address] [address] UA pH 6.5 Normal 5.0 - 8.0 [facility] ([place] Comment on above: Performed By: #### C ELIZABETH BECKMAN MDW, GFR, CMP, LIP, ADIFF #### [address] [address] UA Protein Negative Normal Negative [facility] ([place] Comment on above: Performed By: #### C ELIZABETH BECKMAN MDW, GFR, CMP, LIP, ADIFF #### [address] [address] UA Spec Grav 1.020 Normal 1.015-1.025 [facility] ([place] Comment on above: Performed By: #### C ELIZABETH BECKMAN MDW, GFR, CMP, LIP, ADIFF #### [address] [address] UA Specimen Type Clean Catch Normal [facility] ([place] Comment on above: Performed By: #### C ELIZABETH BECKMAN MDW, GFR, CMP, LIP, ADIFF #### [address] [address] UA Urobilinogen 0.2 E.U./dL Normal 0.2-1.0 [facility] ([place] Comment on above: Performed By: #### C ELIZABETH BECKMAN MDW, GFR, CMP, LIP, ADIFF #### [address] [address] Urobilinogen (U) [Mass/Vol] Negative Normal Negative [facility] ([place] Comment on above: Performed By: #### C BC, ANEU, MDW, GFR, CMP, LIP, ADIFF #### [address] [place], [place] [address] Progress Noteon 11-05-2022 Progress Note [facility] BARIATRIC NUTRITION ASSESSMENT / [...] stated that they are currently in the [facility]. If the patient is a minor, permission has been obtained by the parent or guardian for the patient to receive medical care at this visit. Normal [facility] Laboratory - Chemistry and C hemistry - challengeon 11-04-2022 Thiamine pyrophosphate (Bld) [Moles/Vol] 112 nmol/L 70 - 180 nmol/L [facility] Comment on above: INTERPRETIVE INFORMA TION: Vitamin B1, Whole Blood This assay measures the concentration of thiamine diphosphate (TDP), the primary active form of vitamin B1. Approximately 90 percent of vitamin B1 present in whole blood is TDP. Thiamine and thiamine monophosphate, which comprise the remaining 10 percent, are not measured. This test was developed and its performance characteristics determined by [employer]. It has not been cleared or approved by the [place] Food and Drug Administration. This test was performed in a CLIA certified laboratory and is intended for clinical purposes. Performed By: [employer] [address] [place] [id number] [employer]: Lon Corona MD, PhD Laboratory - Drug toxicology on 11-04-2022 Cotinine [Mass/Vol] <2 ng/mL [facility] [employer] Nicotine [Mass/Vol] <2 ng/mL [facility] [employer] Bdqby-[id number] ne [Mass/Vol] <2 ng/mL [facility] Comment on above: Individuals exposed to second hand or passive tobacco smoke may demonstrate concentrations of nicotine and metabolites greater than those indicated for non- smokers. Reference Ranges: Active Non-Smoker Tobacco User (ng/mL) (ng/mL) Nicotine <4 2-10 Cotinine <8 16-145 7-KS-Ohhirbdn <2 100-500 This test was developed and its analytical performance characteristics have been determined by [place]. It has not been cleared or approved by the U.S. Food and Drug Administration. This assay has been validated pursuant to the CLIA regulations and is used for clinical purposes. Test Performed by [facility], [facility], [address] [place], [place] Terry Echeverria M.D., Ph.D., Director of Laboratories , CLIA [id number] No Panel Informationon 11-04 [facility] 36on 10-31-2022 36 Sent pt Garret garciag regarding low vit D and low end normal b12 and discussing lipid panel with PCP. Normal [facility] 36 ----- Message from GAB Simmons CNP sent at 10/31/2022 6:31 AM EST ----- B 12 low normal. Please advise her to reach out to pcp regarding lipids. Normal [facility] Laboratory - Drug toxicology on 10-31-2022 Zinc [Mass/Vol] 83.9 ug/dL 60.0 - 120.0 ug/dL [facility] Comment on above: INTERPRETIVE INFORMA TION: Zinc, [...] developed and its performance characteristics determined by [employer]. It has not been cleared or approved by the US Food and Drug Administration. This test was performed in a CLIA certified laboratory and is intended for clinical purposes. Performed By: [employer] [address] [place] [address] [employer]: Lon Corona MD, PhD No Panel Informationon 10-31 [facility] 25-hydroxyvitamin D3 [Mass/V ol]on 10-29-2022 Interpretation and review of laboratory results Abnormal [facility] Therapy is based on measurement of Total 25-OHD with the following classification levels: Less than 20 ng/mL: Indicative of Vit D deficiency 20-30 ng/mL: Suggests Vit D insufficiency Optimal: Greater than or equal to 30 ng/mL Test performed by [employer], measuring Total Vitamin D, not individual fractions. [facility] 36on 10-29-2022 36 Sent pt MyChart mess age regarding low vitamin D at 14. Will add 4000 I U daily. Will monitor levels postoperatively. Normal [facility] 36 ----- Message from GAB Simmons CNP sent at 10/29/2022 2:33 PM EST ----- Thx!! Normal [facility] CBC panel Auto (Bld)Ordered By: Renée Klein on 10-29-2022 Erythrocyte distribution width (RBC) [Ratio] 13.3 % 11.5 - 14.5 % [facility] Hematocrit (Bld) [Volume fraction] 40.6 % 35.0 - 47.0 % [facility] Hemoglobin (Bld) [Mass/Vol] 13.6 g/dL 11.7 - 16.0 g/dL [facility] Interpretation and review of laboratory results Abnormal [facility] MCH (RBC) [Entitic mass] 29.3 pg 26.0 - 34.0 pg [facility] MCHC (RBC) [Mass/Vol] 33.5 % 32.0 - 36.0 % [facility] MCV (RBC) [Entitic vol] 87.5 fL 80.0 - 98.0 fL [facility] Platelet mean volume (Bld) [Entitic vol] 8.7 fL 7.4 - 12.4 fL [facility] Comment on above: MPV is a calculated measurement using platelet volume ratio Platelets (Bld) [#/Vol] 337 10*3/uL 140 - 440 10*3/uL [facility] RBC (Bld) [#/Vol] 4.64 10*6/uL 3.8 - 5.20 10*6/uL [facility] WBC (Bld) [#/Vol] 10.9 10*3/uL High 3.6 - 10.7 10*3/uL [facility] Comprehensive metabolic 1998 panelon 10-29-2022 Albumin [Mass/Vol] 4.3 g/dL 3.5 - 5.0 g/dL [facility] ALP [Catalytic activity/Vol] 108 U/L 38 - 126 U/L [facility] ALT [Catalytic activity/Vol] 72 U/L High 0 - 34 U/L [facility] Anion gap [Moles/Vol] 6 mmol/L 3 - 13 mmol/L [facility] AST [Catalytic activity/Vol] 64 U/L High 15 - 46 U/L [facility] Bilirubin [Mass/Vol] 0.4 mg/dL 0.2 - 1 .3 mg/dL [facility] Calcium [Mass/Vol] 9.3 mg/dL 8.4 - 10. 4 mg/dL [facility] Chloride [Moles/Vol] 105 mmol/L 98 - 10 7 mmol/L [facility] CO2 [Moles/Vol] 29 mmol/L 22 - 30 mmol/L [facility] Creatinine [Mass/Vol] 0.51 mg/dL Low 0.52 - 1.04 mg/dL [facility] GFR/1.73 sq M.predicted MDRD (S/P/Bld) [Vol rate/Area] - PINF [facility] Comment on above: Calculation based on the Chronic Kidney Disease Epidemiology Collaboration (CKD-EPI) equation refit without adjustment for race Glucose [Mass/Vol] 171 mg/dL High 70 - 100 mg/dL [facility] Potassium [Moles/Vol] 4.5 mmol/L 3.5 - 5.1 mmol/L [facility] Protein [Mass/Vol] 7.6 g/dL 6.3 - 8.2 g/dL [facility] Sodium [Moles/Vol] 140 mmol/L 135 - 145 mmol/L [facility] Urea nitrogen [Mass/Vol] 11 mg/dL 7 - 17 mg/dL [facility] HbA1c (Bld) [Mass fraction]o n 10-29-2022 Glucose [Mass/Vol] 174 mg/dL [facility] HbA1c (Bld) [Mass/Vol] 7.7 % High NINF - 5.7 % [facility] Comment on above: Normal less than 5.7 % Prediabetes 5.7% to 6.4% Diabetes 6.5% or higher --HgbA1C levels may not be accurate in patients who have renal disease, received recent blood transfusions, are anemic, or who have dyshemoglobinemia. Interpretation and review of laboratory results Abnormal [facility] Iron and Iron binding capaci ty panelon 10-29-2022 Interpretation and review of laboratory results Normal [facility] Iron [Mass/Vol] 55 ug/dL 37 - 170 ug/dL [facility] Laboratory - Chemistry and C hemistry - challengeon 10-29-2022 Cobalamin (Vitamin B12) [Mass/Vol] 365 pg/mL 239 - 931 pg/mL [facility] Folate [Mass/Vol] 8.5 ng/mL 2.9 - PINF ng/mL [facility] Ferritin [Mass/Vol] 93 ng/mL 6 - 137 ng/mL [facility] TSH Qn 2.294 m[IU]/L [facility] Magnesium [Mass/Vol] 1.9 mg/dL 1.6 - 2 .3 mg/dL [facility] 25-hydroxyvitamin D3 [Mass/Vol] 15 ng/mL Low 30 - 100 ng/mL [facility] Laboratory - Drug toxicology Ordered By: Lorrie Lazcano on 10-29-2022 Amphetamines Ql (U) Negative Negative [facility] Benzodiazepines Ql (U) Negative Negative [facility] Cocaine Ql (U) Negative [facility] Ethanol [Mass/Vol] Negative Negative [facility] Methadone Ql (U) Negative Negative [facility] Opiates Ql (U) Negative Negative [facility] Lipid 1996 panelon 3 Cholesterol [Mass/Vol] 169 mg/dL NINF - 200 mg/dL [facility] Cholesterol in HDL [Mass/Vol] 31 mg/dL Low 40 - 60 mg/dL [facility] Cholesterol in LDL [Mass/Vol] 92 mg/dL 0 - <100 [facility] Cholesterol.total/Cho lesterol in HDL [Mass ratio] 5 {ratio} [facility] Comment on above: Ref Range: < 3 Low Risk for CHD 3-6 Mod Risk for CHD > 6 High Risk for CHD Triglyceride [Mass/Vol] 230 mg/dL High NINF - 150 mg/dL [facility] Magnesium [Mass/Vol]on 10-29 Interpretation and review of laboratory results Normal [facility] No Panel Informationon 10-29 Interpretation and review of laboratory results Normal [facility] Interpretation and review of laboratory results Normal [facility] Interpretation and review of laboratory results Abnormal [facility] No Panel InformationOrdered By: Lorrie Lazcano on 10-29-2022 [employer]ATES Negative Negative [facility] BUPRENORPHINE SCREEN Negative Negative [facility] FENTANYL Negative Negative [facility] OXYCODONE/OXYMORPHONE Negative Negative [facility] PCP Negative Negative [facility] THC Negative Negative [facility] The expected value f or the drugs [...] treatment only. Analysis performed using non-forensic procedures. [facility] Office Visiton 10-29-2022 Follow-up visit [id number] Kaelyn Maddox 1980 F Date Provider Department Center 10/29/2022 [facility]ENET[facility] SHEPPARD [facility] None Family History Problem [...] Grandmother Alive Maternal Grandmother Alive Level of Service:06460 [place] OFFICE/OUTPATIENT ESTABLISHED LOW MDM 20-29 MIN Reason for Visit and Comments: Follow-up [792680] Normal [facility] Follow-up visit [id number] Kaelyn Maddox 1980 F Date Provider Department Center 10/29/2022 [id number], [facility] None Family History Problem [...] Grandmother Alive Maternal Grandmother Alive Level of Service:93287 [place] OFFICE/OUTPATIENT ESTABLISHED LOW MDM 20-29 MIN Reason for Visit and Comments: Weight Loss [288885] - D/E #7 of 6 [facility] PATINSon 10-29-2022 ALONDRANS YOUR APPOINTMENT TOJulia ARTEAGA WAS WITH THE [facility], COPD CLINIC, PULMONARY AND SLEEP MEDICINE OFFICE. PLEASE CALL OUR OFFICE AT [phone] IF YOU HAVE NOT RECEIVED YOUR TEST [...] to make improvements. COVID-19 VACCINATION INFORMATION: PH. [phone] HEALTH.[email or web address]/V ACCINE [facility] Central Scheduling [phone] [facility] Sleep Scheduling [phone] [facility] Progress Noteon 10-29-2022 Progress Note [facility] [address] [place] [address] [facility] [address] Dept: [phone] Dept Reason for Visit: Follow-up History of [...] wheezing, chest tightness, SOB, or chest pain. Hardin Score 9 Patient goes to bed at [...] disease Paternal Grandfather Glen Hypertension Paternal Grandmother Inga Hypertension Maternal Grandmother Gmgama ROS: Review of Systems Constitutional: Negative for [...] (obstructive sleep apnea) Stop Bang Score 2; Hardin Score 9. Sleep study revealed mild VIKTOR with hypoxia for 11 minutes. Mild VIKTOR will most likely resolve with bariatric surgery. Hypoxia is not significant and most likely to obesity. Fol (more content not included)... Normal [facility] Progress Note HPI, PHYSICAL EXAM, AND PLAN [...] sprays into each nostril once daily LANCETS ([employer]urinia PharmaceuticalsTOUCH DELICA PLUS [id number]) [facility] [place] use 1 LANCET to TEST BLOOD SUGAR [...] performed.Clinical documentation is updated and completed. Normal [facility] 36on 10-20-2022 36 Called and spoke meggan Hammonds to schedule an ov to review the SS/bariatric surgery. Normal [facility] Polysomnographyon 10-20-2022 [facility] [facility] ECG 12 lead - CLINIC PERFORM EDon 10-14-2022 Sinus Rhythm WITHIN NORMAL LIMITS [facility] Office Visiton 10-14-2022 Follow-up visit [id number] Kaelyn Maddox 1980 F Date Provider Department Center 10/14/2022 [id number]-JPYZSPIQMKOGELY COLEMAN*[facility] JANNA SHMGCV 95 Ar Family [...] Grandmother Alive Maternal Grandmother Alive Level of Service:15419 MT OFFICE/OUTPATIENT NEW MODERATE MDM 45-59 MINUTES Reason for Visit and Comments: Pre-op Exam [[id number]] Obesity [[id number]] Normal [facility] Progress Noteon 10-14-2022 Progress Note [facility] Cardiology Note Visit type: New [...] 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 She denies excessive shortness of breath with [...] Right 2020 SECTION (HISTORICAL) 2000 SECTION (HISTORICAL) 2003 SECTION (HISTORICAL) 1997 CHOLECYSTECTOMY 2005 DILATION AND [...] mouth if needed., Disp: , Rfl: Lancets (BevSpotTouch Delica Plus [id number]) [facility] [place], use 1 LANCET to TEST BLOOD SUGAR [...] Heart sounds: (more content not included)... Normal [facility] Office Visiton 10-10-2022 Follow-up visit [id number] Kaelyn Maddox 1980 F Date Provider Department Center 10/10/2022 [id number][facility]GWRLISA [facility] None Family History Problem [...] Grandmother Alive Maternal Grandmother Alive Level of Service:40880 MT OFFICE/OUTPATIENT ESTABLISHED LOW MDM 20-29 MIN Reason for Visit and Comments: Weight Loss [866763] - D/E 03/03 Normal [facility] Progress Noteon 10-10-2022 Progress Note HPI, PHYSICAL [...] TO PRESCRIPTION NOTES). LANCETS (ONETOUCH DELICA PLUS [id number]) [facility] use 1 LANCET to TEST BLOOD SUGAR [...] was performed.Clinical documentation is updated and completed. [facility] US ABDOMEN COMPLETEon 2022 US ABDOMEN COMPLETE [...] Electronically Signed Date/Time: 10/10/2022 8:25 AM EST [facility] US Abdomenon 10-10-2022 1. Hepatic steatosis. 2. Gallbladder is surgically absent. Report Dictated on Electronically Signed By: Mal Eli Electronically Signed Date/Time: 10/10/2022 8:25 AM [facility] Patient Name: KAELYN GUEVARA Exam Date/Time: [...] aorta and IVC are normal in caliber. [facility] Mal Eli MD - 10/10/2022 Patient Name: [...] Electronically Signed Date/Time: 10/10/2022 8:25 AM EST [facility] Study observation (narrative) [facility] US AbdomenOrdered By: Mal Eli on 10-10-2022 [facility] Work Phone: XR Abdomen and RF Gastrointe stinal tract upper W contrast Hanane 10-10-2022 Prominent cricopharyngeus.. Small hiatus hernia with spontaneous gastroesophageal reflux. Mucosal irregularity/tiny ulcerations of the distal esophagus could reflect reflux esophagitis but requires correlation with endoscopy. Report Dictated on Electronically Signed By: Andriy Carlisle Electronically Signed Date/Time: 10/10/2022 12:00 PM EST [employer] Patient Name: KAELYN GUEVARA Exam Date/Time: 10/10/2022 09:00 Procedure: FL UPPER [...] into an intact duodenal bulb and loop. [employer] Andriy Carlisle MD - 10/10/2022 [facility] Name[id number] Exam Date/Time: 10/10/2022 09:00 Procedure: FL UPPER [...] Electronically Signed Date/Time: 10/10/2022 12:00 PM EST [facility] Radiology Study observation (narrative) [facility] XR Abdomen and RF Gastrointe stinal tract upper W contrast POOrdered By: Andriy Carlisle on 10-10-2022 [facility] Work Phone: 36on 09-29-2022 36 Name of Caller: [place] any Contact Reason for Appointment: pt would like a appt to get cleared Office Name: [facility] Medication Refills need, if any: n/a Medication Name: n/a Normal [facility] Office Visiton 09-19-2022 Follow-up visit [id number] Kaelyn Maddox 1980 F Date Provider Department Center 09/19/2022 [id number][facility] None Family History Problem [...] Grandmother Alive Maternal Grandmother Alive Level of Service:14044 MT OFFICE/OUTPATIENT ESTABLISHED LOW MDM 20-29 MIN Reason for Visit and Comments: Weight Management [645] - D/E 5/6 VV [facility] Progress Noteon 09-19-2022 Progress Note HPI AND [...] TO PRESCRIPTION NOTES). LANCETS (ONETOUCH DELICA PLUS [id number]) [facility] [place] use 1 LANCET to TEST BLOOD SUGAR [...] that they are currently in the state [facility]. If the patient is a minor, permission has been obtained by the parent or guardian for the patient to receive medical care at this visit (more content not included)... Normal [facility] Progress Note You are not granted access to view this sensitive note. Normal [facility] Office Visiton 09-01-2022 Follow-up visit [id number] Maddox,Kaelyn 1980 F Date Provider Department Center 09/01/2022 BARBIE LOCKE [facility] ACH PUL None Family History Problem Relation [...] Grandmother Alive Maternal Grandmother Alive Level of Service:89359 MT OFFICE/OUTPATIENT NEW MODERATE MDM 45-59 MINUTES Reason for Visit and Comments: New Patient [542] Pre-op Exam [[id number]] Normal [facility] PATINSon 09-01-2022 PATINS YOUR APPOINTMENT TOJulia ARTEAGA WAS WITH [facility] LUNG NODULE CLINIC, COPD CLINIC, PULMONARY AND SLEEP MEDICINE OFFICE. PLEASE CALL OUR OFFICE AT [phone] IF YOU HAVE NOT RECEIVED YOUR TEST [...] to make improvements. COVID-19 VACCINATION INFORMATION: PH. [phone] HEALTH.ORG/CORONAVIRUS/V ACCINE [facility] Central Scheduling [phone] [facility] Sleep Scheduling [phone] [facility] Progress Noteon 09-01-2022 Progress Note [facility] Pulmonary Criti Formerly [facility] Medicine PATIENT VISIT-PULMONARY 09/01/2022 REFERRING PHYSICIAN: Kianna Cristina REASON FOR REFERRAL: preoperative evaluation Assessment and Plan: Preoperative Evaluation for bariatric surgery - , planned intervention reported - MILENA Caicedo Ariscat 15, Low risk, 1.6% risk of in-hospital [...] VIKTOR - stopbang 5, non 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 Seasonal Allergic Rhinitis , on prn flonaze [...] complication, without long-term current use of insulin ([facility]) Past Surgical History Past Surgical [...] cefdinir, cetirizine, empagliflozin, fluticasone, onetouch delica plus [id number], meclizine, nabumetone, ondansetron odt, onetouch verio, sumatriptan, trimethoprim-polymyxin b, azithromycin, benzonatate, diclofenac sodium, fluconazole, guaifenesin, and ketorol (more content not included)... [facility] Office Visiton 08-27-2022 Follow-up visit [id number] Kaelyn Maddox 1980 F Date Provider Department Center 08/27/2022 [facility] None Family History Problem [...] Grandmother Alive Maternal Grandmother Alive Level of Service:38465 MT PSYCL/NRPSYCL TST ELEC PLATFORM AUTO RESULT Reason for Visit and Comments: testing [Other] [facility] Follow-up visit [id number] Kaelyn Maddox 1980 F Date Provider Department Center 08/27/2022 [facility] None Family History Problem [...] Grandmother Alive Maternal Grandmother Alive Level of Service:97978 MT PSYCL/NRPSYCL TST ELEC PLATFORM AUTO RESULT Reason for Visit and Comments: testing [Other] [facility] LABORATORYOrdered By: Sully Maurer on 07-08-2021 ADMITTED [...] ALLIED HEALTHon 08-20-2019 ALLIED HEALTH HNO ID: [id number] Author: Kathleen PlataRt) Megan Briggs Service: ? 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 No relief with OTC medications. [facility] ED NOTE HNO ID: [id number] Author: Fely Ann (Rn) JUNIOR Bush Service: ? Author Type: Registered Nurse Type: ED Notes Filed: 08/20/2019 1:27 PM Note Text: Bed: 68-ED Expected date: Expected time: Means of arrival: Comments: [facility] ED PROV NOTEon 08-20-2019 ED PROV NOTE HNO ID: [id number] Author: Coleman Rivera MD Service: Emergency Medicine [...] albuterol for symptomatically relief, recommended Mucinex and [id number]. Not septic well-appearing discharged home with instructions to return if she feels any worsening of symptoms. SIGNATURE: MD Coleman LEBRON MD 08/20/191738 Normal [facility] XR CHEST 2V FRONTAL/LATon XR CHEST [...] Other: . IMPRESSION: No acute radiographic abnormality. Sheet Rocker: PSCB Transcribe Date/Time: Aug 20 2019 2:35P Dictated by : ORVILLE SOLIS MD This examination was interpreted and the report reviewed and electronically signed by: ORVILLE SOLIS MD on Aug 20 2019 2:35PM EST [id number] Normal [facility] Vital Signs Date Time Vital Sign Value Performing Clinician Facility 03-23-2025 00:57-0400 Body temperature 97.9 [degF] Dr. Winnie Gar DO Work Phone: 8(243)[phone] [place] [address] 03-23-2025 00:57-0400 Diastolic blood pressure 85 mm[Hg] Dr. Winnie Gar DO Work Phone: 6(069)285-953290 [place] [address] 03-23-2025 00:57-0400 Heart rate 60 /min Dr. Winnie Gar DO Work Phone: 4(180)223-019190 [place] [address] 03-23-2025 00:57-0400 Respiratory rate 15 /min Dr. Winnie Gar DO Work Phone: 1(151)770-315222 [place] [address] 03-23-2025 00:57-0400 SaO2% (BldA) [Mass fraction] 100 % Dr. Winnie Gar DO Work Phone: 0(778)[phone] [place] [address] 03-23-2025 00:57-0400 Systolic blood pressure 122 mm[Hg] Dr. Winnie Gar DO Work Phone: 0(591)[phone] [address] 03-22-2025 23:32-0400 Body mass index (BMI) [Ratio] 35.6 kg/m2 Dr. Winnie Gar DO Work Phone: [facility] 03-22-2025 23:32-0400 Body weight 96.[address] Winnie Gar DO Work Phone: [facility] 03-22-2025 23:13-0400 Body height 165.[address] Winnie Gar DO Work Phone: [facility] 04-01-2023 09:45-0400 Body height 165.1 cm Kenny Nugent MD Work Phone: [facility] [employer] Comment on above: [facility] 04-01-2023 09:45-0400 Body mass index (BMI) [Ratio] 37.31 kg/m2 Kenny Nugent MD Work Phone: [facility] [employer] 04-01-2023 09:45-0400 Body temperature 97.3 [degF] Kenny Nugent MD Work Phone: [facility] [employer] 04-01-2023 09:45-0400 Body weight 101.7 kg Kenny Nugent MD Work Phone: [facility] [employer] 04-01-2023 09:45-0400 Diastolic blood pressure 80 mm[Hg] Kenny Nugent MD Work Phone: [facility] [employer] 04-01-2023 09:45-0400 Heart rate 77 /min Kenny Nugent MD Work Phone: [facility] [employer] 04-01-2023 09:45-0400 Respiratory rate 16 /min Kenny Nugent MD Work Phone: [facility] [employer] 04-01-2023 09:45-0400 Systolic blood pressure 109 mm[Hg] Kenny Nugent MD Work Phone: [facility] [employer] 03-04-2023 07:55-0400 Body height 165.1 cm Kenny Nugent MD Work Phone: [facility] [employer] Comment on above: [facility] 03-04-2023 07:55-0400 Body mass index (BMI) [Ratio] 39.87 kg/m2 Kenny Nugent MD Work Phone: [facility] [employer] 03-04-2023 07:55-0400 Body temperature 97.2 [degF] Kenny Nugent MD Work Phone: [facility] [employer] 03-04-2023 07:55-0400 Body weight 108.68 kg Kenny Nugent MD Work Phone: [facility] [employer] 03-04-2023 07:55-0400 Diastolic blood pressure 72 mm[Hg] Kenny Nugent MD Work Phone: [facility] [employer] 03-04-2023 07:55-0400 Heart rate 96 /min Kenny Nugent MD Work Phone: [facility] [employer] 03-04-2023 07:55-0400 Respiratory rate 16 /min Kenny Nugent MD Work Phone: [facility] [employer] 03-04-2023 07:55-0400 SaO2% (BldA) [Mass fraction] 97 % Kenny Nugent MD Work Phone: [facility] [employer] 03-04-2023 07:55-0400 Systolic blood pressure 109 mm[Hg] Kenny Nugent MD Work Phone: [facility] [employer] 02-27-2023 12:20-0400 Body temperature 97.9 [degF] Kenny Nugent MD Work Phone: [facility] [employer] 02-27-2023 12:20-0400 Diastolic blood pressure 63 mm[Hg] Kenny Nugent MD Work Phone: [facility] [employer] 02-27-2023 12:20-0400 Heart rate 62 /min Kenny Nugent MD Work Phone: [facility] [employer] 02-27-2023 12:20-0400 Respiratory rate 16 /min Kenny Nugent MD Work Phone: [facility] [employer] 02-27-2023 12:20-0400 SaO2% (BldA) [Mass fraction] 95 % Kenny Nugent MD Work Phone: [facility] [employer] 02-27-2023 12:20-0400 Systolic blood pressure 99 mm[Hg] Kenny Nugent MD Work Phone: [facility] [employer] 02-26-2023 05:47-0400 Body height 165.1 cm Kenny Nugent MD Work Phone: [facility] [employer] 02-26-2023 05:47-0400 Body mass index (BMI) [Ratio] 42.6 kg/m2 Kenny Nugent MD Work Phone: [facility] [employer] 02-26-2023 05:47-0400 Body weight 116.12 kg Kenny Nugent MD Work Phone: [facility] [employer] 02-11-2023 10:12-0400 Body height 165.1 cm Kenny Nugent MD Work Phone: [facility] [employer] 02-11-2023 10:12-0400 Body mass index (BMI) [Ratio] 42.33 kg/m2 Kenny Nugent MD Work Phone: [facility] [employer] 02-11-2023 10:12-0400 Body temperature 98.01 [degF] Kenny Nugent MD Work Phone: [facility] [employer] 02-11-2023 10:12-0400 Body weight 115.39 kg Kenny Nugent MD Work Phone: [facility] [employer] 02-11-2023 10:12-0400 Diastolic blood pressure 76 mm[Hg] Kenny Nugent MD Work Phone: [facility] [employer] 02-11-2023 10:12-0400 Heart rate 74 /min Kenny Nugent MD Work Phone: [facility] [employer] 02-11-2023 10:12-0400 Respiratory rate 16 /min Kenny Nugent MD Work Phone: [facility] [employer] 02-11-2023 10:12-0400 Systolic blood pressure 110 mm[Hg] Kenny Nugent MD Work Phone: [facility] [employer] 12-09-2022 18:29-0400 Body height 165.[address] GUZMAN SOLIS MD [facility] 12-09-2022 18:29-0400 Body temperature 98.42 [degF] DR GUZMAN SOLIS MD [facility] 12-09-2022 18:29-0400 Body weight 113.[address] GUZMAN SOLIS MD [facility] 12-09-2022 18:29-0400 Diastolic Blood Pressure Non-Invasive [address] GUZMAN SOLIS MD [facility] 12-09-2022 18:29-0400 Heart rate 83 /min DR GUZMAN SOLIS MD [facility] 12-09-2022 18:29-0400 Respiratory rate 18 /min DR GUZMAN SOLIS MD [facility] 12-09-2022 18:29-0400 Systolic Blood Pressure Non-Invasive [address] GUZMAN SOLIS MD [facility] 11-21-2022 01:59-0500 Body height 165.1 cm Coleman Dawkins DO Work Phone: [facility] 11-21-2022 01:57-0500 Body temperature 98.29 [degF] Coleman Dawkins DO Work Phone: [facility] 11-21-2022 01:57-0500 Diastolic blood pressure 79 mm[Hg] Coleman Dawkins DO Work Phone: [facility] 11-21-2022 01:57-0500 Heart rate 77 /min Coleman Dawkins DO Work Phone: [facility] 11-21-2022 01:57-0500 Respiratory rate 12 /min Coleman Dawkins DO Work Phone: [facility] 11-21-2022 01:57-0500 SaO2% (BldA) [Mass fraction] 96 % Coleman Dawkins DO Work Phone: [facility] 11-21-2022 01:57-0500 Systolic blood pressure 118 mm[Hg] Coleman Dawkins Work Phone: [facility] 10-29-2022 09:37-0500 Body height 165.1 cm Renetta Mckennamauricio Beatty MENDEZ Work Phone: [facility] [employer] 10-29-2022 09:37-0500 Body mass index (BMI) [Ratio] 43.9 kg/m2 Renetta Millan APRN [employer] Work Phone: [facility] 10-29-2022 09:37-0500 Body weight 119.66 kg Renetta Millan APRN [employer] Work Phone: [facility] 10-29-2022 09:37-0500 Diastolic blood pressure 80 mm[Hg] Renetta Millan APRN [employer] Work Phone: [facility] 10-29-2022 09:37-0500 Heart rate 90 /min Renetta Mckennamauricio DE GUZMAN [employer] Work Phone: [facility] [employer] 10-29-2022 09:37-0500 Respiratory rate 16 /min Renetta Millan APRN [employer] Work Phone: [employer] 10-29-2022 09:37-0500 SaO2% (BldA) [Mass fraction] 96 % Renetta Millan APRN [employer] Work Phone: [facility] Comment on above: ra 10-29-2022 09:37-0500 Systolic blood pressure 110 mm[Hg] Renetta Montymauricio Beatty MENDEZ Work Phone: [employer] 10-29-2022 08:33-0500 Body height 165.1 cm Lisa Villa MD Work Phone: [facility] 10-29-2022 08:33-0500 Body mass index (BMI) [Ratio] 43.87 kg/m2 Lisa Villa MD Work Phone: [facility] 10-29-2022 08:33-0500 Body weight 119.57 kg Lisa Villa MD Work Phone: [employer] 10-29-2022 08:33-0500 Diastolic blood pressure 84 mm[Hg] Lisa Villa MD Work Phone: [facility] [employer] 10-29-2022 08:33-0500 Heart rate 65 /min Lisa Villa MD Work Phone: [facility] [employer] 10-29-2022 08:33-0500 Systolic blood pressure 125 mm[Hg] Lisa Villa MD Work Phone: [facility] [employer] 10-14-2022 12:53-0500 Body height 165.1 cm Otfrshellie Wheat MD Work Phone: [facility] [employer] 10-14-2022 12:53-0500 Body mass index (BMI) [Ratio] 43.27 kg/m2 Otfrshellie Wheat MD Work Phone: [facility] [employer] 10-14-2022 12:53-0500 Body weight 117.94 kg Otfrshellie Wheat MD Work Phone: [facility] [employer] 10-14-2022 12:53-0500 Diastolic blood pressure 64 mm[Hg] Otfried Mary Alice GALE Work Phone: [facility] [employer] 10-14-2022 12:53-0500 Heart rate 77 /min Otfrshellie Wheat MD Work Phone: [facility] [employer] 10-14-2022 12:53-0500 SaO2% (BldA) [Mass fraction] 97 % Otfrshellie Wheat MD Work Phone: [facility] [employer] 10-14-2022 12:53-0500 Systolic blood pressure 110 mm[Hg] Otfrshellie Wheat MD Work Phone: [facility] [employer] 10-10-2022 13:44-0500 Body height 165.1 cm Lisa Villa MD Work Phone: [facility] [employer] 10-10-2022 13:44-0500 Body mass index (BMI) [Ratio] 43.73 kg/m2 Lisa Villa MD Work Phone: [facility] [employer] 10-10-2022 13:44-0500 Body weight 119.2 kg Lisa Villa MD Work Phone: [facility] [employer] 10-10-2022 13:44-0500 Diastolic blood pressure 75 mm[Hg] Lisa Villa MD Work Phone: [facility] [employer] 10-10-2022 13:44-0500 Heart rate 88 /min Lisa Villa MD Work Phone: [facility] [employer] 10-10-2022 13:44-0500 Respiratory rate 16 /min Lisa Villa MD Work Phone: [facility] [employer] 10-10-2022 13:44-0500 Systolic blood pressure 117 mm[Hg] Lisa Villa MD Work Phone: [facility] 07-08-2021 20:00-0400 Body temperature 98.78 [degF] AR MARTINEZ MD [facility] 07-08-2021 20:00-0400 Diastolic blood pressure 85 mm[Hg] AR MARTINEZ MD [facility] 07-08-2021 20:00-0400 Heart rate 110 /min AR MARTINEZ MD [facility] 07-08-2021 20:00-0400 Respiratory rate 18 /min AR MARTINEZ MD [facility] 07-08-2021 20:00-0400 Systolic blood pressure 126 mm[Hg] AR MARTINEZ MD [facility] Encounters Encounter Date Encounter Type Care Provider Facility Start: 03-23-2025 End: 03-23-2025 Emergency department patient visit Dr. Winnie Gar DO Work Phone: -Emergency Department Work Phone: Start: 03-22-2025 End: 03-23-2025 Emergency department patient visit Dr. Winnie Gar DO Work Phone: -Emergency Department Work Phone: Start: 11-03-2024 End: 11-03-2024 ambulatory MAL DANIIRAMAN Facility:[facility] Start: 11-03-2024 End: 11-03-2024 Patient encounter procedure Mal Archerkayleigh OD Work Phone: Optometry Comment on above: Presbyopia (Primary Dx) Start: 09-19-2024 End: 09-19-2024 Emergency department patient visit Ramesh Khan Facility:[facility] Start: 04-01-2023 End: 04-01-2023 ambulatory KENNY NUGENT [facility] Start: 04-01-2023 End: 04-01-2023 Postop follow up visit related to original px Kenny Nugent MD Work Phone: [facility] [place] Comment on above: Intestinal malabsorp tion, unspecified type (Primary Dx); Deficiency of multiple nutrient elements; Class 2 obesity due to excess calories with body mass index (BMI) of 37.0 to 37.9 in adult, unspecified whether serious comorbidity present Start: 03-11-2023 Documentation procedure Parish Dunne LEGAL DOCUMENT SPECIALIST - SOCIOLOGY FACULTY MEMBER Work Phone: Weight [facility] Start: 03-07-2023 End: 03-08-2023 Emergency department patient visit ANA ROSA ESPITIA [facility] Start: 03-07-2023 End: 03-07-2023 Subsequent hospital visit by physician [facility] Exam Room [address] Comment on above: Arrived Start: 03-07-2023 End: 03-09-2023 [facility] Start: 03-07-2023 Patient encounter procedure Nusrat Tran Clinical Communication Start: 03-04-2023 End: 03-04-2023 ambulatory KENNY [facility] Start: 03-04-2023 End: 03-04-2023 Postop follow up visit related to original px Kenny Nugent MD Work Phone: [facility] [place] Comment on above: Type 2 diabetes nikko itus with other ophthalmic complication, without long-term current use of insulin (HCC) (Primary Dx); Morbid obesity with BMI of 40.0-44.9, adult (HCC); Low back pain, unspecified back pain laterality, unspecified chronicity, unspecified whether sciatica present; Intestinal malabsorption, unspecified type; Deficiency of multiple nutrient elements Start: 02-26-2023 End: 02-27-2023 Evaluation and management of inpatient [facility] Start: 02-26-2023 End: 02-27-2023 Evaluation and management of inpatient Kenny Nugent MD Work Phone: [facility] Comment on above: Morbid obesity with BMI of 40.0-44.9, adult (HCC) (Primary Dx); Morbid (severe) obesity due to excess calories (HCC); Diaphragmatic hernia without obstruction or gangrene Start: 02-19-2023 End: 02-19-2023 ambulatory [facility] Start: 02-11-2023 End: 02-12-2023 ambulatory [facility] Start: 02-11-2023 End: 02-11-2023 ambulatory [facility] Start: 02-11-2023 End: 02-11-2023 Office outpatient visit 15 minutes Kenny Nugent MD Work Phone: [facility] [place] Comment on above: Type 2 diabetes nikko itus with other specified complication, unspecified whether terminal makeup operator insulin use (HCC); Morbid obesity with BMI of 40.0-44.9, adult (HCC); Difficult intravenous access Start: 12-09-2022 End: 12-10-2022 Emergency department patient visit KIANNA CRISTINA APRN-SOCIOLOGY FACULTY MEMBER Facility:[facility] Start: 12-09-2022 End: 12-09-2022 Emergency department patient visit DR GUZMAN SOLIS MD [facility] Start: 11-21-2022 End: 11-21-2022 Emergency department patient visit COLEMAN [facility] Start: 11-21-2022 End: 11-21-2022 Emergency department patient visit Coleman Dawkins DO Work Phone: [facility] Start: 11-05-2022 End: 11-05-2022 ambulatory KENNY NUGENT [facility] Start: 11-05-2022 End: 11-05-2022 Telemedicine consultation with patient Kenny Nugent MD Work Phone: [facility] Comment on above: Morbid obesity due t o excess calories (HCC) (Primary Dx) Start: 10-31-2022 Telephone encounter Adriane Hearn RD Work Phone: [facility] Comment on above: Abnormal Lab Start: 10-29-2022 End: 10-29-2022 ambulatory Parish Dunne LEGAL DOCUMENT SPECIALIST - SOCIOLOGY FACULTY MEMBER Work Phone: [facility] Comment on above: Gastro-esophageal re [...] End: 10-29-2022 Patient encounter status Parish Dunne LEGAL DOCUMENT SPECIALIST - SOCIOLOGY FACULTY MEMBER Work Phone: [facility] Start: 10-29-2022 Telephone encounter Adriane Hearn RD Work Phone: [facility] Comment on above: Nutrition Counseling Start: 10-29-2022 End: 10-29-2022 ambulatory JODIEA INC [facility] Start: 10-29-2022 End: 10-30-2022 ambulatory PARISHGama DUNNE [facility] Start: 10-29-2022 End: 10-30-2022 Encounter for other specified special examinations [facility] Start: 10-29-2022 End: 10-30-2022 Encounter for preprocedural laboratory examination [facility] Start: 10-29-2022 End: 10-29-2022 Preoperative state Renetta Millan APRN - SOCIOLOGY FACULTY MEMBER Work Phone: [facility] Start: 10-29-2022 End: 10-29-2022 Office outpatient visit 15 minutes Lisa Villa MD Work Phone: [facility] Comment on above: Type 2 diabetes nikko itus without complication, without long- term current use of insulin (CMS/HCC) (HCC) (Primary Dx); BMI 40.0-44.9, adult ([facility]); Class 3 severe obesity with serious comorbidity and body mass index (BMI) of 40.0 to 44.9 in adult, unspecified obesity type (HCC) Pre-operative cleara nce (Primary Dx); VIKTOR (obstructive sleep apnea) Start: 10-14-2022 End: 10-14-2022 ambulatory [facility] Start: 10-14-2022 End: 10-14-2022 Office outpatient new 45 minutes Gely Wheat MD Work Phone: [facility] Comment on above: Pre-operative cleara nce; Morbid obesity due to excess calories ([facility]) Start: 10-14-2022 End: 10-14-2022 Preoperative state Otsilvia Wheat MD Work Phone: [facility] Start: 10-11-2022 End: 10-12-2022 ambulatory BARBIE LEWIS [facility] Start: 10-11-2022 End: 10-12-2022 ambulatory [facility] Comment on above: VIKTOR (obstructive sle ep apnea); Preoperative clearance Start: 10-11-2022 End: 10-12-2022 Preoperative state [facility] 3 [facility] Start: 10-10-2022 End: 10-10-2022 ambulatory LISA VILLA [facility] Start: 10-10-2022 End: 10-10-2022 Office outpatient visit 15 minutes Lisa Villa MD Work Phone: [facility] Comment on above: Type 2 diabetes nikko itus without complication, without long- term current use of insulin (CMS/HCC) (HCC) (Primary Dx); BMI 40.0-44.9, adult (HCC); Class 3 severe obesity with serious comorbidity and body mass index (BMI) of 40.0 to 44.9 in adult, unspecified obesity type (HCC) Start: 10-10-2022 End: 10-11-2022 [facility] Start: 10-10-2022 End: 10-10-2022 Patient encounter status Parish Dunne LEGAL DOCUMENT SPECIALIST - SOCIOLOGY FACULTY MEMBER Work Phone: [facility] Start: 10-10-2022 End: 10-10-2022 Subsequent hospital visit by physician Parish Dunen LEGAL DOCUMENT SPECIALIST - SOCIOLOGY FACULTY MEMBER Work Phone: [facility] Comment on above: GERD without esophag itis; Morbid obesity due to excess calories ([facility]); 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, without long-term current use of insulin, unspecified laterality ([facility]); Encounter for screening for tobacco use; Encounter for drug screening; Pre-operative laboratory examination Start: 09-29-2022 Telephone encounter Lon walden MD Work Phone: [facility] Comment on above: Appointment Request Start: 09-19-2022 End: 09-19-2022 ambulatory [facility] Start: 09-01-2022 End: 09-01-2022 ambulatory KENNY NUGENT [facility] Start: 09-01-2022 End: 09-01-2022 [facility] Start: 09-01-2022 End: 09-01-2022 Encounter for other preprocedural examination BARBIE [facility] Start: 08-27-2022 End: 08-27-2022 ambulatory [facility] Start: 07-25-2022 ambulatory UNKNOWN PROVIDER [facility] Start: 06-20-2022 ambulatory UNKNOWN PROVIDER [facility] Start: 06-20-2022 End: 06-20-2022 Subsequent hospital visit by physician Lisa Villa MD Work Phone: [facility] Start: 05-23-2022 ambulatory UNKNOWN PROVIDER [facility] Start: 05-21-2022 ambulatory UNKNOWN PROVIDER [facility] Start: 04-30-2022 ambulatory Kenny Nugent [facility] Start: 04-30-2022 End: 04-30-2022 Subsequent hospital visit by physician Kenny Nugent MD Work Phone: [facility] Start: 04-16-2022 ambulatory UNKNOWN PROVIDER [facility] Start: 04-16-2022 End: 04-16-2022 Subsequent hospital visit by physician [facility] N[facility]ent MD [facility] Phone[facility] Start: 04-14-2022 ambulatory Kenny Nugent [facility] Start: 07-08-2021 End: 07-08-2021 Emergency department patient visit AR MARTINEZ MD [facility] Procedures Date Procedure Procedure Detail Performing [...] 10-29-2022 Comprehensive metabo lic panel Parish R Uzair LEGAL DOCUMENT SPECIALIST - SOCIOLOGY FACULTY MEMBER Work Phone: Start: 10-29-2022 Lipid panel Parish R Br idle LEGAL DOCUMENT SPECIALIST - SOCIOLOGY FACULTY MEMBER Work Phone: Start: 10-29-2022 MEDICATION ASSISTED TREATMENT PANEL Parish R Uzair LEGAL DOCUMENT SPECIALIST - SOCIOLOGY FACULTY MEMBER Work Phone: Start: 10-29-2022 Lipid 1996 panel - S armond or Plasma Lisa Villa MD Work Phone: Start: 10-29-2022 Thyrotropin [Units/v olume] in Serum or Plasma Kenny Nugent MD Work Phone: Start: 10-20-2022 POLYSOMNOGRAPHY Denita Lewis DO Work Phone: Start: 10-14-2022 Ecg routine ecg w/le ast 12 lds w/i&r Otsilvia Wheat MD Work Phone: Start: 10-10-2022 Radiologic exam upr gi trc single contrast study Parish R Faviole LEGAL DOCUMENT SPECIALIST - SOCIOLOGY FACULTY MEMBER Work Phone: Start: 10-10-2022 Us abdominal real ti me w/image documentation Parish R Faviole LEGAL DOCUMENT SPECIALIST - SOCIOLOGY FACULTY MEMBER Work Phone: Start: 08-27-2022 Adult depression scr eening assessment Parish Dunne LEGAL DOCUMENT SPECIALIST - SOCIOLOGY FACULTY MEMBER Work Phone: Start: 10-23-2020 Decompression of med [...] or older (1 - 1-dose 60+ series) [facility] Start: 2029 Zoster Vaccines (1 of 2) Zoster Vacc luciano (1 of 2) [facility] Start: 10-29-2027 Cyanocobalamin vitam in b-12 Vitamin B-12 [facility] Start: 11-09-2025 End: 11-09-2025 Patient encounter procedure 11/09/2025 8:30 AM EST Office Visit [facility] [address] [place] [address] Mal Joshua, OD [address] [place] [address] eye exam/[facility] Comment on above: eye exam/[facility] Start: 11-03-2025 Glaucoma screening Dilated Retinal E xam [facility] Start: 05-29-2024 COVID-19 Vaccine ( season) COVID-19 Vaccine ( season) [facility] Start: 05-29-2024 Covid-19 Vaccine ( season) Covid-19 Vaccine ( season) [facility] Start: 05-29-2024 Influenza vaccination Influenza Vacc ine (#1) [facility] Start: 2024 Screening for malign ant neoplasm of colon [facility] Start: 03-09-2024 Diabetes: Estimated Glomerular Filtration Rate for Kidney Health Diabetes: Estimated Glomerular Filtration Rate for Kidney Health [facility] Start: 02-12-2024 Hemoglobin A1c measurement Diabetes: Hemoglobin A1C [facility] Start: 10-29-2023 Lipid panel Lipid Panel [facility] Start: 10-29-2023 Thyroid stimulating hormone measurement TSH Level [facility] Start: 09-22-2023 End: 09-22-2023 Patient encounter procedure [facility] Start: 09-15-2023 End: 09-15-2023 Patient encounter procedure 09/15/2023 2:15 PM EST Office Visit [facility] [address] [place] [phone] Parish Dunne, LEGAL DOCUMENT SPECIALIST - SOCIOLOGY FACULTY MEMBER [address] [place] [phone] [facility] Start: 08-27-2023 [facility] Start: 06-02-2023 End: 04-01-2024 CBC panel - Blood by Automated count CBC Lab Routine Intestinal malabsorption, unspecified type Deficiency of multiple nutrient elements Class 2 obesity due to excess calories with body mass index (BMI) of 37.0 to 37.9 in adult, unspecified whether serious comorbidity present Expected: 06/02/2023 (Approximate), Expires: 04/01/2024 [facility] Comment on above: Expected: 06/02/2023 (Approximate), Expires: 04/01/2024 Start: 06-02-2023 End: 04-01-2024 Cobalamin (Vitamin B12) [Mass/volume] in Serum or Plasma Vitamin B12 Lab Routine Intestinal malabsorption, unspecified type Deficiency of multiple nutrient elements Class 2 obesity due to excess calories with body mass index (BMI) of 37.0 to 37.9 in adult, unspecified whether serious comorbidity present Expected: 06/02/2023 (Approximate), Expires: 04/01/2024 [facility] Comment on above: Expected: 06/02/2023 (Approximate), Expires: 04/01/2024 Start: 06-02-2023 End: 04-01-2024 Comprehensive metabolic 1998 panel - Serum or Plasma Comprehensive metabolic panel Lab Routine Intestinal malabsorption, unspecified type Deficiency of multiple nutrient elements Class 2 obesity due to excess calories with body mass index (BMI) of 37.0 to 37.9 in adult, unspecified whether serious comorbidity present Expected: 06/02/2023 (Approximate), Expires: 04/01/2024 [employer] Comment on above: Expected: 06/02/2023 (Approximate), Expires: 04/01/2024 Start: 06-02-2023 End: 04-01-2024 Ferritin [Mass/volume] in Serum or Plasma Ferritin Lab Routine Intestinal malabsorption, unspecified type Deficiency of multiple nutrient elements Class 2 obesity due to excess calories with body mass index (BMI) of 37.0 to 37.9 in adult, unspecified whether serious comorbidity present Expected: 06/02/2023 (Approximate), Expires: 04/01/2024 [employer] Comment on above: Expected: 06/02/2023 (Approximate), Expires: 04/01/2024 Start: 06-02-2023 End: 04-01-2024 Folate [Mass/volume] in Serum or Plasma Folate Lab Routine Intestinal malabsorption, unspecified type Deficiency of multiple nutrient elements Class 2 obesity due to excess calories with body mass index (BMI) of 37.0 to 37.9 in adult, unspecified whether serious comorbidity present Expected: 06/02/2023 (Approximate), Expires: 04/01/2024 [employer] Comment on above: Expected: 06/02/2023 (Approximate), Expires: 04/01/2024 Start: 06-02-2023 End: 04-01-2024 Iron and Iron binding capacity panel - Serum or Plasma Iron Lab Routine Intestinal malabsorption, unspecified type Deficiency of multiple nutrient elements Class 2 obesity due to excess calories with body mass index (BMI) of 37.0 to 37.9 in adult, unspecified whether serious comorbidity present Expected: 06/02/2023 (Approximate), Expires: 04/01/2024 [employer] Comment on above: Expected: 06/02/2023 (Approximate), Expires: 04/01/2024 Start: 06-02-2023 End: 04-01-2024 Magnesium [Mass/volume] in Serum or Plasma Magnesium Lab Routine Intestinal malabsorption, unspecified type Deficiency of multiple nutrient elements Class 2 obesity due to excess calories with body mass index (BMI) of 37.0 to 37.9 in adult, unspecified whether serious comorbidity present Expected: 06/02/2023 (Approximate), Expires: 04/01/2024 [facility] [employer] Comment on above: Expected: 06/02/2023 (Approximate), Expires: 04/01/2024 Start: 06-02-2023 End: 04-01-2024 Zinc Zinc Lab Routine Intestinal malabsorption, unspecified type Deficiency of multiple nutrient elements Class 2 obesity due to excess calories with body mass index (BMI) of 37.0 to 37.9 in adult, unspecified whether serious comorbidity present Expected: 06/02/2023 (Approximate), Expires: 04/01/2024 [facility] [employer] [facility] Work Phone: Comment on above: Expected: 06/02/2023 (Approximate), Expires: 04/01/2024 Start: 06-02-2023 End: 06-02-2023 Patient encounter procedure [facility] Start: 05-29-2023 Influenza vaccination S [facility] Start: 05-14-2023 Hemoglobin A1c measurement Diabetes: Hemoglobin A1C [facility] Start: 04-01-2023 End: 04-01-2023 Patient encounter procedure [facility] [place] Start: 03-18-2023 End: 03-04-2024 CBC panel - [...] nutrient elements Expected: 03/18/2023 (Approximate), Expires: 03/04/2024 [facility] [employer] Comment on above: Expected: 03/18/2023 (Approximate), Expires: [...] nutrient elements Expected: 03/18/2023 (Approximate), Expires: 03/04/2024 [employer] Comment on above: Expected: 03/18/2023 (Approximate), Expires: [...] nutrient elements Expected: 03/18/2023 (Approximate), Expires: 03/04/2024 [employer] Comment on above: Expected: 03/18/2023 (Approximate), Expires: [...] nutrient elements Expected: 03/18/2023 (Approximate), Expires: 03/04/2024 [employer] Comment on above: Expected: 03/18/2023 (Approximate), Expires: [...] nutrient elements Expected: 03/18/2023 (Approximate), Expires: 03/04/2024 [employer] Comment on above: Expected: 03/18/2023 (Approximate), Expires: [...] nutrient elements Expected: 03/18/2023 (Approximate), Expires: 03/04/2024 [facility] [employer] Comment on above: Expected: 03/18/2023 (Approximate), Expires: [...] nutrient elements Expected: 03/18/2023 (Approximate), Expires: 03/04/2024 [facility] [employer] Comment on above: Expected: 03/18/2023 (Approximate), Expires: [...] nutrient elements Expected: 03/18/2023 (Approximate), Expires: 03/04/2024 [facility] [employer] [facility] Work Phone: Comment on above: Expected: 03/18/2023 (Approximate), Expires: 03/04/2024 Start: 03-09-2023 End: 03-09-2023 Patient encounter procedure 03/09/2023 1:00 PM EDT Office Visit [facility] [address] [place] [phone] Parish Dunne R, LEGAL DOCUMENT SPECIALIST - SOCIOLOGY FACULTY MEMBER [address] [place] [phone] [facility] Start: 03-04-2023 End: 03-04-2023 Patient encounter procedure [facility] Start: 02-26-2023 End: 02-26-2023 Admission to same day surgery center 02/26/2023 Surgery Procedural Kenny Nugent MD [address] [place] [address] ROBOTIC ASSISTED SINGLE ANASTOMOSIS DUODENAL ILEAL BYPASS WITH SLEEVE GASTRECTOMY WITH LIVER WEDGE BIOPSY, POSSIBLE OPEN [76440 (CPT )] [facility] Comment on above: ROBOTIC ASSISTED SIN GLE ANASTOMOSIS DUODENAL ILEAL BYPASS WITH SLEEVE GASTRECTOMY WITH LIVER WEDGE BIOPSY, POSSIBLE OPEN [92954 (CPT )] Start: 02-26-2023 End: 02-26-2023 Gastric rstcv w/prtl gastrectomy 50-100 cm ROBOTIC (XI) ASSISTED GASTRIC RESTRICTIVE PROCEDURE WITH PARTIAL GASTRECTOMY PYLORUS PRESERVING DUODENOILEOSTOMY AND ILEOILEOSTOMY Morbid (severe) obesity due to excess calories (HCC) 02/26/2023 7:30 AM EDT [facility] Operating Room Start: 02-26-2023 Subsequent hospital visit by physician 02/26/2023 Hospital Encounter Procedural Kenny Nugent MD [address] [place], [place] [id number] [facility] Start: 02-26-2023 End: 02-26-2023 Unlis laparoscopic procedure liver UNLISTED LAPAROSCOPIC PROCEDURE LIVER Morbid (severe) obesity due to excess calories (HCC) 02/26/2023 7:30 AM EDT [facility] Operating Room Start: 02-26-2023 End: 02-26-2023 Unlisted procedure stomach ROBOTIC (XI) SINGLE ANASTOMOSIS DUODENAL ILEAL BYPASS Morbid (severe) obesity due to excess calories (HCC) 02/26/2023 7:30 AM EDT [facility] Operating Room Start: 02-19-2023 End: 02-19-2023 Admission to establishment 02/19/2023 Pre-Admission Testing Pre-Admission Testing [facility] Pre-Admit Testing Start: 02-11-2023 End: 02-11-2023 Patient encounter procedure 02/11/2023 Office Visit Bariatrics Kenny Nguent MD [address] [place] [address] [facility] Start: 01-26-2023 Hemoglobin A1c measurement Diabetes: Hemoglobin A1C [facility] Start: 12-24-2022 End: 12-24-2022 Patient encounter procedure [facility] Start: 11-05-2022 End: 11-05-2022 Telemedicine consultation with patient [facility] Start: 10-29-2022 End: 10-29-2022 Patient encounter procedure 10/29/2022 Office Visit Weight Management Lisa Villa MD [address] [place] [address] [facility] Start: 10-14-2022 End: 10-14-2022 Patient encounter procedure 10/14/2022 Office Visit Cardiology Gely Wheat MD [address] [place] [address] [facility] Start: 10-11-2022 End: 10-11-2022 Patient encounter procedure 10/11/2022 Office Visit [facility] Start: 05-29-2022 Influenza vaccination S [facility] Start: 12-29-2020 Annual PCP Team Sports Marketing Specialist monique Disease Visit Annual PCP Team Chronic Disease Visit [facility] Start: 2019 Lipid panel LIPID SCREENING [facility] Start: 2019 Screening for malign ant neoplasm of breast [facility] Start: 2000 Screening for malign ant neoplasm of cervix [facility] Start: 1998 DTaP/Tdap/Td vaccine (1 - Tdap) DTaP/Tdap/Td vaccine (1 - Tdap) [facility] Start: 1998 DTaP/Tdap/Td Vaccine s (1 - Tdap) DTaP/Tdap/Td Vaccines (1 - Tdap) [facility] Start: 1998 Hepatitis A Vaccines (1 of 2 - Risk 2-dose series) Hepatitis A Vaccines (1 of 2 - Risk 2-dose series) [facility] Start: 1998 Hepatitis B Vaccine (1 of 3 - 19+ 3-dose series) Hepatitis B Vaccine (1 of 3 - 19+ 3-dose series) [facility] Start: 1998 Hepatitis B Vaccines (1 of 3 - 19+ 3-dose series) Hepatitis B Vaccines (1 of 3 - 19+ 3-dose series) [facility] Start: 1998 Pneumococcal vaccination Pneum ococcal Vaccine (1 of 2 - PCV) [facility] Start: 1998 Third diphtheria, tetanus and acellular pertussis (DTaP) vaccination TDAP (ADULT) [facility] Start: 1998 Urine microalbumin profile DTaP,Tdap,Td Vaccine (1 - Tdap) [facility] Start: 1998 Urine screening for protein Diabetes: Urine Protein Screening [facility] Start: 1997 Anxiety Screening Anxiety Screening [facility] Start: 1997 Depression Screening Depression Scre ening [facility] Start: 1997 Diabetes: Urine Albumin-Creatinine Ratio for Kidney Health Diabetes: Urine Albumin-Creatinine Ratio for Kidney Health [facility] Start: 1997 Hepatitis B surface antibody level LDL Cholesterol [facility] Start: 1997 Hepatitis C screening Hepatitis C Sc reening [facility] Start: 1997 HIV screening HIV Screening [facility] Start: 1994 HIV screening HIV SCREENING DISCUSSI ON [facility] Start: 1989 Diabetic foot examination [facility] Start: 1989 Glaucoma screening Diabetes: R etinopathy Screening [facility] Start: 1989 Hepatitis B screening Urine Al bumin:Creatinine Ratio [facility] Start: 1989 Preventive dental service Diabetes: Dental Exam [facility] Start: 1986 DTaP/Tdap/Td Vaccine s (1 - Tdap) DTaP/Tdap/Td Vaccines (1 - Tdap) [facility] Start: 1985 Pneumococcal Vaccine : Pediatrics (0 to 5 Years) and At-Risk Patients (6 to 64 Years) (1 - PCV) Pneumococcal Vaccine: Pediatrics (0 to 5 Years) and At-Risk Patients (6 to 64 Years) (1 - PCV) [facility] Start: 1985 Pneumococcal Vaccine : Pediatrics (0 to 5 Years) and At-Risk Patients (6 to 64 Years) (1 of 2 - PCV) Pneumococcal Vaccine: Pediatrics (0 to 5 Years) and At-Risk Patients (6 to 64 Years) (1 of 2 - PCV) [facility] Start: 1984 Hemoglobin A1c measurement HbA1C [facility] Start: 1980 MMR Vaccines (1 of 1 - Standard series) MMR Vaccines (1 of 1 - Standard series) [facility] Start: 1979 COVID-19 Vaccine (#1) COVID-19 Vacci ne (#1) [facility] Start: 1979 Hemoglobin A1c measurement Diabetes: Hemoglobin A1C [facility] Start: 1979 Hepatitis B Vaccines (1 of 3 - 3-dose series) Hepatitis B Vaccines (1 of 3 - 3-dose series) [facility] Start: 1979 Hepatitis C screening HEPATITI S C VIRUS SCREENING [facility] Start: 1979 HIV screening HIV Screening [facility] Start: 1979 Lipid panel Lipid Panel [facility] Start: 1979 Screening for malign ant neoplasm of colon [facility] Start: 1979 Tetanus vaccination [facility] OUTSIDE PROCEDURE SCAN OUTSIDE P ROCEDURE SCAN Procedures Ordered: 10/29/2022 [facility] Comment on above: Ordered: 10/29/2022 Patient Education ED Back Spasm, No [facility] Work Phone: Patient referral [facility] Work Phone: Payers Date Payer Category Payer Self-pay 2023 Private Health Insurance OLAMIDE RAO PPO xxxxxxxxx [phone]-Present [address] [facility] [id number] Commercial [id number] 2023 Private Health Insurance [id number] 2022 Unknown 2021 Medicaid [id number] 2021 Medicaid [id number] 1979 Unknown [id number] 668 1979 Unknown [id number]. 668 1979 Unknown [id number] [id number] 668 1979 Unknown [id number]. 8 1979 Unknown [id number]. 8 1979 Unknown [id number] [id number]. 8 1979 Unknown [id number] [id number]. 8 1979 Unknown [id number] [id number]. 556 1979 Unknown [id number] [id number]. 627 Unknown [id number] 462 Social History Date Type Detail Facility Start: 04-11-2020 End: 03-22-2025 Never smoked tobacco (finding) [facility] Start: 1979 Sex Assigned At Female [facility] Start: 1980 Sex Assigned At Not on file S [facility] Work Phone: Start: 08-20-2019 End: 11-21-2022 Tobacco use and exposure Smokeless tobacco non-user [facility] Work Phone: Start: 11-21-2022 Alcohol intake Lifetime non-d nick (finding) [facility] Work Phone: Start: 09-29-2022 End: 04-01-2023 Exposure to SARS-CoV-2 (event) Not sure [facility] Work Phone: Start: 10-29-2022 End: 11-03-2024 Alcohol intake Ex-drinker (finding) [employer] Start: 02-26-2023 End: 11-03-2024 History of Social function [employer] Work Phone: Start: 02-26-2023 End: 11-03-2024 Tobacco use panel [facility] Phone: Start: 09-15-2022 Gender identity Identifies as female gender (finding) [employer] How often to you hav e a drink containing alcohol? Never [employer] How many standard drinks containing alcohol do you have on a typical day? Patient does not drink [employer] Medical Equipment Procedure Code Equipment Code Equipment [...] R73.01, # 30 EA, 4 Refill(s), Pharmacy: [facility] Impaired fasting glucose, 169, cm, 03/22/21 16:03:00 EDT, Height, 124.4, kg, 03/22/21 16:03:00 EDT, Dosing Weight Start: 03-22-2021 use 1 LANCET to TEST BLOOD SUGAR once daily [id number] Start: 11-25-2021 End: 04-01-2023 TEST BLOOD SUGAR once daily [id number] Start: 05-19-2022 End: 04-01-2023 Functional Status Date Assessment Result Facility 12-09-2022 Functional Status Ambulating in wang, Ambulating in room, Awake, Bathroom privileges [facility] Mental Status Date Assessment Result Facility 12-09-2022 Mental Status Oriented x 4 [facility] Clinical Notes 07-08-2021 to 03-23-2025 Note Date & Type Note Facility 03-23-2025 Discharge summary Note Date/Time March 23, 2025 12:49am [facility] Medical Records Department [address] [place] [address] Emergency Department Summary 03/23/25 MR#: [id number] Acct: [id number] Name: KAELYN MADDOX Rep #:[id number] : 1980 44 From: Winnie Cloud PCP: ROMY THOMPSON Status:REG ER Location: ED HPI History of Present Illness Chief Complaint: Back Informant: patient Narrative Narrative: Patient is a 44-year-old female with no significant PMHx presenting from home for worsening back pain. Patient states he had mechanical fall about 2 weeks ago where she was standing on a pallet to try to refill repeat her when the pallet broke. She landed on her left side. She had mechanical fall 2 days ago where she tripped and fell. She has been having ongoing pain however when she got out of bed tonight suddenly her back spasmed up and she had severe left-sided back pain and spasms. Denies any radiation of the pain. She has tried Tylenol and ibuprofen with last dose at 8:30 PM. Denies any bowel or bladder symptoms. Denies any numbness or tingling of her legs. Came in for further evaluation due to the severity of her pain. No other complaints or concerns reported at this time. [facility] Home Medications ?Medication ?Instructions ?Recorded ?Last Taken ?Type Control 1 tab DAILY 09/15/16 Unknown History oxycodone-acetaminophen 5 mg-325 1 - 2 tab PO Q4H PRN PRN Pain #12 09/15/16 Unknown Rx mg tablet tabs sulfamethoxazole 800 1 tab PO BID ##6 09/15/16 Un known Rx mg-trimethoprim 160 mg tablet ondansetron 4 mg disintegrating 4 mg PO Q6H PRN nausea and 09/19/24 Unknown Rx tablet vomiting #10 tabs oxycodone-acetaminophen 5 mg-325 1 tab PO Q4H PRN pain 3 days #14 09/19/24 Unknown Rx mg tablet (Percocet) tabs cyclobenzaprine 10 mg tablet 10 mg PO TID PRN Muscle S pasm #20 03/23/25 Unknown Rx TABLETS Allergy/AdvReac Type Severity Reaction Status Date / Time hydromorphone (From Dilaudid) AdvReac VIOLENT Verified 03/22/25 23:13 BEHAVIOR ibuprofen AdvReac BARIATRIC Verified 03/22/25 23:13 SURGERY Surgical History Gastric bypass status for obesity Social History Smoking Status: Never smoker ROS ROS ED Constitutional Constitutional ED: Denies chills or fever(s) Gastrointestinal Gastrointestinal: Denies abdominal pain, nausea or vomiting Genitourinary Genitourinary ED: Denies dysuria or urinary frequency Musculoskeletal Musculoskeletal: Reports back pain Integumentary Denies rash Neurologic Neurologic: Denies paresthesias or weakness Hematologic/Lymphatic Hematologic/Lymphatic: Denies easy bleeding or easy bruising EXAM Physical Exam Const Vital Signs: 03/22/25 23:13 Temperature 97.1 F L Temperature Source Temporal Pulse Rate 66 Respiratory Rate 18 Blood Pressure 138/88 H Blood Pressure Mean 104 Pulse Ox 98 Oxygen Delivery Method Room Air Positive well nourished and well developed Constitutional Narrative: Uncomfortable appearing secondary to back pain General Appearance ED: well developed HEENT Reports moist mucous membranes Resp normal respiratory effort and clear to auscultation bilaterally Cardio regular rate and regular rhythm GI normal to inspection, nondistended, normoactive bowel sounds, soft to palpation and non-tender Back/Spine Back/Spine Narrative: No midline spinal tenderness present. Decreased range of motion with reproduction of pain with movement of the back. Pain and spasm in the lumbar left paraspinal region. No overlying rash or injury appreciated. Lumbar Spine / Lower Back: straight leg raise negative bilaterally Extremity normal to inspection Neuro oriented x3 and no sensory deficits noted Sensorium / Orientation: alert Motor Exam: strength 5/5 throughout Psych mental status grossly normal Skin no rashes or lesions noted and no wounds MDM MDM MDM Narrative Medical decision making narrative: Patient evaluated for worsening back pain over the past 2 weeks which has significantly worsened tonight. She has been having back spasms. Vital signs normal in emergency room. She has good distal pulses. She does not have any cauda equina syndrome symptoms. She does not have any midline tenderness. I think she requires any imaging. Given IM morphine and Flexeril orally in the emergency room. Lidoderm patch applied. She is improvement of pain with this but after receiving the morphine is nauseous. Is given ODT Zofran. I will be discharged home with prescription for Flexeril. Given return precautions. Low suspicion for this being renal pain given how highly reproducible it is and she denies any urinary symptoms at this time. Discharge Plan Triage Chief Complaint: Back ED Provider: Winnie Gar Dx/Rx/DC Orders Clinical Impression: Acute lumbar back pain, Back muscle spasm Instructions: ED Back Spasm, No Trauma Prescriptions: New cyclobenzaprine 10 mg tablet 10 mg PO TID PRN (Reason: Muscle Spasm) Qty: 20 0RF No Action Control 1 tab DAILY sulfamethoxazole-trimethoprim 1 TABLET tablet 1 tab PO BID Qty: 6 0RF oxycodone-acetaminophen 1 TABLET tablet 1 - 2 tab PO Q4H PRN PRN (Reason: Pain) Qty: 12 0RF oxycodone-acetaminophen [Percocet] 5-325 mg tablet 1 tab PO Q4H PRN (Reason: pain) 3 Days Qty: 14 0RF ondansetron 4 mg tablet,disintegrating 4 mg PO Q6H PRN (Reason: nausea and vomiting) Qty: 10 0RF Primary Care Provider: MICHELLE BALBUENA Referrals: MICHELLE BALBUENA CRNP [Primary Care Provider] - Activity Restrictions/Additional Instructions: I also recommend using kbdv-yro-yllurzz 4% exercise Lidoderm patches for pain. Continue to alternate qwmb-lck-wywcbmo pain medication in addition to the musclerelaxer. Continue to apply heat. Perform gentle stretching. Follow-up with your family doctor. Print Language: Romanian Disposition Disposition: Home, Self Care What to do if you have Problems For any increased pain, shortness of breath, bleeding, nausea or vomiting, chestpain, or any unexpected problems, contact your Primary Care Provider. Call [facility] ([phone]) or report to the closest Emergency Room. Call 911 if necessary. 03/23/25 0049 <Electronically signed by Winnie Gar DO> Cosigner Signature (if applicable): CC: ROMY THOMPSON ~ Signed [facility] Work Phone: 1(660) 675-949606-26-2025 Discharge summary [facility] Medical Records Department [address] [place] [address] Emergency Department Summary 03/23/25 MR#: [id number] Acct: [id number] Name: KAELYN MADDOX Rep #:[id number] : 1980 44 From: Winnie Cloud PCP: ROMY THOMPSON Status:REG ER Location: ED HPI History of Present Illness Chief Complaint: Back Informant: patient Narrative Narrative: Patient is a 44-year-old female with no significant PMHx presenting from home for worsening back pain. Patient states he had mechanical fall about 2 weeks ago where she was standing on a pallet to try to refill repeat her when the pallet broke. She landed on her left side. She had mechanical fall 2days ago where she tripped and fell. She has been having ongoing pain however when she got out of bed tonight suddenly her back spasmed up and she had severe left-sided back pain and spasms. Denies any radiation of the pain. She has tried Tylenol and ibuprofen with last dose at 8:30 PM. Denies any bowel or bladder symptoms. Denies any numbness or tingling of her legs. Came in for further evaluation due to the severity of her pain. No other complaints or concerns reported at this time. [facility] Home Medications ?Medication ?Instructions ?Recorded ?Last Taken ?Type Control 1 tab DAILY 09/15/16 Unknown History oxycodone-acetaminophen 5 mg-325 1 - 2 tab PO Q4H PRN PRN Pain #12 09/15/16 Unknown Rx mg tablet tabs sulfamethoxazole 800 1 tab PO BID ##6 09/15/16 Un known Rx mg-trimethoprim 160 mg tablet ondansetron 4 mg disintegrating 4 mg PO Q6H PRN nausea and 09/19/24 Unknown Rx tablet vomiting #10 tabs oxycodone-acetaminophen 5 mg-325 1 tab PO Q4H PRN pain 3 days #14 09/19/24 Unknown Rx mg tablet (Percocet) tabs cyclobenzaprine 10 mg tablet 10 mg PO TID PRN Muscle S pasm #20 03/23/25 Unknown Rx TABLETS Allergy/AdvReac Type Severity Reaction Status Date / Time hydromorphone (From Dilaudid) AdvReac VIOLENT Verified 03/22/25 23:13 BEHAVIOR ibuprofen AdvReac BARIATRIC Verified 03/22/25 23:13 SURGERY Surgical History Gastric bypass status for obesity Social History Smoking Status: Never smoker ROS ROS ED Constitutional Constitutional ED: Denies chills or fever(s) Gastrointestinal Gastrointestinal: Denies abdominal pain, nausea or vomiting Genitourinary Genitourinary ED: Denies dysuria or urinary frequency Musculoskeletal Musculoskeletal: Reports back pain Integumentary Denies rash Neurologic Neurologic: Denies paresthesias or weakness Hematologic/Lymphatic Hematologic/Lymphatic: Denies easy bleeding or easy bruising EXAM Physical Exam Const Vital Signs: 03/22/25 23:13 Temperature 97.1 F L Temperature Source Temporal Pulse Rate 66 Respiratory Rate 18 Blood Pressure 138/88 H Blood Pressure Mean 104 Pulse Ox 98 Oxygen Delivery Method Room Air Positive well nourished and well developed Constitutional Narrative: Uncomfortable appearing secondary to back pain General Appearance ED: well developed HEENT Reports moist mucous membranes Resp normal respiratory effort and clear to auscultation bilaterally Cardio regular rate and regular rhythm GI normal to inspection, nondistended, normoactive bowel sounds, soft to palpation and non-tender Back/Spine Back/Spine Narrative: No midline spinal tenderness present. Decreased range of motion with reproduction of pain with movement of the back. Pain and spasm in the lumbar left paraspinal region. No overlying rash or injury appreciated. Lumbar Spine / Lower Back: straight leg raise negative bilaterally Extremity normal to inspection Neuro oriented x3 and no sensory deficits noted Sensorium / Orientation: alert Motor Exam: strength 5/5 throughout Psych mental status grossly normal Skin no rashes or lesions noted and no wounds MDM MDM MDM Narrative Medical decision making narrative: Patient evaluated for worsening back pain over the past 2 weeks which has significantly worsened tonight. She has been having back spasms. Vital signs normal in emergency room. She has good distal pulses. She does not have any cauda equina syndrome symptoms. She does not have any midline tenderness. I think she requires any imaging. Given IM morphine and Flexeril orally in the emergency room. Lidoderm patch applied. She is improvement of pain with this but after receiving the morphine is nauseous. Is given ODT Zofran. I will be discharged home with prescription for Flexeril. Given return precautions. Low suspicion for this being renal pain given how highly reproducible it is and she denies any urinary symptoms at this time. Discharge Plan Triage Chief Complaint: Back ED Provider: Winnie Gar Dx/Rx/DC Orders Clinical Impression: Acute lumbar back pain, Back muscle spasm Instructions: ED Back Spasm, No Trauma Prescriptions: New cyclobenzaprine 10 mg tablet 10 mg PO TID PRN (Reason: Muscle Spasm) Qty: 20 0RF No Action Control 1 tab DAILY sulfamethoxazole-trimethoprim 1 TABLET tablet 1 tab PO BID Qty: 6 0RF oxycodone-acetaminophen 1 TABLET tablet 1 - 2 tab PO Q4H PRN PRN (Reason: Pain) Qty: 12 0RF oxycodone-acetaminophen [Percocet] 5-325 mg tablet 1 tab PO Q4H PRN (Reason: pain) 3 Days Qty: 14 0RF ondansetron 4 mg tablet,disintegrating 4 mg PO Q6H PRN (Reason: nausea and vomiting) Qty: 10 0RF Primary Care Provider: MICHELLE BALBUENA Referrals: MICHELLE BALBUENA CRNP [Primary Care Provider] - Activity Restrictions/Additional Instructions: I also recommend using tvae-mcx-sczhkxn 4% exercise Lidoderm patches for pain. Continue to alternate soyq-pid-mcaqwsw pain medication in addition to the musclerelaxer. Continue to apply heat. Performgentle stretching. Follow-up with your family doctor. Print Language: Romanian Disposition Disposition: Home, Self Care What to do if you have Problems For any increased pain, shortness of breath, bleeding, nausea or vomiting, chestpain, or any unexpected problems, contact your Primary Care Provider. Call [facility] ([phone]) or report tothe closest Emergency Room. Call 911 if necessary. 06/48 Cosigner Signature (if applicable): CC: ROMY THOMPSON ~ Signed [facility]02-06-2025 NoteHNO ID: [id number] Author: MAL JOSHUA OD Service: ? Author Type: TUBE DRAWING SUPERVISOR Type: Progress Notes Filed: 11/03/2024 10:48 Note Text: ASSESSMENT/PLAN: 1. Presbyopia - ICD9: 367.4, ICD10: H52.4 Updated spectacle prescription, and educated patient to adaptation to new prescription. Return to clinic with changes to vision, otherwise follow up yearly. Mal Joshua OD November 03, 2024 10:48 [facility]02-06-2025 History of Present illness Narrative* Mal Joshua OD - 11/03/2024 10:25 AM EST ASSESSMENT/PLAN: 1. Presbyopia - ICD9: 367.4, ICD10: H52.4 Updated spectacle prescription, and educated patient to adaptation to new prescription. Return to clinic with changes to vision, otherwise follow up yearly. Mal Joshua OD November 03, 2024 10:48 AM [facility] PROGRESS NOTE POST WEIGHT LOSS SURGERY FOLLOW [...] or MELISSA If YES: Labs completed at [facility]? no If yes see Labs Tab Labs completed at Non-[facility] facility? no If yes see Encounters Tab - Orders only - Historical Provider - Date: Completed by: Annika [facility] [id number] History of Present illness Narrative* Annika Silva - 04/01/2023 9:50 AM EDT [facility] PROGRESS NOTE POST WEIGHT LOSS SURGERY FOLLOW [...] or MELISSA If YES: Labs completed at [facility]? no If yes see Labs Tab Labs completed at Non-[facility] facility? no If yes see Encounters Tab - Orders only - Historical Provider - Date: Completed by: Annika Silva * Naima Krause RD - 04/01/2023 9:50 AM EDT [facility] BARIATRIC [facility] 1 MONTH POST-OPERATIVE DIETITIAN VISIT Date: 04/01/23 [...] increased intake of fruits and vegetables, and lowcarb tortillas, eggs, peanut butter, chicken salad, lean [...] completed by: Naima Krause MS, RDN, LD * Kenny Nugent MD - 04/01/2023 9:50 AM EDT Images from the original note were not included. KENNY NUGENT MD , FACS, [facility] MINIMALLY INVASIVE & METABOLIC / BARIATRIC SURGERY [facility] - 1 MONTH FOLLOW UP 04/01/2023 PATIENT: [...] weight lost is 40 pounds for a 29% EWL. Overall, the patient is satisfied with the weight loss and health benefits related to the bariatric intervention. Dietary compliance concerns: No Exercise and activity concerns: No Compliance and phychologic concerns: No Dysphagia and eating concerns: No Excessive skin concerns: No The patient is feeling well and denies any major complaints or GI symptoms. The dietary regimen andexercise activities are going well. The patient is compliant with protein intake and vitamin/trace element supplementation. 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 I have performed an independent physical examinationand have reviewed all pertinent laboratory and imaging results. I have reviewed with the patient myassessment of their condition as well as the treatment recommendations and the associated risks, benefits and options. I have spent a total of 30 minutes for this office visit in xqxm-qo-jiwh discussion, counseling of this patient, reviewing medical records and documenting the encounter. Y NUGENT MD, [facility], [facility] Member Of [employer] - Weight Management [place] [facility] Regional Director Of Finance - Advanced GI MIS, Foregut and Bariatric Surgery Fellowship ---[facility]--- Patient Care Team: Ana Rosa Espitia as PCP - General (Nurse Practitioner) Annika Wills RN as Registered Nurse Kenny Nugent MD as Surgeon (General Surgery) documented in this [facility]06-14-2023 History of Present illness Narrative* Parish Dunne APRN - SOCIOLOGY FACULTY MEMBER - 03/11/2023 1:26 PM EDT ENDOSCOPY ORDERS To be scheduled with: Dr. Nugent Patient is: Post-op CPT code: EGD with dilation- CPT 29031 Diagnosis: Dysphagia- R13.1 Can we try to work in next week please- or if a cancellation occurs. I will talk to DR Nugent when he returns. If pre-op, Diet & Exercise Requirements are, and started/scheduled on : Home O2: No Known Difficult Intubation: No documented in this [facility]06-14-2023 History of Present illness Narrative* GAB Frausto CNP - 03/11/2023 1:26 PM EDT ENDOSCOPY ORDERS To be scheduled with: Dr. Nugent Patient is: Post-op CPT code: EGD with dilation- CPT 55554 Diagnosis: Dysphagia- R13.1 Can we try to work in next week please- or if a cancellation occurs. I will talk to DR Nugent when he returns. If pre-op, Diet & Exercise Requirements are, and started/scheduled on : Home O2: No Known Difficult Intubation: No * Laurence Ramon MA - 03/11/2023 1:26 PM EDT Holding off on this EGD until further notice from Parish Webster documented in this [facility]06-12-2023 NoteDischarge Summary Kaelyn Maddox : 1980 ADMIT DATE: 03/07/2023 DISCHARGE DATE: 03/09/2023 PRIMARY CARE PHYSICIAN: Ana Rosa Espitia VISIT STATUS: Observation DISCHARGE DIAGNOSES: Principal Problem: Abdominal pain Active Problems: Lower abdominal pain H/O bariatric surgery HOSPITAL COURSE: She presented on 03/07 to the [place] ED with complaints of nausea, vomiting, and abdominal pain on POD#10 s/p Robotic NENO-S. Ct scan demonstrated post-surgical changes. Laboratory workup was significant for an elevated WBC count of 16.5 She was subsequently transferred to [facility] for observation and rehydration. A bowel regimen [...] Commonly known as: Antivert OneTouch Delica Plus [id number] misc OneTouch Verio test strip Generic drug: glucose blood SUMAtriptan 50 MG tablet Commonly known as: Imitrex VITAMIN D (CHOLECALCIFEROL) PO STOP taking these medications ondansetron 4 MG tablet Commonly known as: Zofran Where to Get Your Medications These medications were sent to [id number] [address] [id number] methocarbamol 500 MG tablet ondansetron ODT 4 [...] Complexity: follow up within 7-14 calendar days (44483) (already scheduled) PENDING STUDIES: n/a RECOMMENDED NEXT STEPS: Follow-up as instructed DIET: Bariatric Full Liquid Diet DISPOSITION: Home SIGNED: Benedicto Cassidy MD 03/09/2023, 5:17 [facility]06-12-2023 Telephone encounter Note* Telephone Encounter - GAB Frausto CNP - 03/09/2023 9:09 AM EDT Thanks. [facility] Phone: 1(574) 263-793006-12-2023 Miscellaneous Notes* Telephone Encounter - GAB Frausto CNP - 03/09/2023 9:09 AM EDT Thanks. * Telephone Encounter - Annika Wills RN - 03/09/2023 8:47 AM EDT Patient currently admitted. UGI showed narrowing at GE junction * Telephone Encounter - Nusrat Stringer RN - 03/07/2023 6:57 AM EDT S: Patient called the clinical access center with complaint of post operative constipation B: NENO procedure 02.26.2023 A: Name of Caller: Kaelyn Carlos Call Back Number: [phone] What Procedure/Surgery did you have done?:NENO Who was your surgeon?:Dr. Nugent What date was your surgery?:02.26.2023 What is the reason for your call today (symptom): Constipation and upper abdominal pain . She is taking minimal narcotics. Abdomen is soft non-tender and non-distended. She denies a fever, nausea andvomiting . She states she is no longer passing gas and does not hear bowel sounds. She What provider is being paged?:Dr. Lee Cassidy Time page was sent: 7:12 AM Page Content: Name Kaelyn PROCTOR 78 Call Back Number [phone] Reason for page (symptom) Upper abdominal pain and constipation decreased bowel sounds . Name of Surgeon Dr. Nugent Type of Surgery NENO Date of Surgery 02/26/2023 R: Dr. Cassidy toy trains and accessories salesperson paged and info provided. Patient instructed to call back with worsening symptoms, concerns or questions. Spoke with Dr. Cassidy who advised Miralax as directed on the bottle. She is to increase her fluids,she can drink fruit juices that are low in sugar content. Kaelyn notified of treatment plan and verbalized an understanding of plan of care . She will call back if no improvement or worsening symptoms. Reason for Disposition [1] Caller has URGENT question AND [2] triager unable to answer question Protocols used: Post-Op Symptoms and [id number] documented in this encounterSKettering Health [id number] Telephone encounter Note* Telephone Encounter - Annika Wills RN - 03/09/2023 8:47 AM EDT Patient currently admitted. UGI showed narrowing at [id number] Note Attestation signed by Jordan Clark MD at 03/08/2023 10:11 AM [facility] - Surgery [facility] Physicians Surgery Patient Name: Kaelyn Maddox Date: [...] chest pain. She was evaluated in the [place] ED where she as found to have a WBC count of 16.5. CT A/P showing post-surgical changes. Despite multiple doses of morphine, her pain was unable to be controlled. She was subsequently transferred to [facility] for evaluation by the bariatric surgery team [...] long-term current use of insulin (HCC) Vertigo PSHx: Past Surgical History: Procedure Laterality [...] by mouth. Historical Pro (more content not included)...[facility]06-11-2023 NotePatient transferred from [place] ED for abdominal pain. Patient had NENO [...] of 8/10 pain. Ria Reyes RN 03/07/[address] [place], [place] 4906606-10-2023 Telephone encounter Note* Telephone Encounter - Nusrat Stringer RN - 03/07/2023 6:57 AM EDT S: Patient called the clinical access center with complaint of post operative constipation B: NENO procedure 02.26.2023 A: Name of Caller: Kaelyn Gonzalez Call Back Number: [phone] What Procedure/Surgery did you have done?:NENO Who was your surgeon?:Dr. Nugent What date was your surgery?:02.26.2023 What is the reason for your call today (symptom): Constipation and upper abdominal pain . She is taking minimal narcotics. Abdomen is soft non-tender and non-distended. She denies a fever, nausea andvomiting . She states she is no longer passing gas and does not hear bowel sounds. She What provider is being paged?:Dr. T Nyland Time page was sent: 7:12 AM Page Content: Name Kaelyn PROCTOR Call Back Number [phone] Reason for page (symptom) Upper abdominal pain and constipation decreased bowel sounds . Name of Surgeon Dr. Nugent Type of Surgery NENO Date of Surgery 02/26/2023 R: Dr. Cassidy toy trains and accessories salesperson paged and info provided. Patient instructed to call back with worsening symptoms, concerns or questions. Spoke with Dr. Cassidy who advised Miralax as directed on the bottle. She is to increase her fluids,she can drink fruit juices that are low in sugar content. Kaelyn notified of treatment plan and verbalized an understanding of plan of care . She will call back if no improvement or worsening symptoms. Reason for Disposition [1] Caller has URGENT question AND [2] triager unable to answer question Protocols used: Post-Op Symptoms and Htefhhnnq-[id number]-AT [id number] History of Present illness Narrative* Kenny Nugent MD - 03/04/2023 7:50 AM EDT Images from the original note were not included. KENNY NUGENT MD , FACS, [facility] MINIMALLY INVASIVE & METABOLIC / BARIATRIC SURGERY [facility] MBS - 1 WEEK FOLLOW UP [...] to gradually increase physical activity. The patient isnot reporting any nausea, emesis or dysphagia with [...] 5 (1.651 m) Comment: bcc Wt 239 lb9.6 oz (109 kg) SpO2 97% BMI 39.87 [...] intestinal metaplasia, dysplasia, or malignancy. The H&E stainshows no evidence of Helicobacter pylori. A. LIVER, WEDGE BIOPSY: - MILD STEATOSIS (GRADE 1) Comment: Sections demonstrate an intact liver architecture with mild macrovesicular steatosis occupying approximately 20% of the liver volume. There is no evidence of ballooning degeneration, lobularactivity, or Roselyn's hyaline. The portal tracts contain all normal structures without any significant inflammatory infiltrate. Special stains (iron and trichome) are negative for increased iron storage and fibrosis, respectively. Laboratory Studies: ASSESSMENT 1 week status post SINGLE ANASTOMOSIS DUODENO-ILEOSTOMY W/ SLEEVE (SINGLE STAGE) - angélica ABBOTT Visit Diagnoses: 1. 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 Morbid [...] histories. I have performed an independent physical examinationand have reviewed all pertinent laboratory and imaging results. I have reviewed with the patient myassessment of their condition as well as the treatment recommendations and the associated risks, benefits and options. I have spent a total of 30 minutes for this office visit in glkj-ov-foim discussion, counseling of this patient, reviewing medical records and documenting the encounter. Y NUGENT MD, [facility], [facility] Member Of The [employer] - Weight Management [place] [facility] Regional Director Of Finance - Advanced GI MIS, Foregut and Bariatric Surgery Fellowship ---[facility]--- Patient Care Team: Ana Rosa Espitia as PCP - General (Nurse Practitioner) Annika Wills, RN as Registered Nurse Kenny Nugent MD as Surgeon (General Surgery) * Annika Silva - 03/04/2023 7:50 AM EDT [facility] CENTER POST WEIGHT LOSS SURGERY FOLLOW UP - 1 WEEK Rooming Note Patient: Kaelyn Maddox Service Date: 03/04/2023 Patient is 1 week s/p SAMSON LAZCANO-Aletha Pre-Surgical Weight Loss Initial Height: 5' 5 (165.1 cm) Initial Weight: 253 lb 6.4 oz (115 kg) Initial BMI: 42.16 [place] Body Weight: 125 lb (56.7 kg) Surgery [...] Change: -24 lbs Completed by: Annika Silva * Adriane Hearn RD - 03/04/2023 7:50 AM EDT [facility] BARIATRIC CARE BO[place] 1 WEEK VISIT POST-OPERATIVE DIETITIAN Date: 03/04/23 [...] by: Adriane Hearn RD documented in this [facility]06-02-2023 NoteDischarge Summary Kaelyn Maddox : 1980 ADMIT DATE: 02/26/2023 DISCHARGE DATE: 02/27/23 ATTENDING PHYSICIAN: No att. providers found VISIT STATUS: Admission CODE STATUS: Prior DISCHARGE DIAGNOSES: Principal Problem: Morbid obesity with BMI of 40.0-44.9, adult ([facility]) Active Problems: Morbid obesity due to excess calories ([facility]) Type 2 diabetes mellitus with ophthalmic complication, without long-term current use of insulin ([facility]) Back pain Difficult intravenous access PONV (postoperative nausea and vomiting) History of motion sickness BMI Classification: Estimated body mass index is 42.6 kg/m? as calculated from the following: Height as of this encounter: 1.651 m (5' 5). Weight as of this encounter: 116 kg (256 lb). Morbidly Obese (>40.0) HOSPITAL COURSE: Kaelyn Maddox is a 42 y.o. female who presented to [facility] on 02/26/2023 for elective bariatric surgical procedure. [...] not crush or chew. OneTouch Delica Plus [id number] misc OneTouch Verio test strip Generic drug: [...] This note may have been dictated using [employer] Medical Practice Edition 2.6 and/or allyve Voice Recognition Feature. The document was proofread; however, unrecognized voice recognition punch machine hand errors may be present. [facility]06-02-2023 Nurse Note* Lorrie Giron RN - 02/27/2023 3:12 PM EDT Went over discharge instructions, med rec, and prescriptions with pt. Pt verbalized understanding. NA to take pt down to discharge [id number] Nurse Note* Lorrie Giron RN - 02/27/2023 3:12 PM EDT Went over discharge instructions, med rec, and prescriptions with pt. Pt verbalized understanding. NA to take pt down to discharge documented in this [facility]06-02-2023 History of Present illness Narrative* KIRBY Steven - 02/27/2023 7:37 AM EDT Preliminary negative for leak. * Sigrid Jaime RCP - 02/26/2023 7:47 PM EDT [facility] Respiratory Care Department Progress Note As part of the Respiratory Assessment Program (RAP), the following Respiratory Therapist evaluationhas been completed, including a chart review and [...] care of this patient, documented in this [facility]06-01-2023 [facility] Respiratory Care Department Progress Note As [...] Respiratory in the care of this patient, [facility]06-01-2023 Hospital Discharge instructions* Discharge Instructions* Adriane Hearn RD - 02/26/2023 1:56 PM EDT Laparoscopic NENO-S Procedure Discharge Instructions You may shower at any point. Blot the incisions dry when you are done. Use only soap and water on the wounds, do not use ointments, lotions, powders or antibiotic ointment. Use elastic binder as you desire. Juan Luis are intact to your surgical incisions. If you feel they are catching or rubbing on your abdominal binder or clothes, you may place a Band-Aid over them. They will be removed at your one week post operative visit. If incisions begin to look infected (swelling, redness, drainage, pain), please notify your RN casemanager. Take your temperature twice a day for [...] drainage in the grenade. The color will international exchange coordinator time. Normal color changes include Red - [place] - [place]/Yellow - Lee and will always be clear in appearance. Abnormal color changes include a caramel color (richard and cloudy), abrown or black appearance or a color change matching the color of what you just drank (mix up your flavors). An abnormal color change requires an immediate phone call to the Bariat[facility] Care Center. Resume your home medications as directed by your surgeon and your nurse skilled nursing case manager. Make an appointment with your [...] this device after surgery. Please call the [facility] at [phone] if you have any questions or concerns during business hours: Thursday through Thursday 8 a.m. to 4:30 p.m. The answering service may be called during non- business hours at [phone]. If you have a medical emergency, call [...] office visits with your surgeon at the [facility] are located in the discharge folder [facility] DIETITIAN DISCHARGE INSTRUCTIONS The following information was [...] clear liquids as soon as your nurse notifiesyou that it is OK to start. Post-Op [...] will be reviewed and discussed with your duringthat visit, If you have questions about your diet(s), please contact the Bariatric Dietitians at [phone]. documented in this [facility]06-01-2023 NotePatient: Kaelyn Maddox Procedure Summary Date: 02/26/23 Room / Location: [address] Operating Room Anesthesia Start: 729 Anesthesia Stop: 1142 Procedures: ROBOTIC ASSISTED SINGLE ANASTOMOSIS DUODENAL ILEAL [...] discharged once all PACU criteria has been met.[facility]06-01-2023 NotePatient: Kaelyn Maddox Procedure Summary Date: 02/26/23 Room / Location: [address] Operating Room Anesthesia Start: 729 Anesthesia Stop: 1142 Procedures: ROBOTIC ASSISTED SINGLE ANASTOMOSIS DUODENAL ILEAL [...] Allowed opportunity for questions and acknowledgement of understanding.[facility] [id number] NotePeripheral Block Time Out: 02/26/2023 7:35 AM Patient location during procedure: Procedural Start time: 02/26/2023 7:35 AM End time: 02/26/2023 7:37 AM Reason for block: at surgeon's request and post-op pain management Staffing Performed: COMMERCIAL LENDING ASSISTANT Anesthesiologist: Javier Bella MD Resident/COMMERCIAL LENDING ASSISTANT: Coleman Sales APRN - COMMERCIAL LENDING ASSISTANT Preanesthetic Checklist Completed: patient identified, IV checked, site marked, risks and benefits discussed, surgical consent, monitors and equipment checked, pre-op evaluation and timeout performed Region: [place] Primary: TAP (Bupivacaine 0.375%/ Epi 1:200,000/ Dex 0.1mg/mL 40ml divided evenly bilateral) Secondary: Upper rectus (Bupivacaine 0.375%/ Epi 1:200,000/ Dex 0.1mg/mL 20ml divided evenly bilateral) Peripheral Block Patient position: supine Prep: ChloraPrep Patient monitoring: heart rate, monitor car operator, continuous pulse ox and continuous capnometry [...] plane. and Local anesthetic injected without difficultyMedications iygAYSDJaivky-srcushyjllu-volxftkzlxz (TAP) syringe - Injection 60 mL - 02/26/2023 7:35:[address] [facility]06-01-2023 NoteAirway Date/Time: 02/26/2023 8:00 AM Urgency: scheduled General Information and Staff Patient location during procedure: Procedural Resident/COMMERCIAL LENDING ASSISTANT: Deion Huntley APRN - COMMERCIAL LENDING ASSISTANT Performed: COMMERCIAL LENDING ASSISTANT Indications and Patient Condition Indications for airway [...] Additional Comments Atraumatic placement of ETT, dentition [facility]06-01-2023 NoteH&P Interval Update PATIENT SUMMARY Kaelyn Nugent 41 y.o. female with Body mass index is 41.85 kg/m?. 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 The patient was seen and examined. There has been no change in the management plan. [facility] [id number] Note* Op Note - Kenny Nugent MD - 02/26/2023 7:30 AM EDT Images from the original note were not included. KENNY NUGENT MD , FACS, [facility] MINIMALLY INVASIVE & METABOLIC / BARIATRIC SURGERY [facility] OPERATIVE REPORT 02/26/2023 PATIENT: Kaelyn Maddox DATE OF : 1980 PROCEDURE: 1. ROBOTIC SINGLE ANASTOMOSIS DUODENO-ILEOSTOMY ([address] [address]) (22) 2. ROBOTIC SLEEVE GASTRECTOMY (04954) (59) 3. ROBOTIC LIVER WEDGE BIOPSY (34014) (59) 4. UPPER GASTRO-INTESTINAL ENDOSCOPY (48425) SURGEON: Kenny Nugent MD TRASH HAULER: Deion Lundberg MD PRE-OPERATIVE DIAGNOSES: BMI 42 [...] stratification and is scheduled for Robotic-assisted Single-Anastomosis Duodeno- Ileostomy (NENO) during Sleeve Gastrectomy (S). CONSENT: The [...] explained to the patient. The procedure specific terminal makeup operator potential complicationsincluding increased flatulence and bowel movements as well [...] was placed to decompress the stomach. Following placementof sequential compression devices, the patient was positioned in the modified lithotomy position and extremities were carefully padded and protected. The abdomen was prepped and draped in standard surgical fashion. The abdominal cavity was accessed in the left upper quadrant at Miller's point using a 5-mm opticaltrocar. Pneumoperitoneum was established and a brief exploration of the abdominal cavity was performed. Three other robotic trocars were placed under direct visualization. These were placed in a horizontal pattern near the level of the umbilicus. An customer assistant port was placed in the left [...] in the same fashion all the way tothe angle of his superior and inferiorly along [...] of the sleeve is preserved in order toavoid a stricture. Following this a 50 Indonesian bougie was carefully advanced by the anesthesia [...] the 12-mm robotic trocar incision. An upper g astrointestinal endoscopy was performed along with an underwater leak test to ensure the patency ofthe residual sleeve all the way to the [...] to the mesenteric aspect of the ileum, creatingthe posteriour outer row of the anastomosis. Enterotomies [...] aligning the afferent limb. The anastomosis was checke d for patency and integrity using a provocative [...] complications. The patients was transported to the post-anesthesiacare unit in stable condition. I was present for the entire duration of the procedure. [facility] Data form Start Time: 7:58 Stop Time: 11:01 Bougie (or sizing device): 40 Indonesian Distance from pylorus: 4 cm Staple Line reinforcement: [] Yes [x] No Oversew: [] Yes [x] No Bank Teller: [x] Resident [] Fellow ASA Class: [] [...] [x] EGD [x] Liver Biopsy Other: None [facility] [id number] Note* Op Note - Kenny Nugent MD - 02/26/2023 7:30 AM EDT Images from the original note were not included. KENNY NUGENT MD , FACS, [facility] MINIMALLY INVASIVE & METABOLIC / BARIATRIC SURGERY [facility] OPERATIVE REPORT 02/26/2023 PATIENT: Kaelyn Maddox DATE OF : 1980 PROCEDURE: 1. ROBOTIC SINGLE ANASTOMOSIS DUODENO-ILEOSTOMY ([address] [address]) (22) 2. ROBOTIC SLEEVE GASTRECTOMY (98868) (59) 3. ROBOTIC LIVER WEDGE BIOPSY (19249) (59) 4. UPPER GASTRO-INTESTINAL ENDOSCOPY (28099) SURGEON: Kenny Nugent MD TRASH HAULER: Deion Lundberg MD PRE-OPERATIVE DIAGNOSES: BMI 42 [...] stratification and is scheduled for Robotic-assisted Single-Anastomosis Duodeno- Ileostomy (NENO) during Sleeve Gastrectomy (S). CONSENT: The [...] explained to the patient. The procedure specific fci potential complicationsincluding increased flatulence and bowel movements as well [...] was placed to decompress the stomach. Following placementof sequential compression devices, the patient was positioned in the modified lithotomy position and extremities were carefully padded and protected. The abdomen was prepped and draped in standard surgical fashion. The abdominal cavity was accessed in the left upper quadrant at Miller's point using a 5-mm opticaltrocar. Pneumoperitoneum was established and a brief exploration of the abdominal cavity was performed. Three other robotic trocars were placed under direct visualization. These were placed in a horizontal pattern near the level of the umbilicus. An customer assistant port was placed in the left [...] in the same fashion all the way tothe angle of his superior and inferiorly along [...] of the sleeve is preserved in order toavoid a stricture. Following this a 50 Indonesian bougie was carefully advanced by the anesthesia [...] the 12-mm robotic trocar incision. An upper g astrointestinal endoscopy was performed along with an underwater leak test to ensure the patency ofthe residual sleeve all the way to the [...] to the mesenteric aspect of the ileum, creatingthe posteriour outer row of the anastomosis. Enterotomies [...] aligning the afferent limb. The anastomosis was checke d for patency and integrity using a provocative [...] complications. The patients was transported to the post-anesthesiacare unit in stable condition. I was present for the entire duration of the procedure. [facility] - Data form Start Time: 7:58 Stop Time: 11:01 Bougie (or sizing device): 40 Indonesian Distance from pylorus: 4 cm Staple Line reinforcement: [] Yes [x] No Oversew: [] Yes [x] No Bank Teller: [x] Resident [] Fellow ASA Class: [] [...] [x] EGD [x] Liver Biopsy Other: None [id number] Miscellaneous Notes* Op Note - Kenny Nugent MD - 02/26/2023 7:30 AM EDT Images from the original note were not included. KENNY NUGENT MD , FACS, [facility] MINIMALLY INVASIVE & METABOLIC / BARIATRIC SURGERY [facility] OPERATIVE REPORT 02/26/2023 PATIENT: Kaleyn Maddox DATE OF : 1980 PROCEDURE: 1. ROBOTIC SINGLE ANASTOMOSIS DUODENO-ILEOSTOMY ([address] [address]) (22) 2. ROBOTIC SLEEVE GASTRECTOMY (56627) (59) 3. ROBOTIC LIVER WEDGE BIOPSY (64602) (59) 4. UPPER GASTRO-INTESTINAL ENDOSCOPY (15174) SURGEON: Kenny Nugent MD TRASH HAULER: Deion Lundberg MD PRE-OPERATIVE DIAGNOSES: BMI 42 [...] stratification and is scheduled for Robotic-assisted Single-Anastomosis Duodeno- Ileostomy (NENO) during Sleeve Gastrectomy (S). CONSENT: The [...] explained to the patient. The procedure specific terminal makeup operator potential complicationsincluding increased flatulence and bowel movements as well [...] was placed to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 [facility]02-08-2023 History of Present illness Narrative* Jacque Albarran RD - 11/05/2022 10:00 AM EST [facility] BARIATRIC NUTRITION ASSESSMENT / DIET & EXERCISE [...] and reasonable under the circumstances given the patient'sparticular presentation at this time. The patient has been advised of the potential risks and limitations of this mode of treatment (including but not limited to the absence of in-person examination)and has agreed to be treated in a remote fashion in spite of them. Any and all of the patient's/patient's family's questions on this issue have been answered and I have made no promises or guaranteesto the patient. The patient has also been advised to contact this office for worsening conditions or problems, and seek emergency medical treatment and/or call 911 if the patient deems either necessary. The patient stated that they are currently in the [facility]. If the patient is a minor, permission has been obtained by the parent or guardian for the patient to receive medical care at this visit. documented in this encounterSKettering Health [id number] Telephone encounter Note* Telephone Encounter - Adriane Hearn RD - 10/31/2022 12:13 PM EST Sent pt Mychart msg regarding low vit D and low end normal b12 and discussing lipid panel with PCP. [id number] Telephone encounter Note* Telephone Encounter - Adriane Hearn RD - 10/31/2022 12:13 PM EST ----- Message from GAB Frausto CNP sent at 10/31/2022 6:31 AM EST ----- B 12 low normal. Please advise her to reach out to pcp regarding lipids. [facility] [id number] Miscellaneous Notes* Telephone Encounter - Adriane Hearn RD - 10/31/2022 12:13 PM EST Sent pt Mychart msg regarding low vit D and low end normal b12 and discussing lipid panel with PCP. * Telephone Encounter - Adriane Hearn RD - 10/31/2022 12:13 PM EST ----- Message from GAB Frausto CNP sent at 10/31/2022 6:31 AM EST ----- B 12 low normal. Please advise her to reach out to pcp regarding lipids. documented in this encounterSKettering Health [id number] Telephone encounter Note* Telephone Encounter - Adriane Hearn RD - 10/29/2022 2:59 PM EST Sent pt MyChart message regarding low vitamin D at 15. Will add 4000 I U daily. Will monitor levelspostoperatively. [facility] [id number] Miscellaneous Notes* Telephone Encounter - Adriane Hearn RD - 10/29/2022 2:59 PM EST Sent pt MyChart message regarding low vitamin D at 15. Will add 4000 I U daily. Will monitor levelspostoperatively. * Telephone Encounter - Adriane Hearn RD - 10/29/2022 2:58 PM EST ----- Message from GAB Frausto CNP sent at 10/29/2022 2:33 PM EST ----- Thx!! documented in this [facility]02-01-2023 Telephone encounter Note* Telephone Encounter - Adriane Hearn RD - 10/29/2022 2:58 PM EST ----- Message from GAB Frausto CNP sent at 10/29/2022 2:33 PM EST ----- Thx!! [facility] [id number] [facility] SURGICAL WEIGHT LOSS MANAGEMENT PROGRAM PROGRESS NOTE FOLLOW UP Patient: Kaelyn Maddox Date of : 1980 Service Date: 10/29/2022 [place] Visit number: 7 of 6 Pre Program Weight Metrics Date of Initial Consultation: 05/23/22 Initial Weight: 252 lbs Initial BMI: 42.03 [place] Body Weight: 134 lb Excess Body Weight: [...] is not on home O2 Completed by: [facility]02-01-2023 History of Present illness Narrative* GAB Gaines CNP - 10/29/2022 9:40 AM EST [facility] [address] [facility] [address] [place] [address] Dept: [phone] Dept Reason for Visit: Follow-up History of [...] wheezing, chest tightness, SOB, or chest pain. Hardin Score 9 Patient goes to bed at 10 pm and gets up at 530. Patient quickly falls asleep. Describes sleep as restful. She does wake up refreshed. Denies waking up with AM FOY. Denies daytime hypersomnolence. Denies leg movement, nocturia, and parasomnia. STOPBang Questionnaire: SNORING: Do you snore loudly (loud enough to be heard through closed doors or your bed- partner elbows you for snoring at night)? yes [...] (obstructive sleep apnea) Stop Bang Score 2; Hardin Score 9. Sleep study revealed mild VIKTOR [...] day of the visit. documented in this [facility] [facility] Instructions* Patient Instructions* Harika Flores MA - 10/29/2022 9:40 AM EST YOUR APPOINTMENT TODAY WAS WITH THE [facility], COPD CLINIC, PULMONARY AND SLEEP MEDICINE OFFICE. PLEASE CALL OUR OFFICE AT [phone] IF YOU HAVE NOT RECEIVED YOUR TEST [...] to make improvements. COVID-19 VACCINATION INFORMATION: PH. [phone] HEALTH.ORG/CORONAVIRUS/VACCINE [facility] Central Scheduling [phone] [facility] Sleep Scheduling [phone] documented in this [facility]02-01-2023 History of Present illness Narrative* Paula Adan - 10/29/2022 8:50 AM EST [facility] SURGICAL WEIGHT LOSS MANAGEMENT PROGRAM PROGRESS NOTE FOLLOW UP Patient: Kaelyn Maddox Date of : 1980 Service Date: 10/29/2022 DE Visit number: 7 of 6 Pre Program Weight Metrics Date of Initial Consultation: 05/23/22 Initial Weight: 252 lbs Initial BMI: 42.03 [place] Body Weight: 134 lb Excess Body Weight: [...] DE/SPR Weight: Total Weight Change: <No Previous Non- Surg Weight on File> lbs Patient has the [...] on home O2 Completed by: Paula Adan * Lisa Villa MD - 10/29/2022 8:50 AM EST HPI, PHYSICAL EXAM, AND PLAN Patient is [...] protein, inadequate amounts of healthy fats, adequate amountsof green, leafy vegetables, and adequate amounts of [...] to regular monthly visits to meet the requirementsof her insurance company. Additionally, She is to adopt eating plan recommendations and show weight loss trend to demonstratereadiness for the changes that will be required [...] nostril once daily LANCETS (ONETOUCH DELICA PLUS [id number]) [facility] [place] [facility] use 1 LANCET to TEST BLOOD SUGAR [...] is updated and completed. 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 She denies excessive shortness of breath with activity, she easily can climb 2 flights of stairs. Family history is negative for premature heart diseasein first-degree relatives. All else is negative. Past [...] Disp: , Rfl: Lancets (OneTouch Delica Plus [id number]) [facility] [place], use 1 LANCET to TEST BLOOD SUGAR once daily, Disp: ,Rfl: OneTouch Verio test strip, TEST BLOOD SUGAR once daily, Disp: , Rfl: Review of Systems: Review of Systems Constitutional: Negative for activity change (walks for exercise), chills, diaphoresis, fatigue andfever. HENT: Negative for nosebleeds and trouble swallowing. [...] bariatric surgery as planned and scheduled at thelow cardiac risk. No testing is recommended. Thank you for allow me to participate in the care of this pleasant lady. I reviewed my assessment and plan with Kaelyn Maddox . All questions were answered. NOTE: This report was transcribed using voice recognition software. Every effort was made to ensureaccuracy; however, inadvertent computerized punch machine hand errors may be present. documented in this [facility]01-13-2023 [facility] SURGICAL WEIGHT LOSS MANAGEMENT PROGRAM PROGRESS NOTE FOLLOW UP Patient: Kaelyn Maddox Date of : 1980 Service Date: 10/10/2022 DE Visit number: 6 of 6 Pre Program Weight Metrics Date of Initial Consultation:@FLOWLAST(8961)@ Initial Weight: @FLOWLAST([id number])@ Initial BMI: @FLOWLAST([id number])@ [place] Body Weight: @FLOWLAST([id number])@ Excess Body Weight: @FLOWLAST([id number])@ Follow Up Weight Metrics Last Three Weights [...] not on home O2 Completed by: Shakila Holguin, [facility]01-13-2023 History of Present illness Narrative* Shakila Holguin MA - 10/10/2022 1:50 PM EST [facility] SURGICAL WEIGHT LOSS MANAGEMENT PROGRAM PROGRESS NOTE FOLLOW UP Patient: Kaelyn Maddox Date of : 1980 Service Date: 10/10/2022 DE Visit number: 6 of 6 Pre Program Weight Metrics Date of Initial Consultation:@FLOWLAST(8961)@ Initial Weight: @FLOWLAST([id number])@ Initial BMI: @FLOWLAST([id number])@ [place] Body Weight: @FLOWLAST([id number])@ Excess Body Weight: @FLOWLAST([id number])@ Follow Up Weight Metrics Last Three Weights Including Today's Weight: Wt Readings from Last 3 Encounters: 10/10/22 262 lb 12.8 oz (119 kg) 09/01/22 260 lb (118 kg) 09/01/22 263 lb (119 kg) Today's BMI: BMI: 43.73 %EBWL: % EBWL: <UNK>% Weight Chance Since Last Visit: Weight Change: -1.4 lbs Weight Change from Initial DE/SPR Weight: Total Weight Change: <No Previous Non- Surg Weight on File> lbs Patient has the [...] home O2 Completed by: Shakila Holguin MA * Lisa Villa MD - 10/10/2022 1:50 PM EST HPI, PHYSICAL EXAM, AND PLAN Patient is [...] protein, inadequate amounts of healthy fats, adequate amountsof green, leafy vegetables, and adequate amounts of [...] to regular monthly visits to meet the requirementsof her insurance company. Additionally, She is to adopt eating plan recommendations and show weight loss trend to demonstratereadiness for the changes that will be required [...] in the morning and 1,200 mg in theevening. KETOROLAC (TORADOL) 10 MG TABLET take 1 tablet by mouth four times a day for 5 days if needed for ... (REFER TO PRESCRIPTION NOTES). LANCETS (ONETOUCH DELICA PLUS [id number]) [facility] [place] use 1 LANCET to TEST BLOOD SUGAR [...] 1 drop into right eye every 3 hoursfor 7 days Modified Medications No medications on [...] is updated and completed. documented in this [facility]01-02-2023 Telephone encounter Note* Telephone Encounter - Elif Adameubbs - 09/29/2022 1:50 PM EST Name of Caller: Kaelyn Contact Reason for Appointment: pt would like a appt to get cleared Office Name: [facility] Medication Refills need, if any: n/a Medication Name: n/a [id number] Miscellaneous Notes* Telephone Encounter - Elif Klein Cristiane - 09/29/2022 1:50 PM EST Name of Caller: Kaelyn Contact Reason for Appointment: pt would like a appt to get cleared Office Name: [facility] Medication Refills need, if any: n/a Medication Name: n/a documented in this [facility]12-23-2022 [facility] SURGICAL WEIGHT LOSS MANAGEMENT PROGRAM PROGRESS NOTE FOLLOW UP Patient: Kaelyn Maddox Date of : 1980 Service Date: 09/19/2022 DE Visit number: 5 of 6 Pre Program Weight Metrics Date of Initial Consultation:@FLOWLAST(8961)@ Initial Weight: @FLOWLAST([id number])@ Initial BMI: @FLOWLAST([id number])@ [place] Body Weight: @FLOWLAST([id number])@ Excess Body Weight: @FLOWLAST([id number])@ Follow Up Weight Metrics Last Three Weights [...] stated that they are currently in the [facility]. If the patient is a minor, permission has been obtained by the parent or guardian for the patient to receive medical care at this visit. Completed by: Lizeth Harry, [facility]12-05-2022 Note Patient: Kaelyn Maddox Procedure Summary Date: 09/01/22 Room / Location: [address] ENDO SEC 2 / [facility] Gastroenterology Anesthesia [...] discharged once all PACU criteria has been met.[facility]12-05-2022 NotePatient: Kaelyn Maddox Procedure Summary Date: 09/01/22 Room / Location: [facility] [address] [facility] ENDO SEC 2 [...] discharged once all PACU criteria has been met.[facility]12-05-2022 NotePatient: Kaelyn Maddox Procedure Summary Date: 09/01/22 Room / Location: [facility] ENDO SEC 2 / AR[facility] [...] Allowed opportunity for questions and acknowledgement of understanding.[facility]12-05-2022 NotePatient: Kaelyn Maddox Procedure Summary Date: 09/01/22 Room / Location: [facility] ENDO SEC 2 / [facility] Gastroenterology [...] Allowed opportunity for questions and acknowledgement of understanding.[facility]12-05-[address] [facility] Name: Kaelyn Maddox Procedure Date: 09/01/2022 [...] immediate complications. Procedure Code(s): --- Professional --- 50830, Esophagogastroduodenoscopy, flexible, transoral; with biopsy, single or multiple --- Technical --- 77755, Esophagogastroduodenoscopy, flexible, transoral; with biopsy, single or multiple Diagnosis Code(s): --- Professional --- K30, Functional dyspepsia Z01.818, Encounter for other preprocedural examination E66.01, Morbid (severe) obesity due to excess calories --- Technical --- K30, Functional dyspepsia Z01.818, Encounter for other preprocedural examination E66.01, Morbid (severe) obesity due to excess calories CPT copyright 2021 [employer]. All rights reserved. The codes documented in this report are preliminary and upon medical biller/coder review may be revised to meet current compliance requirements. Attending Participation: I was present and participated during the entire procedure from insertion to removal of the endoscope. Kenny Nugent MD 09/01/2022 11:13:33 AM This report has been signed electronically. Number of Addenda: 0 Note Initiated On: 09/01/2022 10:58 [facility] [id number] Note Endoscopy Center- [facility] Patient Name: Kaelyn Maddox Procedure Date: 09/01/2022 [...] immediate complications. Procedure Code(s): --- Professional --- 50109, Esophagogastroduodenoscopy, flexible, transoral; with biopsy, single or multiple --- Technical --- 43872, Esophagogastroduodenoscopy, flexible, transoral; with biopsy, single or multiple Diagnosis Code(s): --- Professional --- K30, Functional dyspepsia Z01.818, Encounter for other preprocedural examination E66.01, Morbid (severe) obesity due to excess calories --- Technical --- K30, Functional dyspepsia Z01.818, Encounter for other preprocedural examination E66.01, Morbid (severe) obesity due to excess calories CPT copyright 2020 [employer]. All rights reserved. The codes documented in this report are preliminary and upon medical biller/coder review may be revised to meet current compliance requirements. Attending Participation: I was present and participated during the entire procedure from insertion to removal of the endoscope. Kenny Nugent MD 09/01/2022 11:13:33 AM This report has been signed electronically. Number of Addenda: 0 Note Initiated On: 09/01/2022 10:[address] [facility]12-05-2022 Note Patient: Kaelyn Maddox Procedure Information Date/Time: 09/01/22 1100 Procedure: EGD WITH BIOPSY Location: [facility] ENDO SEC 2 / [facility] Gastroenterology [...] results found for this or any previous visit.[facility] 09-01-2022 NotePatient: Kaelyn Maddox Procedure Information Date/Time: 09/01/22 1100 Procedure: EGD WITH BIOPSY Location: [facility] ENDO SEC 2 / [facility] Gastroenterology [...] results found for this or any previous visit.[facility] 09-01-2022 NoteDepartment of General Surgery History and Physical PATIENT NAME: Kaelyn [...] understanding and willingness to proceed with plan. [facility] [id number] NoteDepartment of General Surgery History and Physical PATIENT NAME: Kaelyn [...] understanding and willingness to proceed with plan. [facility] [id number] [facility] SURGICAL WEIGHT LOSS MANAGEMENT PROGRAM PROGRESS NOTE FOLLOW UP Patient: Kaelyn Maddox Date of : 1980 Service Date: 08/27/2022 DE Visit number: 4 of 6 Pre Program Weight Metrics Date of Initial Consultation:@FLOWLAST(8961)@ Initial Weight: @FLOWLAST([id number])@ Initial BMI: @FLOWLAST([id number])@ [place] Body Weight: @FLOWLAST([id number])@ Excess Body Weight: @FLOWLAST([id number])@ Follow Up Weight Metrics Last Three Weights [...] not on home O2 [facility]: [facility] SURGICAL WEIGHT LOSS MANAGEMENT PROGRAM PROGRESS NOTE FOLLOW UP Patient: aKelyn Maddox Date of : 1980 Service Date: 08/27/2022 DE Visit number: 4 of 6 Pre Program Weight Metrics Date of Initial Consultation:@FLOWLAST(8961)@ Initial Weight: @FLOWLAST([id number])@ Initial BMI: @FLOWLAST([id number])@ [place] Body Weight: @FLOWLAST([id number])@ Excess Body Weight: @FLOWLAST([id number])@ Follow Up Weight Metrics Last Three Weights [...] on home O2 Completed by: Lizeth Harry [facility]10-11-2021 Hospital Discharge instructions Patient Education 07/08/2021 21:22:18 [...] tests to know the difference. Watch for thewarning signs listed below for when to seek medical advice. Home care Follow these guidelines for taking care of yourself at home: If symptoms are severe, rest at home for the first 2 to 3 days. Stay away from cigarette smoke - both your smoke and the smoke from others. You may use yzzh-ogc-vdfhfbe acetaminophen or ibuprofen for fever, muscle aching, [...] replacement and sports drinks; and decaffeinated teas andcoffee. If you have been diagnosed with a kidney disease, ask your healthcare provider how much andwhat types of fluids you should drink to prevent dehydration. If you have kidney disease, drinking too much fluid can cause it build up in the your body and be dangerous to your health. Pfmp-ayd-glhtxds remedies won't shorten the length of the [...] or as directed by your healthcare provider [phone] [employer]. [address] [place] [address]. All rights reserved. This information is not intended as a substitute for professional medical care. Always follow yourhealthcare professional's instructions. Follow Up Care 07/08/2021 19:05:34 With:KIANNA CRISTINA Address: [address] [place] [phone] When:2-4 days [facility] Evaluation + Plan note Future Appointments Appointment Date:07/11/2021 08:50:00 AM Scheduled Provider:KIANNA CRISTINA Location:[facility] Appointment Type: Wellness Annual Future Scheduled Tests Laboratory* Thyroid Stimulating Hormone 11/15/20 * Thyroid Stimulating Hormone 04/29/21 * Lipid Profile 11/15/20 * Lipid Profile 04/29/21 * Hepatitis C Antibody IgG 05/22/21 * Complete Metabolic Panel 11/15/20 * Complete Metabolic Panel 04/29/21 [facility] Evaluation note* Diagnosis Hot tub folliculitis- Primary Other specified disease of hair and hair follicles documented in this encounter [facility] Work Phone: Evaluation note* Diagnosis Gastro-esophageal reflux disease without esophagitis Morbid (severe) obesity due to excess calories (HCC) 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, resolved following treatment, unspecified eye (HCC) Encounter for other specified special examinations Encounter for blood-alcohol and blood-drug test Encounter for preprocedural laboratory examination [facility]* Diagnosis Morbid obesity due to excess calories (HCC)- Primary Morbid (severe) obesity due to excess calories (HCC) [facility]* Diagnosis Gastro-esophageal reflux disease without esophagitis- Primary Morbid (severe) obesity due to excess calories (HCC) 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, resolved following treatment, unspecified eye (HCC) Encounter for other specified special examinations Encounter for blood-alcohol and blood-drug test Encounter for preprocedural laboratory examination Morbid (severe) obesity due to excess calories (HCC) [facility]* Diagnosis Morbid obesity with BMI of [...] of motion sickness [facility]* Diagnosis Type 2 diabetes mellitus with other specified complication, unspecified whether terminal makeup operator insulin use (HCC) Morbid obesity with BMI of 40.0-44.9, adult (HCC) Difficult intravenous access Type 2 diabetes mellitus with other ophthalmic complication, without long-term current use of insulin (HCC)- Primary Morbid obesity with BMI of 40.0-44.9, adult (HCC) Low back pain, unspecified back pain laterality, unspecified chronicity, unspecified whether sciatica present documented [facility] this encounter [facility]* Diagnosis Type 2 diabetes mellitus with other ophthalmic complication, without long-term current use of insulin (HCC)- Primary Morbid obesity with BMI of 40.0-44.9, adult (HCC) Low back pain, unspecified back pain laterality, unspecified chronicity, unspecified whether sciatica present Intestinal malabsorption, unspecified type Deficiency of multiple nutrient elements Other nutritional deficiency documented in this encounter [facility]* Diagnosis Type 2 diabetes mellitus with other ophthalmic complication, without long-term current use of insulin ([facility])- Primary Morbid obesity with BMI of 40.0-44.9, adult ([facility]) Low back pain, unspecified back pain laterality, unspecified chronicity, unspecified whether sciatica present Intestinal malabsorption, unspecified type Deficiency of multiple nutrient elements Other nutritional deficiency documented in this encounter [facility] note* Diagnosis Type 2 diabetes mellitus with other ophthalmic complication, without long-term current use of insulin ([facility])- Primary Morbid obesity with BMI of 40.0-44.9, adult ([facility]) Low back pain, unspecified back pain laterality, unspecified chronicity, unspecified whether sciatica present Intestinal malabsorption, unspecified type Deficiency of multiple nutrient elements Other nutritional deficiency documented in this encounter [facility] note* Diagnosis Intestinal malabsorption, unspecified type- Primary Deficiency of multiple nutrient elements Other nutritional deficiency Class 2 obesity due to excess calories with body mass index (BMI) of 37.0 to 37.9 in adult, unspecified whether serious comorbidity present [facility]* Diagnosis Morbid obesity due to excess calories ([facility])- Primary [facility]* Diagnosis VIKTOR (obstructive sleep apnea) Obstructive sleep apnea (adult) (pediatric) Preoperative clearance Unspecified pre-operative examination documented in this encounter [facility] note* Diagnosis Type 2 diabetes mellitus without complication, without long-term current use of insulin ([facility]) ([facility])- Primary BMI 40.0-44.9, adult ([facility]) Class 3 severe obesity with serious comorbidity and body mass index (BMI) of 40.0 to 44.9 in adult, unspecified obesity type ([facility]) documented in this encounter [facility] note* Diagnosis GERD without esophagitis Esophageal reflux Morbid obesity due to excess calories ([facility]) 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, without long-term current use of insulin, unspecified laterality ([facility]) Encounter for screening for tobacco use Encounter for drug screening Pre-operative laboratory examination Pre-procedural laboratory examination [facility] Diagnosis Pre-operative clearance Unspecified pre-operative examination Morbid obesity due to excess calories (HCC) documented [facility]* Diagnosis Type 2 diabetes mellitus without complication, without long-term current use of insulin (CMS/HCC) (HCC)- Primary BMI 40.0-44.9, adult (HCC) Class 3 severe obesity with serious comorbidity and body mass index (BMI) of 40.0 to 44.9 in adult, unspecified obesity type (HCC) documented [facility]* Diagnosis Pre-operative clearance- Primary Unspecified pre-operative examination VIKTOR (obstructive sleep apnea) Obstructive sleep apnea (adult) (pediatric) documented [facility]* Diagnosis Type 2 diabetes mellitus without complication, without long-term current use of insulin (CMS/HCC) (HCC)- Primary BMI 40.0-44.9, adult (HCC) Class 3 severe obesity with serious comorbidity and body mass index (BMI) of 40.0 to 44.9 in adult, unspecified obesity type (HCC) documented [facility] encounter [facility]* Diagnosis Morbid obesity due to excess calories (HCC)- Primary documented [facility] encounter [facility]* Diagnosis Presbyopia- Primary [facility] noteNo assessment information availableWOhioHealth Doctors Hospital Work Phone: Hospital course Narrative No data available for this section [facility] Hospital Discharge instructions* Attachments The following attachments cannot be sent through Care Everywhere. * Folliculitis (Romanian) [facility] Work Phone: Hospital Discharge instructions Additional Instructions I also recommend using xoha-rmu-yhpamnf 4% exercise Lidoderm patches for pain. Continue to alternate yueh-ftt-gjqyuix pain medication in addition to the muscle relaxer. Continue to apply heat. Perform gentle stretching. Follow-up with your family doctor.[facility] Work Phone: Reason for referral (narrative)No reason for referral information availableWOhioHealth Doctors Hospital Work Phone: Summary Purpose Family History No Family History Records FoundNo Family History Records FoundNo Family History Records FoundNo Family History Records FoundNo Family History Records FoundNo Family History Records FoundNo Family History Records FoundNo Family History Records FoundNo Family History Records Found Advance Directives Latest Code Status on File Code Status [...] Comments 09/01/2022 10:33 AM 09/01/2022 1:54 PM Advance Directive Response Recorded Date/ Time Do you have a Healthcare Power of Freight Loader? No March 22, 2025 11:32pm Chief Complaint and Reason for Visit Chief Complaint Admit Date BACK PAIN March 22, 2025 11:1 2pm Chief Complaint Admit Date BACK PAIN March 22, 2025 11:1 2pm CHEST PAIN March 23, 2025 1:20 am Additional Source Comments INFORMATION SOURCE (unrecogn ized section and content) DATE CREATED AUTHOR 08/20/2019 [facility] DATE CREATED AUTHOR AUTHOR'S ORGANIZ ATION 07/23/2022 [facility] DATE CREATED AUTHOR AUTHOR'S ORGANIZ ATION 07/26/2022 [facility] DATE CREATED AUTHOR AUTHOR'S ORGANIZ ATION 09/01/2022 [facility] DATE CREATED AUTHOR AUTHOR'S ORGANIZ ATION 12/04/2022 [facility] DATE CREATED AUTHOR AUTHOR'S ORGANIZ ATION 12/30/2022 [facility] DATE CREATED AUTHOR AUTHOR'S ORGANIZ ATION 07/14/2023 [facility] DATE CREATED AUTHOR AUTHOR'S ORGANIZ ATION 11/05/2024 [facility] DATE CREATED AUTHOR AUTHOR'S ORGANIZ ATION 11/13/2024 [facility] Reason for Visit (unrecogniz ed section and content) Reason Comments Other Burning and itching in vagina and groin area after getting in hot tube approximately 5 to 6 hours ago. Reason Comments Nutrition Counseling BNA other Specialty Diagnoses / Procedures Referred By Contac t Referred To Contact Diagnoses Morbid (severe) obesity due to excess calories (HCC) Diaphragmatic hernia without obstruction or gangrene Morbid (severe) obesity due to excess calories (HCC) [E66.01] Procedures MT UNLISTED PROCEDURE STOMACH MT GASTRIC RSTCV W/PRTL GASTRECTOMY 50-100 CM MT UNLISTED LAPAROSCOPIC PROCEDURE LIVER MT LAPS RPR PARAESPHGL HRNA INCL FUNDPLSTY W/O MESH ROBOTIC ASSISTED SINGLE ANASTOMOSIS DUODENAL ILEAL BYPASS WITH SLEEVE GASTRECTOMY WITH LIVER WEDGE BIOPSY, HIATAL HERNIA REPAIR POSSIBLE OPEN ROBOTIC (XI) ASSISTED GASTRIC RESTRICTIVE PROCEDURE WITH PARTIAL GASTRECTOMY PYLORUS PRESERVING DUODENOILEOSTOMY AND ILEOILEOSTOMY UNLISTED LAPAROSCOPIC PROCEDURE LIVER Kenny Nugent MD [address] [place] [address] [address] [place] [address] [address] [place] [address] Referral ID Status Reason Start Date Expiration Date Visits Re quested Visits Authorized [id number] 1 1 Reason Comments Weight Management Final pre op Reason Comments Bariatrics Post Op Follow-up 1W Reason Onset Date Comments Post-op Problem 03/07/2023 Constipation 03/07/2023 Reason Comments Bariatrics Post Op Follow-up 1M Specialty Diagnoses / Procedures Referred By Olya t Referred To Contact Sleep Medicine Diagnoses VIKTOR (obstructive sleep apnea) Preoperative clearance Procedures Polysomnography Barbie Lewis DO [address] [facility] [address] [place] [address] [facility] [address] [place] [address] Referral ID Status Reason Start Date Expiration Date Visits Re quested Visits Authorized [id number] Closed 09/01/2022 02/28/2023 1 1 Reason Comments Weight Loss D/E #7 of 6 Reason Onset Date Comments Appointment Request 09/29/2022 Reason Onset Date Comments Abnormal Lab 10/31/2022 Reason Onset Date Comments Nutrition Counseling 10/29/2022 Reason Comments Pre-op Exam Obesity Specialty Diagnoses / Procedures Referred By Olya Referred To Contact Cardiology Diagnoses 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 [address] [address] [facility] [address] Non-Invasive Cardiology [address] [place] [address] Referral ID Status Reason Start Date Expiration Date V isits Requested Visits Authorized [id number] Closed Specialty Services Required 07/12/2022 01/08/2023 1 1 Reason Comments Weight Loss D/E 6/6 Reason Comments Follow-up Reason Comments Yearly Exam Patient Care team informatio n (unrecognized section and content) Shiftman Relationship Specialty Start Date End Date None, Pcp [address] [place] [address] PCP - General 10/29/22 Shiftman Relationship Specialty Start Date End Date None, Pcp [address] [place] [address] PCP - General 10/29/22 12/15/22 Mary Espitiasie [address] [place] [address] PCP - General Nurse Practitioner 12/16/22 Annika Wills, RN Registered Nurse 12/16/22 Shiftman Relationship Specialty Start Date End Date [facility] [address] [place] [address] PCP - General 10/29/22 12/15/22 Heydi, Ana Rosa [address] [place] [address] PCP - General Nurse Practitioner 12/16/22 Annika Wills, RN Registered Nurse 12/16/22 Shiftman Relationship Specialty Start Date End Date Ana Rosa Espitia [address] [place] [address] PCP - General Nurse Practitioner 12/16/22 Annika Wills, RN Registered Nurse 12/16/22 Kenny Nugent MD [address] [phone] Surgeon General Surgery 02/06/23 Shiftman Relationship Specialty Start Date End Date HeydiMaryAna Rosa [address] [place] [address] PCP - General Nurse Practitioner 12/16/22 Annika Wills, RN Registered Nurse 12/16/22 Kenny Nugent MD 95 [facility] [address] [place] [address] [phone] Surgeon General Surgery 02/06/23 Shiftman Relationship Specialty Start Date End Date HeydiMaryAna Rosa [address] [place] [address] PCP - General Nurse Practitioner 12/16/22 Annika Wills, RN Registered Nurse 12/16/22 Kenny Nugent MD [address] [place] [address] [address] [place], [place] [phone] Surgeon General Surgery 02/06/23 Shiftman Relationship Specialty Start Date End Date Ana Rosa Espitia [address] [place] [phone] (Fax) PCP - General Nurse Practitioner 12/16/22 Annika Wills, RN Registered Nurse 12/16/22 Kenny Nugent MD [address] [place] [address] [place] [address] [phone] Surgeon General Surgery 02/06/23 Shiftman Relationship Specialty Start Date End Date Ana Rosa Espitia [address] [place] [phone] (Fax) PCP - General Nurse Practitioner 12/16/22 Annika Wills, RN Registered Nurse 12/16/22 Kenny Nugent MD [address] [place] [address] [phone] Surgeon General Surgery 02/06/23 Shiftman Relationship Specialty Start Date End Date Ana Rosa Espitia [address] [place] [phone] PCP - General Nurse Practitioner 12/16/22 Annika Wills, RN Registered Nurse 12/16/22 Kenny Nugent MD [address] [place] [address] [place] [address] [phone] Surgeon General Surgery 02/06/23 Shiftman Relationship Specialty Start Date End Date Ana Rosa Espitia [address] [place] [id number] PCP - General Nurse Practitioner 12/16/22 Annika Wills, RN Registered Nurse 12/16/22 Kenny Nugent MD 95 [facility] [address] [place] [address] Surgeon General Surgery 02/06/23 Shiftman Relationship Specialty Start Date End Date Ana Rosa Espitia [address] [place] [address] (Fax) PCP - General Nurse Practitioner 12/16/22 Annika Wills, RN Registered Nurse 12/16/22 Kenny Nugent MD [address] [place] [address] [place] [phone] Surgeon General Surgery 02/06/23 Shiftman Relationship Specialty Start Date End Date Ana Rosa Espitia [address] [place] [address] (Fax) PCP - General Nurse Practitioner 12/16/22 Annika Wills, RN Registered Nurse 12/16/22 Kenny Nugent MD [address] [place] [address] [phone] Surgeon General Surgery 02/06/23 Shiftman Relationship Specialty Start Date End Date [facility], [facility] [address] [place] [address] PCP - General 10/29/22 12/15/22 Ana Rosa Espitia [address] [place] [address] (Fax) PCP - General Nurse Practitioner 12/16/22 Annika Wills, RN Registered Nurse 12/16/22 Shiftman Relationship Specialty Start Date End Date None, Pcp [address] [place] [address] PCP - General 10/29/22 Shiftman Relationship Specialty Start Date End Date None, Pcp PCP - General 10/09/22 Shiftman Relationship Specialty Start Date End Date Kianna Cristina [address] PCP - General 03/21/22 10/08/22 None, Pcp [address] [place] [facility] [place] [address] PCP - General 10/29/22 Kianna Crisitna [address] 03/21/22 10/08/22 Shiftman Relationship Specialty Start Date End Date None, Pcp [address] [place] [facility] [place] [address] PCP - General 10/29/22 Shiftman Relationship Specialty Start Date End Date None, Pcp [address] [place] [facility] [place] [address] PCP - General 10/29/22 Shiftman Relationship Specialty Start Date End Date None, Pcp [address] [place] [facility] [place] [address] PCP - General 10/09/22 Shiftman Relationship Specialty Start Date End Date None, Pcp PCP - General 10/09/22 Shiftman Relationship Specialty Start Date End Date None, Pcp PCP - General 10/09/22 Team Status: Active Member Role Status Dates ROMY THOMPSON Primary Care Provider Active Team Status: Inactive Member Role Status Dates Dr. Winnie Gar , Emergency Provider Active Start: March 22, 2025 End: March 23, 2025 ROMY THOMPSON Primary Care Provider Active Start: March 22, 2025 End: March 23, 2025 Team Status: Inactive Member Role Status Dates ROMY THOMPSON Primary Care Provider Active Start: March 23, 2025 End: March 23, 2025 Dr. Maverick Bonner , Emergency Provider Active Start: March 23, 2025 End: March 23, 2025 Scheduled Active and Recently Administ ered Medications [...] 2,000 mg, IntraVENous, Administer over 30 Minutes, Carpet Cutter to O.R., On Thu02/26/23 at 0600, For 1 dose, Preprocedure, Administer within 1 hour prior to incision. Repeat in 3-4 hours after initial dose if still intra-op. Default Settings:Auto-dosed by Weight Carpet Cutter to O.R x 1 dose Auto-dosed: Pt Wt<119.9kg-2gm, >120kg-3gm premix bag, Suspected Indication (Select all that apply): Surgical Prophylaxis 0739 (Given - Provider: Deion Huntley APRN - COMMERCIAL LENDING ASSISTANT) celecoxib (CeleBREX) capsule 400 mg (COMPLETED) 400 [...] 2054 (Given - Provider: Regina Garcia RN) 922 (Given - Provider: Lori Banuelos, JUNIOR) famotidine (Pepcid) tablet 20 mg (COMPLETED) 20 mg, Oral, Once, On Thu02/26/23 at 0600, For 1 dose, Preprocedure 0556 (Given - Provider: Qian Tadeo RN) famotidine (Pepcid) tablet 20 mg 20 mg, Oral, 2 times daily, First dose on Thu02/27/23 at 0900 922 (Given - Provid er: Lori Banuelos RN) gabapentin (Neurontin) capsule 100 mg (COMPLETED) 100 mg, Oral, Once, On Thu02/26/23 at 0600, For 1 dose, Preprocedure, For Age >69 or Low GFR. 05 (Given - Provider: Qian Tadeo RN) heparin injection 5,000 Units (COMPLETED) 5,000 Units, SubCUTAneous, Once, On Thu02/26/23 at 0600, For 1 dose, Preprocedure 0556 (Given - Provider: Qian Tadeo RN) ketorolac (Toradol) injection 15 mg 15 mg, IntraVENous, Every 6 hours scheduled (4 times per day), First dose on Thu02/26/23 at 1800, For 5 doses 1730 (Given - Provider: Jim Young RN) 0001 (Given - Provider: Regina Garcia RN)0553 (Given - Provider: Regina Garcia RN)1200 (Given - Provider: Lori Banuelos, JUNIOR) pantoprazole (ProtoNix) injection 40 mg (CANCELED) 40 mg, IntraVENous, Administer over 2 Minutes, Nightly, First dose on Thu02/26/23 at 2100, Give only if unable to tolerate po. 2054 (Given - Provider: Regina Garcia RN) promethazine (Phenergan) injection 12.5 mg (COMPLETED) 12.5 mg, IntraMUSCular, Once, On Skylar 02/26/23 at 1515, For 1 dose, Only to be given as IM injection. 152 (Given - Provider: Jim Young RN) sodium chloride 0.9% (NS) flush 10 mL 10 mL, IntraVENous, Every 12 hours scheduled (2 times per day), First dose on Skylar 02/26/23 at 2100, Phase II/On Unit 2054 (Given - Provider: Regina Garcia RN) 0900 (Not Given - Provider: Lroi Banuelos, RN - Reason: IV Fluids Infusing) Continuous Medication [...] Ayala CRNA)1118 (Anesthesia Volume Adjustment - Provider: GAB Ayala CRNA)1548 (Stopped - Provider: Jim Young RN) sodium chloride 0.45 % with KCl 20 mEq/L infusion 75 mL/hr, IntraVENous, Continuous, Starting on Skylar 02/26/23 at 1445 1521 (New Bag - Provider: Jim Young RN) 0003 (New Bag - Provider: Regina Garcia RN)0742 (Rate/Dose Change - Provider: Lori Baunelos, JUNIOR)0923 (New Bag - Provider: Lori Banuelos, JUNIOR) [...] and notify provider. 0855 (Given - Provider: Deion Huntley APRN - COMMERCIAL LENDING ASSISTANT - Comment: psr) LORazepam (Ativan) injection 0.5 [...] Jim Young RN)1729 (Given - Provider: Jim Young RN) ondansetron (Zofran) injection 4 mg (COMPLETED) [...] mg from all sources in 24 hours. 0923 (Given - Provid er: Lori Banuelos RN) oxyCODONE-acetaminophen (Percocet) 5-325 MG per tablet 2 tablet(Linked Group 3) 2 tablet, Oral, Every 4 hours PRN, severe pain (7-10), Starting on Thu02/27/23 at 0851, Maximum dose of acetaminophen is 4000 mg from all sources in 24 hours. 0923 (See Alternativ e - Provider: Lori Banuelos, JUNIOR) sodium chloride 0.9 % bolus 500 mL (CANCELED) 500 mL, IntraVENous, at 1,000 mL/hr, Administer over 0.5 Hours, PRN, Anti-nausea, Starting on Thu02/26/23 at 1141, Recovery (only), Indications: Anti-nausea 1245 (New Bag - Provider: Samara Manning RN)1600 (Stopped - Provider: Jim Young RN - Comment: was not running on arrival.) sodium chloride 0.9 % infusion 5-250 mL/hr, IntraVENous, PRN, if patient receiving piggyback infusions and maintenance fluids are not ordered OR KVO fluids to protect IV site / prevent frequent line interruptions/ long duration, Starting on Thu02/26/23 at 1427, Phase II/On Unit, For piggyback [...] irrigation solution (CANCELED) As needed, Starting on Thu02/26/23 at 0723, Intraprocedure 0723 (Given - Provider: Kenny Nugent MD)1119 (Given - Provider: Kenny Nugent MD) sodium chloride 0.9% (NS) flush 10 mL 10 mL, IntraVENous, PRN, line care, Starting on Thu02/26/23 at 1427, Phase II/On Unit, After every IV line use sterile water irrigation solution (CANCELED) As needed, Starting on Thu02/26/23 at 0724, Intraprocedure 0724 (Given - Provider: [...] or prosecute any alcohol or drug abuse patient.[facility] Goals (unrecognized section and content) Goals may be documented in a n alternate section FOR RECORDS PERTAINING TO PATIENTS WHO ARE [...] BE BASED ON THE PRIMARY CLINICAL RECORDS. COM DEV [facility]. provides no warranty or guarantee of the accuracy or completeness of information in this document.
--- NOTE | 2025-03-23 06:35 | CT_ITS ---
PROCEDURE: CTA CHST, ABD, PEL W AND/OR WO 03/23/2025 REASON FOR EXAM: BACK PAIN TECHNIQUE: CTA CHST, ABD, PEL W AND/OR WO coronal and Sagittal reconstruction series were provided. One or more dose reduction techniques were used (e.g., Automated exposure control, adjustment of the mA and/or kV according to patient size, use of iterative reconstruction technique. CONTRAST: Isovue-370 VOLUME: 100 mL RADIATION DOSE SUMMARY: CTDlvol: 19.65 mGy DLP: 1330.49 mGy mGycm COMPARISON: 09/19/2024. FINDINGS: Small sliding hiatal hernia. Surgical changes of the stomach. Diffuse thickening of the stomach suggestive of gastritis. Prior cholecystectomy. Prior hysterectomy. Normal enhancement of the main pulmonary artery and right and left pulmonary arteries. Normal enhancement of the bilateral peripheral pulmonary arteries. There is no demonstrated pulmonary embolism. Normal thoracic aorta and visualized great vessels. There is no demonstrated aortic dissection. Normal heart and pericardium. Normal mediastinum. Normal hilar regions. Normal visualized trachea and bronchi. The lungs are well expanded. Normal pulmonary parenchyma. Normal pleura. Normal liver. Normal extrahepatic biliary system. Normal spleen. Normal pancreas. Normal bilateral adrenal glands. Normal size of the right kidney. There is no right renal mass. There are no right renal calculi. There is no right hydronephrosis. Normal visualized right ureter. Normal size of the left kidney. There is no left renal mass. There are no left renal calculi. There is no left hydronephrosis. Normal visualized left ureter. Normal small intestine. Normal colon. The appendix is visualized and appears normal. There is no demonstrated peritoneal fluid. Normal abdominal aorta. Normal inferior vena cava. Normal retroperitoneum. Normal urinary bladder. There is no pelvic mass lesion or lymphadenopathy. There is no pelvic fluid. Normal abdominal wall. Normal osseous structures. CT/CTA Chst, Abd, Pel W and/or WO IMPRESSION: Small sliding hiatal hernia. Surgical changes of the stomach. Diffuse thickening of the stomach suggestive of gastritis. Prior cholecystectomy. Prior hysterectomy. Normal enhancement of the main pulmonary artery and right and left pulmonary ar teries. Normal enhancement of the bilateral peripheral pulmonary arteries. There is no demonstrated pulmonary embolism. Normal thoracic aorta and visualized great vessels. There is no demonstrated aortic dissection. Reading Location[facility]
[2025-03-23 07:11] LABS: AST(SGOT) 60 U/L (<=31); Alanine Aminotransfer ALT/SGPT 38 U/L (<=34); Albumin, Serum 4.2 g/dL (3.5-5.0); Alkaline Phosphatase 76 U/L (35-104); Anion Gap 15 (5-15); BUN 11 mg/dL (4-19); BUN/Creat Ratio 16.7 RATIO (10-20); Bilirubin, Direct 0.11 mg/dL (0.00-0.30); Calcium,Total 9.2 mg/dL (7.6-11.0); Carbon Dioxide 20.1 mmol/L (21.0-32.0); Chloride 106 mmol/L (98-108); Creatinine, Serum 0.67 mg/dL (0.70-1.20); EST Glomerular Filtration Rate 110 (>60); Globulin 3.1 g/dL (2.2-4.2); Glucose 128 mg/dL (70-99); Lipase 31 U/L (13-75); Potassium 3.5 mmol/L (3.3-5.1); Protein, Total 7.3 g/dL (5.9-8.4); Sodium Level 141 mmol/L (133-145); Troponin T High Sensitivity < 6 ng/L (<=14)
[2025-03-23 07:23] LABS: Hematocrit 40.7 % (37-47); Hemoglobin 13.8 g/dL (12.0-15.0); Mean Corp Hgb Conc 33.9 g/dL (32-36); Mean Corpuscular Hgb 29.8 pg (27.0-32.0); Mean Corpuscular Volume 87.9 fL (81-99); Mean Platelet Vol. 9.2 fl (6.2-12.0); Platelet Count 325 K/mm3 (150-450); RBC Distribution Width CV 12.1 % (11.6-14.6); Red Blood Count 4.63 M/mm3 (4.2-5.4); White Blood Count 10.3 K/mm3 (4.4-11.0)
[2025-03-23 10:09] LABS: Partial Thromboplast Time 25.8 Seconds (24.1-36.2); Prothrombin Time (Protime)PT. 13.4 SECONDS (11.7-14.9)
--- NOTE | 2025-03-26 04:35 | EX.ED.DYSGE1 ---
HPI History of Present Illness Informant: patient and spouse/S.O. Narrative Narrative: Patient is a 44-year-old female who was recently seen in the ER this evening secondary to persistent back pain after a fall recently. At that time it was felt the pain was most likely due to back spasm and was musculoskeletal and she was feeling better after medication that was provided and therefore was discharged. Patient states that she was able to climb up into the truck and then after getting situated had sudden onset of pain. She states that the pain was more in the chest region than the back and was more intense than the initial back pain that brought her in earlier this evening. Secondary to the recurrent pain she presents for reevaluation [facility] Home Medications ?Medication ?Instructions ?Recorded ?Last Taken ?Type Control 1 tab DAILY 09/15/16 Unknown History oxycodone-acetaminophen 5 mg-325 1 - 2 tab PO Q4H PRN PRN Pain #12 09/15/16 Unknown Rx mg tablet tabs sulfamethoxazole 800 1 tab PO BID ##6 09/15/16 Unknown Rx mg-trimethoprim 160 mg tablet ondansetron 4 mg disintegrating 4 mg PO Q6H PRN nausea and 09/19/24 Unknown Rx tablet vomiting #10 tabs oxycodone-acetaminophen 5 mg-325 1 tab PO Q4H PRN pain 3 days #14 09/19/24 Unknown Rx mg tablet (Percocet) tabs cyclobenzaprine 10 mg tablet 10 mg PO TID PRN Muscle Spasm #20 03/23/25 Unknown Rx TABLETS Allergy/AdvReac Type Severity Reaction Status Date / Time hydromorphone (From Dilaudid) AdvReac VIOLENT Verified 03/22/25 23:13 BEHAVIOR ibuprofen AdvReac BARIATRIC Verified 03/22/25 23:13 SURGERY Surgical History Gastric bypass status for obesity Social History Smoking Status: Never smoker ROS ROS ED Constitutional Constitutional ED: Denies chills or fever(s) Eyes Eyes: Denies blurry vision or change in vision ENT ENT ED: Denies sore throat Cardiovascular Cardiovascular: Reports chest pain; Denies palpitations or racing heartbeat Respiratory/Chest Respiratory/Chest: Denies cough or dyspnea Gastrointestinal Gastrointestinal: Reports nausea; Denies abdominal pain, diarrhea or vomiting Genitourinary Genitourinary ED: Denies dysuria, hematuria or urinary frequency Musculoskeletal Musculoskeletal: Reports back pain Integumentary Denies rash Neurologic Neurologic: Denies headache(s) Hematologic/Lymphatic Hematologic/Lymphatic: Denies easy bleeding or easy bruising EXAM Physical Exam Const Positive well nourished and well developed General Appearance ED: well developed; Negative for pallor HEENT HEENT Narrative: Normocephalic atraumatic Eyes PERRL and EOMs intact bilaterally General Eye ED: Negative for scleral icterus Neck supple and no JVD Neck Narrative: No nuchal rigidity or meningeal signs Chest Wall Chest Narrative: There is mild reproducible lower midsternal chest pain with palpation No bony deformity or crepitance noted Resp normal respiratory effort and clear to auscultation bilaterally Resp Narrative: Breath sounds are diminished throughout but overall clear to auscultation without signs of respiratory distress Cardio regular rate and regular rhythm Rate: other Other Details: Heart is regular rate and rhythm without murmurs rubs or gallops Radial and carotid pulses are equal and symmetric GI non-distended and no masses GI Narrative: Abdomen is soft and nondistended with hypoactive bowel sounds. There is pain with palpation in the midepigastric region without voluntary guarding or rigidity. No pulsatile mass or fluid wave Auscultation: hypoactive bowel sounds Palpation: soft Back/Spine Back/Spine Narrative: No bony deformity or step-off of the thoracic or lumbar spine There is paralumbar tension and spasm noted No overlying soft tissue changes to suggest trauma or infection Extremity normal to inspection Extremity Narrative: No asymmetric edema no pitting edema negative Homans' sign bilaterally Neuro oriented x3, CN's II-XII intact bilaterally and no sensory deficits noted Sensorium / Orientation: alert Motor Exam: strength 5/5 throughout Psych Mood & Affect: anxious and tearful Skin no rashes or lesions noted General Skin Exam: Negative for jaundice or pallor MDM MDM MDM Narrative Medical decision making narrative: Patient return to the ER complaining of chest and upper abdominal discomfort but also has back pain that she was recently seen for. With the sudden onset it could be related to acute coronary syndrome so an EKG was obtained which showed no signs of ischemia. Based on the location of the pain the patient could be having a atypical presentation for PE or dissection or even acute pancreatitis. Therefore basic labs were obtained as well as a CTA of the chest abdomen and pelvis. Labs revealed no clinically significant findings. CTA revealed no PE or dissection or signs of intestinal infection. After receiving treatment in the ER the patient had near resolution of pain. Therefore his PE and dissection have been ruled out by CTA the patient's troponin is not elevated going against ACS and her symptoms have improved I feel this is most likely musculoskeletal and she is otherwise safe for discharge History & Record Review Discussion w/independent historian: Patient and Significant other Radiography Diagnostic Testing: Clinical Impression(s) from Imaging Studies Chest/Abdomen/Pelvis CTA 03/23/25 06:35 IMPRESSION: Small sliding hiatal hernia. Surgical changes of the stomach. Diffuse thickening of the stomach suggestive of gastritis. Prior cholecystectomy. Prior hysterectomy. Normal enhancement of the main pulmonary artery and right and left pulmonary arteries. Normal enhancement of the bilateral peripheral pulmonary arteries. There is no demonstrated pulmonary embolism. Normal thoracic aorta and visualized great vessels. There is no demonstrated aortic dissection. Reading Location[facility] Discharge Plan Triage ED Provider: Maverick Bonner Dx/Rx/DC Orders Clinical Impression: Nonspecific chest pain, Back muscle spasm, History of gastric bypass Prescriptions: No Action Control 1 tab DAILY sulfamethoxazole-trimethoprim 1 TABLET tablet 1 tab PO BID Qty: 6 0RF oxycodone-acetaminophen 1 TABLET tablet 1 - 2 tab PO Q4H PRN PRN (Reason: Pain) Qty: 12 0RF oxycodone-acetaminophen [Percocet] 5-325 mg tablet 1 tab PO Q4H PRN (Reason: pain) 3 Days Qty: 14 0RF ondansetron 4 mg tablet,disintegrating 4 mg PO Q6H PRN (Reason: nausea and vomiting) Qty: 10 0RF cyclobenzaprine 10 mg tablet 10 mg PO TID PRN (Reason: Muscle Spasm) Qty: 20 0RF Primary Care Provider: MICHELLE BALBUENA Print Language: Georgian Disposition Disposition: Home, Self Care Discharge Date/Time: 03/23/25 03:40
== END 2025-03-23 03:40 | disposition home or self-care (01) ==
LOC: ED 05:12
PROVIDERS: Emergency Provider Emergency Medicine; PCP Nurse Practitioner Adult Health; Visit Provider Emergency Medicine
DX: R07.9 Chest pain, unspecified (principal); M54.9 Dorsalgia, unspecified; M62.830 Muscle spasm of back
CPT/HCPCS: 71275; 74174; 80048; 80076; 83690; 84484; 85027; 85610; 85730; 93005; Q9967; A4216; J2405